=== PATIENT | male | born 1945 | race Caucasian/White ===

== ENCOUNTER → 2016-11-08 | Outpatient (CLI) | payer OTHER, MEDICARE ==
[~2016-11-08] MED LIST: ACET-749 PO; AMLO2.5T PO; AMOX875T PO; CEPH500C PO; FURO40TA3 PO; HYDR-5688 PO; LOSA1TAB38 PO; LTHSR/300 PO; LZL25 PO; NAPR-1168 PO; PEGSOL13; RMR15 PO; SPIR25TA PO; ULT50X PO; VST25HP PO; XRL15 PO; [UNRECOGNIZED DRUG - OTHER] INJ
--- NOTE | 2016-11-08 09:25 | DIAGNOSTIC IMAGING REPORT ---
ABDOMINAL ULTRASOUND COMPLETE HISTORY: Generalized abdominal pain.. COMPARISON: Abdominal ultrasound 01/03/2016. FINDINGS: Pancreas: Obscured by overlying bowel gas. Liver: The liver is echogenic consistent with fatty change. Gallbladder: No gallbladder wall thickening. No gallstones. CBD: 4 mm. Kidneys: No hydronephrosis. A 1.9 cm cyst within the left kidney containing a septation. This remains unchanged. There is no additional subcentimeter cyst within the left kidney. Spleen: Top normal in size measuring 12.9 cm in length. 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 IVC: Patent. IMPRESSION: 1. Hepatic steatosis. 2. There are 2 cysts within the left kidney with the largest measuring 1.9 cm. This is stable in size. 3. 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 4. The pancreas was obscured by overlying bowel gas. 5. Normal gallbladder. 6. The spleen is top normal in size. Electronically signed by: Micheal Villa M.D. 11/08/2016 9:23 AM Dictated Date/Time: 11/08/2016 9:19 AM
[2016-11-08 09:46] LABS: BASO % 0.1 %; BASO ABS # 0.01 K/uL (0-0.2); COMPLETE YES; EOS % 3.4 %; HEMATOCRIT 48.8 % (42-52); IG% 0.3 %; LYMPH % 19.8 %; LYMPH ABS # 1.46 K/uL (1.2-3.4); MEAN CELL VOLUME 84.7 fL (80-100); MEAN CORPUSCULAR HEMOGLOBIN 26.9 pg (25-34); MEAN CORPUSCULAR HGB CONC 31.8 g/dl (32-36); MONO % 11.1 %; NEUT % 65.3 %; PLATELET COUNT 197 K/uL (130-400); RED BLOOD COUNT 5.76 M/uL (4.7-6.1); WHITE BLOOD COUNT 7.38 K/uL (4.8-10.8)
[2016-11-08 10:00] LABS: AST/SGOT 13 U/L (15-37); BLOOD UREA NITROGEN 25 mg/dl (7-18); BUN/CREATININE RATIO 20.5 (10-20); CALCIUM 8.4 mg/dl (8.5-10.1); CARBON DIOXIDE 26 mmol/L (21-32); CHLORIDE 108 mmol/L (98-107); CHOLESTEROL 221 mg/dl (0-200); CHOLESTEROL/HDL RATIO 5.1; GLUCOSE 100 mg/dl (70-99); HDL CHOLESTEROL 43 mg/dl; POTASSIUM 4.1 mmol/L (3.5-5.1); SODIUM 143 mmol/L (136-145)
[2016-11-08 10:12] LABS: ALB/GLOB RATIO 1.1 (0.9-2); ALKALINE PHOSPHATASE 98 U/L (45-117); ALT/SGPT 28 U/L (12-78); LDL CHOLESTEROL CALCULATED 154 mg/dl; PHOSPHORUS 2.8 mg/dl (2.5-4.9); TRIGLYCERIDES 121 mg/dl (0-150); URIC ACID 7.3 mg/dl (2.6-7.2); VERY LOW DENSITY LIPOPROT CALC 24 mg/dl
[2016-11-08 10:25] LABS: ESTIMATED AVERAGE GLUCOSE 126 mg/dl; HA1C FLAG Normal (Normal)
[2016-11-11 12:07] LABS: C-REACTIVE PROT HIGHSEN 3.2 MG/L
--- NOTE | 2016-11-13 07:41 | CODING QUERY MEDICAL NECESSITY ---
SUPPORTING DIAGNOSIS NEEDED A supporting diagnosis is required for the test/procedure performed on this patient in order for us to be reimbursed by the patient's insurance. Please provide a supporting diagnosis for the following test/procedure listed below next to the test name along with your signature. *If there is no additional diagnosis for this patient that would support the following test/procedure please document that below next to the test/procedure. Test(s)/Procedure(s) that require a supporting diagnosis: * VITAMIN D 25-HYDROXY DIAGNOSIS: * VITAMIN B-12 LEVEL DIAGNOSIS: * PSA DIAGNOSIS: * C-REACTIVE PROTEIN DIAGNOSIS: * DOS: 11/08/16 Provider Signature: Date: Thank you Padma [facility] Information Management Once completed, please kindly fax back to [phone] For questions please call [phone]
[2016-11-14 00:57] LABS: 18KDIGG BAND NONREACTIVE (NONREACTIVE); 23KDIGG BAND NONREACTIVE (NONREACTIVE); 23KDIGM BAND NONREACTIVE (NONREACTIVE); 28KDIGG BAND NONREACTIVE (NONREACTIVE); 30KDIGG BAND NONREACTIVE (NONREACTIVE); 39KDIGG BAND NONREACTIVE (NONREACTIVE); 39KDIGM BAND NONREACTIVE (NONREACTIVE); 41KDIGG BAND REACTIVE (NONREACTIVE); 41KDIGM BAND NONREACTIVE (NONREACTIVE); 45KDIGG BAND NONREACTIVE (NONREACTIVE); 58KDIGG BAND NONREACTIVE (NONREACTIVE); 66KDIGG BAND NONREACTIVE (NONREACTIVE); 93KDIGG BAND NONREACTIVE (NONREACTIVE)
== END | disposition home or self-care (01) ==
LOC: C.ULTR 08:11
PROVIDERS: ATTEND Family Medicine
DX: R10.9 Unspecified abdominal pain (principal); R73.09 Other abnormal glucose; C41.9 Malignant neoplasm of bone and articular cartilage, unspecified; R06.00 Dyspnea, unspecified; A69.20 Lyme disease, unspecified; K76.0 Fatty (change of) liver, not elsewhere classified; N28.1 Cyst of kidney, acquired; E55.9 Vitamin D deficiency, unspecified; D51.9 Vitamin B12 deficiency anemia, unspecified; N40.0 Benign prostatic hyperplasia without lower urinary tract symptoms; I42.2 Other hypertrophic cardiomyopathy

== ENCOUNTER → 2016-11-11 | Day surgery (SDC) | payer OTHER, MEDICARE ==
[2016-11-06 07:38] VITALS: BMI 46.0
[~2016-11-11] VITALS: Ht 170.2 cm; Wt 134.1 kg
[~2016-11-11] MED LIST changes: +LIDOCAINE HCL 2% 2 ML VIAL (20MG/ML) ONE; +PROPOFOL IV EMULSION 10 MG/ML 20 ML VIAL IV ONE
[2016-11-11 12:09] VITALS: Ht 170.2 cm; Wt 134.1 kg
[2016-11-11 12:15] VITALS: BMI 46.0
[2016-11-11 12:18] VITALS: TEMP 36.8
--- NOTE | 2016-11-11 13:13 | Endo History and Physical ---
History & Physical Date of Service: Nov 11, 2016. Chief Complaint: Hx polyps Referring Physician: none History of Present Illness For colonoscopy Past Surgical History Hx Cardiac Surgery: No Hx Internal Defibrillator: No Hx Pacemaker: No Hx Abdominal Surgery: No Hx of Implantable Prosthesis: No Hx Post-Op Nausea and Vomiting: No Hx Cancer Surgery: No Hx Thoracic Surgery: No Hx Orthopedic: No Hx Urinary Tract Surgery: No Family History IBD Social History Smoking Status: Former Smoker Hx Substance Use: No Hx Alcohol Use: No Allergies Coded Allergies: No Known Allergies (Verified , 11/11/16) Current Medications Reported Home Medications Medications Dose Route/Sig Max Daily Dose Days Date Category Norvasc (Amlodipine Besylate) 2.5 Mg Tab 2.5 Mg PO QAM 11/06/16 Reported Cozaar (Losartan Potassium) 100 Mg Tab 100 Mg PO QAM 11/06/16 Reported Aldactone (Spironolactone) 25 Mg Tab 25 Mg PO QAM 11/06/16 Reported Naprosyn Ds (Naproxen) 550 Mg Tab 550 Mg PO BID PRN 11/06/16 Reported Indapamide 2.5 Mg Tab 1 Tab PO QAM 11/06/16 Reported Vital Signs Weight (Kilograms): 134.09 Height (Feet): 5 Height (Inches): 7 Date Time Temp Pulse Resp B/P Pulse Ox O2 Delivery O2 Flow Rate FiO2 11/11/16 12:18 36.8 82 20 160/72 95 Room Air Physical Exam General Appearance: + obese Respiratory/Chest: Respiratory effort: no dyspnea Cardiovascular: Heart Auscultation: RRR Abdomen: Inspection & Palpation: soft Assessment and Plan Hx of polyps for colonoscopy
--- NOTE | 2016-11-11 13:19 | Discharge Instructions ---
Endoscopy Patient Instructions Date / Procedure(s) Performed Nov 11, 2016. Colonoscopy Allergy Information Coded Allergies: No Known Allergies (Verified , 11/11/16) Discharge Date / Findings Nov 11, 2016. hemorrhoids Medication Instructions Restart Stopped Medication(s): resume meds Reported Home Medications Medications Dose Route/Sig Max Daily Dose Days Date Category Norvasc (Amlodipine Besylate) 2.5 Mg Tab 2.5 Mg PO QAM 11/06/16 Reported Cozaar (Losartan Potassium) 100 Mg Tab 100 Mg PO QAM 11/06/16 Reported Aldactone (Spironolactone) 25 Mg Tab 25 Mg PO QAM 11/06/16 Reported Naprosyn Ds (Naproxen) 550 Mg Tab 550 Mg PO BID PRN 11/06/16 Reported Indapamide 2.5 Mg Tab 1 Tab PO QAM 11/06/16 Reported Provider Instructions Activity Restrictions - No exercising or heavy lifting for 24 hours. - Do not drink alcohol the day of the procedure. - Do not drive a car or operate machinery until the day after the procedure. - Do not make any important decisions or sign important papers in 24 hours after the procedure. Following Day: - Return to full activity which may include returning to work/school. Diet Start your diet with liquids and light foods (jello, soup, juice, toast). Then eat your usual diet if not nauseated. Treatment For Common After Affects For mild abdominal pain, bloating, or excessive gas: - Rest - Eat lightly - Lie on right side Follow-Up Information Follow-up with none as scheduled Anesthesia Information What You Should Know You have had a procedure that required some medicine to reduce anxiety and discomfort. This treatment is called moderate sedation. After receiving the treatment, you may be sleepy, but you will be able to breathe on your own. The effects of the treatment may last for several hours. Follow these instructions along with Activity/Diet recommendations noted above: * Do NOT do anything where dizziness or clumsiness would be dangerous. * Rest quietly at home today, then you can be up and about tomorrow. * Have a responsible person stay with you the rest of today. * You may have had an I.V. today. If so, you may take the dressing off later today. Recommendations Call your doctor if: * Trouble breathing * Continuous vomiting for more than 24 hours * Temperature above 101 degrees * Severe abdominal pain or bloating * Pain not relieved by pain medicine ordered * There is increased drainage or redness from any incision * A large amount of rectal bleeding greater than 2-3 tablespoons. (If you had a polyp/s removed or have hemorrhoids, a small amount of blood - from the rectum is to be expected.) * You have any unanswered questions or concerns. IN THE EVENT OF A SERIOUS EMERGENCY, GO TO THE NEAREST EMERGENCY ROOM Your discharge instructions were prepared by provider Joaquin Kearns. Patient Instructions Signature Page Cam Singletary Patient (or Guardian) Signature/Date: I have read and understand the instructions given to me by my caregivers. Caregiver/RN/Doctor Signature/Date: The above-named patient and/or guardian has received patient instructions on this date. + Original Patient Signature Page (only) stays with chart. Please make copy for patient.
--- NOTE | 2016-11-11 13:22 | GI REPORT ---
Procedure Date: 11/11/2016 12:56 PM Procedure: Colonoscopy Indications: Personal history of colonic polyps Medicines: Propofol total dose 320 mg IV, Lidocaine 40 mg IV Complications: No immediate complications. Estimated Blood Loss: Estimated blood loss: none. Procedure: Pre-Anesthesia Assessment: - Prior to the procedure, a History and Physical was performed, and patient medications, allergies and sensitivities were reviewed. The patient's tolerance of previous anesthesia was reviewed. - The risks and benefits of the procedure and the sedation options and risks were discussed with the patient. All questions were answered and informed consent was obtained. After I obtained informed consent, the scope was passed under direct vision. Throughout the procedure, the patient's blood pressure, pulse, and oxygen saturations were monitored continuously. The scope was introduced through the anus and advanced to the cecum, identified by appendiceal orifice and ileocecal valve. The colonoscopy was performed without difficulty. The patient tolerated the procedure well. The quality of the bowel preparation was fair. Findings: Non-bleeding internal hemorrhoids were found during endoscopy. The hemorrhoids were mild. Impression: - Non-bleeding internal hemorrhoids. - No specimens collected. Recommendation: - Discharge patient to home (ambulatory). - Continue present medications. - Repeat colonoscopy in 5 years for surveillance. - Return to primary care physician PRN. Joaquin Kearns M.D. Joaquin Kearns MD 11/11/2016 1:23:05 PM This report has been signed electronically. Note Initiated On: 11/11/2016 12:56 PM I attest to the content of the Intraoperative Record and orders documented therein, exceptions below
[2016-11-11 13:45] VITALS: BP 107/65; PULSE 76; O2SAT 97
--- NOTE | 2016-11-11 13:46 | Anesthesiology Progress Note ---
Anesthesia Post Op Note Date & Time Nov 11, 2016 at 13:46 Vital Signs Pain Intensity: 0 Vital Signs Past 12 Hours Date Time Temp Pulse Resp B/P Pulse Ox O2 Delivery O2 Flow Rate FiO2 11/11/16 13:30 81 16 112/56 96 Room Air 11/11/16 13:15 82 16 114/66 98 Mask 10 11/11/16 12:18 36.8 82 20 160/72 95 Room Air Notes Mental Status: alert / awake / arousable, participated in evaluation Pt Amnestic to Procedure: Yes Nausea / Vomiting: adequately controlled Pain: adequately controlled Airway Patency, RR, SpO2: stable & adequate BP & HR: stable & adequate Hydration State: stable & adequate Anesthetic Complications: no major complications apparent
== END | disposition home or self-care (01) ==
LOC: C.GI 11:57
PROVIDERS: ATTEND Internal Medicine Gastroenterology
DX: Z12.11 Encounter for screening for malignant neoplasm of colon (principal); Z86.010 Personal history of colon polyps; K64.8 Other hemorrhoids; Z83.79 Family history of other diseases of the digestive system; Z87.891 Personal history of nicotine dependence

== ENCOUNTER 2016-12-07 13:09 | Emergency (ER) | payer OTHER, MEDICARE ==
[~2016-12-07] VITALS: Ht 170.2 cm; Wt 135.0 kg
[~2016-12-07 13:09] MED LIST changes: -ACET-749 PO; -AMOX875T PO; -CEPH500C PO; -FURO40TA3 PO; -HYDR-5688 PO; -LIDOCAINE HCL 2% 2 ML VIAL (20MG/ML) ONE; -LTHSR/300 PO; -PEGSOL13; -PROPOFOL IV EMULSION 10 MG/ML 20 ML VIAL IV ONE; -RMR15 PO; -ULT50X PO; -VST25HP PO; -XRL15 PO; -[UNRECOGNIZED DRUG - OTHER] INJ
[2016-12-07 13:14] VITALS: TEMP 36.5; Ht 170.2 cm; Wt 135.0 kg
[2016-12-07] MEDS ORDERED: XYLOCAINE 1%/SOD BICARB 20 ML VIAL INFIL ONE (13:30)
[2016-12-07] MEDS ORDERED: AMOX875T PO (13:52)
[2016-12-07] MEDS ORDERED: LTHSR/300 PO (13:52)
[2016-12-07] MEDS ORDERED: RMR15 PO (13:52)
[2016-12-07] MEDS ORDERED: VST25HP PO (13:52)
[2016-12-07] MEDS ORDERED: [UNRECOGNIZED DRUG - OTHER] INJ (13:52)
[2016-12-07] MEDS ORDERED: ACET-749 PO (13:52)
[2016-12-07] MEDS ORDERED: LZL25 PO (13:56)
[2016-12-07] MEDS ORDERED: AMLO2.5T PO (13:56)
[2016-12-07] MEDS ORDERED: NAPR-1168 PO (13:56)
[2016-12-07] MEDS ORDERED: LOSA1TAB38 PO (13:56)
[2016-12-07] MEDS ORDERED: SPIR25TA PO (13:56)
[2016-12-07] MEDS ORDERED: DIPHTHERIA/TETANUS/PERTUSSIS 0.5 ML SYR/VIAL IM. ONE (14:30)
[2016-12-07] MEDS ORDERED: CEPHALEXIN MONOHYDRATE 250 MG CAP PO ONE (14:30)
[2016-12-07] MEDS ORDERED: HYDR-5688 PO (14:53)
[2016-12-07] MEDS ORDERED: CEPH500C PO (14:53)
[2016-12-07] MEDS ORDERED: CEFAZOLIN SOD 1 GM VIAL IM ONE (15:00)
[2016-12-07] MEDS ORDERED: WATER, STERILE FOR INJ 10 ML VIAL ONE (15:02)
[2016-12-07 15:39] VITALS: BP 136/86; PULSE 86; O2SAT 97
--- NOTE | 2016-12-07 17:22 | EMERGENCY ROOM VISIT NOTE ---
ED Visit Note First contact with patient: 13:19 Chief complaint: Right index and long finger lacerations HPI: This 71-year-old white male presents for evaluation of a laceration on the dorsal aspect of his right index and long fingers. The patient was using a table saw to cut a piece of [place] this afternoon. The saw kicked and pulled his hand into the blade. He sustained a near amputation of his index finger and a laceration on the dorsum of the long finger. Bleeding was controlled with pressure. He denies any numbness or tingling. He notes loss of motion in the index finger. [id number]. No other complaints. Tetanus is believed to be out of date. Pain is 6/10. His accompanies him today. Supplemental sheet was not completed. Previous surgeries: Cataract surgery, colonoscopy Medical history: Significant for heart disease, hypertension, and obesity. 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 . No tobacco use. REVIEW OF SYSTEM: HEENT: No dizziness, visual problems, hearing loss, or tinnitus. There is no difficulty swallowing and no oral lesions are present. LYMPH: No adenopathy. PULMONARY: No cough, shortness of breath, sputum production or hemoptysis. CARDIOVASCULAR: No chest pain, palpitations, shortness of breath or peripheral edema. GASTROINTESTINAL: No diarrhea, constipation, nausea, vomiting, or abdominal pain. GENITOURINARY: No dysuria, frequency, urgency or nocturia. NEUROLOGIC: No weakness, muscle tenderness, epilepsy or history of neurological problems. MUSCULOSKELETAL: No history of joint tenderness/swelling. No history of arthritis or arthralgias. SKIN: No rashes or lesions. PSYCHIATRIC: No history of depression or mental illness. ENDOCRINE: No history of diabetes, thyroid disorders, or abnormal hair growth. Physical Exam: Vitals: Afebrile. Reviewed and filed in patient's chart General: Well-developed, well-nourished, elderly white male, in no acute distress. Obvious discomfort. He is sitting on the bed. Alert and oriented. Skin: Warm and dry with good turgor. No rashes. No ecchymosis or erythema. The patient is not diaphoretic. No abrasions. The patient has a 2 cm laceration present over the dorsum of his index finger. It is just distal to the DIP joint. Fingertip is hanging on by a small skin bridge on the flexor surface. There is also 1.5 cm laceration present on the dorsum of the right long finger middle phalanx. It is transverse. Small pieces of wood are visible in the wound. Musculoskeletal: Right index finger has visible bone exposed. There is no ability to extend the distal digit. He has intact flexion and extension at the MCP and PIP joints. He also has intact flexion and extension of the long finger at the MCP, PIP, and DIP joints. Strength is 5/5 for resisted extension. Neurologic: Gross sensation is intact across the hand and digits by soft touch. Impression: Right index and long finger lacerations with tendon involvement. Open Fracture of the distal phalanx index finger Procedure: Informed oral consent was obtained for repair. Right-hand was prepped with Betadine and draped with a sterile towel. Area was anesthetized using 9 mL total 1% plain buffered lidocaine in a digital block for each finger. Finger tourniquets were applied on each digit. Thorough inspection was performed, including use of self-retaining retractors. Patient violated the central portion of the extensor tendon on the long finger. More than 50% is violated. Small pieces of visible debris were removed with forceps. The index finger has an open fracture. Bone is entirely transected. It is just distal to the DIP joint. Joint is exposed but the articular cartilage appears to be intact. Extensor tendon is not visible. Wounds were irrigated copiously using normal sterile saline under jet spray lavage. Wounds were closed using 4- 0 nylon. Good wound edge approximation was achieved. Hemostasis was achieved. Plan: Patient was educated regarding today's findings. Conservative care measures were discussed. Bacitracin dressings were applied today. Patient was placed in an AlumaFoam splints and extension to protect the digits. I did speak with Dr. Coleman from orthopedics. He recommended the patient call the office on Friday for follow-up this week and likely surgical repair. Ice and elevate intermittently as needed for discomfort. Tylenol and ibuprofen every 6 hours as needed for pain. Prescriptions were provided for Keflex 500 mg 4 times a day 5 days as a prophylaxis against infection. First tablet was given in the ED. He was also prescribed Cost 5 mg to be used sparingly for severe pain. Driving precautions were given. He was also given an IM dose of Ancef 1 g in the ED. Wound care handout was provided. Sutures out in 12 days if he does not go to the OR. He may shower but should keep the fingers dry. Avoid soaking or swimming. Return to the ER for any acute changes or signs of infection. Is violated in the extensor tendon is violated and that there is increased risk for infection. Tetanus is updated today using Adacel 0.5 mL IM. Current/Historical Medications Scheduled Amlodipine (Norvasc), 2.5 MG PO QAM Cephalexin Monohydrate (Keflex), 500 MG PO QID Indapamide (Indapamide), 1 TAB PO QAM Losartan Potassium (Cozaar), 100 MG PO QAM Spironolactone (Aldactone), 25 MG PO QAM Scheduled PRN Hydrocodone/Acetaminophen 5MG/325MG (Cost 5MG/325MG), 1-2 TABLET PO Q6H PRN for Pain Naproxen Ds (Naprosyn Ds), 550 MG PO BID PRN for Pain Allergies Coded Allergies: No Known Allergies (Verified , 12/07/16) Vital Signs Date Time Temp Pulse Resp B/P Pulse Ox O2 Delivery O2 Flow Rate FiO2 12/07/16 15:39 86 16 136/86 97 12/07/16 13:14 36.5 85 20 166/84 95 Room Air Medications Administered Medications (Trade) Dose Ordered Sig/Barbara Route Start Time Stop Time Status Last Admin Dose Admin Diphtheria/ Pertussis/Tetanus Vacc (Adacel Inj) 0.5 ml ONCE ONCE IM. 12/07/16 14:30 12/07/16 14:31 DC 12/07/16 15:13 0.5 ML Cephalexin Monohydrate (Keflex Cap) 500 mg NOW ONCE PO 12/07/16 14:30 12/07/16 14:31 DC 12/07/16 15:12 500 MG Cefazolin Sodium (Ancef Inj) 1,000 mg ONE ONCE IM 12/07/16 15:00 12/07/16 15:01 DC 12/07/16 15:00 1,000 MG Departure Information Impression Primary Impression: Laceration of finger of right hand with tendon involvement Additional Impression: Open fracture of finger of right hand Dispostion Home / Self-Care Condition GOOD Prescriptions Cephalexin Monohydrate (Keflex) 500 Mg Cap 500 MG PO QID, #20 CAP Prov: Wesley Rosas,P.A. 12/07/16 Hydrocodone/Acetaminophen 5MG/325MG (Cost 5MG/325MG) Tab 1-2 TABLET PO Q6H Y for Pain, #15 TAB For Initial Treatment Prov: Wesley Rosas,P.A. 12/07/16 Referrals Abrahan Cheney MD Forms HOME CARE DOCUMENTATION FORM, SPECIAL NARCOTICS INSTRUCTIONS, MOTRIN USE, TYLENOL USE, IMPORTANT VISIT INFORMATION Patient Instructions My [facility] Additional Instructions Keep the fingers dry at all times and keep your splints in place Call Dr. Cheney Friday for follow-up this week Keflex one pill 4 times a day 5 days Tylenol and Motrin every 6 hours as needed for mild pain Substitute Cost 5 mg every 6 hours as needed for severe pain-no driving Return to the ED for any other concerns Problem Qualifiers
== END 2016-12-07 15:41 | disposition home or self-care (01) ==
LOC: C.EDB 13:15 → C.EDD 15:41
DX: S62.600B Fracture of unspecified phalanx of right index finger, initial encounter for open fracture (principal); Z79.899 Other long term (current) drug therapy; W31.2XXA Contact with powered woodworking and forming machines, initial encounter

== ENCOUNTER → 2016-12-13 | Outpatient (CLI) | payer OTHER, MEDICARE ==
[~2016-12-13] MED LIST changes: +CEPH500C PO; +FURO40TA3 PO; +HYDR-5688 PO; +PEGSOL13; +ULT50X PO; +XRL15 PO
--- NOTE | 2016-12-13 14:06 | DIAGNOSTIC IMAGING REPORT ---
ULTRASOUND RIGHT LOWER EXTREMITY VENOUS CLINICAL HISTORY: Right leg pain and swelling. COMPARISON STUDY: No priors. TECHNIQUE: Real-time, grayscale, and color Doppler sonography of the deep veins of the right lower extremity was performed from the inguinal crease to the calf. Compression and augmentation were utilized. FINDINGS: There is no sonographic evidence of deep venous thrombosis identified in the right lower extremity. The common femoral, superficial femoral, and popliteal veins are patent and normally compressible. The greater saphenous vein and the profunda femoris vein at the junction with the common femoral vein are clear. The visualized calf veins are patent. IMPRESSION: There is no sonographic evidence of deep venous thrombosis identified in the right lower extremity. Electronically signed by: Samuel Mullins M.D. 12/13/2016 2:04 PM Dictated Date/Time: 12/13/2016 2:04 PM
== END | disposition home or self-care (01) ==
LOC: C.ULTRBC 13:15
PROVIDERS: ATTEND Family Medicine
DX: M79.89 Other specified soft tissue disorders (principal); M79.604 Pain in right leg

== ENCOUNTER 2017-01-07 07:04 | Inpatient (IN) | payer OTHER, MEDICARE ==
[~2017-01-07] VITALS: Ht 172.7 cm; Wt 129.7 kg
[~2017-01-07 07:04] MED LIST changes: -FURO40TA3 PO; -PEGSOL13; -ULT50X PO; -XRL15 PO
[2017-01-07] MEDS ORDERED: NITROGLYCERIN 0.4 MG SL PER TAB CHARGE ONE (07:21)
--- NOTE | 2017-01-07 07:29 | EMERGENCY ROOM VISIT NOTE ---
History Report prepared by Myra: Dari Catalan Under the Supervision of: Dr. Sacha Patton M.D. First contact with patient: 07:08 Chief Complaint: CHEST PAIN Stated Complaint: CHEST PAIN Nursing Triage Summary: pain started after he woke up as normal, was making coffee, felt discomfort, now with sharp pain left side of chest radiating to armpit left. History of Present Illness The patient is a 71 year old male who presents to the Emergency Room with complaints of sharp, waxing and waning left sided chest pain that began about 30 minutes SOLICITOR PATENT. He notes that it is located under his left breast. It radiates through his left axilla. Per patient's , the patient been intermittently short of breath for the past year or so. His shortness of breath has worsened in the past few days. The patient is currently being worked up for heart disease by Dr. Leigh. His testing so far has been nondiagnostic. He had an echo within the past month or two. He has a cardiac catheterization scheduled in a few weeks. He did not take anything today for pain. He has never taken Nitroglycerin. Denies lightheadedness, nausea, leg pain, or other complaints. He does not recall any abnormal straining or exertion recently. Source of History: patient Onset: 30 minutes SOLICITOR PATENT Position: chest (left) Timing: waxes/wanes Associated Symptoms: + SOB, No nausea Review of Systems All systems have been listed, reviewed, and are negative other than those previously mentioned. Please see Additional Medical History Sheet. Past Medical & Surgical Medical Problems: (1) Hypertension Family History Cancer Heart disease Hypertension Lung disease Social History Smoking Status: Former Smoker Smokeless Tobacco Use: No Alcohol Use: none Marital Status: Housing Status: lives with significant other Occupation Status: retired Current/Historical Medications Scheduled Amlodipine (Norvasc), 2.5 MG PO QAM Furosemide (Lasix), 40 MG PO DAILY Indapamide (Indapamide), 1 TAB PO QAM Losartan Potassium (Cozaar), 100 MG PO QAM Spironolactone (Aldactone), 25 MG PO QAM Miscellaneous Medications Peg 3350-Potassium Chloride-So (Gavilyte-N/Flavor Pack) Allergies Coded Allergies: No Known Allergies (Verified , 01/07/17) Physical Exam Vital Signs Date Time Temp Pulse Resp B/P Pulse Ox O2 Delivery O2 Flow Rate FiO2 01/07/17 10:33 82 26 166/89 94 Nasal Cannula 4.0 01/07/17 08:54 76 22 166/81 98 Nasal Cannula 4.0 01/07/17 08:32 79 20 159/79 92 Nasal Cannula 4.0 01/07/17 08:14 79 20 125/54 92 Nasal Cannula 4.0 01/07/17 07:40 Nasal Cannula 4.0 01/07/17 07:38 86 24 103/58 90 Nasal Cannula 3.0 01/07/17 07:34 90 Nasal Cannula 3.0 01/07/17 07:33 92 28 113/78 88 Nasal Cannula 3.0 01/07/17 07:28 94 Nasal Cannula 2.0 01/07/17 07:24 91 24 107/84 94 Nasal Cannula 3.0 01/07/17 07:20 97 26 139/96 98 Room Air 01/07/17 07:10 82 01/07/17 07:09 36.9 84 21 135/82 90 Room Air Physical Exam GENERAL: Patient awake, alert, oriented x 3. Patient follows commands. Patient does not appear toxic. Patient is adequately hydrated and well- nourished. SKIN: No erythema, pallor, cyanosis or rash HEENT: Normal head, pupils equal, reactive to light and accommodation. Mucous membranes appear dry; otherwise, oral cavity and posterior pharynx appear normal. Neck: Without adenopathy, no neck vein distention. LUNGS: Clear to auscultation. No wheezes, no rales, no rhonchi. HEART: Muffled heart tones. ABDOMEN: Obese, soft nontender. No masses, no rebound, no hepatomegaly or splenomegaly. EXTREMITIES: No signs of trauma. No pedal or pretibial edema. Some tenderness to the right thigh and right calf. NEUROLOGIC: Cranial nerves II-XII within normal limits. No gross motor sensory function deficits. Medical Decision & Procedures ER Provider Diagnostic Interpretation: Radiology results as stated below per my review and radiologist interpretation: CHEST ONE VIEW PORTABLE CLINICAL HISTORY: Atypical chest pain COMPARISON STUDY: 12/27/2015 FINDINGS: The heart is the upper limits of normal in size. There is no failure. There are patchy left basal airspace opacities, atelectatic versus inflammatory. No pleural effusions are visualized.[ IMPRESSION: Subtle left basal airspace opacities, atelectatic versus inflammatory. Electronically signed by: Rajeev Costa M.D. 01/07/2017 7:39 AM Dictated Date/Time: 01/07/2017 7:[address] ANGIOGRAM OF THE CHEST CLINICAL HISTORY: Atypical chest pain. ELEVATED D-DIMER COMPARISON STUDY: 02/02/2016 TECHNIQUE: Following the IV administration of 93 mL of Optiray-320, CT angiogram of the thorax was performed from the thoracic inlet to the lung bases utilizing the pulmonary embolus protocol. Images are reviewed in the axial, sagittal, and coronal planes. IV contrast was administered without complication. MIP imaging was performed. CT DOSE: 737.74 mGy.cm FINDINGS: There is a borderline enlarged subcarinal lymph node similar to the preceding study. There was no evidence of thoracic aortic dilatation. There are bilateral pulmonary artery filling defects, indicative acute bilateral pulmonary embolism. There are no findings of significant right ventricular strain. No pleural effusions are visualized. There are bibasal or dependent airspace opacities. There is pulmonary emphysema. There is a groundglass opacity within the lateral aspect of the left upper lobe IMPRESSION: 1. Acute bilateral pulmonary embolism with a moderate thrombus burden. No CT evidence of right ventricular strain 2. Emphysema 3. Bibasal airspace opacities Electronically signed by: Rajeev Costa M.D. 01/07/2017 8:42 AM Dictated Date/Time: 01/07/2017 8:36 AM Laboratory Results 01/07/17 07:50 Red Blood Count 5.20, Mean Corpuscular Volume 83.3, Mean Corpuscular Hemoglobin 27.9, Mean Corpuscular Hemoglobin Concent 33.5, Mean Platelet Volume 11.8, Neutrophils (%) (Auto) 70.0, Lymphocytes (%) (Auto) 13.7, Monocytes (%) (Auto) 10.9, Eosinophils (%) (Auto) 5.0, Basophils (%) (Auto) 0.1, Neutrophils # (Auto ) 6.30, Lymphocytes # (Auto) 1.23, Monocytes # (Auto) 0.98, Eosinophils # (Auto ) 0.45, Basophils # (Auto) 0.01 01/07/17 07:22 Test 01/07/17 07:22 01/07/17 07:28 4/4/17 07:50 Prothrombin Time 10.6 SECONDS (9.0-12.0) Prothromb Time International Ratio 1.0 (0.9-1.1) Activated Partial Thromboplast Time 24.9 SECONDS (21.0-31.0) Partial Thromboplastin Ratio 1.0 Anion Gap 9.0 mmol/L (3-11) Est Creatinine Clear Calc Drug Dose 77.1 ml/min Estimated GFR () 71.1 Estimated GFR (Non- 61.3 BUN/Creatinine Ratio 18.0 (10-20) Calcium Level 8.5 mg/dl (8.5-10.1) Total Bilirubin 0.5 mg/dl (0.2-1) Aspartate Amino Transf (AST/SGOT) 13 U/L (15-37) Alanine Aminotransferase (ALT/SGPT) 25 U/L (12-78) Alkaline Phosphatase 114 U/L (45-117) Total Protein 7.5 gm/dl (6.4-8.2) Albumin 3.6 gm/dl (3.4-5.0) Globulin 3.9 gm/dl (2.5-4.0) Albumin/Globulin Ratio 0.9 (0.9-2) Bedside D-Dimer > 450 ng/mlFEU (0-450) Bedside Troponin I 0.010 ng/ml (0-0.045) White Blood Count 9.00 K/uL (4.8-10.8) Red Blood Count 5.20 M/uL (4.7-6.1) Hemoglobin 14.5 g/dL (14.0-18.0) Hematocrit 43.3 % (42-52) Mean Corpuscular Volume 83.3 fL (80-100) Mean Corpuscular Hemoglobin 27.9 pg (25-34) Mean Corpuscular Hemoglobin Concent 33.5 g/dl (32-36) Platelet Count 161 K/uL (130-400) Mean Platelet Volume 11.8 fL (7.4-10.4) Neutrophils (%) (Auto) 70.0 % Lymphocytes (%) (Auto) 13.7 % Monocytes (%) (Auto) 10.9 % Eosinophils (%) (Auto) 5.0 % Basophils (%) (Auto) 0.1 % Neutrophils # (Auto) 6.30 K/uL (1.4-6.5) Lymphocytes # (Auto) 1.23 K/uL (1.2-3.4) Monocytes # (Auto) 0.98 K/uL (0.11-0.59) Eosinophils # (Auto) 0.45 K/uL (0-0.5) Basophils # (Auto) 0.01 K/uL (0-0.2) RDW Standard Deviation 49.6 fL (36.4-46.3) RDW Coefficient of Variation 16.2 % (11.5-14.5) Immature Granulocyte % (Auto) 0.3 % Immature Granulocyte # (Auto) 0.03 K/uL (0.00-0.02) Laboratory results as stated above per my review. Medications Administered Medications (Trade) Dose Ordered Sig/Barbara Route Start Time Stop Time Status Last Admin Dose Admin Nitroglycerin (Nitrostat Tab) 1.2 mg STK-MED ONCE .ROUTE 01/07/17 07:21 01/07/17 07:22 DC 01/07/17 07:16 1.2 MG Morphine Sulfate (MoRPHine SULFATE INJ) 8 mg Q1H PRN IV 01/07/17 07:30 01/07/17 11:16 DC 01/07/17 10:32 8 MG Heparin Sodium/ Dextrose (Heparin 25,000 Unit/500ml D5W) 25,000 unit STK-MED ONCE .ROUTE 01/07/17 09:06 01/07/17 09:07 DC 01/07/17 09:08 25,000 UNIT Heparin Sodium (Porcine) (Heparin Sq 5000 Unit/0.5ml) 10,000 unit STK-MED ONCE .ROUTE 01/07/17 09:06 01/07/17 09:07 DC 01/07/17 09:07 8,000 UNIT ECG Indication: chest pain Rate (beats per minute): 78 Rhythm: sinus rhythm Findings: no acute ischemic change, other (occasional fusion beats, low voltage criteria) ED Course 0711: Past medical records reviewed. The patient was evaluated in room A11B. A complete history and physical examination was performed. 0730: Ordered Nitroglycerin 0.4 mg SL, Zofran Inj 4 mg IV, Morphine Sulfate 8 mg IV. 0851: Ordered Heparin/Sodium Dextrose 1 ea. 0855: I discussed the case with Dr. Lopez - [facility] Hospitalist. The patient will be evaluated for further management. 0904: Upon reevaluation, the patient is feeling better.I discussed today's findings with the patient. He verbalized agreement of the treatment plan. Medical Decision I considered multiple diagnoses including myocardial infarction, chest wall pain , pericarditis, myocarditis, aortic emergencies, pulmonary embolism, congestive heart failure, GI causes, and other significant cardiopulmonary disorders. Multiple labs, EKG and imaging were obtained. Please see above. CT revealed a PE. Patient also has symptoms to suggest a DVT in his right leg. The patient was started on heparin here in the ED. I reevaluated the patient multiple times. I explained to the patient the need for anticoagulation. I also discussed care with the patient's and with the hospitalist. Consults Time Called: 0850 Consulting Physician: Dr. John CORONADO Hospitalist Returned Call: [phone] I discussed the case with Dr. John CORONADO Hospitalist. The patient will be evaluated for further management. Impression Primary Impression: Pulmonary embolism Critical Care I have personally spent greater than 35 minutes of critical care time in the direct management of this patient. This includes bedside care, interpretation of diagnostic studies, and testing, discussion with consultants, patient, and family members, and other required patient management activities. This 35 minutes is in excess of all separately billable procedures. Scribe Attestation The scribe's documentation has been prepared under my direction and personally reviewed by me in its entirety. I confirm that the note above accurately reflects all work, treatment, procedures, and medical decision making performed by me. Departure Information Dispostion Being Evaluated By Hospitalist Referrals Stevie Higginbotham M.D. (PCP) Patient Instructions My [facility]
[2017-01-07] MEDS ORDERED: ONDANSETRON INJ 2 MG/ML 2 ML VIAL IV PRN ×2 (07:30→10:45)
[2017-01-07] MEDS ORDERED: NITROGLYCERIN 0.4 MG SL PER TAB CHARGE SL PRN (07:30)
[2017-01-07] MEDS ORDERED: MoRPHine SULFATE 10 MG/ML CARP/VIAL IV PRN (07:30)
--- NOTE | 2017-01-07 07:41 | DIAGNOSTIC IMAGING REPORT ---
CHEST ONE VIEW PORTABLE CLINICAL HISTORY: Atypical chest pain COMPARISON STUDY: 12/27/2015 FINDINGS: The heart is the upper limits of normal in size. There is no failure. There are patchy left basal airspace opacities, atelectatic versus inflammatory. No pleural effusions are visualized.[ IMPRESSION: Subtle left basal airspace opacities, atelectatic versus inflammatory. Electronically signed by: Rajeev Costa M.D. 01/07/2017 7:39 AM Dictated Date/Time: 01/07/2017 7:39 AM
[2017-01-07 08:08] LABS: BASO % 0.1 %; BASO ABS # 0.01 K/uL (0-0.2); COMPLETE YES; HEMATOCRIT 43.3 % (42-52); IG% 0.3 %; LYMPH % 13.7 %; LYMPH ABS # 1.23 K/uL (1.2-3.4); MEAN CELL VOLUME 83.3 fL (80-100); MEAN CORPUSCULAR HEMOGLOBIN 27.9 pg (25-34); MEAN CORPUSCULAR HGB CONC 33.5 g/dl (32-36); MEAN PLATELET VOLUME 11.8 fL (7.4-10.4); MONO % 10.9 %; PLATELET COUNT 161 K/uL (130-400)
[2017-01-07 08:09] LABS: CALCIUM 8.5 mg/dl (8.5-10.1); CREATININE 1.2 mg/dl (0.60-1.40); POTASSIUM 4.5 mmol/L (3.5-5.1)
[2017-01-07 08:12] LABS: ALB/GLOB RATIO 0.9 (0.9-2)
[2017-01-07] MEDS ORDERED: OPTIRAY 320 IV PRN (08:15)
--- NOTE | 2017-01-07 08:43 | DIAGNOSTIC IMAGING REPORT ---
CT ANGIOGRAM OF THE CHEST CLINICAL HISTORY: Atypical chest pain. ELEVATED D-DIMER COMPARISON STUDY: 02/02/2016 TECHNIQUE: Following the IV administration of 93 mL of Optiray-320, CT angiogram of the thorax was performed from the thoracic inlet to the lung bases utilizing the pulmonary embolus protocol. Images are reviewed in the axial, sagittal, and coronal planes. IV contrast was administered without complication. MIP imaging was performed. CT DOSE: 737.74 mGy.cm FINDINGS: There is a borderline enlarged subcarinal lymph node similar to the preceding study. There was no evidence of thoracic aortic dilatation. There are bilateral pulmonary artery filling defects, indicative acute bilateral pulmonary embolism. There are no findings of significant right ventricular strain. No pleural effusions are visualized. There are bibasal or dependent airspace opacities. There is pulmonary emphysema. There is a groundglass opacity within the lateral aspect of the left upper lobe IMPRESSION: 1. Acute bilateral pulmonary embolism with a moderate thrombus burden. No CT evidence of right ventricular strain 2. Emphysema 3. Bibasal airspace opacities Electronically signed by: Rajeev Costa M.D. 01/07/2017 8:42 AM Dictated Date/Time: 01/07/2017 8:36 AM
[2017-01-07] MEDS ORDERED: HEPARIN 25000 UNIT/500 ML D5W ONE (09:06)
[2017-01-07] MEDS ORDERED: HEPARIN SOD 5000 UNIT/0.5 ML CARP ONE (09:06)
[2017-01-07] MEDS ORDERED: FURO40TA3 PO (09:06)
[2017-01-07] MEDS ORDERED: PEGSOL13 (09:06)
[2017-01-07 09:11] LABS: PROTHROMBIN TIME (PATIENT) 10.6 SECONDS (9.0-12.0)
[2017-01-07] MEDS ORDERED: INFLUENZA VIRUS QUAD VACCINE 0.5 ML SYR IM. ONE (10:45)
[2017-01-07] MEDS ORDERED: POLYETHYLENE (MIRALAX) 17 GM PACK PO PRN (10:45)
[2017-01-07] MEDS ORDERED: MAGNESIUM HYDROXIDE SUSP 30 ML UDC PO PRN (10:45)
[2017-01-07] MEDS ORDERED: PNEUMOCOCCAL POLYSACCHARIDES 25 MCG/0.5 ML VIAL/SYR IM. ONE (10:45)
[2017-01-07] MEDS ORDERED: ACETAMINOPHEN 325 MG TAB PO PRN (10:45)
[2017-01-07] MEDS ORDERED: MoRPHine SULFATE 4 MG/ML 1 ML CARP\\VIAL IV PRN (11:00)
[2017-01-07 11:01] VITALS: BP 166/89; PULSE 80; TEMP 37; O2SAT 94; Ht 172.7 cm; Wt 129.7 kg
[2017-01-07] MEDS ORDERED: INFLUENZA ADMINISTRATION CHARGE ONE (11:30)
[2017-01-07] MEDS ORDERED: PNEUMOCOCCAL ADMINISTRATION CHARGE ONE (11:30)
[2017-01-07] MEDS ORDERED: HEPARIN 25,000 UNIT/500ML D5W 500 ML IV PRN (11:45)
--- NOTE | 2017-01-07 11:58 | HISTORY & PHYSICAL EXAMINATION ---
DATE OF ADMISSION: 01/07/2017 CHIEF COMPLAINT: Chest pain. ADMITTING DIAGNOSIS: Bilateral pulmonary embolism. HISTORY OF PRESENT ILLNESS: Mr. Singletary is a 71-year-old male who has a fairly significant prehospital history of progressive shortness of breath and weakness. The patient follows with [facility] and has had multiple evaluations regarding this including stress test, echocardiogram, referral to pulmonary function testing. The patient was scheduled for an outpatient cardiac catheterization as his stress test has been negative of late. Approximately 1 month ago. The patient unfortunately had an injury to his right hand requiring surgery. Surrounding that time, the patient had some right leg discomfort. The patient has a previous history of DVT of his left leg which the patient cannot recall whether it was provoked or not, or whether he had serology to look for hypercoagulable state. His family physician is an outside practitioner and I do not have access to any records such as that. The patient had a Doppler of his right leg in 12/13/2016 which was unremarkable for DVT. The patient was in his usual exertional dyspneic state when he presented with significant chest discomfort and worse dyspnea. The patient had a CT angiogram of his chest which showed bilateral pulmonary embolisms with moderate clot burden. He is referred for admission for the same. The patient is feeling somewhat better, did receive morphine for his chest pain and he is on a heparin infusion currently. PAST MEDICAL HISTORY: As mentioned is DVT 2 years ago. He states that he does commute to [place] frequently and this was attributed possibly to his car commuting. He was on Xarelto for a period of time, this was discontinued. He has a history of colonoscopy with polypectomy, but her recent colonoscopy in 2017 was unremarkable. He has a history of hypertension. MEDICATIONS: Lasix 40 a day, indapamide 1 a day, spironolactone 25 a day, Cozaar 100 mg a day and amlodipine 2.5 a day. SOCIAL HISTORY: The patient quit smoking 35 years ago, quit drinking 35 years ago. He did use drugs occasionally which he also quit 35 years ago. He is very concerned about relapsing given the fact that he is taking opiates and wants to be concerned with that. He also notes that he has had opioid-induced constipation in the past surrounding his surgery. FAMILY HISTORY: For bowel cancer in his maternal grandmother, heart disease, hypertension. REVIEW OF SYSTEMS: Ten systems were reviewed and are negative unless listed above. PHYSICAL EXAMINATION: GENERAL: He is pleasant. He is anxious. VITAL SIGNS: Temperature 36.9, heart rate 76, respirations rate 22, BP 166/81. His O2 sat was 88 on room air. It has come up nicely with nasal cannula. HEAD, EYES, EARS, NOSE, AND THROAT: PERRL, EOMI. Oropharynx clear. NECK: Without lymphadenopathy. Trachea is midline. HEART: Regular without murmurs, clicks, rubs or gallops. LUNGS: Decreased breath sounds at the bases, otherwise clear. No wheezes or crackles. No focal air losses. ABDOMEN: Obese, normoactive bowel sounds, soft. EXTREMITIES: Without cyanosis, clubbing or edema. He does have some calf pain without evidence of cords or focal areas. He has got some right inner thigh pain. SKIN EXAMINATION: Without lesions, growths, bruises or bleeding. He does have a dressing on his right hand and a splint keeping his fingers in extension from his table saw injury. LABORATORY DATA: White count of 9, H\T\H 14 and 43, platelets 161. BUN and creatinine 22 and 1.2. D-dimer was greater than 450. He did have the as mentioned CTA. He has an EKG which shows normal sinus rhythm, nearing a first degree AV block and possibly inferior Q-waves, which is similar to an EKG from 1 year ago. 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 ASSESSMENT: A 71-year-old male here with bilateral pulmonary embolism with moderate clot burden. PLAN: The patient will be put on heparin infusion for the initiation of his hospital stay. We did discuss the multiple anticoagulation medications and since he was on Xarelto in the past he is leaning towards being on a NOAC in the future. This discussion will be made once case management reviews the cost of NOACs and his stability is determined after his first day or two. Regarding his hypertension, we will maintain all of his usual home medications. Regarding his right leg pain, dopplers will be undertaken to see if he developed a blood clot between the 10th and now. Regarding his opioid-induced constipation, Senokot will be given along with p.r.n. MiraLax and Milk of Magnesia. DVT prevention is heparin infusion and DNR status was discussed with the patient, he is not settled on it and he will discuss it further with his .
[2017-01-07] MEDS ORDERED: SENNA 8.6 MG TAB PO ONE (12:00)
[2017-01-07 12:24] VITALS: PULSE 72; O2SAT 93
--- NOTE | 2017-01-07 14:00 | DIAGNOSTIC IMAGING REPORT ---
RIGHT LOWER EXTREMITY VENOUS DOPPLER CLINICAL HISTORY: Chest pain. COMPARISON STUDY: Right lower extremity venous Doppler December 13, 2016. TECHNIQUE: Sonography of the deep venous system of the right lower extremity was performed. Compression and augmentation were evaluated. FINDINGS: Note is made of deep venous thrombus within the right posterior tibial, peroneal and anterior tibial veins which is new since exam of December 13, 2016. IMPRESSION: Interval development of deep venous thrombus within the right posterior tibial, peroneal and anterior tibial veins. Electronically signed by: Javed Mata M.D. 01/07/2017 1:59 PM Dictated Date/Time: 01/07/2017 1:57 PM
[2017-01-07] MEDS: MoRPHine SULFATE 2 MG/ML CARP IV PRN ×2 (14:52→22:47)
[2017-01-07 15:45] VITALS: BP 148/82; PULSE 79; TEMP 36.4; O2SAT 91
[2017-01-07 16:12] LABS: PARTIAL THROMBOPLASTIN RATIO 1.9
[2017-01-07 16:51] LABS: URINE APPEARANCE CLEAR (CLEAR); URINE BILIRUBIN NEG (NEG); URINE COLOR YELLOW; URINE NITRITE NEG (NEG); URINE SPECIFIC GRAVITY > 1.045 (1.000-1.030); UROBILINOGEN NEG (NEG); ZZUR CULT IF INDIC CLEAN CATCH NO
[2017-01-07 16:58] LABS: MANUAL MICROSCOPIC REQUIRED? NO; REVIEW REQ? NO
[2017-01-07 19:10] VITALS: BP 126/70; PULSE 73; TEMP 36.7; O2SAT 91
[2017-01-07 20:00] VITALS: O2SAT 91
[2017-01-07] MEDS ORDERED: NURSING VERBAL MED ORDER ONE (22:15)
[2017-01-07] MEDS: PANTOprazole SOD 40 MG TAB PO SCH (22:20)
[2017-01-07 23:11] VITALS: BP 121/87; PULSE 64; TEMP 36.4; O2SAT 94
[2017-01-08] VITALS (8 sets, daily range): BP systolic 116–152; BP diastolic 56–84; PULSE 68–81; TEMP 36.2–37; O2SAT 92–95
[2017-01-08] MEDS: TRAMADOL HCL 50 MG TAB PO PRN ×3 (05:28→17:47)
[2017-01-08 05:30] LABS: HEMATOCRIT 40.8 % (42-52); MEAN CELL VOLUME 83.8 fL (80-100); MEAN CORPUSCULAR HEMOGLOBIN 28.3 pg (25-34); MEAN CORPUSCULAR HGB CONC 33.8 g/dl (32-36); MEAN PLATELET VOLUME 11.5 fL (7.4-10.4); PLATELET COUNT 155 K/uL (130-400); RED BLOOD COUNT 4.87 M/uL (4.7-6.1); WHITE BLOOD COUNT 9.23 K/uL (4.8-10.8)
[2017-01-08 05:47] LABS: PARTIAL THROMBOPLASTIN RATIO 1.7
[2017-01-08 05:57] LABS: BUN/CREATININE RATIO 18.5 (10-20); CALCIUM 8.3 mg/dl (8.5-10.1); POTASSIUM 4.1 mmol/L (3.5-5.1)
[2017-01-08] MEDS ORDERED: HEPARIN IV BOLUS 4,000 UNIT in SYRINGE 0 ML IV STA (06:07)
--- NOTE | 2017-01-08 06:37 | Clinical Documentation Query ---
CLINICAL DOCUMENTATION QUERY 71 year old male who presents to the Emergency Room with complaints of sharp, waxing and waning left sided chest pain. Query #1/2 In your clinical opinion is this patient being managed for: (C ) Acute DVT of right LE precipitating Bilateral PE's. ( ) Other explanation of clinical findings (Please Explain) ( ) Unable to determine (Please Define) ( ) Need to Discuss ( ) Not Agree The medical record reflects the following clinical findings, treatment, and risk factors. Clinical Indicators: +PE, Veinous US shows Interval development of deep venous thrombus within the right posterior tibial, peroneal and anterior tibial veins. Treatment: Heparin gtt Risk Factors: Age, obesity (BMI 43.5), Hx of DVTs, and frequent car trips to [place]. Query #2/2 In your clinical opinion is this patient being managed for: ( X ) Chronic preserved EF heart failure in setting of Hypertensive heart disease treated with home Lasix, spirolactone, Cozaar, and Amlodipine, ( ) Other explanation of clinical findings (Please Explain) ( ) Unable to determine (Please Define) ( ) Need to Discuss ( ) Not Agree The medical record reflects the following clinical findings, treatment, and risk factors. Clinical Indicators: BP 150's/80's, Echo from 01/03/16 showed left ventricle is normal in size.There is mild concentric left ventricular hypertrophy. Left ventricular systolic function is normal. Ejection Fraction = 55-60%. Treatment: Lasix, spirolactone, Cozaar, Amlodipine, Risk Factors: Age, left ventricular hypertrophy, use of antihypertensive and diuretic therapies at home. Please clarify and document your clinical opinion in the progress notes and discharge summary. Terms such as "probable", "suspected", "likely", "questionable", "possible", or "still to be ruled out" are acceptable. IF IN AGREEMENT, YOU MUST DOCUMENT ABOVE DIAGNOSTIC STATEMENT IN DAILY PROGRESS NOTES AND DISCHARGE SUMMARY. This document is not part of the patient's record. Thank You, Bautista Siddiqui RN [phone]
[2017-01-08] MEDS: FUROSEMIDE 40 MG TAB PO SCH (08:28)
[2017-01-08] MEDS: DOXAZosin MESYLATE TAB 4 MG TAB PO SCH (09:28)
[2017-01-08] MEDS: SPIRONOLACTONE 25 MG TAB PO SCH (09:28)
[2017-01-08] MEDS: LOSARTAN POTASSIUM 50 MG TAB PO SCH (09:29)
[2017-01-08] MEDS: INDAPAMIDE 1.25 MG TAB PO SCH (09:29)
[2017-01-08] MEDS: PANTOprazole SOD 40 MG TAB PO SCH (09:30)
[2017-01-08] MEDS: AMLODIPINE BESYLATE 5 MG TAB PO SCH (09:30)
[2017-01-08] MEDS: SENNA 8.6 MG TAB PO SCH (09:31)
--- NOTE | 2017-01-08 10:42 | Progress Note ---
Subjective Date of Service: Jan 08, 2017. Subjective Pt evaluation today including: conversation w/ patient, physical exam, chart review, lab review, review of studies, review of inpatient medication list Pt resting comfortably in chair States mild chest discomfort with deep inspiration No worsening shortness of breath No fevers or chills No other concerns expressed Problem List Medical Problems: (1) Laceration of finger of right hand with tendon involvement Status: Acute (2) Open fracture of finger of right hand Status: Acute (3) Pulmonary embolism Status: Acute Review of Systems Constitutional: No chills, No fever Respiratory: No cough, No dyspnea on exertion, No shortness of breath, No sputum, No wheezing Cardiac: No chest pain, No orthopnea Abdomen: No diarrhea, No nausea, No pain, No vomiting Musculoskeletal: No joint pain, No muscle pain Male : No dysuria, No urinary frequency Psychiatric: No anxiety, No depression symptoms Objective Vital Signs Date Time Temp Pulse Resp B/P Pulse Ox O2 Delivery O2 Flow Rate FiO2 01/08/17 08:00 Nasal Cannula 2.0 01/08/17 07:21 36.7 73 16 132/82 93 Nasal Cannula 2.0 01/08/17 04:00 Nasal Cannula 2.0 01/08/17 03:41 37.0 75 20 152/84 95 Nasal Cannula 2.0 01/08/17 00:01 94 Nasal Cannula 2.0 01/07/17 23:11 36.4 64 16 121/87 94 Nasal Cannula 2.0 01/07/17 20:00 91 Nasal Cannula 2.0 01/07/17 19:10 36.7 73 18 126/70 91 Nasal Cannula 2.0 01/07/17 16:00 Nasal Cannula 2.0 01/07/17 15:45 36.4 79 20 148/82 91 Nasal Cannula 2.0 01/07/17 12:24 72 19 93 Nasal Cannula 01/07/17 12:23 74 01/07/17 11:01 37.0 80 20 166/89 94 Room Air 01/07/17 10:51 79 Physical Exam General Appearance: WD/WN, no apparent distress Neck: supple, no adenopathy Respiratory/Chest: lungs clear, + decreased breath sounds Cardiovascular: no edema, no JVD Abdomen: non tender, soft Neurologic/Psychiatric: alert, normal mood/affect Laboratory Results Last 24 Hours Test 01/07/17 15:42 01/07/17 16:30 01/08/17 05:11 Activated Partial Thromboplast Time 49.2 SECONDS 44.1 SECONDS Partial Thromboplastin Ratio 1.9 1.7 Urine Color YELLOW Urine Appearance CLEAR Urine pH 6.0 Urine Specific Avis > 1.045 Urine Protein NEG Urine Glucose (UA) NEG Urine Ketones NEG Urine Occult Blood NEG Urine Nitrite NEG Urine Bilirubin NEG Urine Urobilinogen NEG Urine Leukocyte Esterase NEG White Blood Count 9.23 K/uL Red Blood Count 4.87 M/uL Hemoglobin 13.8 g/dL Hematocrit 40.8 % Mean Corpuscular Volume 83.8 fL Mean Corpuscular Hemoglobin 28.3 pg Mean Corpuscular Hemoglobin Concent 33.8 g/dl RDW Standard Deviation 50.2 fL RDW Coefficient of Variation 16.4 % Platelet Count 155 K/uL Mean Platelet Volume 11.5 fL Sodium Level 141 mmol/L Potassium Level 4.1 mmol/L Chloride Level 105 mmol/L Carbon Dioxide Level 30 mmol/L Anion Gap 6.0 mmol/L Blood Urea Nitrogen 19 mg/dl Creatinine 1.00 mg/dl Est Creatinine Clear Calc Drug Dose 91.6 ml/min Estimated GFR () 88.6 Estimated GFR (Non- 76.5 BUN/Creatinine Ratio 18.5 Random Glucose 106 mg/dl Calcium Level 8.3 mg/dl Assessment and Plan A 71-year-old male here with bilateral pulmonary embolism with moderate clot burden likely resultant from right lower extremity DVT The patient was placed on heparin infusion for the initiation of his hospital stay. We did discuss the multiple anticoagulation medications and since he was on Xarelto in the past he is leaning towards being on a NOAC in the future. This discussion will be made once case management reviews the cost of NOACs and his stability is determined after his first day or two. Will likely need senior living due to hx of DVT in the past. Chronic preserved EF heart failure in setting of Hypertensive heart disease treated with home lasix, spirolactone, cozaar, and amlodipine, Regarding his right leg pain, US LE determined interval development of deep venous thrombus within the right posterior tibial, peroneal and anterior tibial veins.. Regarding his opioid-induced constipation, Senokot will be given along with p.r.n. MiraLax and Milk of Magnesia. DVT prevention is heparin infusion and DNR status was discussed with the patient, he is not settled on it and he will discuss it further with his .
[2017-01-08 12:25] LABS: PARTIAL THROMBOPLASTIN RATIO 2.4
[2017-01-08] MEDS: RIVAROXABAN TAB 15 MG TAB PO SCH (14:49)
[2017-01-09] MEDS: TRAMADOL HCL 50 MG TAB PO PRN ×2 (05:26→11:43)
[2017-01-09 06:52] LABS: PARTIAL THROMBOPLASTIN RATIO 1.1
[2017-01-09 07:20] VITALS: BP 106/67; PULSE 69; TEMP 36.6; O2SAT 91
[2017-01-09 07:25] VITALS: BP 143/74; PULSE 69; TEMP 36.3; O2SAT 91
[2017-01-09 07:30] VITALS: O2SAT 91
[2017-01-09 07:43] VITALS: O2SAT 84
[2017-01-09] MEDS: RIVAROXABAN TAB 15 MG TAB PO SCH ×2 (07:45→15:56)
[2017-01-09] MEDS: FUROSEMIDE 40 MG TAB PO SCH ×2 (07:45→07:52)
[2017-01-09] MEDS: PANTOprazole SOD 40 MG TAB PO SCH (07:45)
[2017-01-09] MEDS: INDAPAMIDE 1.25 MG TAB PO SCH (07:46)
[2017-01-09] MEDS: DOXAZosin MESYLATE TAB 4 MG TAB PO SCH (07:46)
[2017-01-09] MEDS: SPIRONOLACTONE 25 MG TAB PO SCH (07:46)
[2017-01-09] MEDS: AMLODIPINE BESYLATE 5 MG TAB PO SCH (07:47)
[2017-01-09] MEDS: SENNA 8.6 MG TAB PO SCH (07:47)
[2017-01-09] MEDS: LOSARTAN POTASSIUM 50 MG TAB PO SCH (07:52)
[2017-01-09] MEDS ORDERED: XRL15 PO (12:06)
[2017-01-09] MEDS ORDERED: ULT50X PO (12:06)
--- NOTE | 2017-01-09 12:16 | Discharge Instructions ---
Discharge Instructions Date of Service Jan 09, 2017. Admission Reason for Admission: Pulmonary Embolism Discharge Discharge Diagnosis / Problem: bilateral pulmonary emboli, DVT Discharge Goals Goal(s): Improve function, Diagnostic testing, Therapeutic intervention Activity Recommendations Activity Limitations: as noted below Activity as tolerated . Instructions / Follow-Up Instructions / Follow-Up You had been treated in the hospital for a DVT (blood clot in your right leg) and PE (blood clot in your lungs) The following changes/additions have been made to your medication list: -Xarelto 15 mg to be taken twice daily with food for 21 days. The dose will likely change after 21 days. Your primary care provider can provide further information on this. -Ultram 100 mg every 4 hours as needed for chest pain. Please do not drink alcohol or drive with taking this medication. Please follow up with Dr. Higginbotham as scheuduled. Please do not drive until your oxygen level is rechecked It was found that you do require oxygen 2 L at rest and 4 L while walking around Please take Senokot and docusate twice daily for constipation If constipation is severe, please take MiraLAX every 12 hours as needed Call your doctor or return to the emergency department if you have any of the following symptoms: -Fever of 101F or greater -Persistent vomiting - Persistent diarrhea -Lethargy -Worsening Chest pain or Shortness of breath -severe dizziness -weakness on one side of your body Current Hospital Diet Patient's current hospital diet: Regular Diet Discharge Diet Recommended Diet: AHA Diet (Heart Healthy) Procedures Procedures Performed: CT chest IMPRESSION: 1. Acute bilateral pulmonary embolism with a moderate thrombus burden. No CT evidence of right ventricular strain 2. Emphysema 3. Bibasal airspace opacities ultrasound RLE IMPRESSION: Interval development of deep venous thrombus within the right posterior tibial, peroneal and anterior tibial veins. Pending Studies Studies pending at discharge: no Laboratory Results Test 01/09/17 06:10 Activated Partial Thromboplast Time 27.8 SECONDS (21.0-31.0) Partial Thromboplastin Ratio 1.1 Hemoglobin A1c Test 11/08/16 08:20 Range/Units Estimated Average Glucose 126 mg/dl Hemoglobin A1c 6.0 H 4.5-5.6 % Lipid Panel Test 11/08/16 08:20 Range/Units Triglycerides Level 121 0-150 mg/dl Cholesterol Level 221 H 0-200 mg/dl HDL Cholesterol 43 mg/dl Cholesterol/HDL Ratio 5.1 LDL Cholesterol, Calculated 154 mg/dl Medical Emergencies . Who to Call and When: Medical Emergencies: If at any time you feel your situation is an emergency, please call 911 immediately. . Non-Emergent Contact Non-Emergency issues call your: Primary Care Provider . . "Provider Documentation" section prepared by Christiana Jurado. VTE Core Measure Inpt VTE Proph given/why not?: Other Anticoagulation [place] Drug Monitoring Program Search Results: no issues identified
--- NOTE | 2017-01-09 12:26 | Discharge Summary ---
Discharge Summary Date of Service Jan 09, 2017. (Christiana Jurado PA-C) Discharge Summary Admission Date: Jan 07, 2017 at 10:34 Discharge Date: Jan 09, 2017 Discharge Disposition: Home Principal Diagnosis: DVT, PE Problems/Secondary Diagnoses: History of heart failure Hypertension Surgery to the right hand History of DVT Procedures: CT chest IMPRESSION: 1. Acute bilateral pulmonary embolism with a moderate thrombus burden. No CT evidence of right ventricular strain 2. Emphysema 3. Bibasal airspace opacities ultrasound RLE IMPRESSION: Interval development of deep venous thrombus within the right posterior tibial, peroneal and anterior tibial veins. (Christiana Jurado PA-C) Medication Reconciliation New Medications: Rivaroxaban (Xarelto) 15 Mg Tab 15 MG PO BIDM for 21 Days, #42 TAB Tramadol HCl (Tramadol HCl) 50 Mg Tab 100 MG PO Q4H PRN for Pain for 10 Days, #80 TAB Continued Medications: Amlodipine (Norvasc) 2.5 Mg Tab 2.5 MG PO QAM, TAB Furosemide (Lasix) 40 Mg Tab 40 MG PO DAILY, TAB Indapamide (Indapamide) 2.5 Mg Tab 1 TAB PO QAM Losartan Potassium (Cozaar) 100 Mg Tab 100 MG PO QAM, TAB Peg 3350-Potassium Chloride-So (Gavilyte-N/Flavor Pack) 1 Cheri Cheri Spironolactone (Aldactone) 25 Mg Tab 25 MG PO QAM, TAB Referrals At Discharge Follow up Referrals: Physician Referral - Within 1 Week with Stevie Higginbotham M.D. Discharge Exam Patient feeling well today. Still having twinging chest pain intermittently. He does still feel slightly winded while up moving around. No cough. No fever or chills. Review of Systems: Constitutional: No fever Respiratory: + dyspnea on exertion Cardiovascular: + chest pain Abdomen: No nausea Physical Exam: General Appearance: no apparent distress Eyes: EOMI Neck: no JVD Respiratory/Chest: lungs clear Cardiovascular: regular rate, rhythm Abdomen / GI: normal bowel sounds, non tender, soft Extremities: + pertinent finding (+1 pitting edema with erythema noted to the right lower extremity. Trace pitting edema in the left lower extremity.) Neurologic/Psychiatric: no motor/sensory deficits, oriented x 3 Skin: warm/dry (Christiana Jurado PA-C) Hospital Course A 71-year-old male presented with worsening dyspnea on exertion. Found to have bilateral pulmonary embolism with moderate clot burden likely resultant from right lower extremity DVT The patient was placed on heparin infusion for the initiation of his hospital stay. We did discuss the multiple anticoagulation medications and since he was on Xarelto in the past he is leaning towards being on a NOAC in the future. He will be discharged on Xarelto 15 mg PO BID Will likely need custodial due to hx of DVT in the past. Hypoxia/acute Restoril failure secondary to above Two-step was performed. Patient will require oxygen 2 L continuous at rest and 4 L with ambulation at home Rx for O2 provided Regarding his right leg pain, US LE determined interval development of deep venous thrombus within the right posterior tibial, peroneal and anterior tibial veins.. Chest pain secondary to above -given RX for ultram 100 mg po q 4 h prn Chronic preserved EF heart failure in setting of Hypertensive heart disease treated with home lasix, spirolactone, cozaar, and amlodipine, Regarding his opioid-induced constipation, Senokot will be given along with p.r.n. MiraLax and Milk of Magnesia. DVT prevention is heparin infusion/Xarelto Total Time Spent: Greater than 30 minutes This includes examination of the patient, discharge planning, medication reconciliation, and communication with other providers. (Christiana Jurado PA-C) I agree with PA assessment and plan and have seen and examined pt myself Resting comfortably in bed No SOB noted Tolerating xarelto for DVT/PE Can DC home Will require O2 and home health (Ashish Mejia D.O.) Discharge Instructions Please refer to the electronic Patient Visit Report (Discharge Instructions) for additional information. (Christiana Jurado PA-C) Follow-Up PCP within 1 week (Christiana Jurado PA-C) Additional Copies To Sven Leigh DO; Abrahan Cheney MD; Stevie Higginbotham M.D.
[2017-01-13 11:27] LABS: LUPUS ANTICOAGULANT** TC36573X Negative (Negative); PROTEIN C ACTIVITY** TC 1777X 101 % (70-180); PROTEIN S ACT(FUNCT)**1779X 113 % (70-150)
[2017-08-16] MEDS ORDERED: BRL90 PO (14:46)
[2017-08-16] MEDS ORDERED: CRD4 PO (14:46)
[2017-08-16] MEDS ORDERED: LPT40 PO (14:46)
[2017-08-16] MEDS ORDERED: TPRSR25 PO (14:46)
[2017-08-16] MEDS ORDERED: ASPEC81 PO (14:46)
[2017-08-16] MEDS ORDERED: MRLP17X PO (15:12)
[2017-08-16] MEDS ORDERED: NITR0.4S UT (15:22)
== END 2017-01-09 16:05 | disposition home or self-care (01) | DRG 175 ==
LOC: ENRESERVTM → ENRESERVDT → C.EDB 07:05 → C.EDINP 10:34 → C.2E 15:19 → C.MED 01-08 15:22
PROVIDERS: ADMIT Internal Medicine; ATTEND Hospitalist
DX: I26.99 Other pulmonary embolism without acute cor pulmonale (principal); J96.01 Acute respiratory failure with hypoxia; I82.441 Acute embolism and thrombosis of right tibial vein; I82.4Z1 Acute embolism and thrombosis of unspecified deep veins of right distal lower extremity; S62.609D Fracture of unspecified phalanx of unspecified finger, subsequent encounter for fracture with routine healing; W29.8XXD Contact with other powered hand tools and household machinery, subsequent encounter; R07.9 Chest pain, unspecified; I11.0 Hypertensive heart disease with heart failure; I50.9 Heart failure, unspecified; K59.03 Drug induced constipation; T40.2X5A Adverse effect of other opioids, initial encounter; Z87.891 Personal history of nicotine dependence; Z79.899 Other long term (current) drug therapy

== ENCOUNTER → 2017-06-05 | Outpatient (CLI) | payer OTHER, MEDICARE ==
[~2017-06-05] MED LIST changes: -CEPH500C PO; +FURO40TA3 PO; -HYDR-5688 PO; -NAPR-1168 PO; +PEGSOL13; +ULT50X PO; +XRL15 PO
--- NOTE | 2017-06-05 17:56 | DIAGNOSTIC IMAGING REPORT ---
KNEES, AP STANDING HISTORY: 72 years-old Male BILATERAL KNEE PAIN no reported trauma. Symptoms are acute in nature. COMPARISON: None available TECHNIQUE: Single AP view of the bilateral knees FINDINGS: No acute fracture or dislocation identified. 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 There is a 7 mm peripherally sclerotic lucency involving the left medial femoral condyle, suspicious for osteochondral defect. No intra-articular loose body identified. Soft tissues are unremarkable. IMPRESSION: 1. No acute fracture or dislocation. 2. 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 3. 7 mm circumscribed lucency of the left medial femoral condyle is suspicious for an osteochondral defect. No intra-articular loose body identified. The above report was generated using voice recognition software. It may contain grammatical, syntax or spelling errors. Electronically signed by: Alvarado Mg M.D. 06/05/2017 5:55 PM Dictated Date/Time: 06/05/2017 5:50 PM
--- NOTE | 2017-06-05 18:31 | DIAGNOSTIC IMAGING REPORT ---
VENOUS DOPPLER LWR EXT BILA CLINICAL HISTORY: 72 years-old Male presenting with BILATERAL LE PAIN/SWELLING R/O DVT, KNEE PAIN. TECHNIQUE: Real-time grayscale and color and spectral Doppler ultrasound imaging of the veins of the bilateral lower extremities was performed. Compression and augmentation were also utilized. COMPARISON: 01/07/2017 FINDINGS: Right: Common femoral vein: Patent. Femoral vein: Patent. Greater saphenous vein: Patent. Popliteal vein: Patent. Calf veins: Patent. Previously noted thrombus in the posterior tibial, peroneal, and anterior tibial veins is not apparent. Left: Common femoral vein: Patent. Femoral vein: Patent. Greater saphenous vein: Patent. Popliteal vein: Patent. Calf veins: Patent. Other: None. IMPRESSION: No evidence of deep venous thrombosis. Previously noted thrombus in the right posterior tibial, peroneal, and anterior tibial veins has resolved. Electronically signed by: Elijah Cruz M.D. 06/05/2017 6:30 PM Dictated Date/Time: 06/05/2017 6:28 PM
== END | disposition home or self-care (01) ==
LOC: C.ULTR 17:20
PROVIDERS: ATTEND Family Medicine
DX: M25.561 Pain in right knee (principal); M25.562 Pain in left knee; R60.0 Localized edema; M17.11 Unilateral primary osteoarthritis, right knee; R93.7 Abnormal findings on diagnostic imaging of other parts of musculoskeletal system

== ENCOUNTER 2017-08-13 14:40 | Inpatient (IN) | payer OTHER, MEDICARE ==
[~2017-08-13] VITALS: Ht 170.2 cm; Wt 123.0 kg
[2017-08-13] MEDS ORDERED: NITROGLYCERIN OINT 2% 1GM PACKET ONE (15:10)
[2017-08-13] MEDS ORDERED: NITROGLYCERIN OINT 2% 1GM PACKET EXT ONE (15:15)
--- NOTE | 2017-08-13 15:23 | EMERGENCY ROOM VISIT NOTE ---
History Report prepared by Myra: Jt Jurado Under the Supervision of: Dr. Alpa Mathias D.O. First contact with patient: 15:01 Chief Complaint: CHEST PAIN Stated Complaint: CHEST PAIN Nursing Triage Summary: Patient arrived via ALS from home. Patient took dog for a walk through [employer] [facility] [employer], walked approximately 1 mile, and then brushed dog when home. Patient c/o 7/10 chest pressure that radiated to patients back. Patient states he felt hot and sweaty and SOB. Denies N/V/D. Patient received 324mg aspirin and 2 nitro en route. Patient states pain currently 4/10. Hx of HTN and PE. 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 He rates his pain a 7/ 10 in severity. Earlier today, the patient walked his dog 1 mile through [place]. Afterward, he brushed his dog and made some coffee. Suddenly while he was sitting, he began to feel mildly weak and lightheaded. His chest pain then began. He feels short of breath secondary to his chest pain. He is also having pain down his left arm with his chest pain radiating into his lower neck and into his back. The last time the patient felt like this was earlier this year when he had a PE. He is not on his blood thinner anymore. He had surgery 2 weeks prior to his PE, which is most likely why he had one. After his pain began , he did not take any medication except his blood pressure medication. En route per EMS, the patient was given nitroglycerin which helped his symptoms. He denies any family history or personal history of cardiac disease, NH, of CHF. He denies any nausea, vomiting, diarrhea, melena, hematochezia, leg swelling, or abnormal urinary symptoms. He notes that he feels diaphoretic and is having abdominal discomfort. He denies any changes to his medications. 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 A total of 10 systems reviewed and were otherwise negative. Past Medical & Surgical Medical Problems: (1) Chest pain (2) Hypertension Family History Cancer Heart disease Hypertension Lung disease Social History Smoking Status: Former Smoker Alcohol Use: none Marital Status: Housing Status: lives with significant other Occupation Status: retired Current/Historical Medications Scheduled Indapamide (Indapamide), 1 TAB PO QAM Losartan Potassium (Cozaar), 100 MG PO QAM Spironolactone (Aldactone), 25 MG PO QAM Scheduled PRN Tramadol HCl (Tramadol HCl), 100 MG PO Q4H PRN for Pain Allergies Coded Allergies: No Known Allergies (Verified , 08/13/17) Physical Exam Vital Signs Date Time Temp Pulse Resp B/P (MAP) Pulse Ox O2 Delivery O2 Flow Rate FiO2 08/13/17 17:23 71 20 152/86 95 Nasal Cannula 2.0 08/13/17 15:37 71 22 152/99 97 Nasal Cannula 4.0 08/13/17 14:50 57 08/13/17 14:45 36.4 56 18 121/72 92 Room Air 08/13/17 14:45 92 Room Air 08/13/17 14:45 92 Room Air Physical Exam GENERAL: alert, uncomfortable appearing, well nourished, no distress, non-toxic EYE EXAM: normal conjunctiva OROPHARYNX: no exudate, no erythema, lips, buccal mucosa, and tongue normal and mucous membranes are moist NECK: supple, no nuchal rigidity, no adenopathy, non-tender LUNGS: Clear to auscultation. Normal chest wall mechanics HEART: no murmurs, S1 normal and S2 normal CHEST: Mild discomfort with palpation to the chest wall. ABDOMEN: abdomen soft and obese, non-tender, normo-active bowel sounds, no masses, no rebound or guarding. BACK: Back is symmetrical on inspection and there is no deformity, no midline tenderness, no CVA tenderness. SKIN: no rashes and no bruising UPPER EXTREMITIES: upper extremities are grossly normal. LOWER EXTREMITIES: No pitting edema. NEURO EXAM: Normal sensorium, cranial nerves II-XII grossly intact, normal speech, no gross weakness of arms, no gross weakness of legs. Medical Decision & Procedures ER Provider Diagnostic Interpretation: Radiology results have been interpreted by the radiologist and reviewed by me. CT ANGIOGRAM OF THE CHEST COMBO CLINICAL HISTORY: Atypical chest pain radiating into the back. COMPARISON STUDY: Chest CT scan dated 01/07/2017 and 02/02/2016. TECHNIQUE: Before and following the IV administration of 119 cc of Optiray 320, CT angiogram of the chest was performed from the thoracic inlet to the upper abdomen utilizing the dissection protocol. Images are reviewed in the axial, sagittal, and coronal planes. 3-D MIPS images are created and assessed. IV contrast was administered without complication. A dose lowering technique was utilized adhering to the principles of ALARA. CT DOSE: 3460.43 mGy.cm FINDINGS: Thyroid: Imaged portions of the thyroid gland are normal in size and attenuation. Thoracic aorta: No intramural hematoma is seen on the unenhanced series. There is atherosclerotic calcification of the thoracic aorta, which is normal in caliber and demonstrates standard 3-vessel arch anatomy. No dissection is seen. There is approximately 50% stenosis of the origin of the right subclavian artery as seen on axial image #65. The arch vessels are otherwise widely patent. Pulmonary vasculature: The pulmonary trunk is normal in caliber. There are no central filling defects identified in the pulmonary vessels to suggest acute pulmonary embolus. There is trace and chronic appearing thrombus identified within segmental branches of the right lower lobe seen on image #184. Although this examination was not specifically protocoled to assess for pulmonary emboli the pulmonary arteries are well opacified. Heart: The heart is mildly enlarged and without pericardial effusion. There are coronary artery calcifications. Lungs and pleural spaces: Emphysema is similar to previous. Patchy airspace consolidation is seen at both lung bases. The trachea and central airways are clear. 3 mm pleural-based nodule is seen in the right middle lobe on image #199. A 4 mm pleural-based nodule is seen in the right lower lobe on image #165. Mediastinum: There are mildly enlarged mediastinal lymph nodes. Right paratracheal nodes measure up to 11 mm in short axis as seen on image #67. [place]: Clear. Axillae: There is no axillary lymphadenopathy. Upper abdomen: A tiny hiatal hernia is identified. Partially visualized upper abdominal viscera is within normal limits. Skeletal structures: The skeletal structures are osteopenic. Degenerative change is noted in the shoulders and thoracic spine. No lytic or blastic bony lesions are seen. IMPRESSION: 1. There is no aneurysm or dissection seen involving the thoracic aorta. 2. Patchy airspace consolidation is seen at both lung bases. Correlate clinically for evidence of pneumonia/aspiration pneumonitis. Radiographic follow-up to resolution is recommended. 3. Cardiomegaly and emphysema. 4. Trace and chronic appearing pulmonary embolus is identified within segmental branches of the right lower lobe. No findings are concerning for acute pulmonary emboli. 5. Mildly enlarged mediastinal lymph nodes are nonspecific and may be on a reactive basis. 6. There are 2 pulmonary nodules at the right lung base measuring up to 8 mm. These have been present dating back to 02/02/2016. Follow-up as per the Fleischner criteria is recommended. 7. Additional findings as above. Please refer to below summary of Fleischner criteria recommendations for follow-up of incidental CT nodules (Davin Reyes, Guidelines for management of small pulmonary nodules detected on CT scans: A statement from the Fleischner Society, Radiology 237: [phone].) SOLID NODULES Solitary nodule size: <6 mm * low risk patients: no follow-up needed * high risk patients: optional CT at 12 months Solitary nodule size: 6-8 mm * low risk patients: follow-up at 6-12 months, then consider further follow-up at 18-24 months * high risk patients: initial follow-up CT at 6-12 months and then at 18-24 months if no change Solitary nodule size: >8 mm * either low or high risk patients - consider follow-up CT at 3 months, and/or CT-PET, and/or biopsy Multiple nodules size: <6 mm * low risk patients: no routine follow-up * high risk patients: optional CT at 12 months Multiple nodules size: 6-8 mm * low risk patients: follow-up at 3-6 months, then consider further follow-up at 18-24 months * high risk patients: follow-up at 3-6 months, then at 18-24 months if no change Multiple nodules size: >8 mm * low risk patients: follow-up at 3-6 months, then consider further follow-up at 18-24 months * high risk patients: follow-up at 3-6 months, then at 18-24 months if no change Note: newly detected indeterminate nodule in persons 35 years of age or older. * low risk patients: minimal or absent history of smoking and/or other known risk factors * high risk patients: history of smoking or of other known risk factors (e.g. first degree relative with lung cancer, or exposure to asbestos, radon, uranium) * if a nodule up to 8 mm is partly solid or is ground glass further follow-up is required after 24 months to exclude possible slow growing adenocarcinoma (NICK) SUBSOLID NODULES Solitary pure ground-glass nodule * nodule size <6 mm - no CT follow-up required * nodule size >=6 mm - follow-up CT at 6-12 months, then every 2 years until 5 years Solitary part-solid nodule * nodule size <6 mm - no CT follow-up required * nodule size >=6 mm - follow-up CT at 3-6 months. If unchanged, and solid component remains <6 mm, then annual follow-up for 5 years Multiple subsolid nodules * nodule size <6 mm - follow-up CT at 3-6 months, consider further follow-up at 2 and 4 years if stable * nodule size >=6 mm - follow-up CT at 3-6 months, subsequent management based on the most suspicious nodule(s) Electronically signed by: Samuel Mullins M.D. 08/13/2017 4:41 PM Dictated Date/Time: 08/13/2017 4:28 PM ANGIO ABD/PELVIS COMBO CLINICAL HISTORY: 72 years-old Male presents with acute atypical chest pain with radiation into the back. COMPARISON STUDY: CTA of the chest 01/07/2017 TECHNIQUE: Following the IV administration of 119 cc of Optiray 320, CT angiogram of the abdomen and pelvis was performed from the lung bases the proximal femora. Images are reviewed in the axial, sagittal, and coronal planes. 3-D MIPS images are created and assessed. IV contrast was administered without complication. A dose lowering technique was utilized adhering to the principles of ALARA. FINDINGS: CTA: Mild cardiomegaly. Moderate mixed plaquing of the abdominal aorta with mild fusiform aneurysmal dilation of the infrarenal abdominal aorta measuring 3.0 x 2.9 cm in AP and transverse dimension for a length of 2.6 cm just proximal to the iliac bifurcation. Moderate to extensive mixed plaquing of the iliac and femoral arteries. No dissection or aneurysm rupture. The celiac trunk, superior and inferior mesenteric arteries and bilateral renal arteries are patent. There is high-grade narrowing involving the proximal left internal iliac artery, image 476 series 7 secondary to mixed atheromatous and atherosclerotic plaquing. CT ABDOMEN/PELVIS: Dependent bibasilar consolidative opacities are noted with areas of bronchial wall thickening and groundglass density. There is no pneumoperitoneum. The liver, spleen and right adrenal gland are unremarkable. Punctate calcification associated with the lateral limb left adrenal gland suggests prior hemorrhage. Moderate diffuse pancreatic atrophy. Gallbladder is unremarkable. No renal calculi or hydronephrosis. All attenuating exophytic lesion of the inferior pole left kidney suggests cyst without significant enhancement. Prostamegaly. Urinary bladder is unremarkable. No bulky adenopathy. Small sliding-type hiatal hernia. No bowel obstruction or focal bowel wall thickening. Appendix is unremarkable. Patient obesity is noted with diastases recti. Bones appear mildly demineralized. No compression deformity. There are degenerative changes of the thoracic or lumbar spine. IMPRESSION: 1. High-grade narrowing involves the proximal left internal iliac artery secondary to mixed atheromatous and atherosclerotic plaquing. 2. 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 No dissection identified. 3. Patchy bibasilar consolidative and groundglass opacities with bronchial wall thickening suggests pneumonitis with bronchitis. 4. Prostamegaly. 5. Additional findings as above. The above report was generated using voice recognition software. It may contain grammatical, syntax or spelling errors. Electronically signed by: Alvarado Mg M.D. 08/13/2017 4:32 PM Dictated Date/Time: 08/13/2017 4:21 PM Laboratory Results 08/13/17 15:23 Red Blood Count 5.16, Mean Corpuscular Volume 84.9, Mean Corpuscular Hemoglobin 28.3, Mean Corpuscular Hemoglobin Concent 33.3, Mean Platelet Volume 12.5, Neutrophils (%) (Auto) 73.0, Lymphocytes (%) (Auto) 16.2, Monocytes (%) (Auto) 7.4, Eosinophils (%) (Auto) 2.9, Basophils (%) (Auto) 0.1, Neutrophils # (Auto) 5.97, Lymphocytes # (Auto) 1.33, Monocytes # (Auto) 0.61, Eosinophils # (Auto) 0.24, Basophils # (Auto) 0.01 Test 08/13/17 15:23 08/13/17 15:30 08/13/17 15:34 08/13/17 16:30 White Blood Count 8.19 K/uL (4.8-10.8) Red Blood Count 5.16 M/uL (4.7-6.1) Hemoglobin 14.6 g/dL (14.0-18.0) Hematocrit 43.8 % (42-52) Mean Corpuscular Volume 84.9 fL (80-100) Mean Corpuscular Hemoglobin 28.3 pg (25-34) Mean Corpuscular Hemoglobin Concent 33.3 g/dl (32-36) Platelet Count 184 K/uL (130-400) Mean Platelet Volume 12.5 fL (7.4-10.4) Neutrophils (%) (Auto) 73.0 % Lymphocytes (%) (Auto) 16.2 % Monocytes (%) (Auto) 7.4 % Eosinophils (%) (Auto) 2.9 % Basophils (%) (Auto) 0.1 % Neutrophils # (Auto) 5.97 K/uL (1.4-6.5) Lymphocytes # (Auto) 1.33 K/uL (1.2-3.4) Monocytes # (Auto) 0.61 K/uL (0.11-0.59) Eosinophils # (Auto) 0.24 K/uL (0-0.5) Basophils # (Auto) 0.01 K/uL (0-0.2) RDW Standard Deviation 50.8 fL (36.4-46.3) RDW Coefficient of Variation 16.4 % (11.5-14.5) Immature Granulocyte % (Auto) 0.4 % Immature Granulocyte # (Auto) 0.03 K/uL (0.00-0.02) Prothrombin Time 10.8 SECONDS (9.0-12.0) Prothromb Time International Ratio 1.0 (0.9-1.1) Magnesium Level 2.2 mg/dl (1.8-2.4) Total Bilirubin 0.5 mg/dl (0.2-1) Direct Bilirubin < 0.1 mg/dl (0-0.2) Aspartate Amino Transf (AST/SGOT) 17 U/L (15-37) Alanine Aminotransferase (ALT/SGPT) 23 U/L (12-78) Alkaline Phosphatase 100 U/L (45-117) Pro-B-Type Natriuretic Peptide 51 pg/ml (0-900) Total Protein 7.1 gm/dl (6.4-8.2) Albumin 3.7 gm/dl (3.4-5.0) Bedside D-Dimer > 450 ng/mlFEU (0-450) Bedside Troponin I < 0.030 ng/ml (0-0.045) Bedside Hemoglobin 14.6 g/dl (14.0-18.0) Bedside Hematocrit 43 % (42-52) Bedside Sodium 138 mEq/L (135-144) Bedside Potassium 3.7 mEq/L (3.3-5.0) Bedside Chloride 100 mEq/L (101-112) Bedside Total CO2 24 mEq/l (24-31) Anion Gap 19.0 mmol/L (16-25) Bedside Blood Urea Nitrogen 25 mg/dl (7-18) Bedside Creatinine 1.2 mg/dl (0.6-1.3) Bedside Glucose (other) 124 mg/dl (70-99) Bedside Ionized Calcium (Jose F) 1.10 mmol/l (1.12-1.32) Urine Color YELLOW Urine Appearance CLEAR (CLEAR) Urine pH 7.5 (4.5-7.5) Urine Specific [place] 1.037 (1.000-1.030) Urine Protein NEG (NEG) Urine Glucose (UA) NEG (NEG) Urine Ketones 2+ (NEG) Urine Occult Blood NEG (NEG) Urine Nitrite NEG (NEG) Urine Bilirubin NEG (NEG) Urine Urobilinogen NEG (NEG) Urine Leukocyte Esterase TRACE (NEG) Urine WBC (Auto) 1-5 /hpf (0-5) Urine RBC (Auto) 0-4 /hpf (0-4) Urine Hyaline Casts (Auto) 1-5 /lpf (0-5) Urine Epithelial Cells (Auto) 0-5 /lpf (0-5) Urine Bacteria (Auto) NEG (NEG) Laboratory results per my review. Medications Administered Medications (Trade) Dose Ordered Sig/Barbara Route Start Time Stop Time Status Last Admin Dose Admin Nitroglycerin (Nitroglycerin 2% Oint) 1 inch NOW ONCE EXT 08/13/17 15:15 08/13/17 15:16 DC 08/13/17 15:15 1 INCH Fentanyl Citrate (Fentanyl Inj) 100 mcg NOW STAT IV 08/13/17 15:37 08/13/17 15:38 DC 08/13/17 15:42 100 MCG Morphine Sulfate (MoRPHine SULFATE INJ) 4 mg NOW STAT IV 08/13/17 16:23 08/13/17 16:24 DC 08/13/17 16:31 4 MG Ketorolac Tromethamine (Toradol Inj) 30 mg NOW STAT IV 08/13/17 16:43 08/13/17 16:44 DC 08/13/17 17:22 30 MG Al Hydroxide/Mg Hydroxide (Maalox Susp) 30 ml NOW STAT PO 08/13/17 17:45 08/13/17 17:46 DC 08/13/17 18:08 30 ML Dexamethasone Sodium Phosphate (Decadron Inj) 10 mg NOW STAT IV 08/13/17 17:45 08/13/17 17:46 DC 08/13/17 18:08 10 MG ECG Indication: chest pain Rate (beats per minute): 57 Rhythm: sinus bradycardia Findings: no acute ischemic change, left axis deviation, other (Normal intervals) Comparison ECG Date: 07 January 2017 Change: no significant change ED Course 1501: The patient was evaluated in room B2. A complete history and physical exam was performed. 1515: Ordered Nitroglycerin 1 inch EXT 1537: Ordered Fentanyl Inj 100 mcg IV 1623: Ordered Morphine Sulfate 4 mg IV 1643: Ordered Toradol Inj 30 mg IV 1705: The patient is still having pain. I updated him on his results. He was given ice chips. 1725: The patient's records were obtained from [facility] including his recent Echocardiogram of November this year. It showed LVEF of 55% with no significant valvular disease. 1742: The patient note his pain is mildly better, but still present. He still looks uncomfortable. 1745: Ordered Decadron Inj 10 mg IV, Maalox Susp 30 ml PO 1756: Upon reevaluation, the patient is resting. I discussed the findings and the treatment plan with the patient. He expresses agreement and understanding. I spoke with Dr. Murcia of the [facility]. He will be evaluated for further management. Medical Decision Differential diagnoses includes but is not limited to acute coronary syndrome, myocardial infarction, pericarditis, pulmonary embolus, aortic dissection, pneumonia, pneumothorax, musculoskeletal, shingles, esophageal. Patient with risk factors for ACS, no evidence of PE or dissection on imaging. Labs otherwise reassuring. No leukocytosis or fever to suggest occult infectious etiology. CAT scan also mentions possibility of pneumonitis, although this seems and atypical presentation given the severity of his pain. Patient's pain eventually improved following administration of Toradol and Maalox. Possibility of occult infectious etiology is considered including pericarditis. Patient's vital signs stable. Admitted to medicine for additional monitoring and serial cardiac enzymes. Medication Reconcilliation Current Medication List: was personally reviewed by me Blood Pressure Screening Patient's blood pressure: Normal blood pressure Blood pressure disposition: Did not require urgent referral Consults Time Called: 1753 Consulting Physician: Dr. Twin CORONADO Returned Call: [phone] I reviewed the patient's case with him. He will evaluate the patient for further management. Impression Primary Impression: Atypical chest pain Additional Impression: Dyspnea Scribe Attestation The scribe's documentation has been prepared under my direction and personally reviewed by me in its entirety. I confirm that the note above accurately reflects all work, treatment, procedures, and medical decision making performed by me. Departure Information Dispostion Being Evaluated By Hospitalist Referrals Stevie Higginbotham M.D. (PCP) Patient Instructions My [facility] Problem Qualifiers Additional Impression: Dyspnea Dyspnea type: unspecified Qualified Codes: R06.00 - Dyspnea, unspecified
[2017-08-13] MEDS ORDERED: FENTANYL CITRATE INJ 50 MCG/1 ML 2 ML VIAL IV STA (15:37)
[2017-08-13 15:44] LABS: PROTHROMBIN TIME (PATIENT) 10.8 SECONDS (9.0-12.0)
[2017-08-13 15:46] LABS: ISTAT CREATININE 1.2 mg/dl (0.6-1.3); ISTAT HEMOGLOBIN 14.6 g/dl (14.0-18.0); ISTAT IONIZED CALCIUM 1.1 mmol/l (1.12-1.32)
[2017-08-13 15:50] LABS: POINT OF CARE TROPONIN I < 0.030 ng/ml (0-0.045)
[2017-08-13 15:58] LABS: MAGNESIUM 2.2 mg/dl (1.8-2.4)
[2017-08-13 16:10] LABS: BASO % 0.1 %; BASO ABS # 0.01 K/uL (0-0.2); COMPLETE YES; EOS % 2.9 %; HEMATOCRIT 43.8 % (42-52); IG% 0.4 %; LYMPH % 16.2 %; LYMPH ABS # 1.33 K/uL (1.2-3.4); MEAN CELL VOLUME 84.9 fL (80-100); MEAN CORPUSCULAR HEMOGLOBIN 28.3 pg (25-34); MEAN CORPUSCULAR HGB CONC 33.3 g/dl (32-36); MEAN PLATELET VOLUME 12.5 fL (7.4-10.4); MONO % 7.4 %; PLATELET COUNT 184 K/uL (130-400); RED BLOOD COUNT 5.16 M/uL (4.7-6.1); WHITE BLOOD COUNT 8.19 K/uL (4.8-10.8)
[2017-08-13] MEDS ORDERED: OPTIRAY 320 IV PRN (16:15)
[2017-08-13 16:21] LABS: ALKALINE PHOSPHATASE 100 U/L (45-117); ALT/SGPT 23 U/L (12-78); AST/SGOT 17 U/L (15-37)
[2017-08-13] MEDS ORDERED: MoRPHine SULFATE 4 MG/ML 1 ML CARP\\VIAL IV STA (16:23)
--- NOTE | 2017-08-13 16:33 | DIAGNOSTIC IMAGING REPORT ---
ANGIO ABD/PELVIS COMBO CLINICAL HISTORY: 72 years-old Male presents with acute atypical chest pain with radiation into the back. COMPARISON STUDY: CTA of the chest 01/07/2017 TECHNIQUE: Following the IV administration of 119 cc of Optiray 320, CT angiogram of the abdomen and pelvis was performed from the lung bases the proximal femora. Images are reviewed in the axial, sagittal, and coronal planes. 3-D MIPS images are created and assessed. IV contrast was administered without complication. A dose lowering technique was utilized adhering to the principles of ALARA. FINDINGS: CTA: Mild cardiomegaly. Moderate mixed plaquing of the abdominal aorta with mild fusiform aneurysmal dilation of the infrarenal abdominal aorta measuring 3.0 x 2.9 cm in AP and transverse dimension for a length of 2.6 cm just proximal to the iliac bifurcation. Moderate to extensive mixed plaquing of the iliac and femoral arteries. No dissection or aneurysm rupture. The celiac trunk, superior and inferior mesenteric arteries and bilateral renal arteries are patent. There is high-grade narrowing involving the proximal left internal iliac artery, image 476 series 7 secondary to mixed atheromatous and atherosclerotic plaquing. CT ABDOMEN/PELVIS: Dependent bibasilar consolidative opacities are noted with areas of bronchial wall thickening and groundglass density. There is no pneumoperitoneum. The liver, spleen and right adrenal gland are unremarkable. Punctate calcification associated with the lateral limb left adrenal gland suggests prior hemorrhage. Moderate diffuse pancreatic atrophy. Gallbladder is unremarkable. No renal calculi or hydronephrosis. All attenuating exophytic lesion of the inferior pole left kidney suggests cyst without significant enhancement. Prostamegaly. Urinary bladder is unremarkable. No bulky adenopathy. Small sliding-type hiatal hernia. No bowel obstruction or focal bowel wall thickening. Appendix is unremarkable. Patient obesity is noted with diastases recti. Bones appear mildly demineralized. No compression deformity. There are degenerative changes of the thoracic or lumbar spine. IMPRESSION: 1. High-grade narrowing involves the proximal left internal iliac artery secondary to mixed atheromatous and atherosclerotic plaquing. 2. 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 No dissection identified. 3. Patchy bibasilar consolidative and groundglass opacities with bronchial wall thickening suggests pneumonitis with bronchitis. 4. Prostamegaly. 5. Additional findings as above. The above report was generated using voice recognition software. It may contain grammatical, syntax or spelling errors. Electronically signed by: Alvarado Mg M.D. 08/13/2017 4:32 PM Dictated Date/Time: 08/13/2017 4:21 PM
--- NOTE | 2017-08-13 16:42 | DIAGNOSTIC IMAGING REPORT ---
CT ANGIOGRAM OF THE CHEST COMBO CLINICAL HISTORY: Atypical chest pain radiating into the back. COMPARISON STUDY: Chest CT scan dated 01/07/2017 and 02/02/2016. TECHNIQUE: Before and following the IV administration of 119 cc of Optiray 320, CT angiogram of the chest was performed from the thoracic inlet to the upper abdomen utilizing the dissection protocol. Images are reviewed in the axial, sagittal, and coronal planes. 3-D MIPS images are created and assessed. IV contrast was administered without complication. A dose lowering technique was utilized adhering to the principles of ALARA. CT DOSE: 3460.43 mGy.cm FINDINGS: Thyroid: Imaged portions of the thyroid gland are normal in size and attenuation. Thoracic aorta: No intramural hematoma is seen on the unenhanced series. There is atherosclerotic calcification of the thoracic aorta, which is normal in caliber and demonstrates standard 3-vessel arch anatomy. No dissection is seen. There is approximately 50% stenosis of the origin of the right subclavian artery as seen on axial image #65. The arch vessels are otherwise widely patent. Pulmonary vasculature: The pulmonary trunk is normal in caliber. There are no central filling defects identified in the pulmonary vessels to suggest acute pulmonary embolus. There is trace and chronic appearing thrombus identified within segmental branches of the right lower lobe seen on image #184. Although this examination was not specifically protocoled to assess for pulmonary emboli the pulmonary arteries are well opacified. Heart: The heart is mildly enlarged and without pericardial effusion. There are coronary artery calcifications. Lungs and pleural spaces: Emphysema is similar to previous. Patchy airspace consolidation is seen at both lung bases. The trachea and central airways are clear. 3 mm pleural-based nodule is seen in the right middle lobe on image #199. A 4 mm pleural-based nodule is seen in the right lower lobe on image #165. Mediastinum: There are mildly enlarged mediastinal lymph nodes. Right paratracheal nodes measure up to 11 mm in short axis as seen on image #67. Ari[place]na: Clear. Axillae: There is no axillary lymphadenopathy. Upper abdomen: A tiny hiatal hernia is identified. Partially visualized upper abdominal viscera is within normal limits. Skeletal structures: The skeletal structures are osteopenic. Degenerative change is noted in the shoulders and thoracic spine. No lytic or blastic bony lesions are seen. IMPRESSION: 1. There is no aneurysm or dissection seen involving the thoracic aorta. 2. Patchy airspace consolidation is seen at both lung bases. Correlate clinically for evidence of pneumonia/aspiration pneumonitis. Radiographic follow-up to resolution is recommended. 3. Cardiomegaly and emphysema. 4. Trace and chronic appearing pulmonary embolus is identified within segmental branches of the right lower lobe. No findings are concerning for acute pulmonary emboli. 5. Mildly enlarged mediastinal lymph nodes are nonspecific and may be on a reactive basis. 6. There are 2 pulmonary nodules at the right lung base measuring up to 8 mm. These have been present dating back to 02/02/2016. Follow-up as per the Fleischner criteria is recommended. 7. Additional findings as above. Please refer to below summary of Fleischner criteria recommendations for follow-up of incidental CT nodules (Davin Reyes, Guidelines for management of small pulmonary nodules detected on CT scans: A statement from the Fleischner Society, Radiology 237: [phone].) SOLID NODULES Solitary nodule size: <6 mm * low risk patients: no follow-up needed * high risk patients: optional CT at 12 months Solitary nodule size: 6-8 mm * low risk patients: follow-up at 6-12 months, then consider further follow-up at 18-24 months * high risk patients: initial follow-up CT at 6-12 months and then at 18-24 months if no change Solitary nodule size: >8 mm * either low or high risk patients - consider follow-up CT at 3 months, and/or CT-PET, and/or biopsy Multiple nodules size: <6 mm * low risk patients: no routine follow-up * high risk patients: optional CT at 12 months Multiple nodules size: 6-8 mm * low risk patients: follow-up at 3-6 months, then consider further follow-up at 18-24 months * high risk patients: follow-up at 3-6 months, then at 18-24 months if no change Multiple nodules size: >8 mm * low risk patients: follow-up at 3-6 months, then consider further follow-up at 18-24 months * high risk patients: follow-up at 3-6 months, then at 18-24 months if no change Note: newly detected indeterminate nodule in persons 35 years of age or older. * low risk patients: minimal or absent history of smoking and/or other known risk factors * high risk patients: history of smoking or of other known risk factors (e.g. first degree relative with lung cancer, or exposure to asbestos, radon, uranium) * if a nodule up to 8 mm is partly solid or is ground glass further follow-up is required after 24 months to exclude possible slow growing adenocarcinoma (NICK) SUBSOLID NODULES Solitary pure ground-glass nodule * nodule size <6 mm - no CT follow-up required * nodule size >=6 mm - follow-up CT at 6-12 months, then every 2 years until 5 years Solitary part-solid nodule * nodule size <6 mm - no CT follow-up required * nodule size >=6 mm - follow-up CT at 3-6 months. If unchanged, and solid component remains <6 mm, then annual follow-up for 5 years Multiple subsolid nodules * nodule size <6 mm - follow-up CT at 3-6 months, consider further follow-up at 2 and 4 years if stable * nodule size >=6 mm - follow-up CT at 3-6 months, subsequent management based on the most suspicious nodule(s) Electronically signed by: Samuel Mullins M.D. 08/13/2017 4:41 PM Dictated Date/Time: 08/13/2017 4:28 PM
[2017-08-13] MEDS ORDERED: KETOROLAC TROMETHAMINE 30 MG/ML VIAL IV STA (16:43)
[2017-08-13 16:45] LABS: URINE APPEARANCE CLEAR (CLEAR); URINE BILIRUBIN NEG (NEG); URINE COLOR YELLOW; URINE EPITHELIAL CELL AUTO 0-5 /lpf (0-5); URINE NITRITE NEG (NEG); URINE PH 7.5 (4.5-7.5); URINE SPECIFIC GRAVITY 1.037 (1.000-1.030); UROBILINOGEN NEG (NEG); ZZUR CULT IF INDIC CLEAN CATCH NO
[2017-08-13 16:47] LABS: MANUAL MICROSCOPIC REQUIRED? NO; REVIEW REQ? NO
[2017-08-13] MEDS ORDERED: ALUMINUM/MAGNESIUM SUSP 30 ML UDC PO STA (17:45)
[2017-08-13] MEDS ORDERED: DEXAMETHASONE SOD INJ 4 MG/ML VIAL IV STA (17:45)
[2017-08-13] MEDS ORDERED: PNEUMOCOCCAL POLYSACCHARIDES 25 MCG/0.5 ML VIAL/SYR IM. ONE (18:30)
[2017-08-13] MEDS ORDERED: FENTANYL 25 MCG/HR TDSY TD SCH (18:30)
[2017-08-13] MEDS ORDERED: INFLUENZA VIRUS QUAD VACCINE 0.5 ML SYR IM. ONE (18:30)
[2017-08-13] MEDS ORDERED: NITROGLYCERIN OINT 2% 1GM PACKET EXT PRN (18:30)
--- NOTE | 2017-08-13 18:51 | History and Physical ---
History & Physical Date & Time of Service: Aug 13, 2017 at 18:41 Chief Complaint: Chest Pain Primary Care Physician: Stevie Higginbotham M.D. History of Present Illness Source: patient Patient with history of pulmonary embolism comes into hospital with left sided sharp chest pain that radiates straight to the back. This was accompanied by SOB. Patient came in to the ER and had CTA done to rule out dissection and pulmonary embolism. CTA was negative. Admission was called for chest pain rule out. Patient was found on his right side in a position. He states that he is in severe pain. He states that when he takes deep breaths his pain worsens. His also states some improvement with sitting up and leaning forward but this is short lived. Patient also reports having pain on deep inspiration. Patient reports nitro did not help. Lying on his back is also worse. Past Medical/Surgical History Medical Problems: (1) Hypertension Status: Chronic Family History Cancer Heart disease Hypertension Lung disease Social History Smoking Status: Former Smoker Marital Status: Occupational Status: retired Immunizations History of Influenza Vaccine: Unknown History of Tetanus Vaccine?: Unknown History of Pneumococcal: Unknown History of Hepatitis B Vaccine: Unknown Multi-Drug Resistant Organisms History of MDRO: No Allergies Coded Allergies: No Known Allergies (Verified , 08/13/17) Home Medications Scheduled Indapamide (Indapamide), 1 TAB PO QAM Losartan Potassium (Cozaar), 100 MG PO QAM Spironolactone (Aldactone), 25 MG PO QAM Scheduled PRN Tramadol HCl (Tramadol HCl), 100 MG PO Q4H PRN for Pain Review of Systems Constitutional: No fever, No chills Respiratory: No cough, No sputum, No wheezing Cardiovascular: + chest pain Abdomen: No pain, No nausea Musculoskeletal: No joint pain, No muscle pain Neurologic: No memory loss, No paralysis Endocrine: No fatigue, No excessive thirst Physical Exam Vital Signs Date Time Temp Pulse Resp B/P (MAP) Pulse Ox O2 Delivery O2 Flow Rate FiO2 08/13/17 17:23 71 20 152/86 95 Nasal Cannula 2.0 08/13/17 15:37 71 22 152/99 97 Nasal Cannula 4.0 08/13/17 14:50 57 08/13/17 14:45 36.4 56 18 121/72 92 Room Air 08/13/17 14:45 92 Room Air 08/13/17 14:45 92 Room Air General Appearance: WD/WN, no apparent distress Neck: supple, no adenopathy Respiratory/Chest: chest non-tender, lungs clear, normal breath sounds Cardiovascular: no murmur, + pertinent finding (Tenderness to palaption over his left scapula.) Abdomen/GI: normal bowel sounds, non tender, soft Extremities/Musculoskelatal: normal inspection Skin: normal color, no rash Lymphatic: no adenopathy Diagnostics Laboratory Results Results Past 24 Hours Test 08/13/17 15:23 08/13/17 15:30 08/13/17 15:34 08/13/17 16:30 Range/Units White Blood Count 8.19 4.8-10.8 K/uL Red Blood Count 5.16 4.7-6.1 M/uL Hemoglobin 14.6 14.0-18.0 g/dL Hematocrit 43.8 42-52 % Mean Corpuscular Volume 84.9 80-100 fL Mean Corpuscular Hemoglobin 28.3 25-34 pg Mean Corpuscular Hemoglobin Concent 33.3 32-36 g/dl Platelet Count 184 130-400 K/uL Mean Platelet Volume 12.5 7.4-10.4 fL Neutrophils (%) (Auto) 73.0 % Lymphocytes (%) (Auto) 16.2 % Monocytes (%) (Auto) 7.4 % Eosinophils (%) (Auto) 2.9 % Basophils (%) (Auto) 0.1 % Neutrophils # (Auto) 5.97 1.4-6.5 K/uL Lymphocytes # (Auto) 1.33 1.2-3.4 K/uL Monocytes # (Auto) 0.61 0.11-0.59 K/uL Eosinophils # (Auto) 0.24 0-0.5 K/uL Basophils # (Auto) 0.01 0-0.2 K/uL RDW Standard Deviation 50.8 36.4-46.3 fL RDW Coefficient of Variation 16.4 11.5-14.5 % Immature Granulocyte % (Auto) 0.4 % Immature Granulocyte # (Auto) 0.03 0.00-0.02 K/uL Prothrombin Time 10.8 9.0-12.0 SECONDS Prothromb Time International Ratio 1.0 0.9-1.1 Magnesium Level 2.2 1.8-2.4 mg/dl Total Bilirubin 0.5 0.2-1 mg/dl Direct Bilirubin < 0.1 0-0.2 mg/dl Aspartate Amino Transf (AST/SGOT) 17 15-37 U/L Alanine Aminotransferase (ALT/SGPT) 23 12-78 U/L Alkaline Phosphatase 100 45-117 U/L Pro-B-Type Natriuretic Peptide 51 0-900 pg/ml Total Protein 7.1 6.4-8.2 gm/dl Albumin 3.7 3.4-5.0 gm/dl Bedside D-Dimer > 450 0-450 ng/mlFEU Bedside Troponin I < 0.030 0-0.045 ng/ml Bedside Hemoglobin 14.6 14.0-18.0 g/dl Bedside Hematocrit 43 42-52 % Bedside Sodium 138 135-144 mEq/L Bedside Potassium 3.7 3.3-5.0 mEq/L Bedside Chloride 100 101-112 mEq/L Bedside Total CO2 24 24-31 mEq/l Anion Gap 19.0 16-25 mmol/L Bedside Blood Urea Nitrogen 25 7-18 mg/dl Bedside Creatinine 1.2 0.6-1.3 mg/dl Bedside Glucose (other) 124 70-99 mg/dl Bedside Ionized Calcium (Jose F) 1.10 1.12-1.32 mmol/l Urine Color YELLOW Urine Appearance CLEAR CLEAR Urine pH 7.5 4.5-7.5 Urine Specific Spencer 1.037 1.000-1.030 Urine Protein NEG NEG Urine Glucose (UA) NEG NEG Urine Ketones 2+ NEG Urine Occult Blood NEG NEG Urine Nitrite NEG NEG Urine Bilirubin NEG NEG Urine Urobilinogen NEG NEG Urine Leukocyte Esterase TRACE NEG Urine WBC (Auto) 1-5 0-5 /hpf Urine RBC (Auto) 0-4 0-4 /hpf Urine Hyaline Casts (Auto) 1-5 0-5 /lpf Urine Epithelial Cells (Auto) 0-5 0-5 /lpf Urine Bacteria (Auto) NEG NEG Diagnostic Radiology ANGIO ABD/PELVIS COMBO CLINICAL HISTORY: 72 years-old Male presents with acute atypical chest pain with radiation into the back. COMPARISON STUDY: CTA of the chest 01/07/2017 TECHNIQUE: Following the IV administration of 119 cc of Optiray 320, CT angiogram of the abdomen and pelvis was performed from the lung bases the proximal femora. Images are reviewed in the axial, sagittal, and coronal planes. 3-D MIPS images are created and assessed. IV contrast was administered without complication. A dose lowering technique was utilized adhering to the principles of ALARA. FINDINGS: CTA: Mild cardiomegaly. Moderate mixed plaquing of the abdominal aorta with mild fusiform aneurysmal dilation of the infrarenal abdominal aorta measuring 3.0 x 2.9 cm in AP and transverse dimension for a length of 2.6 cm just proximal to the iliac bifurcation. Moderate to extensive mixed plaquing of the iliac and femoral arteries. No dissection or aneurysm rupture. The celiac trunk, superior and inferior mesenteric arteries and bilateral renal arteries are patent. There is high-grade narrowing involving the proximal left internal iliac artery, image 476 series 7 secondary to mixed atheromatous and atherosclerotic plaquing. CT ABDOMEN/PELVIS: Dependent bibasilar consolidative opacities are noted with areas of bronchial wall thickening and groundglass density. There is no pneumoperitoneum. The liver, spleen and right adrenal gland are unremarkable. Punctate calcification associated with the lateral limb left adrenal gland suggests prior hemorrhage. Moderate diffuse pancreatic atrophy. Gallbladder is unremarkable. No renal calculi or hydronephrosis. All attenuating exophytic lesion of the inferior pole left kidney suggests cyst without significant enhancement. Prostamegaly. Urinary bladder is unremarkable. No bulky adenopathy. Small sliding-type hiatal hernia. No bowel obstruction or focal bowel wall thickening. Appendix is unremarkable. Patient obesity is noted with diastases recti. Bones appear mildly demineralized. No compression deformity. There are degenerative changes of the thoracic or lumbar spine. IMPRESSION: 1. High-grade narrowing involves the proximal left internal iliac artery secondary to mixed atheromatous and atherosclerotic plaquing. 2. 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 No dissection identified. 3. Patchy bibasilar consolidative and groundglass opacities with bronchial wall thickening suggests pneumonitis with bronchitis. 4. Prostamegaly. 5. Additional findings as above. The above report was generated using voice recognition software. It may contain grammatical, syntax or spelling errors. Electronically signed by: Alvarado Mg M.D. 08/13/2017 4:[address] ANGIOGRAM OF THE CHEST COMBO CLINICAL HISTORY: Atypical chest pain radiating into the back. COMPARISON STUDY: Chest CT scan dated 01/07/2017 and 02/02/2016. TECHNIQUE: Before and following the IV administration of 119 cc of Optiray 320, CT angiogram of the chest was performed from the thoracic inlet to the upper abdomen utilizing the dissection protocol. Images are reviewed in the axial, sagittal, and coronal planes. 3-D MIPS images are created and assessed. IV contrast was administered without complication. A dose lowering technique was utilized adhering to the principles of ALARA. CT DOSE: 3460.43 mGy.cm FINDINGS: Thyroid: Imaged portions of the thyroid gland are normal in size and attenuation. Thoracic aorta: No intramural hematoma is seen on the unenhanced series. There is atherosclerotic calcification of the thoracic aorta, which is normal in caliber and demonstrates standard 3-vessel arch anatomy. No dissection is seen. There is approximately 50% stenosis of the origin of the right subclavian artery as seen on axial image #65. The arch vessels are otherwise widely patent. Pulmonary vasculature: The pulmonary trunk is normal in caliber. There are no central filling defects identified in the pulmonary vessels to suggest acute pulmonary embolus. There is trace and chronic appearing thrombus identified within segmental branches of the right lower lobe seen on image #184. Although this examination was not specifically protocoled to assess for pulmonary emboli the pulmonary arteries are well opacified. Heart: The heart is mildly enlarged and without pericardial effusion. There are coronary artery calcifications. Lungs and pleural spaces: Emphysema is similar to previous. Patchy airspace consolidation is seen at both lung bases. The trachea and central airways are clear. 3 mm pleural-based nodule is seen in the right middle lobe on image #199. A 4 mm pleural-based nodule is seen in the right lower lobe on image #165. Mediastinum: There are mildly enlarged mediastinal lymph nodes. Right paratracheal nodes measure up to 11 mm in short axis as seen on image #67. [place]: Clear. Axillae: There is no axillary lymphadenopathy. Upper abdomen: A tiny hiatal hernia is identified. Partially visualized upper abdominal viscera is within normal limits. Skeletal structures: The skeletal structures are osteopenic. Degenerative change is noted in the shoulders and thoracic spine. No lytic or blastic bony lesions are seen. IMPRESSION: 1. There is no aneurysm or dissection seen involving the thoracic aorta. 2. Patchy airspace consolidation is seen at both lung bases. Correlate clinically for evidence of pneumonia/aspiration pneumonitis. Radiographic follow-up to resolution is recommended. 3. Cardiomegaly and emphysema. 4. Trace and chronic appearing pulmonary embolus is identified within segmental branches of the right lower lobe. No findings are concerning for acute pulmonary emboli. 5. Mildly enlarged mediastinal lymph nodes are nonspecific and may be on a reactive basis. 6. There are 2 pulmonary nodules at the right lung base measuring up to 8 mm. These have been present dating back to 02/02/2016. Follow-up as per the Fleischner criteria is recommended. 7. Additional findings as above. Please refer to below summary of Fleischner criteria recommendations for follow-up of incidental CT nodules (Davin Reyes, Guidelines for management of small pulmonary nodules detected on CT scans: A statement from the Fleischner Society, Radiology 237: [phone].) SOLID NODULES Solitary nodule size: <6 mm * low risk patients: no follow-up needed * high risk patients: optional CT at 12 months Solitary nodule size: 6-8 mm * low risk patients: follow-up at 6-12 months, then consider further follow-up at 18-24 months * high risk patients: initial follow-up CT at 6-12 months and then at 18-24 months if no change Solitary nodule size: >8 mm * either low or high risk patients - consider follow-up CT at 3 months, and/or CT-PET, and/or biopsy Multiple nodules size: <6 mm * low risk patients: no routine follow-up * high risk patients: optional CT at 12 months Multiple nodules size: 6-8 mm * low risk patients: follow-up at 3-6 months, then consider further follow-up at 18-24 months * high risk patients: follow-up at 3-6 months, then at 18-24 months if no change Multiple nodules size: >8 mm * low risk patients: follow-up at 3-6 months, then consider further follow-up at 18-24 months * high risk patients: follow-up at 3-6 months, then at 18-24 months if no change Note: newly detected indeterminate nodule in persons 35 years of age or older. * low risk patients: minimal or absent history of smoking and/or other known risk factors * high risk patients: history of smoking or of other known risk factors (e.g. first degree relative with lung cancer, or exposure to asbestos, radon, uranium) * if a nodule up to 8 mm is partly solid or is ground glass further follow-up is required after 24 months to exclude possible slow growing adenocarcinoma (NICK) SUBSOLID NODULES Solitary pure ground-glass nodule * nodule size <6 mm - no CT follow-up required * nodule size >=6 mm - follow-up CT at 6-12 months, then every 2 years until 5 years Solitary part-solid nodule * nodule size <6 mm - no CT follow-up required * nodule size >=6 mm - follow-up CT at 3-6 months. If unchanged, and solid component remains <6 mm, then annual follow-up for 5 years Multiple subsolid nodules * nodule size <6 mm - follow-up CT at 3-6 months, consider further follow-up at 2 and 4 years if stable * nodule size >=6 mm - follow-up CT at 3-6 months, subsequent management based on the most suspicious nodule(s) Electronically signed by: Samuel Mullins M.D. 08/13/2017 4:41 PM Dictated Date/Time: 08/13/2017 4:28 PM Impression Assessment and Plan Pleuritic chest pain in a 72 year old male known to [facility] cardiology with h/ o P/E Admit to tele will order troponin x 3 to rule out ACS. History not typical for ACS. will continue with Toradol as this will likely help with his pleuritic chest pain especially if it is pericarditis. EKG however, did not show changes which would suggest this. consulted cardiology will also place lidocaine patch for musculoskeletal pain that originating in his left scap. Patient received nitro by ER. Patient states that nitro did not help Musculoskeletal pain in left scap likely secondary to left trapezius strain will place lidocaine patch as stated above HTN Will continue home meds and will monitor. Level of Care Telemetry Advanced Directives Existing Advance Directive: No Existing Living Will: No Existing Power of Driller'S Assistant: No Resuscitation Status FULL RESUSCITATION VTE Prophylaxis VTE Risk Assessment Done? Y/N: Yes Risk Level: Low Given or contraindicated: Treatment not indicated (suspect short stay if troponin is negative)
[2017-08-13] MEDS ORDERED: INFLUENZA VACCINE HIGH DOSE 65+ 0.5 ML SYR IM. ONE (20:15)
[2017-08-13] MEDS ORDERED: PNEUMOCOCCAL ADMINISTRATION CHARGE ONE (20:15)
[2017-08-13] MEDS ORDERED: INFLUENZA ADMINISTRATION CHARGE ONE (20:15)
[2017-08-13 20:45] VITALS: BP 146/82
[2017-08-13] MEDS ORDERED: IV FLUIDS COMPLETED PRN (21:00)
[2017-08-13 21:16] VITALS: PULSE 73; TEMP 36.5; O2SAT 92
[2017-08-13 21:32] VITALS: BP 148/95; PULSE 73; TEMP 36.5; O2SAT 92; Ht 170.2 cm; Wt 123.0 kg
[2017-08-13] MEDS ORDERED: KETOROLAC TROMETHAMINE 15 MG/ML VIAL IV. PRN (23:00)
[2017-08-13] MEDS: TRAMADOL HCL 50 MG TAB PO PRN (23:06)
[2017-08-13 23:49] VITALS: BP 144/87; PULSE 82; TEMP 36.7; O2SAT 92
[2017-08-14] VITALS (23 sets, daily range): BP systolic 129–167; BP diastolic 55–106; PULSE 53–75; TEMP 36.5–36.9; O2SAT 92–98
[2017-08-14] MEDS: ALUM HYDROX/MAG TRISILICATE CHEW PO PRN ×2 (00:25→13:57)
[2017-08-14] MEDS ORDERED: HEPARIN IV LOW DOSE NO BOLUS SCH (02:38)
[2017-08-14 03:08] LABS: BASO % 0.1 %; BASO ABS # 0.01 K/uL (0-0.2); COMPLETE YES; EOS % 0.1 %; HEMATOCRIT 44.8 % (42-52); IG% 0.1 %; LYMPH % 5.7 %; LYMPH ABS # 0.54 K/uL (1.2-3.4); MEAN CELL VOLUME 84.1 fL (80-100); MEAN CORPUSCULAR HGB CONC 33.3 g/dl (32-36); MEAN PLATELET VOLUME 11.6 fL (7.4-10.4); MONO % 2.4 %; NEUT % 91.6 %; PLATELET COUNT 210 K/uL (130-400); RED BLOOD COUNT 5.33 M/uL (4.7-6.1); WHITE BLOOD COUNT 9.54 K/uL (4.8-10.8)
[2017-08-14 03:13] LABS: PARTIAL THROMBOPLASTIN RATIO 0.9; PROTHROMBIN TIME (PATIENT) 11.2 SECONDS (9.0-12.0)
[2017-08-14] MEDS: HEPARIN 25000 UNIT/ D5W 500 ML (PHARMACY PREPARED) IV PRN ×4 (03:24→06:56)
[2017-08-14] MEDS ORDERED: ATORVASTATIN 40 MG TAB PO ONE (04:00)
[2017-08-14] MEDS ORDERED: CARVEDILOL 3.125 MG TAB PO ONE (04:00)
--- NOTE | 2017-08-14 04:07 | Progress Note ---
Progress Note Date of Service Aug 14, 2017. Progress Note Positive troponin overnight. Patient no longer having chest pain. EKG repeated and shows no changes from earlier. Aspirin given by EMS. Nitro paste 1 inch on. Lab result and plan discussed with patient - start heparin IV drip, carvedilol 3.125mg, atorvastatin 80mg. Echo in morning. Echocardiogram ordered for morning. 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
[2017-08-14] MEDS: TRAMADOL HCL 50 MG TAB PO PRN ×2 (06:29→16:01)
[2017-08-14 08:01] LABS: ESTIMATED AVERAGE GLUCOSE 123 mg/dl; HA1C FLAG Normal (Normal)
[2017-08-14 08:06] LABS: BUN/CREATININE RATIO 20.9 (10-20); CALCIUM 8.9 mg/dl (8.5-10.1); CREATININE 1.04 mg/dl (0.60-1.40); POTASSIUM 4.1 mmol/L (3.5-5.1)
[2017-08-14 08:18] LABS: CHOLESTEROL/HDL RATIO 4.4
[2017-08-14] MEDS: INDAPAMIDE 1.25 MG TAB PO SCH (08:59)
[2017-08-14] MEDS ORDERED: HEPARIN IV BOLUS 4,500 UNIT in SYRINGE 0 ML IV SCH (09:00)
[2017-08-14] MEDS: LIDODERM (LIDOCAINE) PATCH 5% TD SCH (09:00)
[2017-08-14] MEDS ORDERED: SPIRONOLACTONE 25 MG TAB PO SCH (09:00)
[2017-08-14] MEDS: LOSARTAN POTASSIUM 50 MG TAB PO SCH (09:04)
[2017-08-14] MEDS: ASPIRIN 81 MG ECTAB PO SCH (09:05)
--- NOTE | 2017-08-14 09:18 | Cardiology Consultation ---
Cardiology Consultation Date of Consultation: Aug 14, 2017 Requesting Physician: Dr. Gould Attending Metal Mixer: Dr. Rios (Liza Rivero PA-C) History of Present Illness Patient is a 72 year old male who has followed with Dr. Leigh as an outpatient for ongoing exertional dyspnea. Prior evaluation included nuclear stress testing in 2016 without inducible ischemia and echo with preserved LV function. Due to cardiac risk factors and ongoing symptoms, cardiac catheterization was recommended and arranged. However the patient injured his hand and procedure was cancelled. He then subsequently developed pulmonary emboli in January 2017, presumed secondary to inactivity after injury. He was treated with 3 months of Xarelto. At cardio f/u after anticoagulation therapy was stopped, repeat cath was discussed, but patient was hesitant to proceed. Other history includes obesity, hypertension, prior alcohol and drug use (in remission). He reports recently starting an exercise program to aid with weight loss. he has been going to the gym and using stationary bike for 3 weeks. he reports dyspnea but no chest pain. yesterday he took his dog for a walk at [facility], walking about 1 mile. he felt well during the walk. Upon returning home he felt "strange". He sat down and drank a cup of coffee and developed chest heaviness wiht radiation to his back, symptoms quickly progressed and he summoned EMS. En route to ER he was treated with SL nitro which he reports aided his symptoms but chest pressure quickly returned. He reports having chest pressure till approx 9 PM last evening in ER. CT of the chest was negative for acute dissection. EKG was unchanged. Initial troponin negative. At 1:00 AM, cardiac enzymes elevated. He was started on IV heparin and carvedilol. He had nitro ointment on, but this was discontinued due to headaches. At time of consult, patient feeling ok. No significant chest pain this morning. Noted mild "twinge" earlier but now resolved. No SOB. No dizziness, palpitations or tachypalpitations. No orthopnea, PND, or edema. He reports chronic cough, unchanged. (Liza Rivero PA-C) Past Medical/Surgical History Problem List: Medical Problems: 1. Chest pain 2. Hypertension 3. Prior PE 4. Obesity 5. dyslipidemia (Liza Rivero PA-C) Family History Cancer Heart disease Hypertension Lung disease Father had history of RI/CAD. Mother had history of CHF (Liza Rivero PA-C) Cancer Heart disease Hypertension Lung disease (Stephen Rios M.D.) Social History Smoking Status: Former Smoker Marital Status: Occupation: retired (Liza Rivero PA-C) Review Of Systems General: The patient denies weight change, night sweats, fever, chills. Head: The patient denies headache and prior head trauma. Cardiovascular: The patient denies chest pain or chest discomfort, dyspnea on exertion, palpitations, PND, orthopnea, edema, spontaneous shortness of breath, syncope and near syncope. Pulmonary: The patient denies cough, wheeze, pleurisy, hemoptysis, sputum, and excessive snoring. Gastrointestinal: The patient denies nausea, vomiting, diarrhea, constipation, bloating, hematemesis, hematochezia, and abdominal pain. Skin: The patient denies diaphoresis and rash. Musculoskeletal: The patient denies joint pain, joint swelling, myalgia, back pain, neck pain and prior injuries. Neurological: The patient denies prior stroke and seizures (Liza Rivero PA-C) Allergies Coded Allergies: No Known Allergies (Verified , 08/13/17) Medications Reported Home Medications Medications Dose Route/Sig Max Daily Dose Days Date Category Tramadol HCl 50 Mg Tab 100 Mg PO Q4H PRN 10 01/09/17 Rx Indapamide 2.5 Mg Tab 1 Tab PO QAM 12/07/16 Reported Aldactone (Spironolactone) 25 Mg Tab 25 Mg PO QAM 12/07/16 Reported Cozaar (Losartan Potassium) 100 Mg Tab 100 Mg PO QAM 12/07/16 Reported (Liza Rivero PA-C) Physical Exam Vital Signs (Last 8hrs): Last 8 Hrs Date Time Temp Pulse Resp B/P (MAP) Pulse Ox O2 Delivery O2 Flow Rate FiO2 08/14/17 07:30 36.5 58 20 140/88 (105) 93 Room Air 08/14/17 04:30 36.8 53 18 150/55 (86) 92 Room Air 08/14/17 04:00 Room Air General Appearance: Alert and Oriented x3. NAD. Head: Normocephalic Atraumatic. Eyes: PERRLA, EOMI, conjunctiva and sclera clear Neck: Supple. No carotid bruits noted. No JVD. No HJD. Respiratory: Breath sounds clear to auscultation bilaterally. No w/r/r. Cardiovascular: Reg rate and rhythm. S1 and S2 noted. No murmurs, rubs, gallops. PMI non displace. Abdomen: Normal bowel sounds, soft nontender. no abdominal bruits. Extremities: No edema, no clubbing or cyanosis. distal pulses 2/4 bilaterally. Neuro: No focal deficits. Psychiatric: Normal affect. (Liza Rivero, KENYA) Data Last 24 Hours Test 08/13/17 15:23 08/13/17 15:30 08/13/17 15:34 08/13/17 16:30 White Blood Count 8.19 K/uL Red Blood Count 5.16 M/uL Hemoglobin 14.6 g/dL Hematocrit 43.8 % Mean Corpuscular Volume 84.9 fL Mean Corpuscular Hemoglobin 28.3 pg Mean Corpuscular Hemoglobin Concent 33.3 g/dl Platelet Count 184 K/uL Mean Platelet Volume 12.5 fL Neutrophils (%) (Auto) 73.0 % Lymphocytes (%) (Auto) 16.2 % Monocytes (%) (Auto) 7.4 % Eosinophils (%) (Auto) 2.9 % Basophils (%) (Auto) 0.1 % Neutrophils # (Auto) 5.97 K/uL Lymphocytes # (Auto) 1.33 K/uL Monocytes # (Auto) 0.61 K/uL Eosinophils # (Auto) 0.24 K/uL Basophils # (Auto) 0.01 K/uL RDW Standard Deviation 50.8 fL RDW Coefficient of Variation 16.4 % Immature Granulocyte % (Auto) 0.4 % Immature Granulocyte # (Auto) 0.03 K/uL Prothrombin Time 10.8 SECONDS Prothromb Time International Ratio 1.0 Magnesium Level 2.2 mg/dl Total Bilirubin 0.5 mg/dl Direct Bilirubin < 0.1 mg/dl Aspartate Amino Transf (AST/SGOT) 17 U/L Alanine Aminotransferase (ALT/SGPT) 23 U/L Alkaline Phosphatase 100 U/L Pro-B-Type Natriuretic Peptide 51 pg/ml Total Protein 7.1 gm/dl Albumin 3.7 gm/dl Bedside D-Dimer > 450 ng/mlFEU Bedside Troponin I < 0.030 ng/ml Bedside Hemoglobin 14.6 g/dl Bedside Hematocrit 43 % Bedside Sodium 138 mEq/L Bedside Potassium 3.7 mEq/L Bedside Chloride 100 mEq/L Bedside Total CO2 24 mEq/l Anion Gap 19.0 mmol/L Bedside Blood Urea Nitrogen 25 mg/dl Bedside Creatinine 1.2 mg/dl Bedside Glucose (other) 124 mg/dl Bedside Ionized Calcium (Jose F) 1.10 mmol/l Urine Color YELLOW Urine Appearance CLEAR Urine pH 7.5 Urine Specific [place] 1.037 Urine Protein NEG Urine Glucose (UA) NEG Urine Ketones 2+ Urine Occult Blood NEG Urine Nitrite NEG Urine Bilirubin NEG Urine Urobilinogen NEG Urine Leukocyte Esterase TRACE Urine WBC (Auto) 1-5 /hpf Urine RBC (Auto) 0-4 /hpf Urine Hyaline Casts (Auto) 1-5 /lpf Urine Epithelial Cells (Auto) 0-5 /lpf Urine Bacteria (Auto) NEG Test 08/14/17 01:07 08/14/17 02:52 08/14/17 07:12 Troponin I 5.090 ng/ml 12.600 ng/ml White Blood Count 9.54 K/uL Red Blood Count 5.33 M/uL Hemoglobin 14.9 g/dL Hematocrit 44.8 % Mean Corpuscular Volume 84.1 fL Mean Corpuscular Hemoglobin 28.0 pg Mean Corpuscular Hemoglobin Concent 33.3 g/dl Platelet Count 210 K/uL Mean Platelet Volume 11.6 fL Neutrophils (%) (Auto) 91.6 % Lymphocytes (%) (Auto) 5.7 % Monocytes (%) (Auto) 2.4 % Eosinophils (%) (Auto) 0.1 % Basophils (%) (Auto) 0.1 % Neutrophils # (Auto) 8.74 K/uL Lymphocytes # (Auto) 0.54 K/uL Monocytes # (Auto) 0.23 K/uL Eosinophils # (Auto) 0.01 K/uL Basophils # (Auto) 0.01 K/uL RDW Standard Deviation 49.6 fL RDW Coefficient of Variation 16.2 % Immature Granulocyte % (Auto) 0.1 % Immature Granulocyte # (Auto) 0.01 K/uL Prothrombin Time 11.2 SECONDS Prothromb Time International Ratio 1.0 Activated Partial Thromboplast Time 24.4 SECONDS 27.2 SECONDS Partial Thromboplastin Ratio 0.9 1.0 Sodium Level 137 mmol/L Potassium Level 4.1 mmol/L Chloride Level 103 mmol/L Carbon Dioxide Level 25 mmol/L Anion Gap 9.0 mmol/L Blood Urea Nitrogen 22 mg/dl Creatinine 1.04 mg/dl Est Creatinine Clear Calc Drug Dose 83.0 ml/min Estimated GFR () 83.9 Estimated GFR (Non- 72.4 BUN/Creatinine Ratio 20.9 Random Glucose 121 mg/dl Estimated Average Glucose 123 mg/dl Hemoglobin A1c 5.9 % Calcium Level 8.9 mg/dl Triglycerides Level 60 mg/dl Cholesterol Level 218 mg/dl HDL Cholesterol 49 mg/dl LDL Cholesterol, Calculated 157 mg/dl VLDL Cholesterol, Calculated 12 mg/dl Cholesterol/HDL Ratio 4.4 Imaging: CT Angiography: IMPRESSION: 1. High-grade narrowing involves the proximal left internal iliac artery secondary to mixed atheromatous and atherosclerotic plaquing. 2. 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 No dissection identified. 3. Patchy bibasilar consolidative and groundglass opacities with bronchial wall thickening suggests pneumonitis with bronchitis. 4. Prostamegaly. 5. Additional findings as above. CHEST CT: IMPRESSION: 1. There is no aneurysm or dissection seen involving the thoracic aorta. 2. Patchy airspace consolidation is seen at both lung bases. Correlate clinically for evidence of pneumonia/aspiration pneumonitis. Radiographic follow-up to resolution is recommended. . Cardiomegaly and emphysema. 4. Trace and chronic appearing pulmonary embolus is identified within segmental branches of the right lower lobe. No findings are concerning for acute pulmonary emboli. 5. Mildly enlarged mediastinal lymph nodes are nonspecific and may be on a reactive basis. 6. There are 2 pulmonary nodules at the right lung base measuring up to 8 mm. These have been present dating back to 02/02/2016. Follow-up as per the Fleischner criteria is recommended. EKG: NSR with old anterior and inferior infarct, not overtly changed from prior EKG' s. Telemetry reviewed: NSR with occ PVC. Prior Data: Echocardiogram reviewed dated 11/15/16 Interpretation Summary The examination is adequate to evaluate the referral indication. The left ventricular cavity size is normal. The LV wall thickness is moderately increased (concentric). The left ventricular wall motion is normal. Calculated LV ejection Fraction = 55% (biplane method of discs). The left ventricular diastolic function is mildly abnormal (grade I). No significant valvular disease is present. Nuclear Stress test in 02/2016: IMPRESSION: 1. No scintigraphic evidence for a myocardial infarction or myocardial ischemia. 2. No Lexiscan-induced chest pain or EKG changes. 3. Low normal left ventricular ejection fraction without wall motion abnormality and an ejection fraction of 50%. (Liza Rivero PA-C) Assessment & Plan 1. NSTEMI -plan for diagnostic cardiac catheterization this AM -Remain NPO except meds -continue IV heparin -echo pending -ASA, beta etelvina (received one dose carvedilol early AM), losartan, atorvastatin -nitrates discontinued due to headache 2. Hypertension -continue losartan -On indapamide and spironolactone at home 3. Dyslipidemia -start atorvastatin Further recommendations pending review of echo and diagnostic cardiac catheterization. All risks and benefits discussed Patient agreeable to proceeding. Case discussed with Dr. Rios (Liza Rivero, MARY-C) Patient was seen and examined, assessment and plan as above. Echo this am reveals apical hypokinesis ? multivessel distribution. Cardiac cath discussed fully risks and benefits. Cath later this am Stephen Rios MD (Stephen Rios M.D.)
--- NOTE | 2017-08-14 09:26 | ECHOCARDIOGRAM REPORT ---
*NOTICE TO RECEIVING LIBERTARIAN AGENCY This information is strictly Confidential and protected under [place] law. [place] law prohibits you from making any further disclosure of this information unless further disclosure is expressly permitted by the written consent of the person to whom it pertains or is authorized by law. A general authorization for the release of medical or other information is not sufficient for this purpose. Hospital accepts no responsibility if the information is made available to any other person, INCLUDING THE PATIENT. Interpretation Summary * Name: MORGAN REYES JR Study Date: 08/14/2017 07:23 AM BP: 140/88 mmHg * Patient Location: [facility]\S\N281\S\2 HR: 58 * : 1945 (M/d/yyyy) Gender: Male Height: 67 in * Age: 72 yrs Ethnicity: CA Weight: 273 lb * Ordering Physician: Efrain Cortes * Referring Physician: Self, Referred * Performed By: Shayla Barth RDCS * * Reason For Study: AMI * BSA: 2.3 m2 * -- Conclusions -- * The left ventricle is normal in size. * There is mild concentric left ventricular hypertrophy. * There is moderate apical wall hypokinesis. * There is a moderate sized apical and posterior wall motion abnormality with hypokinesis of the segments. * There is a small sized anterior wall motion abnormality with hypokinesis of the segments. * There is a small sized septal wall motion abnormality with hypokinesis of the segments. * Ejection Fraction = 45-50%. * There is a moderate sized apical and posterior wall motion abnormality with hypokinesis of the segments. * There is a small sized anterior wall motion abnormality with hypokinesis of the segments. * There is a small sized septal wall motion abnormality with hypokinesis of the segments. * There is trace mitral regurgitation. * There is trace tricuspid regurgitation. * Doppler findings do not suggest pulmonary hypertension. Procedure Details * A complete two-dimensional transthoracic echocardiogram was performed (2D, M-mode, Doppler and color flow Doppler). * A contrast injection of Definity was performed to improve assessment of LV function. * Contrast was injected into an intravenous site in the left arm. * One vial of Definity ultrasound contrast was diluted in normal saline to a total volume of 10 ml. A total of '3' ml of solution was administered during imaging. * Lot # [id number] of Definity utilized for procedure. * Expiration date Sep 22. * The attending nurse who injected the contrast agent was Marlen Saucedo RN. Left Ventricle * The left ventricle is normal in size. * There is mild concentric left ventricular hypertrophy. * Ejection Fraction = 45-50%. * There is moderate apical wall hypokinesis. Right Ventricle * The right ventricle is normal in size and function. Atria * The left atrial size is normal. * Right atrial size is normal. * No ASD detected; PFO is not assessed. Mitral Valve * The mitral valve anatomy is normal. * There is no mitral valve stenosis. * There is trace mitral regurgitation. Tricuspid Valve * The tricuspid valve anatomy is normal. * There is no tricuspid stenosis. * There is trace tricuspid regurgitation. * Doppler findings do not suggest pulmonary hypertension. Aortic Valve * The aortic valve is trileaflet. * No hemodynamically significant valvular aortic stenosis. * No aortic regurgitation is present. Pulmonic Valve * The pulmonic valve is not well visualized. Great Vessels * The aortic root is normal size. Pericardium/Pleural * There is no pericardial effusion. Great Vessels * Normal inferior vena cava diameter and respiratory variation suggests normal central venous pressure. Left Ventricular Diastolic Function * Grade I diastolic dysfunction, (abnormal relaxation pattern). MMode 2D Measurements and Calculations IVSd 1.3 cm LVIDd 4.9 cm LVIDs 3.5 cm LVPWd 1.6 cm IVS/LVPW 0.79 FS 27.3 % EDV(Teich) 111.8 ml ESV(Teich) 52.5 ml EF(Teich) 53.0 % EDV(cubed) 116.3 ml ESV(cubed) 44.6 ml EF(cubed) 61.6 % LV mass(C)d 296.8 grams LV mass(C)dI 128.6 grams/m\S\2 SV(Teich) 59.3 ml SI(Teich) 25.7 ml/m\S\2 SV(cubed) 71.7 ml SI(cubed) 31.1 ml/m\S\2 Ao root diam 3.5 cm Ao root area 9.7 cm\S\2 ACS 2.2 cm asc Aorta Diam 3.7 cm LVOT diam 2.0 cm LVOT area 3.1 cm\S\2 LVAd ap4 37.0 cm\S\2 LVLd ap4 8.3 cm EDV(MOD-sp4) 129.3 ml EDV(sp4-el) 139.8 ml LVAs ap4 24.0 cm\S\2 LVLs ap4 6.8 cm ESV(MOD-sp4) 68.6 ml ESV(sp4-el) 72.2 ml EF(MOD-sp4) 47.0 % EF(sp4-el) 48.4 % LVAd ap2 34.3 cm\S\2 LVLd ap2 8.5 cm EDV(MOD-sp2) 112.7 ml EDV(sp2-el) 117.6 ml LVAs ap2 23.7 cm\S\2 LVLs ap2 7.4 cm ESV(MOD-sp2) 61.8 ml ESV(sp2-el) 64.5 ml EF(MOD-sp2) 45.1 % EF(sp2-el) 45.2 % LVLd %diff 1.8 % EDV(MOD-bp) 121.1 ml LVLs %diff 8.4 % ESV(MOD-bp) 67.5 ml EF(MOD-bp) 44.2 % SV(MOD-sp4) 60.7 ml SI(MOD-sp4) 26.3 ml/m\S\2 SV(MOD-sp2) 50.9 ml SI(MOD-sp2) 22.0 ml/m\S\2 SV(MOD-bp) 53.5 ml SI(MOD-bp) 23.2 ml/m\S\2 SV(sp4-el) 67.6 ml SI(sp4-el) 29.3 ml/m\S\2 SV(sp2-el) 53.1 ml SI(sp2-el) 23.0 ml/m\S\2 Doppler Measurements and Calculations MV E max miranda 73.7 cm/sec MV A max miranda 104.3 cm/sec MV E/A 0.71 MV dec time 0.25 sec Ao V2 max 124.1 cm/sec Ao max PG 6.2 mmHg Ao max PG (full) 3.8 mmHg JEVON(V,A) 1.9 cm\S\2 JEVON(V,D) 1.9 cm\S\2 LV V1 max PG 2.4 mmHg LV V1 max 77.6 cm/sec PA V2 max 87.3 cm/sec PA max PG 3.0 mmHg PA acc slope 545.9 cm/sec\S\2 PA acc time 0.10 sec TR max miranda 103.7 cm/sec PA pr(Accel) 36.2 mmHg
[2017-08-14] MEDS ORDERED: SODIUM CHLORIDE 0.9% 1000ML 1,000 ML IV SCH (09:29)
--- NOTE | 2017-08-14 10:03 | Progress Note ---
Subjective Date of Service: Aug 14, 2017. Subjective Pt evaluation today including: conversation w/ patient, conversation w/ family , physical exam, chart review, lab review, review of studies, review of inpatient medication list Sitting up in chair, no chest pain, no other complaints Problem List Medical Problems: (1) Atypical chest pain Status: Acute (2) Dyspnea Status: Acute (3) Laceration of finger of right hand with tendon involvement Status: Acute (4) Open fracture of finger of right hand Status: Acute (5) Pulmonary embolism Status: Acute Review of Systems Constitutional: No fever, No chills, No sweats, No weight loss, No weakness, No fatigue, No problem reported Eyes: No worsening of vision, No eye pain, No redness, No discharge, No diplopia ENT: No hearing loss, No unusual epistaxis, No nasal symptoms, No sore throat, No tinnitus, No dental problems, No trouble swallowing Respiratory: No cough, No sputum, No wheezing, No shortness of breath, No dyspnea on exertion, No dyspnea at rest, No hemoptysis Cardiac: No chest pain, No orthopnea, No PND, No edema, No claudication, No palpitations Abdomen: No pain, No nausea, No vomiting, No diarrhea, No constipation Musculoskeletal: No joint pain, No muscle pain, No swelling, No calf pain Male : No dysuria, No urinary frequency, No incontinence, No nocturia more than once/night, No slowing stream, No hematuria Neurologic: No memory loss, No paralysis, No weakness, No numbness/tingling, No vertigo, No balance problems Psychiatric: No depression symptoms, No anhedonism, No anxiety, No insomnia, No substance abuse Heme: No abnormal bleeding/bruising, No clotting problems, No swollen lymph nodes, No night sweats Endo: No fatigue, No excessive thirst, No excessive urination Skin: No rash, No itch, No new/changing skin lesions, No color change, No bleeding Objective Vital Signs Date Time Temp Pulse Resp B/P (MAP) Pulse Ox O2 Delivery O2 Flow Rate FiO2 08/14/17 09:26 36.9 71 16 94 08/14/17 09:24 36.9 71 16 145/92 (109) 94 Room Air 08/14/17 08:00 93 Room Air 08/14/17 07:30 36.5 58 20 140/88 (105) 93 Room Air 08/14/17 04:30 36.8 53 18 150/55 (86) 92 Room Air 08/14/17 04:00 Room Air 08/14/17 00:00 Room Air 08/13/17 23:49 36.7 82 18 144/87 (106) 92 Room Air 08/13/17 21:32 36.5 73 18 148/95 92 Room Air 08/13/17 21:16 36.5 73 18 92 Room Air 08/13/17 20:45 146/82 (103) 08/13/17 19:17 75 20 148/95 95 Nasal Cannula 2.0 08/13/17 18:26 69 08/13/17 17:23 71 20 152/86 95 Nasal Cannula 2.0 08/13/17 15:37 71 22 152/99 97 Nasal Cannula 4.0 08/13/17 14:50 57 08/13/17 14:45 36.4 56 18 121/72 92 Room Air 08/13/17 14:45 92 Room Air 08/13/17 14:45 92 Room Air Physical Exam General Appearance: WD/WN, no apparent distress, + obese Eyes: normal inspection, PERRL, EOMI, sclerae normal ENT: normal ENT inspection, hearing grossly normal, pharynx normal Neck: supple, no adenopathy, thyroid normal, no JVD, no carotid bruits, trachea midline Respiratory/Chest: chest non-tender, lungs clear, normal breath sounds, no respiratory distress, no accessory muscle use Cardiovascular: regular rate, rhythm, no edema, no gallop, no JVD, no murmur Abdomen: normal bowel sounds, non tender, soft, no organomegaly, no pulsatile mass Extremities: normal range of motion, non-tender, normal inspection, no pedal edema, no calf tenderness, normal capillary refill, pelvis stable Neurologic/Psychiatric: edge sawyer II-XII nml as tested, no motor/sensory deficits, alert, normal mood/affect, oriented x 3 Skin: normal color, warm/dry, no rash Lymphatic: no adenopathy Laboratory Results Last 24 Hours Test 08/13/17 15:23 08/13/17 15:30 08/13/17 15:34 08/13/17 16:30 White Blood Count 8.19 K/uL Red Blood Count 5.16 M/uL Hemoglobin 14.6 g/dL Hematocrit 43.8 % Mean Corpuscular Volume 84.9 fL Mean Corpuscular Hemoglobin 28.3 pg Mean Corpuscular Hemoglobin Concent 33.3 g/dl Platelet Count 184 K/uL Mean Platelet Volume 12.5 fL Neutrophils (%) (Auto) 73.0 % Lymphocytes (%) (Auto) 16.2 % Monocytes (%) (Auto) 7.4 % Eosinophils (%) (Auto) 2.9 % Basophils (%) (Auto) 0.1 % Neutrophils # (Auto) 5.97 K/uL Lymphocytes # (Auto) 1.33 K/uL Monocytes # (Auto) 0.61 K/uL Eosinophils # (Auto) 0.24 K/uL Basophils # (Auto) 0.01 K/uL RDW Standard Deviation 50.8 fL RDW Coefficient of Variation 16.4 % Immature Granulocyte % (Auto) 0.4 % Immature Granulocyte # (Auto) 0.03 K/uL Prothrombin Time 10.8 SECONDS Prothromb Time International Ratio 1.0 Magnesium Level 2.2 mg/dl Total Bilirubin 0.5 mg/dl Direct Bilirubin < 0.1 mg/dl Aspartate Amino Transf (AST/SGOT) 17 U/L Alanine Aminotransferase (ALT/SGPT) 23 U/L Alkaline Phosphatase 100 U/L Pro-B-Type Natriuretic Peptide 51 pg/ml Total Protein 7.1 gm/dl Albumin 3.7 gm/dl Bedside D-Dimer > 450 ng/mlFEU Bedside Troponin I < 0.030 ng/ml Bedside Hemoglobin 14.6 g/dl Bedside Hematocrit 43 % Bedside Sodium 138 mEq/L Bedside Potassium 3.7 mEq/L Bedside Chloride 100 mEq/L Bedside Total CO2 24 mEq/l Anion Gap 19.0 mmol/L Bedside Blood Urea Nitrogen 25 mg/dl Bedside Creatinine 1.2 mg/dl Bedside Glucose (other) 124 mg/dl Bedside Ionized Calcium (Jose F) 1.10 mmol/l Urine Color YELLOW Urine Appearance CLEAR Urine pH 7.5 Urine Specific [place] 1.037 Urine Protein NEG Urine Glucose (UA) NEG Urine Ketones 2+ Urine Occult Blood NEG Urine Nitrite NEG Urine Bilirubin NEG Urine Urobilinogen NEG Urine Leukocyte Esterase TRACE Urine WBC (Auto) 1-5 /hpf Urine RBC (Auto) 0-4 /hpf Urine Hyaline Casts (Auto) 1-5 /lpf Urine Epithelial Cells (Auto) 0-5 /lpf Urine Bacteria (Auto) NEG Test 08/14/17 01:07 08/14/17 02:52 08/14/17 07:12 08/14/17 09:15 Troponin I 5.090 ng/ml 12.600 ng/ml White Blood Count 9.54 K/uL Red Blood Count 5.33 M/uL Hemoglobin 14.9 g/dL Hematocrit 44.8 % Mean Corpuscular Volume 84.1 fL Mean Corpuscular Hemoglobin 28.0 pg Mean Corpuscular Hemoglobin Concent 33.3 g/dl Platelet Count 210 K/uL Mean Platelet Volume 11.6 fL Neutrophils (%) (Auto) 91.6 % Lymphocytes (%) (Auto) 5.7 % Monocytes (%) (Auto) 2.4 % Eosinophils (%) (Auto) 0.1 % Basophils (%) (Auto) 0.1 % Neutrophils # (Auto) 8.74 K/uL Lymphocytes # (Auto) 0.54 K/uL Monocytes # (Auto) 0.23 K/uL Eosinophils # (Auto) 0.01 K/uL Basophils # (Auto) 0.01 K/uL RDW Standard Deviation 49.6 fL RDW Coefficient of Variation 16.2 % Immature Granulocyte % (Auto) 0.1 % Immature Granulocyte # (Auto) 0.01 K/uL Prothrombin Time 11.2 SECONDS Prothromb Time International Ratio 1.0 Activated Partial Thromboplast Time 24.4 SECONDS 27.2 SECONDS Partial Thromboplastin Ratio 0.9 1.0 Sodium Level 137 mmol/L Potassium Level 4.1 mmol/L Chloride Level 103 mmol/L Carbon Dioxide Level 25 mmol/L Anion Gap 9.0 mmol/L Blood Urea Nitrogen 22 mg/dl Creatinine 1.04 mg/dl Est Creatinine Clear Calc Drug Dose 83.0 ml/min Estimated GFR () 83.9 Estimated GFR (Non- 72.4 BUN/Creatinine Ratio 20.9 Random Glucose 121 mg/dl Estimated Average Glucose 123 mg/dl Hemoglobin A1c 5.9 % Calcium Level 8.9 mg/dl Triglycerides Level 60 mg/dl Cholesterol Level 218 mg/dl HDL Cholesterol 49 mg/dl LDL Cholesterol, Calculated 157 mg/dl VLDL Cholesterol, Calculated 12 mg/dl Cholesterol/HDL Ratio 4.4 Assessment and Plan 72-year-old with history of hypertension , morbid obesity , admitted because of chest pain was found has non-STEMI after further evaluation Non-STEMI with latest troponin level 12.6, Continue oxygen Continue beta etelvina and statin Continue heparin drip [facility] cardiology follow-up, transferred to PCU and planning to have left heart cath, Dyslipidemia, is on stenting Hypertension, continue current medication of beta etelvina Morbid obesity, I advise patient to follow-up with PCP Decreased left ventricle ejection fraction, with history of hypertension, possible's chronic heart failure? Check a BNP and continue follow-up echo per report: The left ventricle is normal in size. * There is mild concentric left ventricular hypertrophy. * There is moderate apical wall hypokinesis. * There is a moderate sized apical and posterior wall motion abnormality with hypokinesis of the segments. * There is a small sized anterior wall motion abnormality with hypokinesis of the segments. * There is a small sized septal wall motion abnormality with hypokinesis of the segments. * Ejection Fraction = 45-50%. * There is a moderate sized apical and posterior wall motion abnormality with hypokinesis of the segments. * There is a small sized anterior wall motion abnormality with hypokinesis of the segments. * There is a small sized septal wall motion abnormality with hypokinesis of the segments. * There is trace mitral regurgitation. * There is trace tricuspid regurgitation. * Doppler findings do not suggest pulmonary hypertension. DVT prophylaxis is covered Answered all questions Continued [facility] stay due to: multiple IV medications needed Discharge planning: uncertain
[2017-08-14] MEDS ORDERED: FENTANYL CITRATE INJ 50 MCG/1 ML 2 ML VIAL ONE ×2 (10:43→12:38)
[2017-08-14] MEDS ORDERED: NiCARDipine HCL INJ 2.5 MG/ML 10 ML AMP ONE (10:43)
[2017-08-14] MEDS ORDERED: MIDAZOLAM HCL 1 MG/ML 2ML VIAL ONE (10:43)
[2017-08-14] MEDS ORDERED: HEPARIN SOD (PORCINE) 1000 UNIT/ML 10 ML VIAL ONE (10:43)
[2017-08-14] MEDS ORDERED: NITROGLYCERIN/D5W 100MCG/ML 20ML SYR ONE (10:43)
[2017-08-14] MEDS ORDERED: EPTIFIBATIDE 0.75 MG/ML 75MG VIAL IV ONE (11:59)
[2017-08-14] MEDS ORDERED: EPTIFIBATIDE 2 MG/ML 10 ML VIAL IV ONE (11:59)
--- NOTE | 2017-08-14 12:10 | Procedure Note ---
Pre-Mod Sedation Assessment General Date of Moderate Sedation: Aug 14, 2017. Vital Signs: Vital Signs Past 12 Hours Date Time Temp Pulse Resp B/P (MAP) Pulse Ox O2 Delivery O2 Flow Rate FiO2 08/14/17 09:58 36.6 65 18 135/88 (104) 93 Room Air 08/14/17 09:26 36.9 71 16 94 08/14/17 09:24 36.9 71 16 145/92 (109) 94 Room Air 08/14/17 08:00 93 Room Air 08/14/17 07:30 36.5 58 20 140/88 (105) 93 Room Air 08/14/17 04:30 36.8 53 18 150/55 (86) 92 Room Air 08/14/17 04:00 Room Air Review Cardiovascular: regular rate, rhythm, no edema, no gallop Abdomen: normal bowel sounds Lungs: lungs clear Pre-Sedation Airway Assessment Oral Cavity: WNL Smoking Status: Former Smoker Mallampati Classification: Class II ASA Classification: Class III Procedure Planning Contraindications-for Mod Sed: None Yes Notes The planned sedation has been discussed with the patient and consent obtained. I have identified the patient, determined the appropriateness of sedation and have assessed the patient immediately prior to the procedure. All medicine(s) and interventions are by my order.
--- NOTE | 2017-08-14 12:31 | [facility] Post Operative Brief Note ---
Preliminary Procedure Note Procedure Date Aug 14, 2017. Pre-Procedure Diagnosis Non STEMI AUC Score 8 Post-Procedure Diagnosis Severe CAD (single vessel ) Procedure(s) Performed Coronary Angiography, Left Heart Cath Bsa Officer Dr. Stephen Rios Dentist(s) Arley Alexander Estimated Blood Loss <15cc Medication(s) Fentanyl (12.5 mcg IV), Heparin (2500u IV), Nicardipine (300mcg intraarterial after sheath insertion), Versed (1mg IV), Lidocaine 1% (local infiltration) Preliminary Findings Right dominant coronary anatomy Single vessel branch vessel occlusive disease with 99% CX OM with FRANCISCO 1 faint flow LAD Large Type 3 with large diagonal 1 , moderate luminal irregularities RCA large with 40% mid and distal LVEDP 18 Recommendations PCI without planned CABG Specimens None Disposition PCU
[2017-08-14] MEDS ORDERED: TICAGRELOR 90 MG TAB PO ONE (12:49)
[2017-08-14] MEDS ORDERED: ACETAMINOPHEN 325 MG TAB PO PRN (13:00)
[2017-08-14] MEDS ORDERED: EPTIFIBATIDE BOLUS / DRIP IV ONE (13:00)
[2017-08-14] MEDS ORDERED: ATROPINE SULFATE 0.1 MG/ML 5ML SYR IV PRN (13:00)
[2017-08-14] MEDS ORDERED: ONDANSETRON INJ 2 MG/ML 2 ML VIAL IV PRN (13:00)
--- NOTE | 2017-08-14 13:12 | Cardiac Catheterization ---
Procedure Note Procedure Date Aug 14, 2017. Pre-Procedure Diagnosis Non STEMI AUC Score 9 for revascularization Post-Procedure Diagnosis Severe CAD, Successful PCI Procedure(s) Performed Coronary Angiography, PTCA, Drug Eluting Stent Metal Finish Inspector Dr. Colby Camera Tuning Engineer(s) Josue Alexander,SQUAD SERGEANT;JAMIR Hunter Estimated Blood Loss 25 Medication(s) Fentanyl, Heparin, Integrilin, Nicardipine (Intra-arterial and intracoronary), Versed, Lidocaine 1% Ticagrelor 180 mg PO post PCI Summary of Findings Clinical indications: Non ST elevation myocardial infarction, severe proximal left circumflex marginal stenosis on diagnostic angiography performed by Dr. Stephen Rios. Catheterization site: 6 Azerbaijani glide sheath right radial artery. This had been inserted during the diagnostic procedure. Equipment: 6 [place] EBU 3.75 guide catheter, [place] guidewire, [employer] Sprinter 2.5 x 15 millimeter balloon dilatation catheter, Medtronic Resolute Integrity 2.75 x 18 millimeter drug-eluting stent. Protocol: Following administration of intravenous heparin a therapeutic activated clotting time was documented. Intravenous Integrilin was administered prior to passage of a guidewire into the left circumflex marginal. Two balloon inflations were performed with the sprinter balloon to the subtotal proximal left circumflex marginal stenosis. Both performed to pressure of 14 atmospheres. Maximum duration 26 seconds. The stent was deployed at a pressure of 15 atmospheres for duration of 45 seconds. Follow-up angiography was then performed from orthogonal projections with the guidewire in place and then guidewire withdrawn. Findings: Guiding angiography revealed a 99 percent subtotal proximal left circumflex first marginal stenosis. FRANCISCO 1 flow. Following balloon angioplasty FRANCISCO 3 flow was present in the left circumflex marginal. Following stent deployment the residual stenosis in the proximal left circumflex marginal was 0 percent. FRANCISCO 3 flow was present throughout the marginal. The marginal was a long medium caliber vessel which bifurcated in its mid segment. The inferior branch extended to the apex of the left ventricle. There is no significant disease in the mid or distal segments of the marginal. No evidence of dissection, thrombus, perforation, or distal embolic event following stent deployment. The patient was hemodynamically and electrically stable following reperfusion. At the completion of procedure he had no cardiac or vascular complaints. During the procedure he had no complaints of chest pain. Plan: The patient will remain on aspirin, losartan, atorvastatin, and carvedilol. He was given a loading dose of ticagrelor post PCI. He will then remain on ticagrelor 90 milligrams b.i.d. and aspirin 81 milligrams daily. He should remain on dual antiplatelet therapy for 1 year. He will remain on intravenous Integrilin for a approximately 18 hours post PCI. Post Integrilin CBC ordered. Post PCI ECG ordered. The patient will have continued cardiology follow-up with the [facility] cardiology service. Hemodynamics Rest Ao: 131/73/98 millimeters Hg Final Ao: 123/61/87 millimeters Hg. LV: Not applicable Recommendations PCI without planned CABG Specimens None Radiation Exposure (mGy) Total 4969 for both diagnostic and interventional procedure Contrast (mls) Total 205 Visipaque for both procedures Fluids (cc crystalloids) Total 100 for both procedures Drains None Anesthesia IV Versed,fentanyl.Start 11:22 (beginning diagnostic procedure.) End 12:50. Procedural Complication(s) None Disposition PCU ACC Data Cardiac Status Clinical evaluation leading to the procedure CAD Presntation: Non STEMI Anginal Classification: CCS IV Heart Failure: No Cardiogenic Shock w/in 24Hrs: No Cardiac Arrest w/in 24Hrs: No Imaging studies past 6 months: Yes (Echocardiogram August 14, 2017 with LV ejection fraction 45 percent, apical lateral and posterior hypokinesis. Apical septal hypokinesis.) Stress studies past 6 months: No Cardiac CTA: No Coronary Anatomy Dominant: Right (For complete details of diagnostic angiography please see cardiac catheterization report performed by Dr. Mitchell and Gabriel.) OM1 (% Stenosis): Proximal (99) Diagnostic Physician's Name: Stephen Rios M.D. Status: Elective Closure Device Percutaneous Entry Location: Radial Closure Device: Radial Band Recommendations: PCI without planned CABG PCI Indication: PCI for high risk Non-STEMI Lesion Segment Name: Proximal left circumflex OM 1 Culprit Artery: Yes Stenosis Prior to Rx (%): 99 Chronic Total Occlusion: No IVUS: No FFR: No Ratio: less than or equal to 0.75% Pre-Procedure FRANCISCO Flow: 1 Lesion Complexity: Non-High/Non-C Lesion Length (mm): 14 Thrombus Present: Yes Bifurcation Lesion: No Guidewire Across Lesion: Yes Guidewire: Stenosis Post-Procedure (%): 0 Post-Procedure FRANCISCO Flow: 3 Device(s) Deployed: Yes Type of Device(s): Medtronic Resolute 2.75 X 18 mm Resolute Integrity FERDINAND Intraprocedure Events Significant Dissection: No Perforation: No
[2017-08-14 13:48] LABS: BASO % 0.1 %; BASO ABS # 0.01 K/uL (0-0.2); EOS % 0.1 %; HEMATOCRIT 46.4 % (42-52); IG% 0.4 %; LYMPH % 6.1 %; LYMPH ABS # 1.04 K/uL (1.2-3.4); MEAN CORPUSCULAR HEMOGLOBIN 28.2 pg (25-34); MEAN PLATELET VOLUME 11.8 fL (7.4-10.4); MONO % 8.5 %; NEUT % 84.8 %; PLATELET COUNT 200 K/uL (130-400); RED BLOOD COUNT 5.46 M/uL (4.7-6.1); WHITE BLOOD COUNT 16.96 K/uL (4.8-10.8)
--- NOTE | 2017-08-14 13:54 | CARDIAC CATH REPORT ---
PROCEDURE: Left heart catheterization, coronary angiography. INDICATIONS: Non-ST segment elevation myocardial infarction, acute. BRIEF CARDIAC HISTORY: The patient is a 72-year-old male with history of past class 2 angina pectoris with acute onset severe exertionally induced chest pain on 08/13/2017 with subsequent substantial rise in troponin, manifested no signs or symptoms of congestive heart failure and has presumed underlying coronary artery disease and documented vascular disease. ACCESS: Right radial artery. CATHETERS: A 6-[place] long glide sheath. Of note, sheath was only able to be inserted approximately 2/3 of its length until meeting resistance, at which length, it was left. Catheter then was inserted with a 5-[place] brachial 3.5 followed by a 5-[place] straight pigtail catheter. After coronary artery disease was discerned, a long glide sheath was exchanged over for a 6-[place] slender. CONTRAST: 74 mL nonionic. IV FLUIDS: 87 mL normal saline. SEDATION: Start time 11:21 and end time 11:55. MEDICATIONS: Versed 1 mg IV, fentanyl 12.5 mcg IV. MEDICATIONS: Local anesthesia was provided at insertion site with 1% lidocaine after arterial sheath was inserted. The patient received an intra-arterial injection of 300 mcg of nicardipine. After central access gained, 2500 units of IV heparin was administered. COMPLICATIONS: None. RADIATION EXPOSURE: 4.7 minutes of fluoroscopy with 2026 milligrays, DAP score 40429. RESULTS: CORONARY ANGIOGRAPHY: Coronary anatomy is right dominant. LEFT MAIN: The left main is of normal length and large caliber and bifurcates to give rise to left anterior descending and left circumflex coronaries. There is no disease in the left main. LEFT ANTERIOR DESCENDING: The left anterior descending is large in caliber, type 3 in distribution. It gives rise to a large diagonal branch at the end of its proximal third, 2 small septal branches shortly after the diagonal branch and then courses to terminate well beyond the apex. Within the left anterior descending, there are diffuse luminal irregularities, most significant lesion of 30% in its mid vessel. LEFT CIRCUMFLEX: The left circumflex is large, but nondominant and gives rise to obtuse marginal shortly after its origin and 2 posterolateral branches. The obtuse marginal was seen filling faintly through a 99% occlusion with FRANCISCO 1 faint flow demonstrating this to be a long vessel reaching to the apex. Within the left circumflex, there is a 40%-50% narrowing just proximal to the obtuse marginal and as noted above, the obtuse marginal has a 99% occlusion with faint FRANCISCO 1 flow. RIGHT CORONARY ARTERY: The right coronary is dominant in distribution. It has an anterior and downward takeoff. It is large caliber throughout its coursing, gives rise to a long PDA at its origin, a small posterior ventricular branch and a long terminal posterior ventricular branch. Within the right coronary artery, there are moderate luminal irregularities with a focal 40% narrowing in its mid and distal vessel. No carotid high-grade obstruction. HEMODYNAMICS: Initial aortic root pressure was 131/73 with a mean of 98. LV pressure was 132/13 with an LVEDP of 18. On pullback to the aortic root, there was no transaortic valve gradient. Final pressure was 133/69 with a mean of 99. FINAL IMPRESSIONS: 1. Single-vessel occlusive disease with 99% branch vessel narrowing of the circumflex obtuse marginal with faint FRANCISCO 1 flow. 2. Right dominant coronary anatomy. 3. Moderate luminal irregularities in all vasculature. 4. Mildly elevated left end diastolic pressure. RECOMMENDATIONS: The patient will be referred for coronary intervention in the same setting, circumflex obtuse marginal.
[2017-08-14] MEDS: SODIUM CHLORIDE 0.9% 1000ML 1,000 ML IV SCH ×2 (13:58→22:05)
[2017-08-14 14:25] LABS: COMPLETE YES; MEAN CORPUSCULAR HGB CONC 33.2 g/dl (32-36)
[2017-08-14] MEDS ORDERED: NURSING VERBAL MED ORDER ONE ×2 (15:00→15:30)
[2017-08-14] MEDS ORDERED: RANITIDINE IV 50 MG in DEXTROSE 5% 100ML 100 ML IV ONE (15:45)
[2017-08-14] MEDS: PANTOprazole SOD 40 MG TAB PO SCH (15:54)
[2017-08-14] MEDS: EPTIFIBATIDE INJ 75 MG PREMIXED IV SCH ×2 (16:27→22:03)
[2017-08-14] MEDS: TICAGRELOR 90 MG TAB PO SCH (20:56)
[2017-08-15] VITALS (10 sets, daily range): BP systolic 130–150; BP diastolic 73–91; PULSE 63–74; TEMP 36.7–37; O2SAT 93–96
[2017-08-15] MEDS: EPTIFIBATIDE INJ 75 MG PREMIXED IV SCH (02:48)
[2017-08-15] MEDS ORDERED: Integrelin infusion --> STOP ORDER ONE (06:00)
[2017-08-15 06:26] LABS: PARTIAL THROMBOPLASTIN RATIO 0.9
[2017-08-15 06:48] LABS: BUN/CREATININE RATIO 16.6 (10-20); CALCIUM 8.3 mg/dl (8.5-10.1); CREATININE 1.27 mg/dl (0.60-1.40); MAGNESIUM 2.3 mg/dl (1.8-2.4)
[2017-08-15] MEDS: SODIUM CHLORIDE 0.9% 1000ML 1,000 ML IV SCH (08:13)
[2017-08-15] MEDS: TICAGRELOR 90 MG TAB PO SCH ×2 (08:14→21:12)
[2017-08-15] MEDS: PANTOprazole SOD 40 MG TAB PO SCH (08:15)
[2017-08-15] MEDS: INDAPAMIDE 1.25 MG TAB PO SCH (08:15)
[2017-08-15] MEDS: ASPIRIN 81 MG ECTAB PO SCH (08:15)
[2017-08-15] MEDS: LOSARTAN POTASSIUM 50 MG TAB PO SCH (08:16)
[2017-08-15] MEDS: ATORVASTATIN 40 MG TAB PO SCH (08:16)
[2017-08-15] MEDS: LIDODERM (LIDOCAINE) PATCH 5% TD SCH (08:17)
[2017-08-15] MEDS ORDERED: METOPROLOL SUCC 25MG EXT REL TAB PO SCH (09:00)
[2017-08-15] MEDS ORDERED: ASPIRIN 81 MG ECTAB PO SCH (09:00)
--- NOTE | 2017-08-15 09:28 | Clinical Documentation Query ---
CLINICAL DOCUMENTATION QUERY Dr. GILLIAM, In your clinical opinion is this patient being managed for: ( x) possible Chronic kidney disease, stage 2 ( ) Not Agree ( ) Other explanation of clinical findings (Please Explain) ( ) Unable to determine (Please Define) ( ) Need to Discuss The medical record reflects the following clinical findings, treatment, and risk factors. Clinical Indicators: 72 yo male presenting with NSTEMI. Review of historical GFR results show range of 56.9-76.5 over the past 2 years. Treatment: monitor PRP's, treat HTN Risk Factors: age, HTN, obesity Please clarify and document your clinical opinion in the progress notes and discharge summary. Terms such as "probable", "suspected", "likely", "questionable", "possible", or "still to be ruled out" are acceptable. IF IN AGREEMENT, YOU MUST DOCUMENT ABOVE DIAGNOSTIC STATEMENT IN DAILY PROGRESS NOTES AND DISCHARGE SUMMARY. This document is not part of the patient's record. Thank You, Justyna Guillen, RN [phone]
[2017-08-15] MEDS ORDERED: POLYETHYLENE (MIRALAX) 17 GM PACK PO ONE (09:30)
[2017-08-15] MEDS ORDERED: DOCUSATE SODIUM 100 MG CAP PO ONE (09:30)
[2017-08-15] MEDS ORDERED: POLYETHYLENE (MIRALAX) 17 GM PACK PO PRN (09:30)
--- NOTE | 2017-08-15 13:49 | PROGRESS NOTE ---
DATE: 08/15/2017 The patient was seen and examined. Chart, medications and telemetry were reviewed. SUBJECTIVE: The patient feels flushed and warm today. He is aware of palpitations when moving with symptoms of sensed ventricular ectopy. White cell count was elevated this morning, but no overt fever. He notes no distinct chest pain. The indigestion from day prior has improved. He notes no bleeding difficulties. He is now beginning to take oral fluids. OBJECTIVE: VITAL SIGNS: Heart rate is 63 and blood pressure is 147/91. NECK: Thick. There is no distinct jugular venous distention. LUNGS: Notable for mildly diminished breath sounds at the bases, but are clear. CARDIOVASCULAR: Regular. There is no audible murmur or rub. PMI is nondisplaced. ABDOMEN: Soft and nontender. EXTREMITIES: Without cyanosis or clubbing. Right wrist puncture site is without tenderness or ecchymosis of significance. LABORATORY DATA: White cell count 16.9, hemoglobin is 15.4. Sodium is 140, potassium is 4.0, chloride is 106, bicarbonate is 27, BUN is 21 and creatinine is 1.2. BNP is 1728. Peak troponin is 44.7. Cholesterol is 218 with an LDL of 157 and HDL of 49. IMPRESSION: A 72-year-old male, who presented with acute circumflex, obtuse marginal associated occlusion and myocardial infarction status post successful revascularization for single vessel coronary disease. The patient still notes nausea and mild flushing with elevated white cell count today. Findings are suggestive of completed infarct, though will need to be followed closely. We would keep him in hospital at least another night with plans of echocardiogram and to reassess left ventricular function given area of distribution high lateral wall. Continue medications as begun with metoprolol XL 12.5 mg to be increased to twice per day. Continue afterload reduction with losartan as previously present prior to admission. Lipid reduction as ordered, atorvastatin 80 mg per day and dual antiplatelet therapy with ticagrelor and aspirin. We will need to follow ticagrelor as a possible source of patient's nausea. Gradually increase activities in the hospital prior to discharge. Cardiac rehabilitation consultation will be placed. IV fluids are discontinued at this point in time.
[2017-08-15] MEDS ORDERED: NURSING VERBAL MED ORDER ONE (16:00)
--- NOTE | 2017-08-15 16:19 | Progress Note ---
Subjective Date of Service: Aug 15, 2017. Subjective Pt evaluation today including: conversation w/ patient, conversation w/ family , physical exam, chart review, lab review, review of studies, conversation w/ oracle ebs consultant, review of inpatient medication list nausea asso with urinary retention, and urinary incontinence Sometimes sweating Problem List Medical Problems: (1) Atypical chest pain Status: Acute (2) Dyspnea Status: Acute (3) Laceration of finger of right hand with tendon involvement Status: Acute (4) Open fracture of finger of right hand Status: Acute (5) Pulmonary embolism Status: Acute Review of Systems Constitutional: + weakness, + fatigue, No fever, No chills, No sweats, No weight loss, No problem reported Eyes: No worsening of vision, No eye pain, No redness, No discharge, No diplopia ENT: No hearing loss, No unusual epistaxis, No nasal symptoms, No sore throat, No tinnitus, No dental problems, No trouble swallowing Respiratory: No cough, No sputum, No wheezing, No shortness of breath, No dyspnea on exertion, No dyspnea at rest, No hemoptysis Cardiac: No chest pain, No orthopnea, No PND, No edema, No claudication, No palpitations Abdomen: No pain, No nausea, No vomiting, No diarrhea, No constipation Musculoskeletal: No joint pain, No muscle pain, No swelling, No calf pain Male : + incontinence, + slowing stream, No dysuria, No urinary frequency, No nocturia more than once/night, No hematuria Neurologic: No memory loss, No paralysis, No weakness, No numbness/tingling, No vertigo, No balance problems Psychiatric: No depression symptoms, No anhedonism, No anxiety, No insomnia, No substance abuse Heme: No abnormal bleeding/bruising, No clotting problems, No swollen lymph nodes, No night sweats Endo: No fatigue, No excessive thirst, No excessive urination Skin: No rash, No itch, No new/changing skin lesions, No color change, No bleeding Objective Vital Signs Date Time Temp Pulse Resp B/P (MAP) Pulse Ox O2 Delivery O2 Flow Rate FiO2 08/15/17 12:07 36.8 63 18 147/91 (109) 96 08/15/17 12:00 95 Room Air 08/15/17 08:00 96 Room Air 08/15/17 07:55 37.0 73 20 135/88 (104) 96 08/15/17 04:00 96 Room Air 08/15/17 04:00 37.0 71 16 138/76 (96) 96 Room Air 08/15/17 00:01 93 Room Air 08/14/17 23:35 36.6 55 18 129/68 (88) 93 Room Air 08/14/17 20:00 Room Air 08/14/17 19:38 36.6 65 24 136/60 (85) 96 Room Air 08/14/17 18:15 57 20 141/86 (104) 96 Room Air 08/14/17 17:15 70 18 133/85 (101) 96 Room Air 08/14/17 16:15 58 20 140/81 (100) 97 Room Air Physical Exam General Appearance: WD/WN, no apparent distress, + obese Eyes: normal inspection, PERRL, EOMI, sclerae normal ENT: normal ENT inspection, hearing grossly normal, pharynx normal Neck: supple, no adenopathy, thyroid normal, no JVD, no carotid bruits, trachea midline Respiratory/Chest: chest non-tender, normal breath sounds, no respiratory distress, no accessory muscle use, + decreased breath sounds Cardiovascular: regular rate, rhythm, no edema, no gallop, no JVD, no murmur Abdomen: normal bowel sounds, non tender, soft, no organomegaly, no pulsatile mass Extremities: normal range of motion, non-tender, normal inspection, no pedal edema, no calf tenderness, normal capillary refill, pelvis stable Neurologic/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: 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 as tested, no motor/sensory deficits, alert, normal mood/affect, oriented x 3 Skin: normal color, warm/dry, no rash Lymphatic: no adenopathy Laboratory Results Last 24 Hours Test 08/15/17 05:44 Activated Partial Thromboplast Time 22.9 SECONDS Partial Thromboplastin Ratio 0.9 Sodium Level 140 mmol/L Potassium Level 4.0 mmol/L Chloride Level 106 mmol/L Carbon Dioxide Level 27 mmol/L Anion Gap 7.0 mmol/L Blood Urea Nitrogen 21 mg/dl Creatinine 1.27 mg/dl Est Creatinine Clear Calc Drug Dose 68.0 ml/min Estimated GFR () 65.9 Estimated GFR (Non- 56.9 BUN/Creatinine Ratio 16.6 Random Glucose 95 mg/dl Calcium Level 8.3 mg/dl Magnesium Level 2.3 mg/dl Troponin I 44.700 ng/ml Pro-B-Type Natriuretic Peptide 1728 pg/ml Assessment and Plan 72-year-old with history of hypertension , morbid obesity , admitted because of chest pain was found has non-STEMI after further evaluation Non-STEMI with acute GA with circumflex marginal occlusion status post successful revascularization for single vessel coronary disease and [place] on 2016 tn up to 47, wbc up to 16K, talked to publications inspector f/u closely echocardiogram and to reassess left ventricular function , heparin drip discontinue Continue beta etelvina and statin Dyslipidemia, is on statin Hypertension, continue current medication of beta etelvina Morbid obesity, I advise patient to follow-up with PCP Decreased left ventricle ejection fraction, with history of hypertension, possible's heart failure? Check a BNP 1700 For patient has chronic systolic heart failure, possible currently compensated echo per report: The left ventricle is normal in size. * There is mild concentric left ventricular hypertrophy. * There is moderate apical wall hypokinesis. * There is a moderate sized apical and posterior wall motion abnormality with hypokinesis of the segments. * There is a small sized anterior wall motion abnormality with hypokinesis of the segments. * There is a small sized septal wall motion abnormality with hypokinesis of the segments. * Ejection Fraction = 45-50%. * There is a moderate sized apical and posterior wall motion abnormality with hypokinesis of the segments. * There is a small sized anterior wall motion abnormality with hypokinesis of the segments. * There is a small sized septal wall motion abnormality with hypokinesis of the segments. * There is trace mitral regurgitation. * There is trace tricuspid regurgitation. * Doppler findings do not suggest pulmonary hypertension. Urinary retention, bladder scanning now, restart Cardura, patient refused Nath catheter or straight cath for now, he able to continue small amount avoiding DVT prophylaxis is covered by heparin Answered all questions Continued [facility] stay due to: home environment unsafe for pt Discharge planning: home with home health
[2017-08-15] MEDS ORDERED: DOXAZosin MESYLATE TAB 4 MG TAB PO SCH (17:00)
[2017-08-15 17:40] LABS: BLOOD UREA NITROGEN 20 mg/dl (7-18); BUN/CREATININE RATIO 16.5 (10-20); CALCIUM 8.6 mg/dl (8.5-10.1); CARBON DIOXIDE 25 mmol/L (21-32); CHLORIDE 107 mmol/L (98-107); CREATININE 1.24 mg/dl (0.60-1.40); GLUCOSE 106 mg/dl (70-99); SODIUM 139 mmol/L (136-145)
[2017-08-15 18:04] LABS: URINE APPEARANCE CLEAR (CLEAR); URINE BILIRUBIN NEG (NEG); URINE COLOR YELLOW; URINE EPITHELIAL CELL AUTO 0-5 /lpf (0-5); URINE NITRITE NEG (NEG); URINE PH 7.5 (4.5-7.5); URINE SPECIFIC GRAVITY 1.009 (1.000-1.030); UROBILINOGEN NEG (NEG)
[2017-08-15 18:06] LABS: MANUAL MICROSCOPIC REQUIRED? NO; REVIEW REQ? NO
[2017-08-15] MEDS: TRAMADOL HCL 50 MG TAB PO PRN (21:11)
[2017-08-15] MEDS: DOCUSATE SODIUM 100 MG CAP PO SCH (21:14)
[2017-08-15] MEDS: HEPARIN SOD 5000 UNIT/0.5 ML CARP SQ SCH (21:14)
[2017-08-15] MEDS: METOPROLOL SUCC 25MG EXT REL TAB PO SCH (21:18)
[2017-08-16] VITALS (7 sets, daily range): BP systolic 108–143; BP diastolic 54–90; PULSE 63–73; TEMP 36.5–36.9; O2SAT 94–97
[2017-08-16] MEDS ORDERED: PERFLUTREN LIPID MICROSPHERE (DEFINITY) IV ONE (06:39)
[2017-08-16 07:58] LABS: HEMATOCRIT 41.2 % (42-52); MEAN CELL VOLUME 83.7 fL (80-100); MEAN CORPUSCULAR HEMOGLOBIN 27.8 pg (25-34); MEAN CORPUSCULAR HGB CONC 33.3 g/dl (32-36); MEAN PLATELET VOLUME 11.4 fL (7.4-10.4); PLATELET COUNT 162 K/uL (130-400); RED BLOOD COUNT 4.92 M/uL (4.7-6.1); WHITE BLOOD COUNT 9.69 K/uL (4.8-10.8)
[2017-08-16] MEDS: LIDODERM (LIDOCAINE) PATCH 5% TD SCH (09:00)
[2017-08-16] MEDS: DOCUSATE SODIUM 100 MG CAP PO SCH (09:16)
[2017-08-16] MEDS: TICAGRELOR 90 MG TAB PO SCH (09:16)
[2017-08-16] MEDS: LOSARTAN POTASSIUM 50 MG TAB PO SCH (09:18)
[2017-08-16] MEDS: ASPIRIN 81 MG ECTAB PO SCH (09:18)
[2017-08-16] MEDS: ATORVASTATIN 40 MG TAB PO SCH (09:18)
[2017-08-16] MEDS: INDAPAMIDE 1.25 MG TAB PO SCH (09:19)
[2017-08-16] MEDS: PANTOprazole SOD 40 MG TAB PO SCH (09:19)
[2017-08-16] MEDS: METOPROLOL SUCC 25MG EXT REL TAB PO SCH (09:19)
[2017-08-16] MEDS: HEPARIN SOD 5000 UNIT/0.5 ML CARP SQ SCH (09:20)
--- NOTE | 2017-08-16 09:55 | Cardiology Follow-Up ---
Subjective Subjective Date of Service: Aug 16, 2017. Pt evaluation today including: conversation w/ patient, physical exam, chart review, lab review, review of studies, review of inpatient medication list Additional Details: Pt seen and examined, states that he's feeling much better today. Good night sleep last night. Denies cp, sob, palpitations, lightheadedness or dizziness. Tele reviewed: sinus rhythm without arrhythmia or significant ectopy. Problem List Medical Problems: (1) Atypical chest pain Status: Acute (2) Dyspnea Status: Acute (3) Laceration of finger of right hand with tendon involvement Status: Acute (4) Open fracture of finger of right hand Status: Acute (5) Pulmonary embolism Status: Acute Review of Systems Constitutional: + weakness, + fatigue, No fever, No chills, No sweats, No weight loss, No problem reported Eyes: No worsening of vision, No eye pain, No redness, No discharge, No diplopia ENT: No hearing loss, No unusual epistaxis, No nasal symptoms, No sore throat, No tinnitus, No dental problems, No trouble swallowing Respiratory: No cough, No sputum, No wheezing, No shortness of breath, No dyspnea on exertion, No dyspnea at rest, No hemoptysis Cardiac: No chest pain, No orthopnea, No PND, No edema, No claudication, No palpitations Abdomen: No pain, No nausea, No vomiting, No diarrhea, No constipation Musculoskeletal: No joint pain, No muscle pain, No swelling, No calf pain Male : + incontinence, + slowing stream, No dysuria, No urinary frequency, No nocturia more than once/night, No hematuria Neurologic: No memory loss, No paralysis, No weakness, No numbness/tingling, No vertigo, No balance problems Psychiatric: No depression symptoms, No anhedonism, No anxiety, No insomnia, No substance abuse Heme: No abnormal bleeding/bruising, No clotting problems, No swollen lymph nodes, No night sweats Endo: No fatigue, No excessive thirst, No excessive urination Skin: No rash, No itch, No new/changing skin lesions, No color change, No bleeding Objective Vital Signs Last Vital Signs Documentation Date Time Temp Pulse Resp B/P (MAP) Pulse Ox O2 Delivery O2 Flow Rate FiO2 08/16/17 07:42 36.6 63 20 143/90 (107) 97 Room Air 08/13/17 19:17 2.0 Physical Exam: General Appearance: WD/WN, no apparent distress, + obese Eyes: bilateral eyes normal inspection, bilateral eyes PERRL, bilateral eyes EOMI ENT: normal ENT inspection, hearing grossly normal, pharynx normal Neck: supple, no adenopathy, thyroid normal, no JVD, no carotid bruits, trachea midline Respiratory/Chest: chest non-tender, lungs clear, normal breath sounds, no respiratory distress, no accessory muscle use Cardiovascular: regular rate, rhythm, no edema, no JVD, no murmur, + gallop/S4 Abdomen: normal bowel sounds, non tender, soft, no organomegaly, no pulsatile mass Extremities: normal range of motion, non-tender, normal inspection, no pedal edema, no calf tenderness, normal capillary refill, pelvis stable Neurologic/Psychiatric: 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 NSTEMI s/p pci with rosemarie to OM1 tolerated well on Brilinta as a PGY12, cont 90mg bid cont asa 81mg cont toprol 12.5mg bid cont atorvastatin 80mg daily cont losartan 100mg daily will need cardiology f/u with Dr. Leigh in 2-4 weeks, cardiac rehab can be arranged at that time restrictions reviewed 2. obesity desire for weight loss encouraged to cont weight watchers program refrain from significant exercise until seen by Dr. Leigh ok to d/c to home Continued [facility] stay due to: home environment unsafe for pt Discharge planning: home with home health
--- NOTE | 2017-08-16 12:30 | ECHOCARDIOGRAM REPORT ---
*NOTICE TO RECEIVING [employer] This information is strictly Confidential and protected under [place] law. [place] law prohibits you from making any further disclosure of this information unless further disclosure is expressly permitted by the written consent of the person to whom it pertains or is authorized by law. A general authorization for the release of medical or other information is not sufficient for this purpose. Hospital accepts no responsibility if the information is made available to any other person, INCLUDING THE PATIENT. Interpretation Summary * Name: MORGAN REYES JR Study Date: 08/16/2017 06:15 AM BP: 143/90 mmHg * Patient Location: C.2E\S\E207\S\1 HR: 68 * : 1945 (M/d/yyyy) Gender: Male Height: 67 in * Age: 72 yrs Ethnicity: CA Weight: 271 lb * Ordering Physician: Stephen Rios * Referring Physician: Self, Referred * Performed By: Ana Paula Welch RCS * * Reason For Study: REASSESS LV FUNCTION * BSA: 2.3 m2 * -- Conclusions -- * Compared to previous study of 08/14/17: regional wall motion abnormalities have improved. * Normal LV chamber size with mild concentric LVH. * Mild hypokinesis of the apical and posterior stoll with otherwise, normal wall motion, EF 55-60%. Procedure Details * Limited views were obtained. * A contrast injection of Definity was performed to improve assessment of LV function. * Contrast was injected into an intravenous site in the left arm. * One vial of Definity ultrasound contrast was diluted in normal saline to a total volume of 10 ml. A total of '2' ml of solution was administered during imaging. * Lot # [id number] of Definity utilized for procedure. * Expiration date SEP 22. * The attending nurse who injected the contrast agent was FRANSISCO BOWDEN, RN. MMode 2D Measurements and Calculations IVSd 1.2 cm IVSs 1.8 cm LVIDd 4.7 cm LVIDs 3.4 cm LVPWd 1.1 cm LVPWs 1.8 cm IVS/LVPW 1.1 FS 27.6 % EDV(Teich) 100.3 ml ESV(Teich) 46.6 ml EF(Teich) 53.5 % EDV(cubed) 101.1 ml ESV(cubed) 38.4 ml EF(cubed) 62.0 % % IVS thick 47.6 % % LVPW thick 56.1 % LV mass(C)d 207.9 grams LV mass(C)dI 90.4 grams/m\S\2 LV mass(C)s 253.9 grams LV mass(C)sI 110.3 grams/m\S\2 SV(Teich) 53.7 ml SI(Teich) 23.3 ml/m\S\2 SV(cubed) 62.7 ml SI(cubed) 27.2 ml/m\S\2 Ao root diam 3.5 cm Ao root area 9.6 cm\S\2 LA dimension 4.7 cm LA/Ao 1.4 LVOT diam 2.0 cm LVOT area 3.2 cm\S\2 LVAd ap4 37.5 cm\S\2 LVLd ap4 9.1 cm EDV(MOD-sp4) 125.5 ml EDV(sp4-el) 131.4 ml LVAs ap4 22.7 cm\S\2 LVLs ap4 7.7 cm ESV(MOD-sp4) 57.0 ml ESV(sp4-el) 57.0 ml EF(MOD-sp4) 54.6 % EF(sp4-el) 56.6 % LVAd ap2 37.9 cm\S\2 LVLd ap2 8.7 cm EDV(MOD-sp2) 134.7 ml EDV(sp2-el) 140.8 ml LVAs ap2 23.4 cm\S\2 LVLs ap2 7.5 cm ESV(MOD-sp2) 61.2 ml ESV(sp2-el) 61.7 ml EF(MOD-sp2) 54.6 % EF(sp2-el) 56.2 % LVLd %diff -4.93 % EDV(MOD-bp) 132.9 ml LVLs %diff -2.03 % ESV(MOD-bp) 59.6 ml EF(MOD-bp) 55.2 % SV(MOD-sp4) 68.5 ml SI(MOD-sp4) 29.8 ml/m\S\2 SV(MOD-sp2) 73.5 ml SI(MOD-sp2) 31.9 ml/m\S\2 SV(MOD-bp) 73.3 ml SI(MOD-bp) 31.9 ml/m\S\2 SV(sp4-el) 74.4 ml SI(sp4-el) 32.3 ml/m\S\2 SV(sp2-el) 79.1 ml SI(sp2-el) 34.4 ml/m\S\2
[2017-08-16] MEDS ORDERED: LPT40 PO (14:46)
[2017-08-16] MEDS ORDERED: BRL90 PO (14:46)
[2017-08-16] MEDS ORDERED: ASPEC81 PO (14:46)
[2017-08-16] MEDS ORDERED: TPRSR25 PO (14:46)
[2017-08-16] MEDS ORDERED: CRD4 PO (14:46)
--- NOTE | 2017-08-16 14:49 | Discharge Instructions ---
Discharge Instructions Date of Service Aug 16, 2017. Admission Reason for Admission: Chest Pain Discharge Discharge Diagnosis / Problem: NSTEMI Discharge Goals Goal(s): Decrease discomfort, Improve function, Increase independence, Improve disease control, Improve nutritional status, Learn about illness, Diagnostic testing, Therapeutic intervention, Prevent Disease Progression, Specific goals Activity Recommendations Activity Limitations: as noted below Lifting Limitations: no more than 5 pounds Exercise/Sports Limitations: none, gradually increase as tolerated May Resume Sexual Activity: when tolerated . Instructions / Follow-Up Instructions / Follow-Up you have acute myocardial infarction with NSTEMI, s/p pci with rosemarie to OM1 You need to continue on Brilinta, asa 81mg, l 12.5mg bid, atorvastatin 80mg daily, losartan 100mg daily You will need cardiology f/u with Dr. Leigh in 2-4 weeks, cardiac rehab can be arranged at that time You need to follow up her introductions from cardiology of the post cardiac cath restrictions - you need to follow up with your primary care physician in 1 week, - take medication as instructed, never overdose or any misuse, or take with alcohol, because misuse of medicine may cause organ damage or , call your primary care physician if have questions of medicaitons. - call your primary care physician OR go to local emergency room if has any fever/chill, chest pain, shortness of breathing, nausea/vomiting/abdominal pain , facial droop/slurry speech/local weakness, or if has any questions. - fall precaution - diet as instructed - you need to follow up with your subspecialist - you should understand that it is important to follow up the above instruction , and "not following the above instruction" may cause delayed or missed care of your medical conditions which may cause permanent organ damage and even . Current Hospital Diet Patient's current hospital diet: AHA Diet (Heart Healthy) Discharge Diet Recommended Diet: AHA Diet (Heart Healthy), Low Sodium Diet (2gm Na) Pending Studies Studies pending at discharge: no Laboratory Results Hemoglobin A1c Test 08/14/17 07:12 Range/Units Estimated Average Glucose 123 mg/dl Hemoglobin A1c 5.9 H 4.5-5.6 % Lipid Panel Test 08/14/17 07:12 Range/Units Triglycerides Level 60 0-150 mg/dl Cholesterol Level 218 H 0-200 mg/dl HDL Cholesterol 49 mg/dl Cholesterol/HDL Ratio 4.4 LDL Cholesterol, Calculated 157 mg/dl Medical Emergencies . Who to Call and When: Medical Emergencies: If at any time you feel your situation is an emergency, please call 911 immediately. . Non-Emergent Contact Non-Emergency issues call your: Primary Care Provider . . "Provider Documentation" section prepared by Janak Gould. . VTE Core Measure Inpt VTE Proph given/why not?: Unfractionated heparin SQ, Treatment not indicated (suspect short stay if troponin is negative)
[2017-08-16] MEDS ORDERED: MRLP17X PO (15:12)
[2017-08-16] MEDS ORDERED: NITR0.4S UT (15:22)
--- NOTE | 2017-08-16 16:18 | Discharge Summary ---
Discharge Summary Date of Service Aug 16, 2017. 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 Medication Reconciliation New Medications: Nitroglycerin (Nitrostat) 0.4 Mg Sub 0.4 MG UT PRN for chest pain for 30 Days, #50 BTL 1 tab sl as needed for chest pain q 5 min, can be up to 3 dose Aspirin (Aspirin EC Low Dose) 81 Mg Ectab 81 MG PO QAM for 30 Days Atorvastatin (Atorvastatin Calcium) 40 Mg Tab 80 MG PO QAM for 30 Days, #60 TAB Doxazosin Mesylate (Doxazosin Mesylate) 4 Mg Tab 8 MG PO HS for 30 Days, TAB Metoprolol Succinate (Metoprolol Succinate ER) 25 Mg Tabcr 12.5 MG PO BID for 30 Days Polyethylene (Miralax) 17 Gm Pow 17 GM PO DAILY PRN for Constipation for 7 Days Ticagrelor (Brilinta) 90 Mg Tab 90 MG PO BID for 30 Days, #60 TAB Continued Medications: Indapamide (Indapamide) 2.5 Mg Tab 1 TAB PO QAM Losartan Potassium (Cozaar) 100 Mg Tab 100 MG PO QAM, TAB Spironolactone (Aldactone) 25 Mg Tab 25 MG PO QAM, TAB Tramadol HCl (Tramadol HCl) 50 Mg Tab 100 MG PO Q4H PRN for Pain for 10 Days, #80 TAB Discharge Exam Although bed to chair no chest pain, Review of Systems: Constitutional: No fever, No chills, No sweats, No weight loss, No weakness , No fatigue, No problem reported Eyes: No worsening of vision, No eye pain, No redness, No discharge, No diplopia, No problem reported ENT: No hearing loss, No unusual epistaxis, No nasal symptoms, No sore throat, No tinnitus, No dental problems, No trouble swallowing, No problem reported Respiratory: No cough, No sputum, No wheezing, No shortness of breath, No dyspnea on exertion, No dyspnea at rest, No hemoptysis, No problem reported Cardiovascular: No chest pain, No orthopnea, No PND, No edema, No claudication, No palpitations, No problem reported Abdomen: + constipation, No pain, No nausea, No vomiting, No diarrhea, No GI bleeding, No problem reported Musculoskeletal: No joint pain, No muscle pain, No swelling, No calf pain, No problem reported Genitourinary - Male: No hematuria, No dysuria, No urinary frequency, No urinary urgency, No urinary hesitancy, No urinary retention, No urinary incontinence, No penile discharge, No lesions, No impotence, No problem reported Neurologic: No memory loss, No paralysis, No weakness, No numbness/tingling , No vertigo, No balance problems, No problem reported Psychiatric: No depression symptoms, No anhedonism, No anxiety, No insomnia , No substance abuse, No problem reported Endocrine: No fatigue, No excessive thirst, No excessive urination, No problem reported Hematologic / Lymphatic: No abnormal bleeding/bruising, No clotting problems , No swollen lymph nodes, No night sweats, No problem reported Integumentary: No rash, No itch, No new/changing skin lesions, No color change, No bleeding, No problem reported Physical Exam: General Appearance: WD/WN, no apparent distress Eyes: normal inspection, PERRL ENT: normal ENT inspection, hearing grossly normal, TMs normal Neck: supple, no adenopathy Respiratory/Chest: chest non-tender, no respiratory distress, no accessory muscle use, + decreased breath sounds Cardiovascular: regular rate, rhythm, no edema, no gallop Abdomen / GI: normal bowel sounds, non tender, soft, no organomegaly, no pulsatile mass Extremities: normal inspection, no calf tenderness, normal capillary refill , no pedal edema, normal range of motion 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, no motor/sensory deficits , alert, normal mood/affect Skin: normal color, warm/dry Hospital Course 72-year-old with history of hypertension , morbid obesity , admitted because of chest pain was found has non-STEMI after further evaluation Non-STEMI with acute VA with circumflex marginal occlusion status post successful revascularization for single vessel coronary disease and [place]AR[place] on 2016 tn up to 43, wbc up to 16K, Was on heparin drip Continue Brilinta, aspirin Continue beta etelvina and statin Dyslipidemia, is on statin Hypertension, continue current medication of beta etelvina Morbid obesity, I advise patient to follow-up with PCP Advise about the weight lifting in the left arm and exercise afternoon cardiac cath Decreased left ventricle ejection fraction, with history of hypertension, possible's heart failure, Check a BNP 1700 For patient has chronic systolic heart failure, possible currently compensated echo per report: The left ventricle is normal in size. * There is mild concentric left ventricular hypertrophy. * There is moderate apical wall hypokinesis. * There is a moderate sized apical and posterior wall motion abnormality with hypokinesis of the segments. * There is a small sized anterior wall motion abnormality with hypokinesis of the segments. * There is a small sized septal wall motion abnormality with hypokinesis of the segments. * Ejection Fraction = 45-50%. * There is a moderate sized apical and posterior wall motion abnormality with hypokinesis of the segments. * There is a small sized anterior wall motion abnormality with hypokinesis of the segments. * There is a small sized septal wall motion abnormality with hypokinesis of the segments. * There is trace mitral regurgitation. * There is trace tricuspid regurgitation. * Doppler findings do not suggest pulmonary hypertension. Yesterday had urinary retention, restarted Cardura, able to urination now We'll discharge home with nitroglycerin tablets sublingually the as needed for chest pain DVT prophylaxis is covered by heparin Answered all questions Instructions / Follow-Up you have acute myocardial infarction with NSTEMI, s/p pci with rosemarie to OM1 You need to continue on Brilinta, asa 81mg, l 12.5mg bid, atorvastatin 80mg daily, losartan 100mg daily You will need cardiology f/u with Dr. Leigh in 2-4 weeks, cardiac rehab can be arranged at that time You need to follow up her introductions from cardiology of the post cardiac cath restrictions - you need to follow up with your primary care physician in 1 week, - take medication as instructed, never overdose or any misuse, or take with alcohol, because misuse of medicine may cause organ damage or , call your primary care physician if have questions of medicaitons. - call your primary care physician OR go to local emergency room if has any fever/chill, chest pain, shortness of breathing, nausea/vomiting/abdominal pain , facial droop/slurry speech/local weakness, or if has any questions. - fall precaution - diet as instructed - you need to follow up with your subspecialist - you should understand that it is important to follow up the above instruction , and "not following the above instruction" may cause delayed or missed care of your medical conditions which may cause permanent organ damage and even . Total Time Spent: Greater than 30 minutes This includes examination of the patient, discharge planning, medication reconciliation, and communication with other providers. Discharge Instructions Please refer to the electronic Patient Visit Report (Discharge Instructions) for additional information. Additional Copies To Sven Leigh, DO; Stevie Higginbotham M.D.
== END 2017-08-16 15:48 | disposition home or self-care (01) | DRG 247 ==
LOC: EDBD 14:40 → C.EDB 14:42 → C.MED 18:24 → CANRESERV 18:50 → ENRESERV 18:50 → C.2E 08-14 09:46 → OBSVTOIN 08-14 16:42
PROVIDERS: ADMIT Internal Medicine Sports Medicine; ATTEND Hospitalist
PROC: B211YZZ Fluoroscopy of Multiple Coronary Arteries using Other Contrast (ICD-10-PCS; 2017-08-14)
PROC: 4A023N7 Measurement of Cardiac Sampling and Pressure, Left Heart, Percutaneous Approach (ICD-10-PCS; 2017-08-14)
PROC: 0270346 Dilation of Coronary Artery, One Artery, Bifurcation, with Drug-eluting Intraluminal Device, Percutaneous Approach (ICD-10-PCS; principal; 2017-08-14 09:41)
DX: I21.4 Non-ST elevation (NSTEMI) myocardial infarction (principal); Z68.41 Body mass index [BMI] 40.0-44.9, adult; I25.10 Atherosclerotic heart disease of native coronary artery without angina pectoris; I12.9 Hypertensive chronic kidney disease with stage 1 through stage 4 chronic kidney disease, or unspecified chronic kidney disease; N18.2 Chronic kidney disease, stage 2 (mild); E78.5 Hyperlipidemia, unspecified; S46.912A Strain of unspecified muscle, fascia and tendon at shoulder and upper arm level, left arm, initial encounter; E66.01 Morbid (severe) obesity due to excess calories; Z79.899 Other long term (current) drug therapy; Z86.711 Personal history of pulmonary embolism; Z87.891 Personal history of nicotine dependence; Z82.49 Family history of ischemic heart disease and other diseases of the circulatory system; X58.XXXA Exposure to other specified factors, initial encounter

== ENCOUNTER → 2017-11-10 | Outpatient (CLI) | payer OTHER, MEDICARE ==
[~2017-11-10] MED LIST changes: -AMLO2.5T PO; +ASPEC81 PO; +BRL90 PO; +CRD4 PO; -FURO40TA3 PO; +LPT40 PO; +MRLP17X PO; -PEGSOL13; +TPRSR25 PO; -ULT50X PO; -XRL15 PO
--- NOTE | 2017-11-10 11:20 | DIAGNOSTIC IMAGING REPORT ---
(CHEST) THORAX WITHOUT CT DOSE: 1041.81 mGy.cm CLINICAL HISTORY: 72 years-old Male with PULM NODULE. Follow-up study in a patient with pulmonary nodules. TECHNIQUE: Multiaxial CT images of the chest were performed without contrast. A dose lowering technique was utilized adhering to the principles of ALARA. COMPARISON: CTA of the chest 08/13/2017, 02/02/2016. FINDINGS: No dominant thyroid nodule. No pathologically enlarged lymph nodes by CT size criteria. Nonspecific mildly prominent right peritracheal lymph node measures up to 9 mm in short axis, decreased in size from comparison. Heart is normal in size without pericardial effusion. Coronary arterial disease. No thoracic aortic aneurysm. Moderate atherosclerosis of the aorta. No pleural effusion or pneumothorax. Mild to moderate upper lobe predominant centrilobular emphysema. Groundglass and linear consolidative subsegmental bibasilar opacities suggest areas of atelectasis/scarring. Linear calcified granuloma of the inferior segment lingula extends to the pleural surface. 8 mm pleural-based solid noncalcified nodule of the right middle lobe seen on image 206 series 4 which is unchanged dating back to 02/02/2016. 5 mm solid nodule of the right lower lobe on image 158 series 4 is also unchanged. Additional scattered solid pulmonary nodules and perifissural lymph nodes are again seen which are stable. No new or enlarging nodules identified. The central airways are patent. No acute abnormality of the imaged upper abdomen. Soft tissues are unremarkable. Bones appear intact. Multilevel degenerative changes of the spine. IMPRESSION: 1. No acute intrathoracic abnormality identified. 2. Unchanged scattered solid noncalcified pulmonary nodules are again seen as above, largest of which measures up to 8 mm within the lateral segment right middle lobe. These are unchanged dating back to comparison study dated 02/02/2016. 3. Decreased size of mediastinal lymph nodes, likely on a reactive basis. 4. Mild to moderate emphysema. Please refer to below summary of Fleischner criteria recommendations for follow-up of incidental CT nodules (Davin Reyes, Guidelines for management of small pulmonary nodules detected on CT scans: A statement from the Fleischner Society, Radiology 237: [phone].) SOLID NODULES Multiple nodules size: 6-8 mm * Low risk patients: follow-up at 3-6 months, then consider further follow-up at 18-24 months * high risk patients: follow-up at 3-6 months, then at 18-24 months if no change Note: newly detected indeterminate nodule in persons 35 years of age or older. * Low risk patients: minimal or absent history of smoking and/or other known risk factors * high risk patients: history of smoking or of other known risk factors (e.g. first degree relative with lung cancer, or exposure to asbestos, radon, uranium) * if a nodule up to 8 mm is partly solid or is ground glass further follow-up is required after 24 months to exclude possible slow growing adenocarcinoma (NICK) The above report was generated using voice recognition software. It may contain grammatical, syntax or spelling errors. Electronically signed by: Alvarado Mg M.D. 11/10/2017 11:19 AM Dictated Date/Time: 11/10/2017 11:09 AM
== END | disposition home or self-care (01) ==
LOC: C.CTS 10:49
PROVIDERS: ATTEND Family Medicine
DX: R91.8 Other nonspecific abnormal finding of lung field (principal); J43.9 Emphysema, unspecified

== ENCOUNTER → 2017-12-24 | Outpatient (CLI) | payer OTHER, MEDICARE ==
[~2017-12-24] MED LIST changes: +CLOP1TAB5 PO; +LOSA50TA6 PO; +MELO-83; +METO50TA8 PO; +PRED10TA
[2017-12-24 13:07] LABS: HEMATOCRIT 42.7 % (42-52); MEAN CELL VOLUME 83.2 fL (80-100); MEAN CORPUSCULAR HEMOGLOBIN 27.3 pg (25-34); MEAN CORPUSCULAR HGB CONC 32.8 g/dl (32-36); MEAN PLATELET VOLUME 12.4 fL (7.4-10.4); PLATELET COUNT 199 K/uL (130-400); RED CELL DISTRIBUTION WIDTH CV 16.5 % (11.5-14.5); RED CELL DISTRIBUTION WIDTH SD 50.4 fL (36.4-46.3); WHITE BLOOD COUNT 12.19 K/uL (4.8-10.8)
[2017-12-24 13:14] LABS: INR 1.1 (0.9-1.1); PTT PATIENT 23.4 SECONDS (21.0-31.0)
[2017-12-24 13:30] LABS: BLOOD UREA NITROGEN 23 mg/dl (7-18); CALCIUM 8.7 mg/dl (8.5-10.1); CARBON DIOXIDE 25 mmol/L (21-32); CREATININE 1.11 mg/dl (0.60-1.40); GLUCOSE 117 mg/dl (70-99); SODIUM 141 mmol/L (136-145)
== END | disposition home or self-care (01) ==
LOC: C.LAB 12:05
PROVIDERS: ATTEND Internal Medicine Interventional Cardiology
DX: Z01.810 Encounter for preprocedural cardiovascular examination (principal); Z95.5 Presence of coronary angioplasty implant and graft; I21.4 Non-ST elevation (NSTEMI) myocardial infarction; Z86.711 Personal history of pulmonary embolism

== ENCOUNTER → 2017-12-26 | Day surgery (SDC) | payer OTHER, MEDICARE ==
[~2017-12-26] VITALS: Ht 170.2 cm; Wt 115.0 kg
[~2017-12-26] MED LIST changes: +ADENOSINE IV SOLN 3 MG/ML 20 ML VIAL ONE; -BRL90 PO; +FENTANYL CITRATE INJ 50 MCG/1 ML 2 ML VIAL ONE; +HEPARIN SOD (PORCINE) 1000 UNIT/ML 10 ML VIAL ONE; +LIDOCAINE HCL 1% 20 ML VIAL ONE; -LOSA1TAB38 PO; -LZL25 PO; +MIDAZOLAM HCL 1 MG/ML 2ML VIAL ONE; -MRLP17X PO; +MoRPHine SULFATE 2 MG/ML CARP ONE; +NITROGLYCERIN/D5W 100MCG/ML 20ML SYR ONE; +NiCARDipine HCL INJ 2.5 MG/ML 10 ML AMP ONE; -SPIR25TA PO; -TPRSR25 PO
[2017-12-26 07:25] VITALS: BP 139/74; PULSE 78; TEMP 36.6; O2SAT 94; Ht 170.2 cm; Wt 115.0 kg
--- NOTE | 2017-12-26 09:32 | History & Physical Bridge Note ---
H&P Re-Evaluation Bridge Note: I have examined the patient, reviewed the History & Physical and in the interval since the performance of the History & Physical I have noted the following changes of clinical significance: No changes noted
--- NOTE | 2017-12-26 09:33 | Pre Sedation Assessment ---
Pre Sedation Assessment General Date of Sedation: Dec 26, 2017. Vital Signs Past 12 Hours Date Time Temp Pulse Resp B/P (MAP) Pulse Ox O2 Delivery O2 Flow Rate FiO2 12/26/17 07:25 36.6 78 16 139/74 (95) 94 Room Air Review Cardiovascular: regular rate, rhythm, no edema, no gallop, no JVD, no murmur Lungs: lungs clear, normal breath sounds Pre-Sedation Airway Assessment Smoking Status: Former Smoker Hx of Sleep Apnea: No Short Thick Neck: No Thyro-mental Distance: > 3 Finger Breadths Oral Cavity: WNL Mallampati Classification: Class II ASA Classification: Class III NPO Status Date of Last Intake of Fluids: Dec 25, 2017 Time of Last Intake of Fluids: 2099 Date of Last Intake of Solids: Dec 25, 2017 Time of Last Intake of Solids: 2099 Procedure Planning Contraindications for Sedation: None Current Medications Reviewed: Yes Notes The planned sedation has been discussed with the patient. Informed Consent was obtained. I have identified the patient, determined the appropriateness of sedation and have assessed the patient immediately prior to the procedure. All medicine(s) and interventions are by my order.
--- NOTE | 2017-12-26 09:51 | Cardiac Catheterization ---
Procedure Note Procedure Date Dec 26, 2017. Pre-Procedure Diagnosis Positive Stress Test, CAD, Cardiothoracic Symptom AUC Score 8 Post-Procedure Diagnosis Severe CAD Procedure(s) Performed Coronary Angiography, Left Heart Cath Gas Turbine Mechanic Dr. Cruz Real Estate Inspector(s) Jacinta WESTIS Estimated Blood Loss 5cc Medication(s) Fentanyl, Heparin, Versed, Lidocaine 1% Summary of Findings Moderate diffuse mid to distal RCA with severity up to 60%. Patent OM stent Hemodynamics Rest Ao: 135/74/100 Final Ao: 132/68/96 LV: 132/6/7 Recommendations management recommendations (FFR ) Specimens None Radiation Exposure (mGy) 1615 Contrast (mls) 95 Anesthesia Moderate sedation. Start 0830. End 0904. Sedation monitor Yaima SOTO Procedural Complication(s) None Disposition Patient remained in labor specialist for FFR of RCA ACC Data Cardiac Status Clinical evaluation leading to the procedure CAD Presntation: Unstable angina, Positive Stress Test Anginal Classification: CCS III Heart Failure: No Cardiogenic Shock w/in 24Hrs: No Cardiac Arrest w/in 24Hrs: No Imaging studies past 6 months: Yes Stress studies past 6 months: Yes Stress Testing w/SPECT MPI: Yes - Positive, Risk/Extent of Ischemia (High) Coronary Anatomy Dominant: Right Left Main (% Stenosis): Normal LAD (% Stenosis): Normal D1 (% Stenosis): Normal Circumflex (% Stenosis): Proximal (30%) OM3 (% Stenosis): Proximal (Patent stent) RCA (% Stenosis): Proximal (20%), Mid (40-50% diffuse), Distal (short 60% stenosis followed by 50% stenosis adjacent to ostium of PDA) R PDA (% Stenosis): Ostial (40%) R PL1 (% Stenosis): Ostial (20%) R PL2 (% Stenosis): Normal Diagnostic Status: Elective Closure Device Percutaneous Entry Location: Femoral Closure Device: Mynx Intraprocedure Events Significant Dissection: No Perforation: No
--- NOTE | 2017-12-26 09:54 | Discharge Instructions ---
Discharge Instructions Procedure Procedure Date: Dec 26, 2017. Reason for Visit: Abnormal Nm Stess Test *Dr Cruz Doing*. Discharge Discharge Date: Dec 26, 2017. Discharge Diagnosis: Moderate CAD. Patent cardiac stent in obtuse marginal vessel Last Recorded Wt (Kilograms): 115 Anesthesia Post Anesthesia Instructions: If you have had General Anesthesia or IV Sedation: * Do not drive today. * Resume driving when surgeon permits. * Do not make important decisions or sign legal documents today. * Call surgeon for: 1. Temperature elevations greater than 101 degrees F. 2. Uncontrollable pain. 3. Excessive bleeding. 4. Persistent nausea and vomiting. 5. Medication intolerance (nausea, vomiting or rash). * For nausea and vomiting use only clear liquids such as: tea, soda, bouillon until nausea subsides, then gradually increase diet as tolerated. * If you have any concerns or questions, call your surgeon's office. If physician is unavailable and it is an emergency, call 911 or go to the nearest emergency room. Instructions Activity Recommendations: limitations as noted below Return to School/Work: with the following limitations Recommended Home Diet: low sodium, low cholesterol Allergies: Coded Allergies: No Known Allergies (Verified , 08/13/17) Provider Instructions ACTIVITY RECOMMENDATIONS: It is common to feel weak and fatigue for a few days. * Do not drive or operate any motorized equipment for the next three days. * Limit stair usage (2 or 3 trips a day only) for the next three days. * Do not lift anything heavier than 10 pounds for the next three days. * Do not engage in vigorous exercise or any sports for the next five days. * You may shower the day after your procedure, but do not immerse the area for three days. Cleanse the site gently with soap and water. SPECIAL CARE INSTRUCTIONS: * You may replace the pressure dressing or band-aid the morning after the procedure. * After your procedure, it is normal to have a small bruise or small lump at the site. Examine your site daily for any change in the bruise or lump, redness, swelling, drainage or numbness. Notify your doctor if any change. BLEEDING: * If there is a small amount of bleeding at the site, lie down and apply firm pressure with a clean cloth for ten minutes. When the bleeding stops, lie quietly keeping the procedure limb straight for six hours. Notify your doctor as soon as possible. * If the bleeding does not stop after ten minutes or if there is a large amount of bleeding or spurting, call 911 immediately. Continue to lie down and hold firm pressure until help arrives. SKIN IRRITATION: * You may experience some redness and/or swelling in the area where radiation was administered. If any skin irritation occurs, please contact your family physician. FOLLOW UP VISIT: Keep any scheduled doctor appointments. Follow Up Follow-up with: Dr. Leigh as scheduled. Elizabeth Vincent Recommendations: Call your doctor if: * Temperature above 101 degrees * Pain not relieved by pain medicine ordered * There is increased drainage or redness from any incision * You have any unanswered questions or concerns. Your Doctors Instructions noted above were prepared by provider John Cruz. Patient Signature Section: Patient Instructions Signature Page Cam Hustle Patient (or Guardian) Signature/Date: I have read and understand the instructions given to me by my caregivers. Caregiver/RN/Doctor Signature/Date: The above-named patient and/or guardian has received patient instructions on this date. + Original Patient Signature Page (only) stays with chart. Please make copy for patient.
--- NOTE | 2017-12-26 10:10 | Post Sedation Assessment ---
Post Sedation Assessment General Date of Sedation Dec 26, 2017. Vital Signs: Vital Signs Past 12 Hours Date Time Temp Pulse Resp B/P (MAP) Pulse Ox O2 Delivery O2 Flow Rate FiO2 12/26/17 09:55 59 16 149/88 (108) 98 Room Air 12/26/17 07:25 36.6 78 16 139/74 (95) 94 Room Air Post Procedure Recovery Score Activity: (2) Moves 4 extremities * Respiration: (2) Deep breath/cough Circulation: (2) +/-20% PreAnes Value Consciousness: (2) Fully Awake Oxygen Saturation: (2) > 92% On Room Air Post Anesthesia Score: 10 Discharge Sedation Level of Care: Fast Track Phase II Post Sedation Plan On clinical assessment, the patient appears to have tolerated the sedation without complications. Patient is recovering as anticipated. Patient will continue to be monitored by nursing and may be discharged when sedation discharge criteria are met per below protocol. Upon Completions of procedure and additional 15 minutes continue every 5 minute vital signs and the P.A.R. score; then discharge to a Phase I or Fast Track to Phase II per the following guidelines: * Discharge Patient to appropriate Phase II area if PAR is 8 or greater or return to pre- procedure baseline. The post - procedure orders will be as directed. * If PAR score is less than 8 or not return to pre-procedure baseline then patient will follow Phase I monitoring till PAR is reached for Phase II. The Phase I may be done in procedure room or may call to secure a Phase I area. * If naloxone or flumazenil are used for reversal, hold in Phase I for an additional 60 -120 minutes before discharge to Phase II. Please call the Sedation Physician to re-evaluate and complete post-note for discharge to Phase II area. Do NOT discharge from procedure sedation or Phase 1 until post- sedation evaluation note is complete by procedure /sedation MD Sedation Discharge Instructions to be given to the patient at discharge to home.
--- NOTE | 2017-12-26 10:10 | Cardiac Catheterization ---
Procedure Note Procedure Date Dec 26, 2017. Pre-Procedure Diagnosis Positive Stress Test AUC Score 7 Post-Procedure Diagnosis Moderate CAD Procedure(s) Performed Fractional Flow Truman Manager Wound Wilmer Glassworker(s) Jacinta Estimated Blood Loss 5 Medication(s) Fentanyl, Heparin, Versed, Adenosine Summary of Findings FFR of mid to distal RCA For full details of patients coronary angiography please see cath report dictated by Dr. Cruz. Patient with multiple intermediated mid to distal RCA lesions and decision to proceed with FFR. AR1 guide Straight FFR wire placed into distal PLB. iFR 0.98 FFR 0.90 Post procedure angiography revealed no coronary complications. Right FOURDRINIER MACHINE OPERATOR closed with AngioSeal device. Summary: 1. Non-obstructive moderate mid to distal RCA disease (FFR 0.90) Hemodynamics Rest Ao: 133/97 Final Ao: 128/58/87 LV: 125/9 Recommendations Medical therapy and/or Counseling Specimens None Radiation Exposure (mGy) 2480 Contrast (mls) 135 Fluids (cc crystalloids) 185 Drains None Anesthesia Moderate Procedural Complication(s) None Disposition Pulp Bleacher Holding/Recovery ACC Data Cardiac Status Clinical evaluation leading to the procedure CAD Presntation: Positive Stress Test Anginal Classification: CCS III Heart Failure: No, NYHA Class: CCS I Cardiogenic Shock w/in 24Hrs: No Cardiac Arrest w/in 24Hrs: No Imaging studies past 6 months: Yes Stress studies past 6 months: Yes Stress Echocardiogram: Yes - Positive, Risk/Extent of Ischemia (High) Diagnostic Physician's Name: John Cruz DO Closure Device Percutaneous Entry Location: Femoral Closure Device: Angio-Seal Intraprocedure Events Significant Dissection: No Perforation: No
[2017-12-26 13:00] VITALS: BP 144/90; PULSE 61; O2SAT 98
== END | disposition home or self-care (01) ==
LOC: C.CATH 07:08
PROVIDERS: ATTEND Internal Medicine Interventional Cardiology
DX: I25.10 Atherosclerotic heart disease of native coronary artery without angina pectoris (principal); E66.9 Obesity, unspecified; I10 Essential (primary) hypertension; I25.2 Old myocardial infarction; Z79.899 Other long term (current) drug therapy; Z79.82 Long term (current) use of aspirin; Z86.711 Personal history of pulmonary embolism

== ENCOUNTER 2018-04-06 12:19 | Emergency (ER) | payer OTHER, MEDICARE ==
[~2018-04-06] VITALS: Ht 170.2 cm; Wt 115.0 kg
[~2018-04-06 12:19] MED LIST changes: -ADENOSINE IV SOLN 3 MG/ML 20 ML VIAL ONE; -ASPEC81 PO; +ASPI-320 PO; -FENTANYL CITRATE INJ 50 MCG/1 ML 2 ML VIAL ONE; +FURO20TA PO; -HEPARIN SOD (PORCINE) 1000 UNIT/ML 10 ML VIAL ONE; -LIDOCAINE HCL 1% 20 ML VIAL ONE; -MELO-83; +MELO-83 PO; -MIDAZOLAM HCL 1 MG/ML 2ML VIAL ONE; -MoRPHine SULFATE 2 MG/ML CARP ONE; -NITROGLYCERIN/D5W 100MCG/ML 20ML SYR ONE; -NiCARDipine HCL INJ 2.5 MG/ML 10 ML AMP ONE; -PRED10TA; +TRAM-10 PO
[2018-04-06 12:22] VITALS: TEMP 36.8; Ht 170.2 cm; Wt 115.0 kg
[2018-04-06] MEDS ORDERED: DOCU-94 PO (13:14)
[2018-04-06] MEDS ORDERED: SIME1CHW17 PO (13:14)
[2018-04-06] MEDS ORDERED: APIX1TAB3 PO (13:14)
[2018-04-06] MEDS ORDERED: TPRSR50 PO (13:14)
[2018-04-06] MEDS ORDERED: CLOP1TAB15 PO (13:14)
[2018-04-06] MEDS ORDERED: TAMS0.4C38 PO (13:14)
[2018-04-06] MEDS ORDERED: CZR50 (13:14)
[2018-04-06] MEDS ORDERED: DOXA-10 PO (13:14)
[2018-04-06] MEDS ORDERED: ACET-1256 PO (13:14)
[2018-04-06] MEDS ORDERED: SENN-65 PO (13:14)
[2018-04-06] MEDS ORDERED: ATOR-26 PO (13:14)
[2018-04-06] MEDS ORDERED: FURO-85 PO (13:14)
[2018-04-06] MEDS ORDERED: CEFAZOLIN SOD 1000MG/7.5 ML IV PUSH IV STA (13:28)
[2018-04-06] MEDS ORDERED: CEFAZOLIN IV 3,000 MG in SYRINGE 0 ML IV SCH (13:28)
[2018-04-06 13:55] LABS: BASO % 0.2 %; BASO ABS # 0.02 K/uL (0-0.2); EOS % 3.5 %; EOS ABS # 0.32 K/uL (0-0.5); HEMATOCRIT 34.9 % (42-52); HEMOGLOBIN 11.1 g/dL (14.0-18.0); IG# 0.03 K/uL (0.00-0.02); LYMPH % 10.7 %; LYMPH ABS # 0.97 K/uL (1.2-3.4); MEAN CELL VOLUME 84.9 fL (80-100); MEAN CORPUSCULAR HGB CONC 31.8 g/dl (32-36); MEAN PLATELET VOLUME 11.6 fL (7.4-10.4); MONO ABS # 1.09 K/uL (0.11-0.59); NEUT % 73.3 %; NEUT ABS # 6.62 K/uL (1.4-6.5); PLATELET COUNT 304 K/uL (130-400); RED CELL DISTRIBUTION WIDTH CV 16.8 % (11.5-14.5); WHITE BLOOD COUNT 9.05 K/uL (4.8-10.8)
[2018-04-06 14:22] LABS: CALCIUM 8.4 mg/dl (8.5-10.1); CREATININE 1.04 mg/dl (0.60-1.40); POTASSIUM 4.4 mmol/L (3.5-5.1)
[2018-04-06 14:31] VITALS: BP 123/67; PULSE 61; O2SAT 98
[2018-04-06] MEDS ORDERED: CEPH500C PO (14:42)
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
--- NOTE | 2018-04-08 11:43 | EDITING REQUIRED CODING QUERY ---
CODING QUERY To promote full compliance with coding requirements relating to patient care, provider participation is requested in all cases of construction equipment mechanic helper uncertainty. Please assist us with the question(s) below: Coding Question(s): Please clarify laterality of lower leg wound. Right and Left are both mentioned throughout the ER report. Is the wound on the Left or Right? Physician's Response(s): Thank you Danalilia Youchey Principal Diagnosis: "_that condition established after study, to be chiefly responsible for occasioning the admission of the patient to the hospital for care." Co-Existing Principal Diagnosis: "_when two or more diagnoses equally meet the criteria for principal diagnosis as determined by the circumstances of admission, diagnostic work up, and/or therapy provided, and the Alphabetic Index, Tabular List, or another coding guideline does not provide sequencing direction, any one of the diagnoses may be sequenced first." "When the physician has documented what appears to be a current diagnosis in the body of the record, but has not included the diagnosis in the final diagnostic statement, the physician should be asked whether the diagnosis should be added." (Source Coding Clinic 2 QTR90. p3-4)
[2018-04-15] MEDS ORDERED: CPR500 PO (08:53)
== END 2018-04-06 14:55 | disposition home or self-care (01) ==
LOC: C.EDB 12:20
DX: S81.801A Unspecified open wound, right lower leg, initial encounter (principal); V49.9XXA Car occupant (driver) (passenger) injured in unspecified traffic accident, initial encounter; I10 Essential (primary) hypertension; Z79.01 Long term (current) use of anticoagulants; Z79.899 Other long term (current) drug therapy

== ENCOUNTER 2020-03-23 10:17 | Inpatient (IN) ==
[2020-03-23] MEDS ORDERED: SODIUM CHLORIDE 0.9% 1000ML 1,000 ML IV ONE ×3 (10:42→11:24)
[2020-03-23 11:10] LABS: iSTAT Creatinine 2.7 mg/dl (0.6-1.3); iSTAT Hemoglobin 14.3 g/dl (14.0-18.0); iSTAT Potassium 2.8 mmol/L (3.3-5.0)
[2020-03-23 11:11] LABS: INR 1.1 (0.9-1.1); Partial Thromboplastin Ratio 1.1; Partial Thromboplastin Time 31.3 Seconds (21.0-31.0); Prothrombin Time 11.6 Seconds (9.0-12.0)
[2020-03-23] MEDS: POTASSIUM CHLORIDE / WTR 10 MEQ/100 ML PLCT IV SCH ×6 (11:11→23:33)
[2020-03-23 11:18] LABS: Alanine Aminotransferase 212 U/L (12-78); Albumin Level 2.6 gm/dl (3.4-5.0); Aspartate Aminotransferase 274 U/L (15-37); BUN Creatinine Ratio 31.3 (10-20); Blood Urea Nitrogen 80 mg/dl (7-18); Calcium 8.2 mg/dl (8.5-10.1); Carbon Dioxide 24 mmol/L (21-32); Chloride 92 mmol/L (98-107); Est GFR (African American) 27.7; Est GFR (Non-African American) 23.9; Glucose 126 mg/dl (70-99); Magnesium 2.9 mg/dl (1.8-2.4); Potassium 2.8 mmol/L (3.5-5.1); Sodium 128 mmol/L (136-145)
[2020-03-23 11:21] LABS: Basophils % (auto) 1.5 %; Echinocytes 1+; Eosinophils # (auto) 0.01 K/uL (0-0.5); Eosinophils % (auto) 0.1 %; Hematocrit (blood only) 41.3 % (42-52); Hemoglobin 13.9 g/dL (14.0-18.0); Immature Granulocytes # (auto) 0.02 K/uL (0.00-0.02); Immature Granulocytes % (auto) 0.3 %; Lymphocytes # (auto) 2.05 K/uL (1.2-3.4); Mean Corpuscular Hemoglobin 27.4 pg (25-34); Mean Corpuscular Hgb Conc 33.7 g/dL (32-36); Mean Corpuscular Volume 81.3 fL (80-100); Monocytes # (auto) 0.47 K/uL (0.11-0.59); Monocytes % (auto) 6.9 %; Neutrophils # (auto) 4.19 K/uL (1.4-6.5); Neutrophils % (auto) 61.2 %; Platelet Count 69 K/uL (130-400); Platelet Estimate Decreased (Normal); RDW Coefficient of Variation 15.5 % (11.5-14.5); RDW Standard Deviation 46.3 fL (36.4-46.3); Red Blood Count 5.08 M/uL (4.7-6.1); Toxic Vacuolation 1+; White Blood Count 6.84 K/uL (4.8-10.8)
[2020-03-23] MEDS ORDERED: HYDROCORTISONE SOD SUCCINATE 100 MG/2 ML VIAL IV STA (11:29)
[2020-03-23 11:48] LABS: Albumin Globulin Ratio 0.6 (0.9-2); Alkaline Phosphatase 107 U/L (45-117); Bilirubin,Total 0.8 mg/dl (0.2-1); Creatine Kinase 122 U/L (39-308); Creatine Kinase MB < 1.0 ng/ml (0.5-3.6); Globulin 4.1 gm/dl (2.5-4.0); Total Protein 6.7 gm/dl (6.4-8.2)
--- NOTE | 2020-03-23 11:56 | XRay Report ---
SINGLE VIEW CHEST CLINICAL HISTORY: Sepsis. FINDINGS: An AP, portable, upright chest radiograph is compared to study dated 01/07/2017 and correlate d with chest CT dated 10/29/2019. The examination is degraded by portable technique and apical lordoti c positioning. The heart is enlarged noting atherosclerotic calcification of the thoracic aorta. The pulmonary vasculature is noncongested. Emphysematous change and chronic interstitial thickening is si milar to previous. There is bibasilar scarring/atelectasis. No airspace consolidation is seen typical for pneumonia and there is no large pleural effusion. No pneumothorax is seen. The skeletal structur es are osteopenic. The bony thorax is grossly intact. IMPRESSION: Cardiomegaly and emphysema with no acute cardiopulmonary abnormality identified. ACT 112: Negative or not required by law. Electronically signed by: Samuel Mullins M.D. 03/23/2020 11:55 AM
[2020-03-23 11:57] LABS: Appearance Urine Cloudy (Clear); Bacteria Urine Automated Negative (Negative); Bilirubin Urine Negative (Negative); Blood Urine Negative (Negative); Color Urine Yellow; Epithelial Cell Urine Auto 20-30 /lpf (0-5); Glucose Urine UA Negative (Negative); Ketones Urine Negative (Negative); Leukocyte Esterase Urine Trace (Negative); Nitrite Urine Negative (Negative); Protein Urine Trace (Negative); Urobilinogen Urine Negative (Negative)
[2020-03-23 11:59] LABS: Reticulocyte % 0.6 % (0.5-2.0); Reticulocytes # 0.03 10^6/uL (0.02-0.10)
[2020-03-23 12:13] LABS: Fibrinogen 697 mg/dl (184-400)
--- NOTE | 2020-03-23 12:17 | CT Scan Report ---
CT head/brain wo con CLINICAL HISTORY: 75 years-old Male with Pt AMS. Acutely altered mental status TECHNIQUE: Multiple axial CT images of the head were obtained without contrast. A dose lowering tech nique was utilized adhering to the principles of ALARA. CT DOSE: 823.94 mGycm COMPARISON: Head CT 03/20/2018. FINDINGS: No acute intracranial hemorrhage, midline shift, intra-axial mass, hydrocephalus, territorial ischemi a or abnormal extra-axial collection. 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 7 mm calcified focus is noted involving the inner table of the skull adjacent to left fron karan lobe on image 21 series 2. Cerebral vascular calcifications. The calvarium is intact. Large subcutaneous lipoma of the left suboccipital distribution redemonstrat ed measuring over 6 cm. Partially imaged mucosal thickening of the left maxillary sinus. Mastoid air cells are clear. Prior bilateral lens replacement. IMPRESSION: No acute intracranial abnormality. ACT 112: Negative or not required by law. The above report was generated using voice recognition software. It may contain grammatical, syntax o r spelling errors. Electronically signed by: Alvarado Mg M.D. 03/23/2020 12:16 PM
[2020-03-23 12:23] LABS: D Dimer 1830 ug/L FEU (0-500)
--- NOTE | 2020-03-23 12:26 | CT Scan Report ---
CT OF THE ABDOMEN AND PELVIS WITHOUT CONTRAST CLINICAL HISTORY: Sepsis. Acute renal failure. COMPARISON STUDY: CT of the abdomen and pelvis March 20, 2018. TECHNIQUE: Axial images of the abdomen and pelvis were obtained without IV contrast. Images were revi ewed in the axial, sagittal, and coronal planes. Automated exposure control was utilized for the ed dy. A dose lowering technique was utilized adhering to the principles of ALARA. FINDINGS: Imaged portions of the lower chest demonstrate moderate cardiomegaly. There are mild airspa ce opacities within the lower lungs. A small hiatal hernia is present. This exam is mildly compromise d by streak artifact. Mild splenomegaly is noted. Unenhanced images of the liver, adrenal glands and pancreas are unremarkable as is the right kidney. A 1.8 cm lesion arising from the lower pole of the left kidney measures above water attenuation but was shown to represent a cyst on prior ultrasound. T here is no hydronephrosis. No renal, ureteral or bladder calculi are present. Prostate is moderately enlarged. 3.1 cm infrarenal abdominal aortic aneurysm is noted. There is no evidence for a bowel obst ruction. No pneumatosis, free air or portal venous gas is present. There is no lymphadenopathy. There are no suspicious osseous lesions. No biliary or pancreatic ductal dilatation is present. IMPRESSION: 1. No urinary calculi or hydronephrosis. 2. Exam mildly compromised by streak artifact. No acute findings within the abdomen or pelvis on unen hanced exam. 3. 3.1 cm infrarenal abdominal aortic aneurysm. 4. Mild airspace opacities within the lower lungs which favor atelectasis although an infectious proc ess could appear similar. ACT 112: Negative or not required by law. Electronically signed by: Javed Mata M.D. 03/23/2020 12:25 PM
[2020-03-23] MEDS ORDERED: VANCOMYCIN CONSULT ACTIVE PRN (13:14)
[2020-03-23] MEDS ORDERED: CEFEPIME 2,000 MG/20 ML VIAL IV STA (13:14)
[2020-03-23] MEDS ORDERED: LEVOFLOXACIN/D5W 750 MG/150 ML BAG IV STA (13:14)
[2020-03-23] MEDS ORDERED: VANCOMYCIN HCL 1,000 MG/270 ML BAG IV STA (13:14)
[2020-03-23] MEDS ORDERED: VANCOMYCIN HCL 2,500 MG in SODIUM CHLORIDE 0.9% 500 ML IV STA (13:30)
[2020-03-23] MEDS ORDERED: ONDANSETRON INJ 2 MG/ML 2 ML VIAL IV PRN (13:34)
[2020-03-23] MEDS ORDERED: ACETAMINOPHEN 325 MG TAB PO PRN (13:34)
[2020-03-23] MEDS ORDERED: ALBUTEROL HFA 8 GM INHALER INH PRN (13:36)
--- NOTE | 2020-03-23 13:36 | History & Physical Report ---
Date of Service March 23, 2020 Assessment & Plan (1) Severe sepsis: Significant hypotension at time of presentation requiring fluid resuscitation along with acute kidney injury, met. encephalopathy, etc. Source uncertain - thus far u/a not suggestive of UTI. CXR with ? pneumonia but chest CT w/o definitive pneumonia. [employer] respiratory panel negative. COVID-19 PCR negative (also had another COVID-19 test on Friday of this week which was also negative). CT abd/pelvis without source of infection. C diff negative. Lyme was negative. Blood cultures sent/pending. Other possibilities include non-Lyme tick-borne infection (anaplasmosis DNA sent). Other viral processes possible (EBV, CMV, etc). While awaiting blood cultures continue on zosyn, vanco, and doxycycline (latter to cover anaplasmosis and other tick-borne illness). Also send stool culture. (2) TED (acute kidney injury): casts seen on u/a c/w sepsis-associated ATN. continue IVF with serial BMPs. no evidence of obstruction on CT today. (3) Metabolic encephalopathy: (4) Sepsis associated hypotension: Improved s/p fluid resuscitation. See "severe sepsis" above. (5) Hyponatremia: hypovolemic hyponatremia from Poor PO intake, diarrhea, etc. NS hydration; serial BMPs. (6) Hypokalemia: 2nd to diarrhea, poor oral intake. replete, repeat levels tonight/tomorrow. mag noted to be normal. (7) Thrombocytopenia: etiology uncertain. no evidence of DIC. no evidence of TTP/HUS. could be due to viral process or tick-borne process (anaplasmosis, EBV, CMV, etc). severe bacterial sepsis can cause such as well. anaplasmosis DNA sent. blood cx's pending. if platelets continue to worsen consider EBV, CMV, etc. COVID-19 testing negative. serial CBCs. (8) Afib: History of such. In a. fib at time of presentation today. Replete low K. Fluid resuscitation. Unfortunately will need to hold metoprolol due to hypotension. Cont eliquis cautiously in light of low platelets. (9) Coronary artery disease: with h/o NSTEMI and stent. Cont asa cautiously. would hold lipitor given the elevated ast / alt. troponin elevation likely myocardial demand ischemia in setting of sepsis. (10) Bloody stools: blood per rectum could be from enteric pathogen (e.coli, shigella, salmonella, etc). could be hemorrhoidal in setting of eliquis use and moderate thrombocytopenia. other etiologies possible. sent stool culture. c. diff negative. norovirus also sent. (11) Transaminitis: etiology? infectious? (anaplasmosis, viral, etc) due to severe sepsis / hypotension / "shock liver"? other? serial Ast/Alt. hold statin. 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 cont eliquis cautiously in light of low platelets. (17) Morbid obesity with BMI of 40.0-44.9, adult: BMI 43.5 (18) DVT prophylaxis: eliquis, renally dosed updated by phone 03/23 total critical care time about 80 minutes including speaking with pattern repair person, oncology, and family; complex multi-system organ failure management; etc. History of Present Illness Chief Complaint: concern for dehydration; fever; anorexia; diarrhea Primary Care Provider: Stevie Higginbotham MD 75yo male with history of a.fib, CAD, DVT - presents with 7-10 days of illness. His initial symptom was anorexia early on in the illness followed by fevers of 99-99.5. Has had chills and fatigue. No headache or myalgias. He then developed diarrhea about twice daily. Stools have been watery and bloody. Minimal abdominal pain. Has baseline shortness of breath - his dyspnea has not been worse than such. Some mild, dry cough. Has had no loss of taste or smell. No recent travel. Once a week he typically goes to the grocery store. No sick contacts. Lives with and son - neither have fever, diarrhea or infectious symptoms. Son was living in [facility] up until December 2019 but has not been back to [place] since then. Has been checked for COVID-19 -- had testing Friday of this week; found out today he was negative. Allergies Allergy/AdvReac Type Severity Reaction Status Date / Time No Known Allergies Allergy Verified 03/23/20 12:21 Home Medications Home Medications Medication Instructions Recorded Confirmed Type apixaban 5 mg tablet 5 mg PO BID 06/04/18 03/23/20 History atorvastatin 80 mg tablet 80 mg PO HS tab 06/04/18 03/23/20 History docusate sodium 100 mg capsule 100 mg PO QAM PRN cap 06/04/18 03/23/20 History doxazosin 8 mg tablet 8 mg PO PM 06/04/18 03/23/20 History losartan 50 mg tablet 50 mg PO QAM tab 06/04/18 03/23/20 History tramadol 50 mg tablet 50 mg PO Q4H PRN tab 06/04/18 03/23/20 History albuterol sulfate 90 mcg/actuation 2 puff INH Q6H PRN #18 gm 11/15/19 03/23/20 Rx aerosol inhaler aspirin 81 mg tablet,delayed 81 mg PO PM 11/15/19 03/23/20 History release finasteride 5 mg tablet 5 mg PO PM 11/15/19 03/23/20 History indapamide 2.5 mg tablet 2.5 mg PO QAM 11/15/19 03/23/20 History metoprolol succinate 50 mg 25 mg PO PM tab 11/15/19 03/23/20 History tablet,extended release 24 hr umeclidinium [Incruse Ellipta] 1 inh INH QAM 03/23/20 03/23/20 History Past Med/Surg History Medical History (Updated 03/23/20 @ 21:16 by Efrain Rudd) Afib CAD (coronary artery disease) (Chronic) Cellulitis of lower leg (Chronic) Chest pain (Chronic) COPD with emphysema Coronary artery disease (Chronic) History of pulmonary embolus (PE) Hypertension (Chronic) Multiple pulmonary nodules NSTEMI (non-ST elevated myocardial infarction) 2016 NSTEMI (non-ST elevated myocardial infarction) (Chronic) Obesity (Chronic) AMPARO (obstructive sleep apnea) Right leg DVT (Chronic) Traumatic hematoma of lower leg (Chronic) Surgical History (Updated 03/23/20 @ 13:29 by Efrain Rudd) H/O exploratory laparotomy due to [facility] - [facility] (had gastric injury - he doesn't remember details) History of coronary artery stent placement Family History (Updated 03/23/20 @ 13:30 by Efrain Rudd) Father Heart disease Mother Lung disease Heart disease Other COPD (chronic obstructive pulmonary disease) Social History (Updated 03/23/20 @ 13:31 by Efrain Rudd) Preferred Language: Occitan Communication Ability: Effective 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 Beliefs That Will Affect Care: None marital status: Current Living Situation: Spouse Current Living Situation Comment: lives with /son in [place] current occupational status: retired Other Information That Helps Us Care for You: No 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: 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 [place] Feels Safe at Home: Yes Safety Concerns: Feels Safe At This Time Smoking Status: Former smoker Tobacco Type: cigarettes ; Age Started Using Tobacco: 20 ; Age Quit Using Tobacco: 36 ; packs per day: 1.5 ; Number of Years Since Quit: 38 ; Hx Alcohol Use: Yes (Quit 38 years ago) Alcohol type: beer Hx Substance Use: Yes substance use type: former substance user Review of Systems Constitutional: + fever, + chills, + fatigue, + weakness and + anorexia; no body aches Eyes: no worsening vision Ear, Nose, Mouth, Throat: no nasal discharge and no sore throat Respiratory: + cough; no dyspnea on exertion Cardiovascular: + edema (chronic); no chest pain Gastrointestinal: + abdominal pain, + diarrhea/loose stools and + blood in stools; no nausea and no vomiting Genitourinary: no dysuria Musculoskeletal: no back pain and no neck pain Integumentary: no rash Neurologic: no loss of sensation Psychiatric: no depression Endocrine: no diabetes Hematologic / Lymphatic: no easy bruising Physical Exam Constitutional: + ill appearing, + morbidly obese, + altered mental status (minimally confused ) and + frail appearing; no acute distress dehydrated Eyes: + conjunctival abnormality (injected b/l; no discharge) and PERRL ENMT: Mouth: + dry oral mucous membranes; no oropharynx abnormality Neck: trachea midline, no thyromegaly Respiratory: no respiratory distress Auscultation: + rales (mild, soft crackles bases ); no wheezes Cardiovascular: Rate/Rhythm: + tachycardic and + irregularly irregular Heart Sounds: normal S1 and normal S2; no murmur Vessels: posterior tibial pulses present and dorsalis pedis pulses present; no JVD Extremities: no edema Gastrointestinal (Abdomen): Inspection/Auscultation: normal bowel sounds; abdomen not distended Percussion/Palpation: + abdomen tender (epigastric/umbilical region ) and abdomen soft; no guarding, abdomen not rigid and no hepatosplenomegaly Musculoskeletal: no cyanosis or clubbing, extremities motor strength 5/5 Skin: no rashes, warm and dry Neurologic: moves all extremities Psychiatric: Orientation: alert, oriented to person and oriented to place; + not oriented to time Lymphatic: no cervical lymphadenopathy Results & Data Results & Data ([facility]) Vital Signs (Past 12 Hours) Vital Signs Temp Pulse Resp BP Pulse Ox 03/23/20 12:45 106 H 24 108/89 03/23/20 12:30 111 H 23 104/78 95 03/23/20 12:17 113 H 24 95 03/23/20 12:15 103 H 22 108/65 94 03/23/20 12:14 104 H 21 109/71 94 03/23/20 12:13 106 H 03/23/20 11:48 109 H 24 94 03/23/20 11:47 117 H 29 H 94/64 L 94 03/23/20 11:45 103 H 23 78/61 L 94 03/23/20 11:30 102 H 18 110/68 95 03/23/20 11:15 86 32 H 101/74 98 03/23/20 11:01 102 H 24 113/86 96 03/23/20 10:53 102 H 20 95 03/23/20 10:45 115 H 21 87/57 L 96 03/23/20 10:44 111 H 22 93 03/23/20 10:41 111 H 28 H 67/49 L 92 03/23/20 10:26 36.7 C 86 22 55/37 L 93 Laboratory Results Laboratory Results - last 24 hr 03/23/20 03/23/20 03/23/20 10:50 10:50 10:50 WBC 6.84 RBC 5.08 Hgb 13.9 L POC Hgb Hct 41.3 L POC Hct MCV 81.3 MCH 27.4 MCHC 33.7 RDW Std Deviation 46.3 RDW Coeff of Abigail 15.5 H Plt Count 69 L MPV Not Reportable Immature Gran % (Auto) 0.3 Neut % (Auto) 61.2 Lymph % (Auto) 30.0 Ray % (Auto) 6.9 Eos % (Auto) 0.1 Baso % (Auto) 1.5 Reticulocyte % (Auto) 0.6 Immature Gran # (Auto) 0.02 Neut # (Auto) 4.19 Lymph # (Auto) 2.05 Ray # (Auto) 0.47 Eos # (Auto) 0.01 Baso # (Auto) 0.10 Reticulocyte # 0.03 Toxic Vacuolation 1+ Platelet Estimate Decreased L Echinocytes 1+ Peripher Smr Path Cons ESR Haptoglobin PT 11.6 INR 1.1 APTT 31.3 H PTT Ratio 1.1 Fibrinogen D-Dimer POC Sodium Sodium 128 L POC Potassium Potassium 2.8 L POC Chloride Chloride 92 L Carbon Dioxide 24 POC Total CO2 Anion Gap 11.0 POC Anion Gap POC BUN BUN 80 H Creatinine 2.56 H POC Creatinine Est Cr Clr Drug Dosing 33.0 Est GFR ( Amer) 27.7 Est GFR (Non-Af Amer) 23.9 BUN/Creatinine Ratio 31.3 H Glucose 126 H POC Glucose (other) Lactate Calcium 8.2 L POC Ioniz Calcium Jose F Magnesium 2.9 H Ferritin 5549.0 H Total Bilirubin 0.8 AST 274 H ALT 212 H Alkaline Phosphatase 107 Lactate Dehydrogenase Total Creatine Kinase 122 CK-MB (CK-2) < 1.0 CK/CKMB % Calc TNP Troponin I 0.110 H* C-Reactive Protein 12.70 H Total Protein 6.7 Albumin 2.6 L Globulin 4.1 H Albumin/Globulin Ratio 0.6 L Procalcitonin Random Cortisol Urine Color Urine Appearance Urine pH Ur Specific [place] Urine Protein Urine Glucose (UA) Urine Ketones Urine Blood Urine Nitrite Urine Bilirubin Urine Urobilinogen Ur Leukocyte Esterase Urine WBC (Auto) Urine RBC (Auto) U Hyaline Cast (Auto) U Epithel Cells (Auto) Urine Bacteria (Auto) Anaplasma Smear See Comment A. phagocytophilum DNA Lyme Disease IgG Ab Lyme Disease IgM Ab 03/23/20 03/23/20 03/23/20 10:50 10:50 10:50 WBC RBC Hgb POC Hgb Hct POC Hct MCV MCH MCHC RDW Std Deviation RDW Coeff of Abigail Plt Count MPV Immature Gran % (Auto) Neut % (Auto) Lymph % (Auto) Ray % (Auto) Eos % (Auto) Baso % (Auto) Reticulocyte % (Auto) Immature Gran # (Auto) Neut # (Auto) Lymph # (Auto) Ray # (Auto) Eos # (Auto) Baso # (Auto) Reticulocyte # Toxic Vacuolation Platelet Estimate Echinocytes Peripher Smr Path Cons ESR 42 H Haptoglobin PT INR APTT PTT Ratio Fibrinogen D-Dimer POC Sodium Sodium POC Potassium Potassium POC Chloride Chloride Carbon Dioxide POC Total CO2 Anion Gap POC Anion Gap POC BUN BUN Creatinine POC Creatinine Est Cr Clr Drug Dosing Est GFR ( Amer) Est GFR (Non-Af Amer) BUN/Creatinine Ratio Glucose POC Glucose (other) Lactate 1.5 Calcium POC Ioniz Calcium Jose F Magnesium Ferritin Total Bilirubin AST ALT Alkaline Phosphatase Lactate Dehydrogenase Total Creatine Kinase CK-MB (CK-2) CK/CKMB % Calc Troponin I C-Reactive Protein Total Protein Albumin Globulin Albumin/Globulin Ratio Procalcitonin 6.16 H Random Cortisol Urine Color Urine Appearance Urine pH Ur Specific [place] Urine Protein Urine Glucose (UA) Urine Ketones Urine Blood Urine Nitrite Urine Bilirubin Urine Urobilinogen Ur Leukocyte Esterase Urine WBC (Auto) Urine RBC (Auto) U Hyaline Cast (Auto) U Epithel Cells (Auto) Urine Bacteria (Auto) Anaplasma Smear A. phagocytophilum DNA Lyme Disease IgG Ab Lyme Disease IgM Ab 03/23/20 03/23/20 03/23/20 10:50 10:50 10:50 WBC RBC Hgb POC Hgb Hct POC Hct MCV MCH MCHC RDW Std Deviation RDW Coeff of Abigail Plt Count MPV Immature Gran % (Auto) Neut % (Auto) Lymph % (Auto) Ray % (Auto) Eos % (Auto) Baso % (Auto) Reticulocyte % (Auto) Immature Gran # (Auto) Neut # (Auto) Lymph # (Auto) Ray # (Auto) Eos # (Auto) Baso # (Auto) Reticulocyte # Toxic Vacuolation Platelet Estimate Echinocytes Peripher Smr Path Cons ESR Haptoglobin Pending PT INR APTT PTT Ratio Fibrinogen D-Dimer POC Sodium Sodium POC Potassium Potassium POC Chloride Chloride Carbon Dioxide POC Total CO2 Anion Gap POC Anion Gap POC BUN BUN Creatinine POC Creatinine Est Cr Clr Drug Dosing Est GFR ( Amer) Est GFR (Non-Af Amer) BUN/Creatinine Ratio Glucose POC Glucose (other) Lactate Calcium POC Ioniz Calcium Jose F Magnesium Ferritin Total Bilirubin AST ALT Alkaline Phosphatase Lactate Dehydrogenase 488 H Total Creatine Kinase CK-MB (CK-2) CK/CKMB % Calc Troponin I C-Reactive Protein Total Protein Albumin Globulin Albumin/Globulin Ratio Procalcitonin Random Cortisol 36.36 Urine Color Urine Appearance Urine pH Ur Specific [place] Urine Protein Urine Glucose (UA) Urine Ketones Urine Blood Urine Nitrite Urine Bilirubin Urine Urobilinogen Ur Leukocyte Esterase Urine WBC (Auto) Urine RBC (Auto) U Hyaline Cast (Auto) U Epithel Cells (Auto) Urine Bacteria (Auto) Anaplasma Smear A. phagocytophilum DNA Lyme Disease IgG Ab Lyme Disease IgM Ab 03/23/20 03/23/20 03/23/20 10:50 10:50 10:57 WBC RBC Hgb POC Hgb 14.3 Hct POC Hct 42 MCV MCH MCHC RDW Std Deviation RDW Coeff of Abigail Plt Count MPV Immature Gran % (Auto) Neut % (Auto) Lymph % (Auto) Ray % (Auto) Eos % (Auto) Baso % (Auto) Reticulocyte % (Auto) Immature Gran # (Auto) Neut # (Auto) Lymph # (Auto) Ray # (Auto) Eos # (Auto) Baso # (Auto) Reticulocyte # Toxic Vacuolation Platelet Estimate Echinocytes Peripher Smr Path Cons ESR Haptoglobin PT INR APTT PTT Ratio Fibrinogen 697 H D-Dimer 1830 H* POC Sodium 128 L Sodium POC Potassium 2.8 L Potassium POC Chloride 93 L Chloride Carbon Dioxide POC Total CO2 23 L Anion Gap POC Anion Gap 15.0 L POC BUN 68 H BUN Creatinine POC Creatinine 2.7 H Est Cr Clr Drug Dosing Est GFR ( Amer) Est GFR (Non-Af Amer) BUN/Creatinine Ratio Glucose POC Glucose (other) 135 H Lactate Calcium POC Ioniz Calcium Jose F 1.00 L Magnesium Ferritin Total Bilirubin AST ALT Alkaline Phosphatase Lactate Dehydrogenase Total Creatine Kinase CK-MB (CK-2) CK/CKMB % Calc Troponin I C-Reactive Protein Total Protein Albumin Globulin Albumin/Globulin Ratio Procalcitonin Random Cortisol Urine Color Urine Appearance Urine pH Ur Specific [place] Urine Protein Urine Glucose (UA) Urine Ketones Urine Blood Urine Nitrite Urine Bilirubin Urine Urobilinogen Ur Leukocyte Esterase Urine WBC (Auto) Urine RBC (Auto) U Hyaline Cast (Auto) U Epithel Cells (Auto) Urine Bacteria (Auto) Anaplasma Smear A. phagocytophilum DNA Pending Lyme Disease IgG Ab Lyme Disease IgM Ab 03/23/20 03/23/20 11:29 11:42 WBC RBC Hgb POC Hgb Hct POC Hct MCV MCH MCHC RDW Std Deviation RDW Coeff of Abigail Plt Count MPV Immature Gran % (Auto) Neut % (Auto) Lymph % (Auto) Ray % (Auto) Eos % (Auto) Baso % (Auto) Reticulocyte % (Auto) Immature Gran # (Auto) Neut # (Auto) Lymph # (Auto) Ray # (Auto) Eos # (Auto) Baso # (Auto) Reticulocyte # Toxic Vacuolation Platelet Estimate Echinocytes Peripher Smr Path Cons ESR Haptoglobin PT INR APTT PTT Ratio Fibrinogen D-Dimer POC Sodium Sodium POC Potassium Potassium POC Chloride Chloride Carbon Dioxide POC Total CO2 Anion Gap POC Anion Gap POC BUN BUN Creatinine POC Creatinine Est Cr Clr Drug Dosing Est GFR ( Amer) Est GFR (Non-Af Amer) BUN/Creatinine Ratio Glucose POC Glucose (other) Lactate Calcium POC Ioniz Calcium Jose F Magnesium Ferritin Total Bilirubin AST ALT Alkaline Phosphatase Lactate Dehydrogenase Total Creatine Kinase CK-MB (CK-2) CK/CKMB % Calc Troponin I C-Reactive Protein Total Protein Albumin Globulin Albumin/Globulin Ratio Procalcitonin Random Cortisol Urine Color Yellow Urine Appearance Cloudy A Urine pH 5.0 Ur Specific [place] 1.020 Urine Protein Trace H Urine Glucose (UA) Negative Urine Ketones Negative Urine Blood Negative Urine Nitrite Negative Urine Bilirubin Negative Urine Urobilinogen Negative Ur Leukocyte Esterase Trace H Urine WBC (Auto) 1-5 Urine RBC (Auto) 5-10 H U Hyaline Cast (Auto) 5-10 H U Epithel Cells (Auto) 20-30 H Urine Bacteria (Auto) Negative Anaplasma Smear A. phagocytophilum DNA Lyme Disease IgG Ab Pending Lyme Disease IgM Ab Pending Diagnostic Findings 1. abd/pelvic CT - IMPRESSION: 1. No urinary calculi or hydronephrosis. 2. Exam mildly compromised by streak artifact. No acute findings within the abdomen or pelvis on unenhanced exam. 3. 3.1 cm infrarenal abdominal aortic aneurysm. 4. Mild airspace opacities within the lower lungs which favor atelectasis although an infectious process could appear similar. 2. head CT - no acute process. 3. cxr - no obvious infiltrates. 4. EKG - a.fib with RVR, q waves inferiorly, no ST changes; PVCs. Code Status & VTE Plan Code Status full code VTE Prophylaxis Plan VTE Prophylaxis will be ordered: Yes Critical Care Time Critical Care Time: Yes Total Critical Care Time: 80 PG Care Time/CCT Total # of Minutes Spent Total Time Spent with Patient: Total time spent is greater than 50% in coordination of care (as documented) at patient's floor/unit and/or counseling patient: Critical Care Time: Yes Total Critical Care Time: 80 Coding Level of Care Code None Diagnoses Severe sepsis A41.9; R65.20 TED (acute kidney injury) N17.9 Metabolic encephalopathy G93.41 Sepsis associated hypotension A41.9; I95.9 Hyponatremia E87.1 Hypokalemia E87.6 Thrombocytopenia D69.6 Afib I48.91 Atrial fibrillation type: unspecified Coronary artery disease I25.10 Coronary Disease-Associated Artery/Lesion type: [place] artery [place] vs. transplanted heart: [place] heart Associated angina: without angina Bloody stools K92.1 Transaminitis R74.0 History of coronary artery stent placement Z95.5 Hypertension I10 Hypertension type: essential hypertension COPD with emphysema J43.9 Emphysema type: unspecified AMPARO (obstructive sleep apnea) G47.33 History of pulmonary embolus (PE) Z86.711 Morbid obesity with BMI of 40.0-44.9, adult E66.01; Z68.41 DVT prophylaxis Z29.9 Additional Codes Critical Care Time - Critical Care Time: Yes ([id number]) Time Spent (min) 80 (1) Afib Atrial fibrillation type: unspecified Qualified Code(s): I48.91 - Unspecified atrial fibrillation (2) Coronary artery disease Coronary Disease-Associated Artery/Lesion type: [place] artery [place] vs. transplanted heart: [place] heart Associated angina: without angina Qualified Code(s): I25.10 - Atherosclerotic heart disease of [place] coronary artery without angina pectoris (3) Hypertension Hypertension type: essential hypertension Qualified Code(s): I10 - Essential (primary) hypertension (4) COPD with emphysema Emphysema type: unspecified Qualified Code(s): J43.9 - Emphysema, unspecified
[2020-03-23] MEDS ORDERED: SODIUM CHLORIDE 0.9% 1000ML 1,000 ML IV SCH (13:45)
--- NOTE | 2020-03-23 14:22 | Critical Care Consultation ---
Date of Consultation March 23, 2020 Assessment & Plan (1) Sepsis associated hypotension: --Sepsis with hypotension Patient main complaint was diarrhea which has been going on since last 3 to 4 days. Patient responded to IV fluids Currently maintaining his blood pressure. No clear source of sepsis right now. WBC within normal limit, ESR 42, CRP 12.7, LDH 488, procalcitonin 6.16, random cortisol 36.1, C. difficile negative Follow-up blood culture, stool culture Continue with broad-spectrum antibiotics Patient had outpatient Covid-19 test done on Friday which was negative, patient had Covid-19 PCI done today which is also negative Patient does have elevated inflammatory markers including ferritin, LDH and d- dimer. But given in a patient who is saturating 95% on room air not complaining of any exacerbation of shortness of breath from his baseline with no lymphopenia and to Covid-19 tests negative more than 24 hours apart ports Covid-19 very low in differential. Follow-up respiratory panel bio fire -- TED Urine sodium 19, urine creatinine 157, urine uric acid: 16 FeNa: 0.2%, goes with prerenal picture likely from hypotension Monitor BUN/creatinine Avoid nephrotoxic medications Strict ins and outs -- HAGMA Delta-delta: Greater than 1, next acidosis plus alkalosis Lactate within normal limit, elevated BUN can give gap, Follow up serum osm, urine osm, urine lytes AB.45/31/51/86% on room air. Monitor --Transaminitis AST 274, ALT 212, normal alk phos Bilirubin within normal limit Again likely seems to be from hypotension We will monitor --Thrombocytopenia New in onset Patient fibrinogen is actually elevated This goes against DIC Could be sepsis induced. Would monitor --Elevated troponin Likely demand ischemia EKG 03/23/2020: A. fib with PVCs no significant ST-T wave changes. Left axis deviation. QTc 488 Monitor troponins --Prolonged QTC Avoid QTC prolonging medication Keep potassium greater than 4, magnesium greater than 2, phosphorus greater than 3 --Moderate COPD with emphysema Continue with inhalers --Bilateral lower lobe bronchiectasis This is chronic --Prophylaxis VTE: Apixaban, renally adjusted GI: Pepcid Plan: Patient did get hydrocortisone in the ED because of severe low blood pressure. His random cortisol was 36.1 which is I think good enough to rule out adrenal insufficiency. I would not continue with hydrocortisone. CT chest did not show any signs of pneumonia. Patient has chronic bilateral lower lobe bronchiectasis CT abdomen pelvis does not show any signs of cholecystitis or pancreatitis. Will order lipase. Repeat CBC, BMP, magnesium, [place] first, troponin, EKG. Continue with Zosyn and doxycycline for the time being. Follow-up stool culture. I have personally spent 67 minutes of critical care time in the direct management of this patient. This is a life/limb threatening event. This includes time spent evaluating patient, direct bedside care, chart review, placing orders, interpretation of diagnostic studies, discussion with consultants, patient, and family members, as well as other required patient management activities. This time is exclusive of all separately billable procedures, and teaching time and separate from and in addition to any other critical care service time. Please note the above document was generated using voice recognition software. It may contain grammatical, syntax or spelling errors. (2) History of pulmonary embolus (PE): (3) COPD with emphysema: (4) Obesity (BMI 30-39.9): (5) TED (acute kidney injury): History of Present Illness History of Present Illness 75-year-old male with past medical history of A. fib on apixaban, DVT diagnosed 2017, coronary artery disease status post stents, dyslipidemia comes to the ER with complaints of generalized malaise and diarrhea which is been going on since approximately 7 days. He started to have decreased appetite and having low- grade fever going up to 99.5 which is unusual for him. He had generalized fatigue. Diarrhea was 2 times watery to loose with blood. Patient has history of hemorrhoids and he usually sees blood in the stools when he strains. Patient denies any dysuria. His shortness of breath actually has gotten better compared to before after he was started on an inhaler by me. Still complains of exertional shortness of breath which is also better than before. Patient denies any chest pain. He does complain of some abdominal pain which is mostly epigastric and right upper quadrant. He has had decreased appetite in the last 7 days and he was not eating but he was compliant with his medications. Patient denies any recent travel history. He goes out of the house to grocery shopping once a week and wears mask and follows social distancing. Nobody at home is sick. He does not think this is related to any specific food as everybody in the family eats the same food. Denies any sick contacts. ICU was called from the ER as patient was hypotensive but he responded to fluids. He was also having new onset TED, transaminitis and elevation in his inflammatory markers. At the time of examination in the ICU patient map is in the 80s, respiratory rate in the low 20s is not in any acute distress he says that he is feeling better. No shortness of breath. For the symptoms patient had Covid-19 test as an outpatient on Friday the result was negative. Allergies Allergy/AdvReac Type Severity Reaction Status Date / Time No Known Allergies Allergy Verified 03/23/20 12:21 Home Medications Home Medications Medication Instructions Recorded Confirmed Type apixaban 5 mg tablet 5 mg PO BID 06/04/18 03/23/20 History atorvastatin 80 mg tablet 80 mg PO HS tab 06/04/18 03/23/20 History docusate sodium 100 mg capsule 100 mg PO QAM PRN cap 06/04/18 03/23/20 History doxazosin 8 mg tablet 8 mg PO PM 06/04/18 03/23/20 History losartan 50 mg tablet 50 mg PO QAM tab 06/04/18 03/23/20 History tramadol 50 mg tablet 50 mg PO Q4H PRN tab 06/04/18 03/23/20 History albuterol sulfate 90 mcg/actuation 2 puff INH Q6H PRN #18 gm 11/15/19 03/23/20 Rx aerosol inhaler aspirin 81 mg tablet,delayed 81 mg PO PM 11/15/19 03/23/20 History release finasteride 5 mg tablet 5 mg PO PM 11/15/19 03/23/20 History indapamide 2.5 mg tablet 2.5 mg PO QAM 11/15/19 03/23/20 History metoprolol succinate 50 mg 25 mg PO PM tab 11/15/19 03/23/20 History tablet,extended release 24 hr umeclidinium [Incruse Ellipta] 1 inh INH QAM 03/23/20 03/23/20 History Patient History Medical History (Updated 03/23/20 @ 14:21 by Davide Parr MD) Afib CAD (coronary artery disease) (Chronic) Cellulitis of lower leg (Chronic) Chest pain (Chronic) COPD with emphysema Coronary artery disease (Chronic) History of pulmonary embolus (PE) Hypertension (Chronic) Multiple pulmonary nodules NSTEMI (non-ST elevated myocardial infarction) 2017 NSTEMI (non-ST elevated myocardial infarction) (Chronic) Obesity (Chronic) AMPARO (obstructive sleep apnea) Right leg DVT (Chronic) Traumatic hematoma of lower leg (Chronic) Surgical History (Updated 03/23/20 @ 13:29 by Efrain Rdud) H/O exploratory laparotomy due to [facility] (had gastric injury - he doesn't remember details) History of coronary artery stent placement Family History (Updated 03/23/20 @ 13:30 by Efrain Rudd) Father Heart disease Mother Lung disease Heart disease Other COPD (chronic obstructive pulmonary disease) Social History (Updated 03/23/20 @ 13:31 by Efrain Rudd) Preferred Language: [place] Communication Ability: Effective Rn Float Required: No Beliefs That Will Affect Care: None marital status: Current Living Situation: Spouse Current Living Situation Comment: lives with /son in [employer] current occupational status: retired Other Information That Helps Us Care for You: No other: social services - private practice in [place] Feels Safe at Home: Yes Safety Concerns: Feels Safe At This Time Smoking Status: Former smoker Tobacco Type: cigarettes ; Age Started Using Tobacco: 20 ; Age Quit Using Tobacco: 36 ; packs per day: 1.5 ; Number of Years Since Quit: 38 ; Hx Alcohol Use: Yes (Quit 38 years ago) Alcohol type: beer Hx Substance Use: Yes substance use type: former substance user Review of Systems Review of Systems: All systems reviewed & are unremarkable except as noted in HPI & below Physical Exam Physical Exam: Constitutional: No acute distress HEENT: EOMI, PERRLA, Mallampati 3 Respiratory system: Good air entry bilaterally, no wheeze, no rhonchi, mild crackles bilateral lower lobes CVS: S1-S2 positive, no murmurs or gallops, distant heart sounds Abdomen: Soft, positive epigastric and right upper quadrant tenderness, positive Rios's, obese, hyperactive bowel sounds x4 Extremities: +2 pulses bilaterally radialis/ dorsalis pedis, no cyanosis, +2 pitting edema Neuro: Awake alert oriented x3 Psych: Normal mood and affect Skin: no rashes, warm and dry Lymphatic: no cervical or axillary lymphadenopathy Results & Data Results & Data ([facility]) Vital Signs (Past 12 Hours) Vital Signs Temp Pulse Resp BP Pulse Ox 03/23/20 12:45 106 H 24 108/89 03/23/20 12:30 111 H 23 104/78 95 03/23/20 12:17 113 H 24 95 03/23/20 12:15 103 H 22 108/65 94 03/23/20 12:14 104 H 21 109/71 94 03/23/20 12:13 106 H 03/23/20 11:48 109 H 24 94 03/23/20 11:47 117 H 29 H 94/64 L 94 03/23/20 11:45 103 H 23 78/61 L 94 03/23/20 11:30 102 H 18 110/68 95 03/23/20 11:15 86 32 H 101/74 98 03/23/20 11:01 102 H 24 113/86 96 03/23/20 10:53 102 H 20 95 03/23/20 10:45 115 H 21 87/57 L 96 03/23/20 10:44 111 H 22 93 03/23/20 10:41 111 H 28 H 67/49 L 92 03/23/20 10:26 36.7 C 86 22 55/37 L 93 03/23/20 10:50 03/23/20 10:50 Coding Level of Care Code Critical Care 1st 30-74 mins Diagnoses Sepsis associated hypotension A41.9; I95.9 History of pulmonary embolus (PE) Z86.711 COPD with emphysema J43.9 Obesity (BMI 30-39.9) E66.9 TED (acute kidney injury) N17.9 Time Spent (min) 67
[2020-03-23 14:41] LABS: Lyme Ab IgG w/WB Rflx Negative (Negative); Lyme Ab IgM w/WB Rflx Negative (Negative)
[2020-03-23 15:52] LABS: Potassium Random Urine 29.1 mmol/L
[2020-03-23 16:50] LABS: Adenovirus PCR Not Detected (NotDetected); Bordetella parapertussis PCR Not Detected (NotDetected); Bordetella pertussis PCR Not Detected (NotDetected); Chlamydia pneumoniae PCR Not Detected (NotDetected); Coronavirus 229E PCR Not Detected (NotDetected); Coronavirus HKU1 PCR Not Detected (NotDetected); Coronavirus NL63 PCR Not Detected (NotDetected); Coronavirus OC43PCR Not Detected (NotDetected); Human Metapneumovirus PCR Not Detected (NotDetected); Influenza A PCR Not Detected (NotDetected); Influenza B PCR Not Detected (NotDetected); Mycoplasma pneumoniae PCR Not Detected (NotDetected); Parainfluenza Virus 1 PCR Not Detected (NotDetected); Parainfluenza Virus 2 PCR Not Detected (NotDetected); Parainfluenza Virus 3 PCR Not Detected (NotDetected); Parainfluenza Virus 4 PCR Not Detected (NotDetected); Respiratory Syncytial VirusPCR Not Detected (NotDetected); Rhinovirus/Enterovirus PCR Not Detected (NotDetected)
[2020-03-23] MEDS ORDERED: NSS + 20MEQ KCL 20 MEQ/1,000 ML BAG IV SCH (17:00)
--- NOTE | 2020-03-23 17:11 | Electrocardiogram Report ---
Test Reason : Blood Pressure : / mmHG Vent. Rate : 113 BPM Atrial Rate : 092 BPM P-R Int : 000 ms QRS Dur : 102 ms QT Int : 356 ms P-R-T Axes : 000 -30 071 degrees QTc Int : 488 ms Atrial fibrillation with rapid ventricular response with premature ventricular or aberrantly conducte d complexes Left axis deviation Abnormal ECG When compared with ECG of 10-APR-2018 19:21, Atrial fibrillation has replaced Sinus rhythm Vent. rate has increased BY 51 BPM Confirmed by Abrahan Fried ([id number]) on 03/23/2020 5:10:53 PM Referred By: REFERRED SELF Confirmed By:Tarik Fried
--- NOTE | 2020-03-23 17:16 | CT Scan Report ---
CT chest wo con CT DOSE: 946.96 mGy.cm HISTORY: Chest pain. Dyspnea. r/o PNA TECHNIQUE: Multiaxial CT images of the chest were performed without contrast. A dose lowering techni que was utilized adhering to the principles of ALARA. COMPARISON: 10/29/2019 FINDINGS: Chronic bibasilar atelectatic change superimposed upon chronic basilar bronchiectatic nascimento e. Chronic pleural thickening at the lung bases. Scattered areas of thickening of the major fissures bilaterally. All findings appear stable. There are no new or interval findings. Several small reactive mediastinal nodes are present which are diminished in prominence from the prio r study. IMPRESSION: 1. Chronic change as described. 2. No evidence for an acute or superimposed infiltrative process. ACT 112: Negative or not required by law. The above report was generated using voice recognition software. It may contain grammatical, syntax or spelling errors. Electronically signed by: Morteza Guallpa M.D. 03/23/2020 5:14 PM
[2020-03-23 17:33] LABS: Base Excess ABG -1.9 mEq/L (-9-1.8); HCO3 ABG 21 mmol/L (19-24); PCO2 ABG 31 mmHg (35-46); PO2 ABG 51 mmHg (80-95); pH ABG 7.45 (7.35-7.45)
[2020-03-23 17:34] LABS: Allen Test Pos (Pos)
[2020-03-23] MEDS ORDERED: PIPERACILL/TAZOBAC CONSULT ACTIVE PRN (18:05)
[2020-03-23 18:25] LABS: BUN Creatinine Ratio 32.2 (10-20); Calcium 7.4 mg/dl (8.5-10.1); Creatinine Clr Calc Pharmacy 42.3 ml/min; Est GFR (African American) 37.7; Est GFR (Non-African American) 32.5; Magnesium 2.6 mg/dl (1.8-2.4)
[2020-03-23 18:28] LABS: Hemoglobin 12.6 g/dL (14.0-18.0); Mean Corpuscular Hemoglobin 27.6 pg (25-34); RDW Coefficient of Variation 15.6 % (11.5-14.5); RDW Standard Deviation 46.2 fL (36.4-46.3); Red Blood Count 4.57 M/uL (4.7-6.1); White Blood Count 5.48 K/uL (4.8-10.8)
[2020-03-23 18:37] LABS: Phosphorus 3.6 mg/dl (2.5-4.9); Troponin I 0.094 ng/ml (0-0.045)
[2020-03-23 18:38] LABS: Mean Corpuscular Hgb Conc 34.1 g/dL (32-36); Platelet Count 78 K/uL (130-400)
[2020-03-23 18:39] LABS: Basophils # (auto) 0.09 K/uL (0-0.2); Basophils % (auto) 1.6 %; Echinocytes 1+; Immature Granulocytes # (auto) 0.01 K/uL (0.00-0.02); Immature Granulocytes % (auto) 0.2 %; Lymphocytes # (auto) 1.75 K/uL (1.2-3.4); Lymphocytes % (auto) 31.9 %; Monocytes # (auto) 0.24 K/uL (0.11-0.59); Monocytes % (auto) 4.4 %; Neutrophils # (auto) 3.39 K/uL (1.4-6.5); Neutrophils % (auto) 61.9 %; Platelet Estimate Decreased (Normal)
[2020-03-23] MEDS ORDERED: PIPERACILLIN/TAZOBACTAM 4.5 GM in DEXTROSE 5% 100 ML IV ONE (19:00)
[2020-03-23] MEDS ORDERED: Nursing to Pharmacy Communication SCH (19:00)
[2020-03-23] MEDS: FAMOTIDINE 20 MG in SYRINGE 3 ML IV SCH (19:11)
[2020-03-23] MEDS: DOXYCYCLINE HYCLATE 100 MG CAP PO SCH (19:12)
[2020-03-23] MEDS ORDERED: POTASSIUM CHLORIDE 20 MEQ TABCR PO ONE (19:30)
--- NOTE | 2020-03-23 19:50 | Pharmacy Report ---
Pharmacy Abx Dose Short Note - Date of Service March 23, 2020 - Assessment & Plan Assessment 75 year old M receiving vancomycin/Zosyn/doxycycline for treatment of unknown infection Day # 1 of antimicrobial therapy. Plan Vancomycin * Patient has an TED. Original creatinine was 2.5 but has decreased to 1.98 mg/dL by 1700. * Loading dose of 2500 mg IV (20 mg/kg) was given around 1430. * Patient has changing kidney function ... baseline kidney function indicates a half life of 10.8 hours (CrCl ~75-80 mL/min). Current kidney function indicates half-life of 17.3 hours (CrCl around 42 mL/min). * Will give one time dose at 0400 ... around 14 hours after the first dose (between half-lives but reasonable given body habitus. Typically with BMI between 40-50 aim for 12.5 mg/kg less frequent than half-life. If patient was at baseline would utilize 1750 mg IV q12 hours). Further dosing to be done by daytime pharmacist. * Based upon BMI give lower dose of 12.5 mg/kg. Pharmacy will continue to follow and will adjust dose/frequency as necessary. Thank you.
[2020-03-23] MEDS: FINASTERIDE 5 MG TAB PO SCH (20:27)
[2020-03-23] MEDS: DOXAZosin MESYLATE 4 MG TAB PO SCH (20:27)
[2020-03-23] MEDS: ASPIRIN 81 MG ECTAB PO SCH (20:28)
[2020-03-23] MEDS ORDERED: METOPROLOL SUCC 25MG EXT REL TAB PO SCH (21:00)
[2020-03-23] MEDS ORDERED: ATORVASTATIN 40 MG TAB PO SCH (21:00)
[2020-03-23] MEDS ORDERED: APIXABAN 5 MG TABLET PO SCH (21:00)
[2020-03-23] MEDS: TRAMADOL HCL 50 MG TABLET PO PRN (22:14)
[2020-03-23] MEDS: PIPERACILLIN/TAZOBACTAM 4.5 GM in DEXTROSE 5% 100 ML IV SCH (23:46)
[2020-03-24] MEDS ORDERED: VANCOMYCIN HCL 1,750 MG in SODIUM CHLORIDE 0.9% 500 ML IV ONE (04:00)
[2020-03-24 04:42] LABS: Mean Corpuscular Hgb Conc 34.1 g/dL (32-36)
[2020-03-24 05:02] LABS: Hematocrit (blood only) 36.4 % (42-52); Hemoglobin 12.4 g/dL (14.0-18.0); Mean Corpuscular Hemoglobin 27.7 pg (25-34); Mean Corpuscular Volume 81.4 fL (80-100); RDW Coefficient of Variation 15.8 % (11.5-14.5); RDW Standard Deviation 47.4 fL (36.4-46.3); Red Blood Count 4.47 M/uL (4.7-6.1); White Blood Count 6.83 K/uL (4.8-10.8)
[2020-03-24 05:03] LABS: BUN Creatinine Ratio 35.3 (10-20); Calcium 7.4 mg/dl (8.5-10.1); Creatinine Clr Calc Pharmacy 48.7 ml/min; Est GFR (African American) 44.7; Est GFR (Non-African American) 38.6; Potassium 3.2 mmol/L (3.5-5.1)
[2020-03-24] MEDS ORDERED: POTASSIUM CHLORIDE 20 MEQ TABCR PO STA (05:17)
[2020-03-24 05:29] LABS: Platelet Count 93 K/uL (130-400); Platelet Estimate Decreased (Normal)
[2020-03-24] MEDS: POTASSIUM CHLORIDE / WTR 10 MEQ/100 ML PLCT IV SCH ×3 (05:46→08:15)
[2020-03-24 06:09] LABS: Albumin Globulin Ratio 0.6 (0.9-2); Bilirubin,Total 0.6 mg/dl (0.2-1); Globulin 3.6 gm/dl (2.5-4.0); Phosphorus 2.4 mg/dl (2.5-4.9); Total Protein 5.6 gm/dl (6.4-8.2)
--- NOTE | 2020-03-24 07:45 | Hospitalist Progress Note ---
Date of Service March 24, 2020 Assessment & Plan (1) Severe sepsis: Significant hypotension at time of presentation requiring fluid resuscitation along with acute kidney injury, met. encephalopathy Source uncertain -outpt symptoms started with diarrhea, negative ua negative chest CT w/o definitive pneumonia. negative [facility] respiratory panel negative. negative COVID x2 this week CT abd/pelvis without source of infection. C diff negative. Lyme was negative., peripheral smear negative for anaplasmosis Blood/stool cultures sent/pending. remains on zosyn, vanco, (2) TED (acute kidney injury): casts seen on u/a c/w sepsis-associated ATN. continue IVF with serial BMPs. no evidence of obstruction on CT (3) Metabolic encephalopathy: (4) Thrombocytopenia: etiology uncertain. no evidence of DIC,TTP/HUS. (5) Afib: History of such. In a. fib at time of presentation today. replete electrolytes, hold metoprolol due to hypotension. Cont eliquis cautiously in light of low platelets. (6) Coronary artery disease: with h/o NSTEMI and stent., troponin low and did not rise Cont asa cautiously. hold lipitor given the elevated ast / alt. troponin elevation likely myocardial demand ischemia in setting of sepsis. (7) Bloody stools: blood per rectum could be from enteric pathogen (e.coli, shigella, salmonella, etc). could be hemorrhoidal in setting of eliquis use and moderate thrombocytopenia. other etiologies possible. sent stool culture. c. diff negative. norovirus also sent. (8) Transaminitis: hold statin. 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 cont eliquis cautiously in light of low platelets. (14) Morbid obesity with BMI of 40.0-44.9, adult: BMI 43.5 (15) DVT prophylaxis: eliquis, renally dosed Admission and Anticipated Discharge Date Admission Date: March 23, 2020 Subjective this pt is awake and alert, he is fatigued still with diarrhea and some minor abdominal pain Review of Systems Review of Systems: Mild distress and fatigue no headache, blurry or double vision no speech or swallowing issues no chest pain, pressure or palpitations no shortness of breath, cough or wheezes mild abdominal pain, no nausea or vomiting, continues with diarrhea no dysuria, hematuria or frequency no focal joint pain or swelling no back pain, CVA tenderness or radicular pain no bruising, bleeding or rashes no focal signs of weakness or numbness or altered sensation no complaints or anxiety or depression. Physical Exam Physical Exam: The patient appeared fatigued and normally developed. Vital signs as documented. Head exam is normocephalic atraumatic no scleral icterus Neck is without JVD, thyromegaly, or carotid bruits. Lungs are diminished, no focal loss of breath sounds Cardiac exam, Rhythm is regular.. No murmurs, rubs or gallops. Abdominal exam reveals normal bowel sounds, soft distended and tender Extremities are nonedematous and both pedal pulses are normal. Neurologic exam is alert and oriented, no focal loss of strength or sensation Skin is without bruises or rashes Psychologically is without concerns for anxiety or depression Results & Data Results & Data ([facility]) Vital Signs (Past 12 Hours) Vital Signs Temp Pulse Resp BP Pulse Ox 03/24/20 06:11 94 H 19 111/92 95 03/24/20 05:50 106 H 20 92/73 L 94 03/24/20 05:11 95 H 23 117/70 94 03/24/20 04:11 97.7 F 98 H 24 86/63 L 95 03/24/20 03:12 85 21 111/64 93 03/24/20 02:11 98 H 24 100/64 94 03/24/20 01:11 106 H 20 109/68 94 03/24/20 00:56 122 H 17 98/53 L 95 03/23/20 23:59 115 H 03/23/20 23:54 97.7 F 111 H 32 H 122/57 L 94 03/23/20 23:42 116 H 26 H 85/54 L 93 03/23/20 23:11 109 H 22 118/62 94 03/23/20 22:11 109 H 18 116/98 95 03/23/20 21:11 108 H 20 113/79 96 03/23/20 20:11 101 H 23 118/96 94 03/23/20 20:02 97.5 F L 117 H 18 116/93 95 PG Care Time/CCT Total # of Minutes Spent Total Time Spent with Patient: Total time spent is greater than 50% in coordination of care (as documented) at patient's floor/unit and/or counseling patient: Coding Level of Care Code 47709 Subseq Hosp Care Lvl 3 Diagnoses Severe sepsis A41.9; R65.20 TED (acute kidney injury) N17.9 Metabolic encephalopathy G93.41 Thrombocytopenia D69.6 Afib I48.91 Atrial fibrillation type: unspecified Coronary artery disease I25.10 Associated angina: without angina Coronary Disease-Associated Artery/Lesion type: [place] artery [place] vs. transplanted heart: [place] salmon heart Bloody stools K92.1 Transaminitis R74.0 History of coronary artery stent placement Z95.5 Hypertension I10 Hypertension type: essential hypertension COPD with emphysema J43.9 Emphysema type: unspecified AMPARO (obstructive sleep apnea) G47.33 History of pulmonary embolus (PE) Z86.711 Morbid obesity with BMI of 40.0-44.9, adult E66.01; Z68.41 DVT prophylaxis Z29.9 (1) Coronary artery disease Associated angina: without angina Coronary Disease-Associated Artery/Lesion type: [place] artery [place] vs. transplanted heart: [place] heart Qualified Code(s): I25.10 - Atherosclerotic heart disease of [place] coronary artery without angina pectoris (2) Afib Atrial fibrillation type: unspecified Qualified Code(s): I48.91 - Unspecified atrial fibrillation (3) COPD with emphysema Emphysema type: unspecified Qualified Code(s): J43.9 - Emphysema, unspecified (4) Hypertension Hypertension type: essential hypertension Qualified Code(s): I10 - Essential (primary) hypertension
[2020-03-24] MEDS: PIPERACILLIN/TAZOBACTAM 4.5 GM in DEXTROSE 5% 100 ML IV SCH ×2 (08:56→15:53)
[2020-03-24] MEDS: UMECLIDINIUM BROMIDE 62.5MCG/BLISTER 7 PUFFS/INHALER INH SCH (08:57)
[2020-03-24] MEDS: DOXYCYCLINE HYCLATE 100 MG CAP PO SCH ×2 (08:58→21:01)
[2020-03-24] MEDS ORDERED: INDAPAMIDE 1.25 MG TAB PO SCH (09:00)
[2020-03-24] MEDS ORDERED: ZOLPIDEM TARTRATE 5 MG TAB PO PRN (09:00)
[2020-03-24] MEDS ORDERED: APIXABAN 2.5 MG TAB PO SCH (09:00)
--- NOTE | 2020-03-24 09:05 | Critical Care Progress Note ---
Date of Service March 24, 2020 Assessment & Plan (1) Sepsis associated hypotension: --Sepsis with hypotension Patient's main complaint was diarrhea which has been going on since last 5-7 days. Patient responded to IV fluids Currently maintaining his blood pressure. No clear source of sepsis right now. WBC within normal limit, ESR 42, CRP 12.7, LDH 488, procalcitonin 6.16-->3.25, random cortisol 36.1, C. difficile negative, lipase within normal limit Follow-up blood culture, stool culture Continue with broad-spectrum antibiotics Patient had outpatient Covid-19 test done on Friday which was negative, patient had repeat Covid-19 03/23/2020 which was also negative Patient does have elevated inflammatory markers including ferritin, LDH and d- dimer. But given in a patient who is saturating 95% on room air not complaining of any exacerbation of shortness of breath from his baseline with no lymphopenia and to Covid-19 tests negative more than 24 hours apart ports Covid-19 very low in differential. Respiratory bio fire negative. -- TED Urine sodium 19, urine creatinine 157, urine uric acid: 16 FeNa: 0.2%, goes with prerenal picture likely from hypotension Monitor BUN/creatinine Avoid nephrotoxic medications Strict ins and outs Improving --Transaminitis AST, ALT trending down normal alk phos Bilirubin within normal limit Likely from hypotension We will monitor --Thrombocytopenia New in onset Patient fibrinogen is actually elevated This goes against DIC Could be sepsis induced. Would monitor Improving --Elevated troponin Likely demand ischemia EKG 03/23/2020: A. fib with PVCs no significant ST-T wave changes. Left axis deviation. QTc 488 Monitor troponins --Prolonged QTC Avoid QTC prolonging medication Keep potassium greater than 4, magnesium greater than 2, phosphorus greater than 3 --Moderate COPD with emphysema Continue with inhalers --Bilateral lower lobe bronchiectasis This is chronic --Prophylaxis VTE: Apixaban, renally adjusted GI: Pepcid Diet: Cardiorenal --Hypokalemia, hypophosphatemia Being replaced Plan: In/out: +3 L, urine output 2600 mL Patient clinically doing better since coming to the hospital. Responded well to fluids. Maintaining his blood pressure. Creatinine function is improving gradually. He is making good amount of urine. Platelets are improving gradually. There is still no clear source of infection. I would still continue with antibiotics for at least 48 hours till we have stool culture back. Continue with O2 supplementation to keep O2 saturation between 90-92% BiPAP nightly and PRN shortness of breath Patient has been asking for tramadol which he has been taking 3 times a day for diffuse aches and pains for a very long time. I would renally dose it. We will give him zolpidem for sleep. Resume home diuretic later today or tomorrow. Patient is hemodynamically stable to be sent to a medical floor. I have personally spent 36 minutes of critical care time in the direct management of this patient. This is a life/limb threatening event. This includes time spent evaluating patient, direct bedside care, chart review, placing orders, interpretation of diagnostic studies, discussion with consultants, patient, and family members, as well as other required patient management activities. This time is exclusive of all separately billable procedures, and teaching time and separate from and in addition to any other critical care service time. Please note the above document was generated using voice recognition software. It may contain grammatical, syntax or spelling errors. (2) History of pulmonary embolus (PE): (3) COPD with emphysema: (4) Obesity (BMI 30-39.9): (5) TED (acute kidney injury): Admission and Anticipated Discharge Date Admission Date: March 23, 2020 Subjective Patient seen and examined at bedside. No acute distress, no adverse events overnight. Patient states that he was not able to sleep well overnight. Overall he is feeling well. Abdominal pain is decreased. He had only 2 bowel movements since coming to the hospital and they were formed. Denies any shortness of breath. Does complain of cough. No dizziness, no nausea or vomiting. Tolerating diet well. Review of Systems Review of Systems: All systems reviewed & are unremarkable except as noted in HPI & below Physical Exam Physical Exam: Constitutional: No acute distress HEENT: EOMI, PERRLA, Mallampati 3 Respiratory system: Good air entry bilaterally, no wheeze, no rhonchi, mild crackles bilateral lower lobes CVS: S1-S2 positive, no murmurs or gallops, distant heart sounds Abdomen: Soft, mild epigastric tenderness, no rebound, obese, positive bowel sounds x4 Extremities: +2 pulses bilaterally radialis/ dorsalis pedis, no cyanosis, +2 pitting edema Neuro: Awake alert oriented x3 Psych: Normal mood and affect Skin: no rashes, warm and dry Lymphatic: no cervical or axillary lymphadenopathy Results & Data Results & Data ([facility]) Vital Signs (Past 12 Hours) Vital Signs Temp Pulse Resp BP Pulse Ox 03/24/20 06:11 94 H 19 111/92 95 03/24/20 05:50 106 H 20 92/73 L 94 03/24/20 05:11 95 H 23 117/70 94 03/24/20 04:11 36.5 C 98 H 24 86/63 L 95 03/24/20 03:12 85 21 111/64 93 03/24/20 02:11 98 H 24 100/64 94 03/24/20 01:11 106 H 20 109/68 94 03/24/20 00:56 122 H 17 98/53 L 95 03/23/20 23:59 115 H 03/23/20 23:54 36.5 C 111 H 32 H 122/57 L 94 03/23/20 23:42 116 H 26 H 85/54 L 93 03/23/20 23:11 109 H 22 118/62 94 03/23/20 22:11 109 H 18 116/98 95 03/23/20 21:11 108 H 20 113/79 96 Coding Level of Care Code Critical Care 1st 30-74 mins Diagnoses Sepsis associated hypotension A41.9; I95.9 History of pulmonary embolus (PE) Z86.711 COPD with emphysema J43.9 Emphysema type: unspecified Obesity (BMI 30-39.9) E66.9 TED (acute kidney injury) N17.9 Time Spent (min) 36 (1) COPD with emphysema Emphysema type: unspecified Qualified Code(s): J43.9 - Emphysema, unspecified
--- NOTE | 2020-03-24 10:02 | Consultation Report ---
DATE OF CONSULTATION: 03/24/2020 REASON FOR CONSULTATION: Thrombocytopenia, etiology unclear. HISTORY OF PRESENT ILLNESS: Mr. Singletary is a morbidly obese 75-year-old gentleman who was admitted to [facility] on 03/23/2020 with flu-like illness. Cam just over the past several days has not felt well. His activity level has been significantly diminished. He also reports anorexia, which followed with low-grade fevers in the 99-100 degree range. He reports increased fatigue and chills. He then subsequently developed watery bloody diarrhea. Abdominal pain is reported in the periumbilical region. He denied any Covid contacts and has been tested twice for Covid-19, both were negative. Upon presentation, he had a battery of radiographs and laboratories including CT scan of the chest which was otherwise unremarkable. Blood and urine cultures are currently pending. He was started on broad-spectrum antibiotics. I have been asked to visit with Cam because of his thrombocytopenia, which appears to be trending upward at the present time. Cam is not a patient at [facility] and has no history of thrombocytopenia or hematologic malignancy otherwise. His last known normal platelet count was measured on November 25 of this year, had a 157,000. Upon presentation, platelet count of 69,000, again has been heading upward and today's platelet count is 93,000. PAST MEDICAL HISTORY: Multiple comorbid issues including atrial fibrillation, coronary artery disease, cellulitis of the lower extremity, COPD with emphysema, history of pulmonary embolus, STEMI, obesity, obstructive sleep apnea, right leg DVT and a traumatic hematoma of the lower extremity. MEDICATIONS: Include Incruse Ellipta 1 inhalation p.o. q.a.m., metoprolol 25 mg p.o. daily, indapamide 2.5 mg p.o. daily, finasteride 5 mg p.o. daily, aspirin 81 mg p.o. daily, albuterol sulfate 2 puffs inhaled q. 6 hours, tramadol 50 mg p.o. q. 4 hours p.r.n., losartan 50 mg p.o. daily, doxazosin 8 mg p.o. daily, docusate sodium 100 mg p.o. daily, atorvastatin 80 mg p.o. at bedtime, apixaban 5 mg p.o. b.i.d. ALLERGIES: No known drug allergies. SOCIAL HISTORY: The patient is retired and lives with his and son in [place]. He was a former smoker, 1.5 packs per day and quit 38 years ago, logged approximately 18 years. He no longer consumes alcohol and denies illicit drugs. FAMILY HISTORY: Father from heart disease. Mother from pulmonary and cardiovascular disease. REVIEW OF SYSTEMS: CONSTITUTIONAL: Positive for fevers, chills, fatigue, weakness, anorexia, but reports no chills. HEENT: Negative for headaches, lightheadedness or dizziness. No acute visual or hearing deficits. No sinus symptoms, sore throat or dysphagia. SKIN: No rashes or lesions. No history of dermatoses. He does have history of chronic cellulitis involving his lower extremities; however. LYMPH: No history of lymphoproliferative disease. CARDIAC: Positive history of coronary artery disease. No current angina or palpitations. PULMONARY: Positive history of COPD. He is not presently short of breath or dyspneic on exertion but reports a nonproductive cough. GASTROINTESTINAL: Positive for abdominal pain. Positive for watery and bloody diarrhea. No current nausea or vomiting. GENITOURINARY: No hematuria, dysuria, urinary incontinence. PSYCHIATRIC: Negative for anxiety, depression or psychoses. ENDOCRINE: Negative for diabetes or thyroid disease. NEUROLOGIC: Negative for seizure, stroke, or migraine headache. HEMATOLOGIC: Positive for thrombocytopenia. PHYSICAL EXAMINATION: GENERAL: Morbidly obese 75-year-old gentleman, awake, alert and appropriate, in no acute distress. VITAL SIGNS: Temperature 36.5, pulse 94, respiratory rate 19, blood pressure 111/92. SKIN: Warm, dry, noncyanotic. Turgor is fair. HEENT: Atraumatic, normocephalic. Eyes: PERRLA, EOMI. Nares are patent without rhinorrhea or discharge. Throat clear. Tongue midline. No buccal lesions or ulcerations. NECK: No JVD or thyromegaly. HEART: Regular rate and rhythm. No clicks, rubs, murmurs or gallops. LUNGS: Left posterior basilar crackles heard. No rales or rhonchi, otherwise. GASTROINTESTINAL: Abdomen is obese, soft, nontender, nondistended. No rigidity or guarding. EXTREMITIES: No clubbing, cyanosis or edema. Stasis dermatitis changes noted on bilateral lower extremities. NEUROLOGICALLY: He is awake, alert and oriented x3. Cranial nerves are grossly intact. LABORATORY DATA: WBC count 6830, hemoglobin 12.4, platelet count 93,000 with a normal proportion of neutrophils, lymphocytes. PT is mildly elevated at 31.3 seconds. D-dimer 1830. Fibrinogen 697. Sodium 139, potassium 3.2, carbon dioxide 25, BUN 61, creatinine 1.72. C-reactive protein 1270. Ferritin 5549, AST 214, ALT 187, LDH is 488. IMPRESSION: 1. Septicemia. 2. Acute renal injury. 3. Elevated liver transaminases. 4. Thrombocytopenia. 5. History of atrial fibrillation. 6. Bloody diarrhea. 7. History of pulmonary embolus and deep venous thrombosis. PLAN: I have been asked to see Mr. Singletary on behalf of the hospitalist service. This gentleman was admitted for what appears to be viral syndrome a couple of days ago. He is slowly improving and was happy to see his platelets are recovering. He has several abnormal laboratories including markedly elevated ferritin and liver transaminases, which could point to underlying liver disease. The ferritin is an acute phase reactant, but nonetheless 5500 is quite impressive. Would follow up with a serum iron and TIBC to rule out an iron overloaded state. Agree with a viral cultures moving forward. Continue medical care as prescribed. In regard to Mr. Singletary's platelet count does seem to be improving and therefore no intervention is necessary at this time. Cam is certainly a gentleman I would like to see him back once he recovers and we will make arrangements for him to return within a week or 2 post-discharge. We will continue to follow him periodically. Thank you for allowing me to participate in his care.
[2020-03-24] MEDS: FAMOTIDINE 20 MG in SYRINGE 3 ML IV SCH (10:11)
[2020-03-24] MEDS: PANTOprazole 40 MG TAB PO SCH (11:40)
[2020-03-24 13:04] LABS: BUN Creatinine Ratio 32.4 (10-20); Calcium 7.7 mg/dl (8.5-10.1); Creatinine Clr Calc Pharmacy 48.1 ml/min; Est GFR (African American) 44.1; Est GFR (Non-African American) 38.1; Potassium 3.3 mmol/L (3.5-5.1)
[2020-03-24] MEDS ORDERED: MAGNESIUM SULFATE / D5W 1 GM/100 ML BAG IV ONE (15:00)
--- NOTE | 2020-03-24 17:32 | XCELERA ---
[id number]
[2020-03-24] MEDS ORDERED: POTASSIUM CHLORIDE 20 MEQ TABCR PO ONE (18:45)
--- NOTE | 2020-03-24 19:12 | Electrocardiogram Report ---
Test Reason : Blood Pressure : / mmHG Vent. Rate : 100 BPM Atrial Rate : 100 BPM P-R Int : 128 ms QRS Dur : 090 ms QT Int : 382 ms P-R-T Axes : 096 -32 041 degrees QTc Int : 492 ms Atrial fibrillation with PVC vs aberrant conduction Left axis deviation Low voltage QRS Inferior infarct , age undetermined Poor R wave progression, consider anterior MD vs. lead placement vs. LVH Abnormal ECG Confirmed by Abrahan Fried ([id number]) on 03/24/2020 7:12:34 PM Referred By: REFERRED SELF Confirmed By:Tarik Fried
[2020-03-24] MEDS: MELATONIN 3 MG TAB PO SCH (20:56)
[2020-03-24] MEDS: ASPIRIN 81 MG ECTAB PO SCH (20:56)
[2020-03-24] MEDS: DOXAZosin MESYLATE 4 MG TAB PO SCH (20:56)
[2020-03-24] MEDS: FINASTERIDE 5 MG TAB PO SCH (20:57)
[2020-03-24] MEDS: APIXABAN 5 MG TABLET PO SCH (20:57)
[2020-03-24] MEDS: TRAMADOL HCL 50 MG TABLET PO PRN (20:59)
[2020-03-25] MEDS: PIPERACILLIN/TAZOBACTAM 4.5 GM in DEXTROSE 5% 100 ML IV SCH ×2 (00:27→08:18)
[2020-03-25 05:06] LABS: Hematocrit (blood only) 39.6 % (42-52); Hemoglobin 12.6 g/dL (14.0-18.0); Mean Corpuscular Hemoglobin 26.7 pg (25-34); Mean Corpuscular Hgb Conc 31.8 g/dL (32-36); Mean Corpuscular Volume 83.9 fL (80-100); Platelet Count 140 K/uL (130-400); Platelet Estimate Normal (Normal); RDW Coefficient of Variation 16.2 % (11.5-14.5); RDW Standard Deviation 50.2 fL (36.4-46.3); Red Blood Count 4.72 M/uL (4.7-6.1); White Blood Count 7.19 K/uL (4.8-10.8)
[2020-03-25 05:13] LABS: Albumin Level 2.1 gm/dl (3.4-5.0); BUN Creatinine Ratio 27.8 (10-20); Calcium 7.8 mg/dl (8.5-10.1); Creatinine Clr Calc Pharmacy 53.8 ml/min; Est GFR (African American) 50.3; Est GFR (Non-African American) 43.4; Potassium 3.7 mmol/L (3.5-5.1)
[2020-03-25 05:17] LABS: Albumin Globulin Ratio 0.6 (0.9-2); Bilirubin,Total 0.4 mg/dl (0.2-1); Globulin 3.7 gm/dl (2.5-4.0); Total Protein 5.8 gm/dl (6.4-8.2)
[2020-03-25] MEDS: APIXABAN 5 MG TABLET PO SCH (08:18)
[2020-03-25] MEDS: PANTOprazole 40 MG TAB PO SCH (08:18)
[2020-03-25] MEDS: UMECLIDINIUM BROMIDE 62.5MCG/BLISTER 7 PUFFS/INHALER INH SCH (08:20)
[2020-03-25] MEDS: DOXYCYCLINE HYCLATE 100 MG CAP PO SCH ×2 (09:43→21:43)
[2020-03-25] MEDS: METOPROLOL TARTRATE 25 MG TAB PO SCH ×2 (12:33→21:42)
--- NOTE | 2020-03-25 15:25 | Emergency Department Note ---
History of Present Illness General Chief complaint: Fever Stated complaint: FEVER,SYNCOPE,BLOODY DIARRHEA,-COVID TEST FRIDAY Time Seen by Provider: 03/23/20 10:34 Source: patient, RN notes reviewed and old records reviewed Mode of arrival: ambulatory Limitations: no limitations History of Present Illness Provider complaint: Mental status change Onset (ago): week(s) 1 Location: head Radiation: non-radiation Pain Consistency: + colicky Maximum Pain Intensity: 4 Current Pain Intensity: 4 Quality: + aching Relieved By: + none This is a 75-year-old male who presents emergency department complaining of weakness that is been ongoing for the past week. In addition the patient has had severe diarrhea and is had a rectal bleed. The patient is here because he feels his mental status has significantly decreased. He has been running low- grade fevers. He had a negative COVID test on Friday. He denies any history of cancer does have a history of COPD. Home Medications Home Medications Medication Instructions Recorded Confirmed Type apixaban 5 mg tablet 5 mg PO BID 06/04/18 03/23/20 History atorvastatin 80 mg tablet 80 mg PO HS tab 06/04/18 03/23/20 History docusate sodium 100 mg capsule 100 mg PO QAM PRN cap 06/04/18 03/23/20 History doxazosin 8 mg tablet 8 mg PO PM 06/04/18 03/23/20 History losartan 50 mg tablet 50 mg PO QAM tab 06/04/18 03/23/20 History tramadol 50 mg tablet 50 mg PO Q4H PRN tab 06/04/18 03/23/20 History albuterol sulfate 90 mcg/actuation 2 puff INH Q6H PRN #18 gm 11/15/19 03/23/20 Rx aerosol inhaler aspirin 81 mg tablet,delayed 81 mg PO PM 11/15/19 03/23/20 History release finasteride 5 mg tablet 5 mg PO PM 11/15/19 03/23/20 History indapamide 2.5 mg tablet 2.5 mg PO QAM 11/15/19 03/23/20 History metoprolol succinate 50 mg 25 mg PO PM tab 11/15/19 03/23/20 History tablet,extended release 24 hr umeclidinium [Incruse Ellipta] 1 inh INH QAM 03/23/20 03/23/20 History Allergies Allergy/AdvReac Type Severity Reaction Status Date / Time No Known Allergies Allergy Verified 03/23/20 12:21 Past Med/Surg History Medical History Afib CAD (coronary artery disease) (Chronic) Cellulitis of lower leg (Chronic) Chest pain (Chronic) COPD with emphysema Coronary artery disease (Chronic) History of pulmonary embolus (PE) Hypertension (Chronic) Multiple pulmonary nodules NSTEMI (non-ST elevated myocardial infarction) 2016 NSTEMI (non-ST elevated myocardial infarction) (Chronic) Obesity (Chronic) AMPARO (obstructive sleep apnea) Right leg DVT (Chronic) Traumatic hematoma of lower leg (Chronic) Surgical History H/O exploratory laparotomy due to [facility] [place] (had gastric injury - he doesn't remember details) History of coronary artery stent placement Family History Father Heart disease Mother Lung disease Heart disease Other COPD (chronic obstructive pulmonary disease) Social History Preferred Language: Peruvian Communication Ability: Effective Licensing Director Required: No Beliefs That Will Affect Care: None marital status: Current Living Situation: Spouse Current Living Situation Comment: lives with /son in [place] current occupational status: retired Other Information That Helps Us Care for You: 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 GENERAL - 75-year-old male appearing stated age who is in no acute distress. Communicates well with provider and answers questions appropriately. SKIN - Without rashes. HEAD - NC/AT. EYES - PERRL with EOMI bilaterally. Sclera anicteric. Palpebral conjunctiva pink and moist with no injection noted. EARS - No deformities of external structures noted on gross examination bilaterally. No pain elicited with palpation of the tragus bilaterally. External auditory canals without discharge or otorrhea. Tympanic membranes pearly holland without retraction or bulging. No fluid or purulent material visualized behind the TM. Handle of malleus, umbo, cone of light, pars tensa/flaccid all easily visualized. NOSE - Midline and without cyanosis. No epistaxis or purulent drainage noted. Septum midline without deviation or septal hematoma noted. MOUTH/OROPHARYNX - Without perioral cyanosis. Buccal mucosa pink and moist and without leukoplakia. Tongue midline with equal elevation of palate bilaterally. No tonsillar hypertrophy, erythema, or exudates noted. dentition noted. NECK - Neck with FROM. Supple to palpation. lymphadenopathy noted. No nuchal rigidity. LUNGS - Chest wall symmetric without accessory muscle use, intercostals retractions, or central cyanosis. Normal vesicular breath sounds CTA B/L. No wheezes, rales, or rhonchi appreciated. CARDIAC - RRR with S1/S2. No murmur, rubs, or gallops appreciated. ABDOMEN - Abdominal contour without pulsations or visible masses. BS normoactive all four quadrants. No tenderness, palpable masses, hepatosplenomegaly, or ascites noted. Rectal: BRBPR EXTREMITIES - No clubbing or peripheral cyanosis. No pretibial edema present. +3/5 radial, posterior tibial, and dorsalis pedis pulses palpated throughout. +5/5 strength noted in UE/LE bilaterally. NEUROLOGIC - Cranial nerves II through XII grossly intact. Sensory intact to l ight touch throughout. Patellar reflexes +2/4. PSYCH - A&Ox3 and cooperates fully with examiner. Pt is very pleasant and interacts well with examiner. Course Administered Medications Apixaban (Eliquis) 5 mg PO BID PRETTY Stop: 04/23/20 20:59 Last Admin: 03/25/20 08:18 Dose: 5 mg Documented by: [id number] Admin: 03/24/20 20:57 Dose: 5 mg Documented by: [id number] Aspirin (Ecotrin Ectab) 81 mg PO PM PRETTY Stop: 04/22/20 20:59 Last Admin: 03/25/20 21:42 Dose: 81 mg Documented by: [id number] Admin: 03/24/20 20:56 Dose: 81 mg Documented by: [id number] Admin: 03/23/20 20:28 Dose: 81 mg Documented by: [id number] Atorvastatin Calcium (Lipitor) 80 mg PO HS PRETTY Stop: 04/22/20 20:59 Last Admin: 03/23/20 20:27 Dose: 80 mg Documented by: [id number] Doxazosin Mesylate (Cardura) 8 mg PO PM PRETTY Stop: 04/22/20 20:59 Last Admin: 03/25/20 21:42 Dose: 8 mg Documented by: [id number] Admin: 03/24/20 20:56 Dose: 8 mg Documented by: [id number] Admin: 03/23/20 20:27 Dose: 8 mg Documented by: [id number] Doxycycline Hyclate (Vibramycin) 100 mg PO BID PRETTY Stop: 03/28/20 23:59 Last Admin: 03/26/20 07:49 Dose: 100 mg Documented by: [id number] Admin: 03/25/20 21:43 Dose: 100 mg Documented by: [id number] Admin: 03/25/20 09:43 Dose: 100 mg Documented by: [id number] Admin: 03/24/20 21:01 Dose: 100 mg Documented by: [id number] Admin: 03/24/20 08:58 Dose: 100 mg Documented by: [id number] Admin: 03/23/20 19:12 Dose: 100 mg Documented by: [id number] Finasteride (Proscar) 5 mg PO PM PRETTY Stop: 04/22/20 20:59 Last Admin: 03/25/20 21:43 Dose: 5 mg Documented by: [id number] Admin: 03/24/20 20:57 Dose: 5 mg Documented by: [id number] Admin: 03/23/20 20:27 Dose: 5 mg Documented by: [id number] Indapamide (Lozol) 2.5 mg PO QAM PRETTY Stop: 04/23/20 08:59 Last Admin: 03/24/20 08:57 Dose: 2.5 mg Documented by: [id number] Melatonin (Melatonin) 3 mg PO HS PRETTY Stop: 04/23/20 20:59 Last Admin: 03/25/20 21:43 Dose: 3 mg Documented by: [id number] Admin: 03/24/20 20:56 Dose: 3 mg Documented by: [id number] Metoprolol Tartrate (Lopressor) 12.5 mg PO BID [facility] Stop: 04/24/20 11:29 Last Admin: 03/26/20 08:35 Dose: 12.5 mg Documented by: [id number] Admin: 03/25/20 21:42 Dose: 12.5 mg Documented by: [id number] Admin: 03/25/20 12:33 Dose: 12.5 mg Documented by: [id number] Pantoprazole Sodium (Protonix) 40 mg PO QAM PRETTY Stop: 04/23/20 09:59 Last Admin: 03/26/20 07:49 Dose: 40 mg Documented by: [id number] Admin: 03/25/20 08:18 Dose: 40 mg Documented by: [id number] Admin: 03/24/20 11:40 Dose: 40 mg Documented by: [id number] Polyethylene Glycol (Miralax Powder Packet) 238 gm PO TODAY@1315 [facility] Stop: 03/27/20 16:00 Last Admin: 03/26/20 14:25 Dose: 238 gm Documented by: [id number] Tramadol HCl (Ultram) 50 mg PO Q4H PRN PRN Reason: Pain Stop: 04/22/20 13:35 Last Admin: 03/25/20 21:41 Dose: 50 mg Documented by: [id number] Admin: 03/24/20 20:59 Dose: 50 mg Documented by: [id number] Admin: 03/23/20 22:14 Dose: 50 mg Documented by: [id number] Umeclidinium [place] (Incruse Ellipta) 1 puffs INH DAILY PRETTY Stop: 04/23/20 08:59 Last Admin: 03/26/20 07:49 Dose: 1 puffs Documented by: [id number] Admin: 03/25/20 08:20 Dose: 1 puffs Documented by: [id number] Admin: 03/24/20 08:57 Dose: 1 puffs Documented by: [id number] Discontinued Medications Apixaban (Eliquis) 2.5 mg PO BID PRETTY Stop: 04/23/20 08:59 Last Admin: 03/24/20 08:57 Dose: 2.5 mg Documented by: [id number] Hydrocortisone Sodium Succinate (Solu-Cortef) 100 mg IV NOW STA Stop: 03/23/20 11:30 Last Admin: 03/23/20 11:52 Dose: 100 mg Documented by: [id number] Sodium Chloride (Nss 1000ml) 1,000 mls @ 999 mls/hr IV .Q1H1M ONE Stop: 03/23/20 11:42 Last Infusion: 03/23/20 11:25 Dose: 0 mls/hr Documented by: [id number] Admin: 03/23/20 10:50 Dose: 999 mls/hr Documented by: [id number] Sodium Chloride (Nss 1000ml) 1,000 mls @ 999 mls/hr IV .Q1H1M ONE Stop: 03/23/20 12:02 Last Infusion: 03/23/20 12:23 Dose: 0 mls/hr Documented by: [id number] Admin: 03/23/20 11:11 Dose: 999 mls/hr Documented by: [id number] Potassium Chloride (K Live / Wtr) 10 meq in 100 mls @ 100 mls/hr IV Q1H PRETTY Stop: 03/23/20 13:14 Last Infusion: 03/23/20 14:19 Dose: 0 mls/hr Documented by: [id number] Admin: 03/23/20 12:54 Dose: 75 mls/hr Documented by: [id number] Infusion: 03/23/20 12:38 Dose: 0 mls/hr Documented by: [id number] Infusion: 03/23/20 11:25 Dose: 75 mls/hr Documented by: [id number] Admin: 03/23/20 11:11 Dose: 100 mls/hr Documented by: [id number] Sodium Chloride (Nss 1000ml) 1,000 mls @ 999 mls/hr IV .Q1H1M ONE Stop: 03/23/20 12:24 Last Infusion: 03/23/20 12:56 Dose: 0 mls/hr Documented by: [id number] Admin: 03/23/20 11:48 Dose: 999 mls/hr Documented by: [id number] Cefepime HCl (Maxipime) 2,000 mg in 20 mls @ 5 mls/min IV NOW STA Stop: 03/23/20 13:17 Last Admin: 03/23/20 14:26 Dose: 5 mls/min Documented by: [id number] Levofloxacin/Dextrose (Levaquin/D5w) 750 mg in 150 mls @ 100 mls/hr IV NOW STA Stop: 03/23/20 14:43 Last Infusion: 03/23/20 16:18 Dose: 0 mls/hr Documented by: [id number] Admin: 03/23/20 14:33 Dose: 100 mls/hr Documented by: [id number] Vancomycin HCl 2,500 mg/ (Sodium Chloride) 550 mls @ 200 mls/hr IV NOW STA Stop: 03/23/20 16:14 Last Infusion: 03/23/20 17:35 Dose: 0 mls/hr Documented by: [id number] Admin: 03/23/20 14:30 Dose: 200 mls/hr Documented by: [id number] Sodium Chloride (Nss 1000ml) 1,000 mls @ 125 mls/hr IV .Q8H PRETTY Stop: 04/22/20 13:44 Last Infusion: 03/23/20 14:41 Dose: 0 mls/hr Documented by: [id number] Admin: 03/23/20 14:35 Dose: 125 mls/hr Documented by: [id number] Potassium Chloride/Sodium Chloride (Normal Saline W/20 Meq Kcl) 20 meq in 1,000 mls @ 125 mls/hr IV .Q8H PRETTY Stop: 04/22/20 16:59 Last Admin: 03/23/20 18:54 Dose: Not Given Documented by: [id number] Piperacillin Sod/Tazobactam (Sod 4.5 gm/ Dextrose) 120 mls @ 240 mls/hr IV NOW ONE; Protocol Stop: 03/23/20 19:29 Last Infusion: 03/23/20 19:39 Dose: 0 mls/hr Documented by: [id number] Admin: 03/23/20 19:13 Dose: 240 mls/hr Documented by: [id number] Famotidine 20 mg/ Syringe 5 mls @ 2.5 mls/min IV DAILY PRETTY Stop: 04/22/20 18:59 Last Admin: 03/24/20 10:11 Dose: Not Given Documented by: [id number] Admin: 03/23/20 19:11 Dose: 2.5 mls/min Documented by: [id number] Potassium Chloride (K Live / Wtr) 10 meq in 100 mls @ 100 mls/hr IV Q1H PRETTY Stop: 03/23/20 23:29 Last Infusion: 03/24/20 00:58 Dose: 0 mls/hr Documented by: [id number] Admin: 03/23/20 23:33 Dose: 85 mls/hr Documented by: [id number] Infusion: 03/23/20 23:33 Dose: 70 mls/hr Documented by: [id number] Admin: 03/23/20 22:13 Dose: 70 mls/hr Documented by: [id number] Infusion: 03/23/20 21:51 Dose: 70 mls/hr Documented by: [id number] Admin: 03/23/20 20:25 Dose: 70 mls/hr Documented by: [id number] Infusion: 03/23/20 20:25 Dose: 70 mls/hr Documented by: [id number] Infusion: 03/23/20 20:03 Dose: 70 mls/hr Documented by: [id number] Admin: 03/23/20 19:20 Dose: 100 mls/hr Documented by: [id number] Piperacillin Sod/Tazobactam (Sod 4.5 gm/ Dextrose) 120 mls @ 30 mls/hr IV Q8H [facility]; Protocol Stop: 03/28/20 23:59 Last Infusion: 03/25/20 12:25 Dose: 0 mls/hr Documented by: [id number] Admin: 03/25/20 08:18 Dose: 30 mls/hr Documented by: [id number] Infusion: 03/25/20 04:29 Dose: 0 mls/hr Documented by: [id number] Admin: 03/25/20 00:27 Dose: 30 mls/hr Documented by: [id number] Infusion: 03/24/20 20:33 Dose: 0 mls/hr Documented by: [id number] Admin: 03/24/20 15:53 Dose: 30 mls/hr Documented by: [id number] Infusion: 03/24/20 12:57 Dose: 0 mls/hr Documented by: [id number] Admin: 03/24/20 08:56 Dose: 30 mls/hr Documented by: [id number] Infusion: 03/24/20 04:04 Dose: 0 mls/hr Documented by: [id number] Admin: 03/23/20 23:46 Dose: 30 mls/hr Documented by: [id number] Vancomycin HCl 1,750 mg/ (Sodium Chloride) 535 mls @ 200 mls/hr IV NOW ONE Stop: 03/24/20 06:40 Last Infusion: 03/24/20 07:45 Dose: 0 mls/hr Documented by: [id number] Admin: 03/24/20 04:00 Dose: 200 mls/hr Documented by: [id number] Potassium Chloride (K Live / Wtr) 10 meq in 100 mls @ 100 mls/hr IV Q1H PRETTY Stop: 03/24/20 08:16 Last Infusion: 03/24/20 09:34 Dose: 0 mls/hr Documented by: [id number] Admin: 03/24/20 08:15 Dose: 80 mls/hr Documented by: [id number] Infusion: 03/24/20 08:02 Dose: 80 mls/hr Documented by: [id number] Admin: 03/24/20 06:47 Dose: 80 mls/hr Documented by: [id number] Infusion: 03/24/20 06:47 Dose: 80 mls/hr Documented by: [id number] Admin: 03/24/20 05:46 Dose: 80 mls/hr Documented by: [id number] Magnesium Sulfate/Dextrose (Magnesium Sulfate / D5w) 1 gm in 100 mls @ 50 mls/hr IV ONE ONE Stop: 03/24/20 16:59 Last Infusion: 03/24/20 17:56 Dose: 0 mls/hr Documented by: [id number] Admin: 03/24/20 15:53 Dose: 50 mls/hr Documented by: [id number] Digoxin 250 mcg/ Syringe 10 mls @ 2 mls/min IV 1400 ONE Stop: 03/26/20 14:04 Last Admin: 03/26/20 14:25 Dose: 2 mls/min Documented by: [id number] Potassium Chloride (Klor-Con M20) 40 meq PO ONE ONE Stop: 03/23/20 19:31 Last Admin: 03/23/20 19:21 Dose: 40 meq Documented by: [id number] Potassium Chloride (Klor-Con M20) 40 meq PO NOW STA Stop: 03/24/20 05:18 Last Admin: 03/24/20 05:46 Dose: 40 meq Documented by: [id number] Potassium Chloride (Klor-Con M20) 40 meq PO 1845 ONE Stop: 03/24/20 18:46 Last Admin: 03/24/20 19:42 Dose: 40 meq Documented by: [id number] Critical Care Time I have personally spent greater than 30 minutes of critical care time in the d irect management of this patient. This includes bedside care, interpretation of diagnostic studies, and testing, discussion with consultants, patient, and family members, and other required patient management activities. This 30 minutes is in excess of all separately billable procedures. Medical Decision Making Differential Diagnosis Infection, dehydration, metabolic abnormality, hypo/hyperglycemia, electrolyte disturbance, anemia, hypoxia, cardiac sources, intracerebral event, toxicologic, neurologic, as well as other pathologies. Medical Records Attestation: I reviewed the patient's medical records. Home Medications Current Medication List: was personally reviewed by me Laboratory Data Attestation: I reviewed the patient's lab results. Result diagrams: 03/26/20 06:23 03/26/20 06:23 Lab Results 03/23/20 03/23/20 03/23/20 Range/Units 10:50 10:50 10:50 WBC 6.84 (4.8-10.8) K/uL RBC 5.08 (4.7-6.1) M/uL Hgb 13.9 L (14.0-18.0) g/dL POC Hgb (14.0-18.0) g/dl Hct 41.3 L (42-52) % POC Hct (42-52) % MCV 81.3 (80-100) fL MCH 27.4 (25-34) pg MCHC 33.7 (32-36) g/dL RDW Std Deviation 46.3 (36.4-46.3) fL RDW Coeff of Abigail 15.5 H (11.5-14.5) % Plt Count 69 L (130-400) K/uL MPV Not Reportable Immature Gran % (Auto) 0.3 % Neut % (Auto) 61.2 % Lymph % (Auto) 30.0 % [place] % (Auto) 6.9 % Eos % (Auto) 0.1 % Baso % (Auto) 1.5 % Reticulocyte % (Auto) 0.6 (0.5-2.0) % Immature Gran # (Auto) 0.02 (0.00-0.02) K/uL Neut # (Auto) 4.19 (1.4-6.5) K/uL Lymph # (Auto) 2.05 (1.2-3.4) K/uL [place] # (Auto) 0.47 (0.11-0.59) K/uL Eos # (Auto) 0.01 (0-0.5) K/uL Baso # (Auto) 0.10 (0-0.2) K/uL Reticulocyte # 0.03 (0.02-0.10) 10^6/uL Toxic Vacuolation 1+ Platelet Estimate Decreased L (Normal) Echinocytes 1+ Peripher Smr Path Cons ESR (0-14) mm/hr PT 11.6 (9.0-12.0) Seconds INR 1.1 (0.9-1.1) APTT 31.3 H (21.0-31.0) Seconds PTT Ratio 1.1 Fibrinogen (184-400) mg/dl D-Dimer (0-500) ug/L FEU POC Sodium (135-144) mmol/L Sodium 128 L (136-145) mmol/L POC Potassium (3.3-5.0) mmol/L Potassium 2.8 L (3.5-5.1) mmol/L POC Chloride (101-112) mmol/L Chloride 92 L (98-107) mmol/L Carbon Dioxide 24 (21-32) mmol/L POC Total CO2 (24-31) mmol/L Anion Gap 11.0 (3-11) POC Anion Gap (16-25) mmol/L POC BUN (7-18) mg/dl BUN 80 H (7-18) mg/dl Creatinine 2.56 H (0.6-1.4) mg/dl POC Creatinine (0.6-1.3) mg/dl Est Cr Clr Drug Dosing 33.0 ml/min Est GFR ( Amer) 27.7 Est GFR (Non-Af Amer) 23.9 BUN/Creatinine Ratio 31.3 H (10-20) Glucose 126 H (70-99) mg/dl POC Glucose (other) (70-99) mg/dl Lactate (0.4-2.0) mmol/L Calcium 8.2 L (8.5-10.1) mg/dl POC Ioniz Calcium Jose F (1.12-1.32) mmol/l Magnesium 2.9 H (1.8-2.4) mg/dl Ferritin 5549.0 H (8-388) ng/ml Total Bilirubin 0.8 (0.2-1) mg/dl AST 274 H (15-37) U/L ALT 212 H (12-78) U/L Alkaline Phosphatase 107 (45-117) U/L Lactate Dehydrogenase (87-241) U/L Total Creatine Kinase 122 (39-308) U/L CK-MB (CK-2) < 1.0 (0.5-3.6) ng/ml CK/CKMB % Calc TNP Troponin I 0.110 H* (0-0.045) ng/ml C-Reactive Protein 12.70 H (0-0.29) mg/dl Total Protein 6.7 (6.4-8.2) gm/dl Albumin 2.6 L (3.4-5.0) gm/dl Globulin 4.1 H (2.5-4.0) gm/dl Albumin/Globulin Ratio 0.6 L (0.9-2) Procalcitonin (0-0.5) ng/ml Random Cortisol mcg/dl Urine Color Urine Appearance (Clear) Urine pH (4.5-7.5) Ur Specific [place] (1.000-1.030) Urine Protein (Negative) Urine Glucose (UA) (Negative) Urine Ketones (Negative) Urine Blood (Negative) Urine Nitrite (Negative) Urine Bilirubin (Negative) Urine Urobilinogen (Negative) Ur Leukocyte Esterase (Negative) Urine WBC (Auto) (0-5) /hpf Urine RBC (Auto) (0-4) /hpf U Hyaline Cast (Auto) (0-5) /lpf U Epithel Cells (Auto) (0-5) /lpf Urine Bacteria (Auto) (Negative) Anaplasma Smear See Comment Lyme Disease IgG Ab (Negative) Lyme Disease IgM Ab (Negative) 03/23/20 03/23/20 03/23/20 Range/Units 10:50 10:50 10:50 WBC (4.8-10.8) K/uL RBC (4.7-6.1) M/uL Hgb (14.0-18.0) g/dL POC Hgb (14.0-18.0) g/dl Hct (42-52) % POC Hct (42-52) % MCV (80-100) fL MCH (25-34) pg MCHC (32-36) g/dL RDW Std Deviation (36.4-46.3) fL RDW Coeff of Abigail (11.5-14.5) % Plt Count (130-400) K/uL MPV Immature Gran % (Auto) % Neut % (Auto) % Lymph % (Auto) % [place] % (Auto) % Eos % (Auto) % Baso % (Auto) % Reticulocyte % (Auto) (0.5-2.0) % Immature Gran # (Auto) (0.00-0.02) K/uL Neut # (Auto) (1.4-6.5) K/uL Lymph # (Auto) (1.2-3.4) K/uL [place] # (Auto) (0.11-0.59) K/uL Eos # (Auto) (0-0.5) K/uL Baso # (Auto) (0-0.2) K/uL Reticulocyte # (0.02-0.10) 10^6/uL Toxic Vacuolation Platelet Estimate (Normal) Echinocytes Peripher Smr Path Cons ESR 42 H (0-14) mm/hr PT (9.0-12.0) Seconds INR (0.9-1.1) APTT (21.0-31.0) Seconds PTT Ratio Fibrinogen (184-400) mg/dl D-Dimer (0-500) ug/L FEU POC Sodium (135-144) mmol/L Sodium (136-145) mmol/L POC Potassium (3.3-5.0) mmol/L Potassium (3.5-5.1) mmol/L POC Chloride (101-112) mmol/L Chloride (98-107) mmol/L Carbon Dioxide (21-32) mmol/L POC Total CO2 (24-31) mmol/L Anion Gap (3-11) POC Anion Gap (16-25) mmol/L POC BUN (7-18) mg/dl BUN (7-18) mg/dl Creatinine (0.6-1.4) mg/dl POC Creatinine (0.6-1.3) mg/dl Est Cr Clr Drug Dosing ml/min Est GFR ( Amer) Est GFR (Non-Af Amer) BUN/Creatinine Ratio (10-20) Glucose (70-99) mg/dl POC Glucose (other) (70-99) mg/dl Lactate 1.5 (0.4-2.0) mmol/L Calcium (8.5-10.1) mg/dl POC Ioniz Calcium Jose F (1.12-1.32) mmol/l Magnesium (1.8-2.4) mg/dl Ferritin (8-388) ng/ml Total Bilirubin (0.2-1) mg/dl AST (15-37) U/L ALT (12-78) U/L Alkaline Phosphatase (45-117) U/L Lactate Dehydrogenase (87-241) U/L Total Creatine Kinase (39-308) U/L CK-MB (CK-2) (0.5-3.6) ng/ml CK/CKMB % Calc Troponin I (0-0.045) ng/ml C-Reactive Protein (0-0.29) mg/dl Total Protein (6.4-8.2) gm/dl Albumin (3.4-5.0) gm/dl Globulin (2.5-4.0) gm/dl Albumin/Globulin Ratio (0.9-2) Procalcitonin 6.16 H (0-0.5) ng/ml Random Cortisol mcg/dl Urine Color Urine Appearance (Clear) Urine pH (4.5-7.5) Ur Specific [place] (1.000-1.030) Urine Protein (Negative) Urine Glucose (UA) (Negative) Urine Ketones (Negative) Urine Blood (Negative) Urine Nitrite (Negative) Urine Bilirubin (Negative) Urine Urobilinogen (Negative) Ur Leukocyte Esterase (Negative) Urine WBC (Auto) (0-5) /hpf Urine RBC (Auto) (0-4) /hpf U Hyaline Cast (Auto) (0-5) /lpf U Epithel Cells (Auto) (0-5) /lpf Urine Bacteria (Auto) (Negative) Anaplasma Smear Lyme Disease IgG Ab (Negative) Lyme Disease IgM Ab (Negative) 03/23/20 03/23/20 03/23/20 Range/Units 10:50 10:50 10:50 WBC (4.8-10.8) K/uL RBC (4.7-6.1) M/uL Hgb (14.0-18.0) g/dL POC Hgb (14.0-18.0) g/dl Hct (42-52) % POC Hct (42-52) % MCV (80-100) fL MCH (25-34) pg MCHC (32-36) g/dL RDW Std Deviation (36.4-46.3) fL RDW Coeff of Abigail (11.5-14.5) % Plt Count (130-400) K/uL MPV Immature Gran % (Auto) % Neut % (Auto) % Lymph % (Auto) % [place] % (Auto) % Eos % (Auto) % Baso % (Auto) % Reticulocyte % (Auto) (0.5-2.0) % Immature Gran # (Auto) (0.00-0.02) K/uL Neut # (Auto) (1.4-6.5) K/uL Lymph # (Auto) (1.2-3.4) K/uL [place] # (Auto) (0.11-0.59) K/uL Eos # (Auto) (0-0.5) K/uL Baso # (Auto) (0-0.2) K/uL Reticulocyte # (0.02-0.10) 10^6/uL Toxic Vacuolation Platelet Estimate (Normal) Echinocytes Peripher Smr Path Cons ESR (0-14) mm/hr PT (9.0-12.0) Seconds INR (0.9-1.1) APTT (21.0-31.0) Seconds PTT Ratio Fibrinogen 697 H (184-400) mg/dl D-Dimer 1830 H* (0-500) ug/L FEU POC Sodium (135-144) mmol/L Sodium (136-145) mmol/L POC Potassium (3.3-5.0) mmol/L Potassium (3.5-5.1) mmol/L POC Chloride (101-112) mmol/L Chloride (98-107) mmol/L Carbon Dioxide (21-32) mmol/L POC Total CO2 (24-31) mmol/L Anion Gap (3-11) POC Anion Gap (16-25) mmol/L POC BUN (7-18) mg/dl BUN (7-18) mg/dl Creatinine (0.6-1.4) mg/dl POC Creatinine (0.6-1.3) mg/dl Est Cr Clr Drug Dosing ml/min Est GFR ( Amer) Est GFR (Non-Af Amer) BUN/Creatinine Ratio (10-20) Glucose (70-99) mg/dl POC Glucose (other) (70-99) mg/dl Lactate (0.4-2.0) mmol/L Calcium (8.5-10.1) mg/dl POC Ioniz Calcium Jose F (1.12-1.32) mmol/l Magnesium (1.8-2.4) mg/dl Ferritin (8-388) ng/ml Total Bilirubin (0.2-1) mg/dl AST (15-37) U/L ALT (12-78) U/L Alkaline Phosphatase (45-117) U/L Lactate Dehydrogenase 488 H (87-241) U/L Total Creatine Kinase (39-308) U/L CK-MB (CK-2) (0.5-3.6) ng/ml CK/CKMB % Calc Troponin I (0-0.045) ng/ml C-Reactive Protein (0-0.29) mg/dl Total Protein (6.4-8.2) gm/dl Albumin (3.4-5.0) gm/dl Globulin (2.5-4.0) gm/dl Albumin/Globulin Ratio (0.9-2) Procalcitonin (0-0.5) ng/ml Random Cortisol 36.36 mcg/dl Urine Color Urine Appearance (Clear) Urine pH (4.5-7.5) Ur Specific [place] (1.000-1.030) Urine Protein (Negative) Urine Glucose (UA) (Negative) Urine Ketones (Negative) Urine Blood (Negative) Urine Nitrite (Negative) Urine Bilirubin (Negative) Urine Urobilinogen (Negative) Ur Leukocyte Esterase (Negative) Urine WBC (Auto) (0-5) /hpf Urine RBC (Auto) (0-4) /hpf U Hyaline Cast (Auto) (0-5) /lpf U Epithel Cells (Auto) (0-5) /lpf Urine Bacteria (Auto) (Negative) Anaplasma Smear Lyme Disease IgG Ab (Negative) Lyme Disease IgM Ab (Negative) 03/23/20 03/23/20 03/23/20 Range/Units 10:57 11:29 11:42 WBC (4.8-10.8) K/uL RBC (4.7-6.1) M/uL Hgb (14.0-18.0) g/dL POC Hgb 14.3 (14.0-18.0) g/dl Hct (42-52) % POC Hct 42 (42-52) % MCV (80-100) fL MCH (25-34) pg MCHC (32-36) g/dL RDW Std Deviation (36.4-46.3) fL RDW Coeff of Abigail (11.5-14.5) % Plt Count (130-400) K/uL MPV Immature Gran % (Auto) % Neut % (Auto) % Lymph % (Auto) % [place] % (Auto) % Eos % (Auto) % Baso % (Auto) % Reticulocyte % (Auto) (0.5-2.0) % Immature Gran # (Auto) (0.00-0.02) K/uL Neut # (Auto) (1.4-6.5) K/uL Lymph # (Auto) (1.2-3.4) K/uL [place] # (Auto) (0.11-0.59) K/uL Eos # (Auto) (0-0.5) K/uL Baso # (Auto) (0-0.2) K/uL Reticulocyte # (0.02-0.10) 10^6/uL Toxic Vacuolation Platelet Estimate (Normal) Echinocytes Peripher Smr Path Cons ESR (0-14) mm/hr PT (9.0-12.0) Seconds INR (0.9-1.1) APTT (21.0-31.0) Seconds PTT Ratio Fibrinogen (184-400) mg/dl D-Dimer (0-500) ug/L FEU POC Sodium 128 L (135-144) mmol/L Sodium (136-145) mmol/L POC Potassium 2.8 L (3.3-5.0) mmol/L Potassium (3.5-5.1) mmol/L POC Chloride 93 L (101-112) mmol/L Chloride (98-107) mmol/L Carbon Dioxide (21-32) mmol/L POC Total CO2 23 L (24-31) mmol/L Anion Gap (3-11) POC Anion Gap 15.0 L (16-25) mmol/L POC BUN 68 H (7-18) mg/dl BUN (7-18) mg/dl Creatinine (0.6-1.4) mg/dl POC Creatinine 2.7 H (0.6-1.3) mg/dl Est Cr Clr Drug Dosing ml/min Est GFR ( Amer) Est GFR (Non-Af Amer) BUN/Creatinine Ratio (10-20) Glucose (70-99) mg/dl POC Glucose (other) 135 H (70-99) mg/dl Lactate (0.4-2.0) mmol/L Calcium (8.5-10.1) mg/dl POC Ioniz Calcium Jose F 1.00 L (1.12-1.32) mmol/l Magnesium (1.8-2.4) mg/dl Ferritin (8-388) ng/ml Total Bilirubin (0.2-1) mg/dl AST (15-37) U/L ALT (12-78) U/L Alkaline Phosphatase (45-117) U/L Lactate Dehydrogenase (87-241) U/L Total Creatine Kinase (39-308) U/L CK-MB (CK-2) (0.5-3.6) ng/ml CK/CKMB % Calc Troponin I (0-0.045) ng/ml C-Reactive Protein (0-0.29) mg/dl Total Protein (6.4-8.2) gm/dl Albumin (3.4-5.0) gm/dl Globulin (2.5-4.0) gm/dl Albumin/Globulin Ratio (0.9-2) Procalcitonin (0-0.5) ng/ml Random Cortisol mcg/dl Urine Color Yellow Urine Appearance Cloudy A (Clear) Urine pH 5.0 (4.5-7.5) Ur Specific [place] 1.020 (1.000-1.030) Urine Protein Trace H (Negative) Urine Glucose (UA) Negative (Negative) Urine Ketones Negative (Negative) Urine Blood Negative (Negative) Urine Nitrite Negative (Negative) Urine Bilirubin Negative (Negative) Urine Urobilinogen Negative (Negative) Ur Leukocyte Esterase Trace H (Negative) Urine WBC (Auto) 1-5 (0-5) /hpf Urine RBC (Auto) 5-10 H (0-4) /hpf U Hyaline Cast (Auto) 5-10 H (0-5) /lpf U Epithel Cells (Auto) 20-30 H (0-5) /lpf Urine Bacteria (Auto) Negative (Negative) Anaplasma Smear Lyme Disease IgG Ab Negative (Negative) Lyme Disease IgM Ab Negative (Negative) Imaging Data Radiologist's Impression: [facility] [place], [place] [phone] XRay Report Patient: MORGAN REYES JRAdmit Date: 03/23/20 MR#: [id number]: [address] Acct ID:[id number]: Date: 1945 Zip: [place] [address] Age: 75Location: ED Sex: M Room/Bed: Att Phy:Diagnosis: FEVER,SYNCOPE,BLOODY DIARRHEA,-COVID TEST FRIDAY Ruma Phy: Stevie Higginbotham, MDService Date: 03/23/20 Fam Phy:Interpreting Phy: Samuel Mullins MD Admit Phy: Ordering Phy: Enoch Schmid MD cc: ~ SINGLE VIEW CHEST CLINICAL HISTORY: Sepsis. FINDINGS: An AP, portable, upright chest radiograph is compared to study dated 01/07/2017 and correlated with chest CT dated 10/29/2019. The examination is degraded by portable technique and apical lordotic positioning. The heart is enlarged noting atherosclerotic calcification of the thoracic aorta. The pulmonary vasculature is noncongested. Emphysematous change and chronic interstitial thickening is similar to previous. There is bibasilar sca rring/atelectasis. No airspace consolidation is seen typical for pneumonia and there is no large pleural effusion. No pneumothorax is seen. The skeletal structures are osteopenic. The bony thorax is grossly intact. IMPRESSION: Cardiomegaly and emphysema with no acute cardiopulmonary abnormality identified. ACT 112: Negative or not required by law. Electronically signed by: Samuel Mullins M.D. 03/23/2020 11:55 AM Dictated: 03/23/20 1154 Transcribed: 03/23/20 1154 [facility], [place] [phone] CT Scan Report Patient: MORGAN REYES JRAdmit Date: 03/23/20 MR#: [id number]: [address] Acct ID:[id number]: Date: 1945[facility] Zip: [place] [address] Age: 75Location: ED Sex: M Room/Bed: Att Phy:Diagnosis: FEVER,SYNCOPE,BLOODY DIARRHEA,-COVID TEST FRIDAY Ruma Phy: Stevie Higginbotham, MDService Date: 03/23/20 Fam Phy:Interpreting Phy: Willie Mg Admit Phy: Ordering Phy: Enoch Schmid MD cc: ~ CT head/brain wo con CLINICAL HISTORY: 75 years-old Male with Pt AMS. Acutely altered mental status TECHNIQUE: Multiple axial CT images of the head were obtained without contrast. A dose lowering technique was utilized adhering to the principles of ALARA. CT DOSE: 823.94 mGycm COMPARISON: Head CT 03/20/2018. FINDINGS: No acute intracranial hemorrhage, midline shift, intra-axial mass, hydrocephalus, territorial ischemia or abnormal extra-axial collection. 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 7 mm calcified focus is noted involving the inner table of the skull adjacent to left frontal lobe on image 21 series 2. Cerebral vascular calcifications. The calvarium is intact. Large subcutaneous lipoma of the left suboccipital distribution redemonstrated measuring over 6 cm. Partially imaged mucosal thickening of the left maxillary sinus. Mastoid air cells are clear. Prior bilateral lens replacement. IMPRESSION: No acute intracranial abnormality. ACT 112: Negative or not required by law. The above report was generated using voice recognition software. It may contain grammatical, syntax or spelling errors. Electronically signed by: Alvarado Mg M.D. 03/23/2020 12:16 PM Dictated: 03/23/20 1211 Transcribed: 03/23/20 1211 [place], [place] [phone] CT Scan Report Patient: MORGAN REYES JRAdmit Date: 03/23/20 MR#: [id number]: [address] Acct ID:[id number]: Date: 1945City Zip: [place] [address] Age: 75Location: 1E Sex: M Room/Bed: E109-1 Att Phy: Efrain Rudd, MDDiagnosis: FEVER Ruma Phy: Stevie Higginbotham, MDService Date: 03/23/20 Fam Phy:Interpreting Phy: Morteza Guallpa MD Admit Phy: Efrain Rudd MD Ordering Phy: Davide Parr MD cc: ~ CT chest wo con CT DOSE: 946.96 mGy.cm HISTORY: Chest pain. Dyspnea. r/o PNA TECHNIQUE: Multiaxial CT images of the chest were performed without contrast. A dose lowering technique was utilized adhering to the principles of ALARA. COMPARISON: 10/29/2019 FINDINGS: Chronic bibasilar atelectatic change superimposed upon chronic basilar bronchiectatic change. Chronic pleural thickening at the lung bases. Scattered areas of thickening of the major fissures bilaterally. All findings appear stable. There are no new or interval findings. Several small reactive mediastinal nodes are present which are diminished in prominence from the prior study. IMPRESSION: 1. Chronic change as described. 2. No evidence for an acute or superimposed infiltrative process. ACT 112: Negative or not required by law. The above report was generated using voice recognition software. It may contain grammatical, syntax or spelling errors. Electronically signed by: Morteza Guallpa M.D. 03/23/2020 5:14 PM Dictated: 03/23/201711 Transcribed: 03/23/201711 ECG Data Attestation: I personally reviewed and interpreted this ECG as follows: Indication: + weakness Rate (beats per minute): 113 Rhythm: + atrial fibrillation (with RVR) ECG Intervals/blocks: + Normal QT-c (488) ECG Warren: + Left axis deviation ECG ST segments: no ST depression and no ST elevation Comparison ECG Date: from (04/10/2018) Change: the following changes noted (afib has replaced NSR) Blood Pressure Blood Pressure Findings: Low blood pressure MDM Narrative Patient was seen and evaluated as above in room B6. Review was performed of nursing notes and vital signs. I did review pertinent previous visits and marcello ent history. After obtaining a thorough history and physical examination the above work up was performed. This is a 75-year-old male who presents to the emergency department hypotensive. Due to the patient's status he was given 3 L of fluid here in the emergency department. In addition to this he was found to be thrombocytopenic along with acute renal failure. With his change in mental status to certainly relate raises the specter of TTP. Blood smear was sent however no schistocytes were seen. The patient was then discussed with critical care as well as oncology who felt that the patient could be admitted. I then discussed the case with the hospitalist service who did agree to admit the patient. Patient is in agreement with the treatment plan. An order was placed for continuous cardiac monitoring. The monitor shows a rate of 100 with Atrial Fib rhythm. The patient was evaluated during the global COVID-19 pandemic, and that diagnosis was suspected/considered upon their initial presentation. Their evaluation, treatment and testing was consistent with current guidelines for patients who present with complaints or symptoms that may be related to COVID- 19. Impression & Plan TED (acute kidney injury), Bloody stools, Thrombocytopenia, Diarrhea, Afib Discharge Plan Visit Data *Final* Discharge Date/Time: 03/23/20 16:35 Chief Complaint: Fever Stated Complaint: FEVER,SYNCOPE,BLOODY DIARRHEA,-COVID TEST FRIDAY ED Provider: Enoch Schmid Discharge Problem: TED (acute kidney injury), Bloody stools, Thrombocytopenia, Diarrhea, Afib Patient Disposition: Admitted As Inpatient Discharge Instructions Interventions: ED Discharge Assessment Last Done: 03/23/20 16:35 Discharge Problem: Diarrhea Qualifiers: Diarrhea type: unspecified type Qualified Code(s): R19.7 - Diarrhea, unspecified Afib Qualifiers: Atrial fibrillation type: unspecified Qualified Code(s): I48.91 - Unspecified atrial fibrillation
--- NOTE | 2020-03-25 15:58 | Hospitalist Progress Note ---
Date of Service March 25, 2020 Assessment & Plan (1) Severe sepsis: Significant hypotension at time of presentation requiring fluid resuscitation along with acute kidney injury, met. encephalopathy Source uncertain -outpt symptoms started with diarrhea, negative ua negative chest CT w/o definitive pneumonia. negative [employer] respiratory panel negative. negative COVID x2 this week CT abd/pelvis without source of infection. C diff negative. Lyme was negative., peripheral smear negative for anaplasmosis Blood/stool cultures sent negative to date will ask GI to weigh in may consider mono and CMV initially treated with zosyn but CT abd pelvis does not suggest colitis, will stop (2) TED (acute kidney injury): casts seen on u/a c/w sepsis-associated ATN. continue IVF with serial BMPs. no evidence of obstruction on CT improving with ivf (3) Metabolic encephalopathy: (4) Thrombocytopenia: etiology uncertain. no evidence of DIC,TTP/HUS. (5) Afib: History of such. In a. fib at time of presentation today. replete electrolytes, restart metoprolol Cont eliquis cautiously in light of low platelets. (6) Coronary artery disease: with h/o NSTEMI and stent., troponin low and did not rise Cont asa cautiously. hold lipitor given the elevated ast / alt. troponin elevation likely myocardial demand ischemia in setting of sepsis. (7) Bloody stools: blood per rectum could be from enteric pathogen (e.coli, shigella, salmonella, etc). could be hemorrhoidal in setting of eliquis use and moderate thrombocytopenia. other etiologies possible. sent stool culture. c. diff negative. norovirus also sent. (8) Transaminitis: improving hold statin. 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 cont eliquis cautiously in light of low platelets. (14) Morbid obesity with BMI of 40.0-44.9, adult: BMI 43.5 (15) DVT prophylaxis: eliquis, renally dosed Admission and Anticipated Discharge Date Admission Date: March 23, 2020 Subjective this pt is awake and alert, he is fatigued still with diarrhea and some minor abdominal pain, found to have intermittent afib on the monitor, will restart metoprolol Review of Systems Review of Systems: Mild distress and fatigue no headache, blurry or double vision no speech or swallowing issues no chest pain, pressure or sensation of palpitations no shortness of breath, cough or wheezes mild abdominal pain, no nausea or vomiting, continues with diarrhea 03/25 no dysuria, hematuria or frequency no focal joint pain or swelling no back pain, CVA tenderness or radicular pain no bruising, bleeding or rashes no focal signs of weakness or numbness or altered sensation no complaints or anxiety or depression. Physical Exam 2 Physical Exam: The patient appeared fatigued and normally developed. Vital signs as documented. Head exam is normocephalic atraumatic no scleral icterus Neck is without JVD, thyromegaly, or carotid bruits. Lungs are diminished, no focal loss of breath sounds Cardiac exam, irregularly irregyular, rate in the 90-100 range.. No murmurs, rubs or gallops. Abdominal exam reveals normal bowel sounds, soft distended and tender Extremities are nonedematous and both pedal pulses are normal. Neurologic exam is alert and oriented, no focal loss of strength or sensation Skin is without bruises or rashes Psychologically is without concerns for anxiety or depression Results & Data Results & Data ([facility]) Vital Signs (Past 12 Hours) Vital Signs Temp Pulse Resp BP Pulse Ox 03/25/20 12:12 97.7 F 98 H 20 142/90 H 94 03/25/20 07:25 97.3 F L 99 H 18 131/80 95 03/25/20 04:00 97.9 F 89 26 H 135/95 96 PG Care Time/CCT Total # of Minutes Spent Total Time Spent with Patient: Total time spent is greater than 50% in coordination of care (as documented) at patient's floor/unit and/or counseling patient: Coding Level of Care Code 44083 Subseq Hosp Care Lvl 3 Diagnoses Severe sepsis A41.9; R65.20 TED (acute kidney injury) N17.9 Metabolic encephalopathy G93.41 Thrombocytopenia D69.6 Afib I48.91 Atrial fibrillation type: unspecified Coronary artery disease I25.10 Coronary Disease-Associated Artery/Lesion type: [place] artery [place] vs. transplanted heart: [place] heart Associated angina: without angina Bloody stools K92.1 Transaminitis R74.0 History of coronary artery stent placement Z95.5 Hypertension I10 Hypertension type: essential hypertension COPD with emphysema J43.9 Emphysema type: unspecified AMPARO (obstructive sleep apnea) G47.33 History of pulmonary embolus (PE) Z86.711 Morbid obesity with BMI of 40.0-44.9, adult E66.01; Z68.41 DVT prophylaxis Z29.9 (1) Afib Atrial fibrillation type: unspecified Qualified Code(s): I48.91 - Unspecified atrial fibrillation (2) Coronary artery disease Coronary Disease-Associated Artery/Lesion type: [place] artery [place] vs. transplanted heart: [place] heart Associated angina: without angina Qualified Code(s): I25.10 - Atherosclerotic heart disease of [place] coronary artery without angina pectoris (3) Hypertension Hypertension type: essential hypertension Qualified Code(s): I10 - Essential (primary) hypertension (4) COPD with emphysema Emphysema type: unspecified Qualified Code(s): J43.9 - Emphysema, unspecified
--- NOTE | 2020-03-25 16:38 | Gastrointestinal Consultation ---
Date of Consultation March 25, 2020 Assessment & Plan (1) Diarrhea: No obvious etiology and with bleeding as well recommend prep tomorrow for colonoscopy on friday. Proc and risks explained which include but not limited to med reaction, bleeding perforation, aspiration and missed lesions. Spoke with DR Branham regarding holding Eliquis in anticipation of that. Will order clears starting in am. Tomorrow will order prep. rectal bleeding--colonoscpy as above elev LFTS --trending down, ? shock liver versus unkwown infectious process--follow for now elevated ferritin--Fe sat only 34% so ferritin more likely acute phase reactant but would repeat as outpt once acute process resolved. History of Present Illness Reason for Consultation: diarrhea Requesting Physician: DR Branham Attending Physician: John Branham MD History of Present Illness CC Diarrhea HPI History from chart, patient, and DR Branham. Tried to log into [facility] EMR but site not letting me access at present. Pt with 1 week of diarrhea few times daily and also bright red blood per rectum. He was having low grade temps, no significant abd pain. He was thought to be septic but COVID, multiple other viruses (norovirus pending) neg. Cdiff is neg and stool cx no growth so far. CT chest no acute process. CT a/p AAA but otherwise non revealing. LFTs elevated but improving. Plts low improving. Ferrritn markedly elevated. He continues to have loose stools and has blood noted in them. He is on Eliquis for afib. Pt states DR Kearns has done colonoscopies on him in the past and found polyps with last one couple years ago. Allergies Allergy/AdvReac Type Severity Reaction Status Date / Time No Known Allergies Allergy Verified 03/23/20 12:21 Home Medications Home Medications Medication Instructions Recorded Confirmed Type apixaban 5 mg tablet 5 mg PO BID 06/04/18 03/23/20 History atorvastatin 80 mg tablet 80 mg PO HS tab 06/04/18 03/23/20 History docusate sodium 100 mg capsule 100 mg PO QAM PRN cap 06/04/18 03/23/20 History doxazosin 8 mg tablet 8 mg PO PM 06/04/18 03/23/20 History losartan 50 mg tablet 50 mg PO QAM tab 06/04/18 03/23/20 History tramadol 50 mg tablet 50 mg PO Q4H PRN tab 06/04/18 03/23/20 History albuterol sulfate 90 mcg/actuation 2 puff INH Q6H PRN #18 gm 11/15/19 03/23/20 Rx aerosol inhaler aspirin 81 mg tablet,delayed 81 mg PO PM 11/15/19 03/23/20 History release finasteride 5 mg tablet 5 mg PO PM 11/15/19 03/23/20 History indapamide 2.5 mg tablet 2.5 mg PO QAM 11/15/19 03/23/20 History metoprolol succinate 50 mg 25 mg PO PM tab 11/15/19 03/23/20 History tablet,extended release 24 hr umeclidinium [Incruse Ellipta] 1 inh INH QAM 03/23/20 03/23/20 History Patient History Medical History Afib CAD (coronary artery disease) (Chronic) Cellulitis of lower leg (Chronic) Chest pain (Chronic) COPD with emphysema Coronary artery disease (Chronic) History of pulmonary embolus (PE) Hypertension (Chronic) Multiple pulmonary nodules NSTEMI (non-ST elevated myocardial infarction) 2016 NSTEMI (non-ST elevated myocardial infarction) (Chronic) Obesity (Chronic) AMPARO (obstructive sleep apnea) Right leg DVT (Chronic) Traumatic hematoma of lower leg (Chronic) Surgical History H/O exploratory laparotomy due to [facility] [place] (had gastric injury - he doesn't remember details) History of coronary artery stent placement Family History Father Heart disease Mother Lung disease Heart disease Other COPD (chronic obstructive pulmonary disease) Social History Preferred Language: Croatian Communication Ability: Effective Spring Clipper Required: No Beliefs That Will Affect Care: None marital status: Current Living Situation: Spouse Current Living Situation Comment: lives with /son in [place] current occupational status: retired Other Information That Helps Us Care for You: No 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 [place] Feels Safe at Home: Yes Safety Concerns: Feels Safe At This Time Smoking Status: Former smoker Tobacco Type: cigarettes ; Age Started Using Tobacco: 20 ; Age Quit Using Tobacco: 36 ; packs per day: 1.5 ; Number of Years Since Quit: 38 ; Hx Alcohol Use: Yes (Quit 38 years ago) Alcohol type: beer Hx Substance Use: Yes substance use type: former substance user Review of Systems Review of Systems: All systems reviewed & are unremarkable except as noted in HPI & below Physical Exam Constitutional: WD/WN, vitals as above Eyes: PERRL, conjunctivae normal, anicteric sclerae ENMT: external ear and nose normal, oropharynx normal Neck: normal visual inspection and trachea midline Respiratory: normal respiratory effort, lungs clear to auscultation Cardiovascular: irregular heart rate, no obvious murmur Gastrointestinal (Abdomen): normal bowel sounds, soft, nontender, no hepatosplenomegaly Neurologic: patellar DTR's 2+ bilat, sensation intact Psychiatric: A+Ox3, euthymic affect Results & Data ([facility]) Vital Signs (Past 12 Hours) Vital Signs Temp Pulse Resp BP Pulse Ox 03/25/20 15:35 36.4 C L 92 H 22 138/76 98 03/25/20 12:12 36.5 C 98 H 20 142/90 H 94 03/25/20 07:25 36.3 C L 99 H 18 131/80 95
[2020-03-25] MEDS: TRAMADOL HCL 50 MG TABLET PO PRN (21:41)
[2020-03-25] MEDS: ASPIRIN 81 MG ECTAB PO SCH (21:42)
[2020-03-25] MEDS: DOXAZosin MESYLATE 4 MG TAB PO SCH (21:42)
[2020-03-25] MEDS: MELATONIN 3 MG TAB PO SCH (21:43)
[2020-03-25] MEDS: FINASTERIDE 5 MG TAB PO SCH (21:43)
[2020-03-26 07:25] LABS: Hematocrit (blood only) 38.2 % (42-52); Hemoglobin 12.7 g/dL (14.0-18.0); Mean Corpuscular Hemoglobin 27.8 pg (25-34); Mean Corpuscular Hgb Conc 33.2 g/dL (32-36); Mean Corpuscular Volume 83.6 fL (80-100); Mean Platelet Volume 12.2 fL (7.4-10.4); Platelet Count 211 K/uL (130-400); RDW Coefficient of Variation 16.3 % (11.5-14.5); RDW Standard Deviation 49.6 fL (36.4-46.3); Red Blood Count 4.57 M/uL (4.7-6.1)
[2020-03-26 07:38] LABS: Albumin Level 2.3 gm/dl (3.4-5.0); BUN Creatinine Ratio 23.4 (10-20); Calcium 8.2 mg/dl (8.5-10.1); Creatinine Clr Calc Pharmacy 65.1 ml/min; Est GFR (African American) 63.3; Est GFR (Non-African American) 54.6; Potassium 3.5 mmol/L (3.5-5.1)
[2020-03-26 07:41] LABS: Albumin Globulin Ratio 0.6 (0.9-2); Bilirubin,Total 0.5 mg/dl (0.2-1); Globulin 3.9 gm/dl (2.5-4.0); Total Protein 6.2 gm/dl (6.4-8.2)
[2020-03-26] MEDS: PANTOprazole 40 MG TAB PO SCH (07:49)
[2020-03-26] MEDS: UMECLIDINIUM BROMIDE 62.5MCG/BLISTER 7 PUFFS/INHALER INH SCH (07:49)
[2020-03-26] MEDS: DOXYCYCLINE HYCLATE 100 MG CAP PO SCH ×2 (07:49→21:27)
--- NOTE | 2020-03-26 07:49 | Hospitalist Progress Note ---
Date of Service March 26, 2020 Assessment & Plan (1) Severe sepsis: Significant hypotension at time of presentation requiring fluid resuscitation along with acute kidney injury, met. encephalopathy Source uncertain -outpt symptoms started with diarrhea, negative ua negative chest CT w/o definitive pneumonia. negative [employer] respiratory panel negative. negative COVID x2 this week CT abd/pelvis without source of infection. C diff negative. Lyme was negative., peripheral smear negative for anaplasmosis, ehrlichiosis Blood/stool cultures sent negative to date GI planning on colonoscopy 03/27 initially treated with zosyn but CT abd pelvis does not suggest colitis, will stop (2) TED (acute kidney injury): resolved casts seen on u/a c/w sepsis-associated ATN. no evidence of obstruction on CT (3) Metabolic encephalopathy: resolved, suspected secondary to viral enteritis (4) Thrombocytopenia: resolved ( no anaplasmosis seen on peripheral smear) no evidence of DIC,TTP/HUS. (5) Afib: History of such. In a. fib at time of presentation. replete electrolytes, restart metoprolol rate control is variable, one dose of digoxin given 03/27, if not controlled consider cardiology eval eliquis held 6/20 pm for colonoscopy 03/27 (6) Coronary artery disease: with h/o NSTEMI and stent., troponin low and did not rise Cont asa cautiously. hold lipitor given the elevated ast / alt. troponin elevation likely myocardial demand ischemia in setting of sepsis. (7) Bloody stools: blood per rectum could be from enteric pathogen (e.coli, shigella, salmonella, etc). could be hemorrhoidal in setting of eliquis use and moderate thrombocytopenia. other etiologies possible. sent stool culture. c. diff negative. norovirus pendingt. (8) Transaminitis: improving hold statin. 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 eliquis on hold for procedure (14) Morbid obesity with BMI of 40.0-44.9, adult: BMI 43.5 (15) DVT prophylaxis: scd now that eliquis is on hold Admission and Anticipated Discharge Date Admission Date: March 23, 2020 Subjective this pt is awake and alert, he is less fatigued still with diarrhea but less often has lower blood pressures and still variable rate control with his afib. remains intermittent afib on the monitor,did restart metoprolol but blood pressure limits return to typical med dosing, one dose of digoxin given Review of Systems Review of Systems: Mild distress and fatigue no headache, blurry or double vision no speech or swallowing issues no chest pain, pressure or sensation of palpitations no shortness of breath, cough or wheezes continues with mild abdominal pain, no nausea or vomiting, continues with diarrhea 03/26 no dysuria, hematuria or frequency no focal joint pain or swelling no back pain, CVA tenderness or radicular pain no bruising, bleeding or rashes no focal signs of weakness or numbness or altered sensation no complaints or anxiety or depression. Endocrine: no diabetes Physical Exam Physical Exam: The patient appeared fatigued and normally developed. Vital signs as documented. Head exam is normocephalic atraumatic no scleral icterus Neck is without JVD, thyromegaly, or carotid bruits. Lungs are diminished, no focal loss of breath sounds Cardiac exam, irregularly irregular, rate in the 90-100 range.. No murmurs, rubs or gallops. Abdominal exam reveals normal bowel sounds, soft distended and tender Extremities are nonedematous and both pedal pulses are normal. Neurologic exam is alert and oriented, no focal loss of strength or sensation Skin is without bruises or rashes Psychologically is without concerns for anxiety or depression Results & Data Results & Data ([facility]) Vital Signs (Past 12 Hours) Vital Signs Temp Pulse Resp BP Pulse Ox 03/26/20 03:00 97.5 F L 92 H 16 115/71 95 03/25/20 23:16 97.9 F 73 16 97/58 L 95 PG Care Time/CCT Total # of Minutes Spent Total Time Spent with Patient: Total time spent is greater than 50% in coordination of care (as documented) at patient's floor/unit and/or counseling patient: Coding Level of Care Code 58348 Subseq Hosp Care Lvl 3 Diagnoses Severe sepsis A41.9; R65.20 TED (acute kidney injury) N17.9 Metabolic encephalopathy G93.41 Thrombocytopenia D69.6 Afib I48.91 Atrial fibrillation type: unspecified Coronary artery disease I25.10 Associated angina: without angina Coronary Disease-Associated Artery/Lesion type: [place] artery [place] vs. transplanted heart: [place] heart Bloody stools K92.1 Transaminitis R74.0 History of coronary artery stent placement Z95.5 Hypertension I10 Hypertension type: essential hypertension COPD with emphysema J43.9 Emphysema type: unspecified AMPARO (obstructive sleep apnea) G47.33 History of pulmonary embolus (PE) Z86.711 Morbid obesity with BMI of 40.0-44.9, adult E66.01; Z68.41 DVT prophylaxis Z29.9 (1) Coronary artery disease Associated angina: without angina Coronary Disease-Associated Artery/Lesion type: [place] artery [place] vs. transplanted heart: [place] heart Qualified Code(s): I25.10 - Atherosclerotic heart disease of [place] coronary artery without angina pectoris (2) Afib Atrial fibrillation type: unspecified Qualified Code(s): I48.91 - Unspecified atrial fibrillation (3) COPD with emphysema Emphysema type: unspecified Qualified Code(s): J43.9 - Emphysema, unspecified (4) Hypertension Hypertension type: essential hypertension Qualified Code(s): I10 - Essential (primary) hypertension
[2020-03-26] MEDS: METOPROLOL TARTRATE 25 MG TAB PO SCH ×2 (08:35→21:27)
[2020-03-26] MEDS ORDERED: DIGOXIN 250 MCG in SYRINGE 9 ML IV ONE (14:00)
[2020-03-26] MEDS: POLYETHYLENE (MIRALAX) 17 GM PACK PO SCH (14:25)
--- NOTE | 2020-03-26 15:23 | Gastroenterology Progress Note ---
Date of Service March 26, 2020 Assessment & Plan (1) Diarrhea: Prep in progress for colonoscopy tomorrow afternoon. rectal bleeding--colonoscpy as above elev LFTS --continues to trend down , ? shock liver versus unkwown infectious process--follow for now elevated ferritin--Fe sat only 34% so ferritin more likely acute phase reactant but would repeat as outpt once acute process resolved. Admission and Anticipated Discharge Date Admission Date: March 23, 2020 Subjective CC f/u diarrhea HPI Pt states he had a stools today prior to starting prep not as loose and no blood in it. He denies abd pain. Review of Systems Respiratory: no dyspnea Cardiovascular: no chest pain Physical Exam Constitutional: WD/WN, vitals as above Respiratory: normal respiratory effort, lungs clear to auscultation Gastrointestinal (Abdomen): normal bowel sounds, soft, nontender, no hepatosplenomegaly Neurologic: patellar DTR's 2+ bilat, sensation intact Psychiatric: A+Ox3, euthymic affect Results & Data ([facility]) Vital Signs (Past 12 Hours) Vital Signs Temp Pulse Pulse Resp BP Pulse Ox 03/26/20 14:25 113 H 03/26/20 11:53 36.3 C L 91 H 18 98/49 L 95 03/26/20 07:52 36.4 C L 85 19 123/74 93
[2020-03-26] MEDS: FINASTERIDE 5 MG TAB PO SCH (21:26)
[2020-03-26] MEDS: DOXAZosin MESYLATE 4 MG TAB PO SCH (21:27)
[2020-03-26] MEDS: MELATONIN 3 MG TAB PO SCH (21:27)
[2020-03-26] MEDS: ASPIRIN 81 MG ECTAB PO SCH (21:27)
[2020-03-26] MEDS: TRAMADOL HCL 50 MG TABLET PO PRN (21:30)
[2020-03-27 07:48] LABS: Basophils # (auto) 0.02 K/uL (0-0.2); Basophils % (auto) 0.3 %; Eosinophils # (auto) 0.26 K/uL (0-0.5); Eosinophils % (auto) 3.4 %; Hematocrit (blood only) 38.1 % (42-52); Hemoglobin 12.5 g/dL (14.0-18.0); Immature Granulocytes # (auto) 0.12 K/uL (0.00-0.02); Immature Granulocytes % (auto) 1.6 %; Lymphocytes # (auto) 1.83 K/uL (1.2-3.4); Mean Corpuscular Hemoglobin 27.8 pg (25-34); Mean Corpuscular Hgb Conc 32.8 g/dL (32-36); Mean Corpuscular Volume 84.7 fL (80-100); Mean Platelet Volume 11.2 fL (7.4-10.4); Monocytes # (auto) 1.13 K/uL (0.11-0.59); Monocytes % (auto) 14.8 %; Neutrophils # (auto) 4.28 K/uL (1.4-6.5); Neutrophils % (auto) 55.9 %; Platelet Count 251 K/uL (130-400); RDW Coefficient of Variation 16.4 % (11.5-14.5); RDW Standard Deviation 50.7 fL (36.4-46.3); White Blood Count 7.64 K/uL (4.8-10.8)
[2020-03-27] MEDS: UMECLIDINIUM BROMIDE 62.5MCG/BLISTER 7 PUFFS/INHALER INH SCH (07:57)
[2020-03-27 07:58] LABS: INR 1.1 (0.9-1.1); Partial Thromboplastin Ratio 0.9; Partial Thromboplastin Time 25.6 Seconds (21.0-31.0); Prothrombin Time 11.7 Seconds (9.0-12.0)
[2020-03-27] MEDS: METOPROLOL TARTRATE 25 MG TAB PO SCH ×2 (08:00→20:41)
[2020-03-27] MEDS: DOXYCYCLINE HYCLATE 100 MG CAP PO SCH ×2 (08:00→20:40)
[2020-03-27] MEDS: PANTOprazole 40 MG TAB PO SCH (08:00)
[2020-03-27 08:34] LABS: Albumin Globulin Ratio 0.7 (0.9-2); Albumin Level 2.6 gm/dl (3.4-5.0); Bilirubin,Total 0.6 mg/dl (0.2-1); Calcium 8.4 mg/dl (8.5-10.1); Creatinine Clr Calc Pharmacy 64.7 ml/min; Est GFR (African American) 62.7; Est GFR (Non-African American) 54.1; Globulin 3.9 gm/dl (2.5-4.0); Potassium 3.8 mmol/L (3.5-5.1); Total Protein 6.5 gm/dl (6.4-8.2)
[2020-03-27] MEDS: SACCHAROMYCES BOULARDII 250 MG CAP PO SCH (09:49)
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
[2020-03-27] MEDS: POLYETHYLENE (MIRALAX) 17 GM PACK PO SCH (13:00)
[2020-03-27] MEDS ORDERED: ATROPINE SULFATE 0.1 MG/ML 10ML SYR IV PRN (13:26)
[2020-03-27] MEDS ORDERED: ePHEDrine sulfate 50 MG/ML AMP IV PRN (13:26)
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
[2020-03-27] MEDS ORDERED: PROPOFOL IV EMULSION 10 MG/ML 20 ML VIAL IV ONE ×2 (13:33→13:56)
[2020-03-27] MEDS ORDERED: LIDOCAINE HCL 2% 2 ML VIAL/AMP(20MG/ML) INFIL ONE (13:33)
--- NOTE | 2020-03-27 14:08 | Post Operative Brief Note ---
Immediate Post Op Note v1 Date of Surgery March 27, 2020 Pre & Post Diagnosis Operation Date: 03/27/20 14:05 Pre-Op Diagnosis: FEVER I identified the patient and participated in the time-out.: Yes Procedure Operation Date: 03/27/20 14:05 <No data on this case meets the specified criteria colonoscopy to TI Fair prep to poor prep Right colon. TI grossly normal. Random bx of AC and sigmoid taken to r/o microscopic colitis Hep flexure polyp 5 mm cold snared sigmoid polyp 5 mm cold snared Restart diet. Will need repeat outpt colo with better prep for polyps. > Surgeon Slava Darden Claim Examiner see formal report Estimated Blood Loss 5 Findings Consistent with Post-Op Diagnosis
--- NOTE | 2020-03-27 14:13 | Anesthesiology Progress Note ---
Date of Service March 27, 2020 Anesthesia Post Procedure Vital Signs Vital Signs: Temp Pulse Pulse Resp BP BP Pulse Ox 03/27/20 13:06 36.5 C 67 20 186/82 H 94 03/27/20 11:54 36.8 C 79 20 142/68 H 97 03/27/20 08:03 36.8 C 58 L 16 144/68 H 98 03/27/20 08:00 36.6 C 90 12 118/76 95 03/27/20 07:30 72 03/27/20 04:00 36.4 C L 76 18 136/82 96 03/26/20 23:42 36.5 C 94 H 17 119/77 94 03/26/20 22:20 36.6 C 88 20 117/73 96 03/26/20 15:23 36.5 C 79 21 132/78 96 03/26/20 14:25 113 H Transfer of Care Handoff Completed per policy Notes Mental Status: alert / awake / arousable Patient Amnestic to Procedure: Yes Nausea / Vomiting: adequately controlled Pain: adequately controlled Airway Patency, RR, SpO2: stable & adequate BP & HR: stable & adequate Hydration State: stable & adequate Anesthetic Complications: no major complications apparent
--- NOTE | 2020-03-27 14:16 | GI REPORT ---
Patient Name: Cam Singletary Procedure Date: 03/27/2020 1:36 PM Date of : 1945 Admit Type: Inpatient Age: 75 Gender: Male Attending MD: Slava Darden MD Procedure: Colonoscopy Providers: Slava Darden MD Referring MD: Efrain Rudd Indications: Clinically significant diarrhea of unexplained origin, Rectal bleeding Medicines: Monitored Anesthesia Care Complications: No immediate complications. Estimated blood loss: Minimal. Estimated Blood Loss: Estimated blood loss was minimal. Procedure: Pre-Anesthesia Assessment: - The risks and benefits of the procedure and the sedation options and risks were discussed with the patient. All questions were answered and informed consent was obtained. - Patient identification and proposed procedure were verified prior to the procedure by the physician, the nurse and the tax form preparer. The procedure was verified in the procedure room. After I obtained informed consent, the scope was passed under direct vision. Throughout the procedure, the patient's blood pressure, pulse, and oxygen saturations were monitored continuously. The Scope was introduced through the anus and advanced to the terminal ileum, with identification of the appendiceal orifice and IC valve. The colonoscopy was performed without difficulty. The patient tolerated the procedure well. Procedure and risks explained to patient which include but not limited to med reaction, bleeding, perforation, aspiration and missed lesions. Judicious gas insufflation and gas removal done on the way out. The lumen always well visualized when advancing the scope. Washes and suctioning used as needed to improve visuzlization of mucosa. Prep was fair to poor with worst in the right colon. Retroflexion in the rectum to look at the distal rectum and anal canal done. Findings: The limited view of the terminal ileum appeared normal. A 5 mm polyp was found in the hepatic flexure. The polyp was sessile. The polyp was removed with a lift and cut technique using a cold snare. Resection and retrieval were complete. Estimated blood loss was minimal. A 5 mm polyp was found in the sigmoid colon. The polyp was sessile. The polyp was removed with a lift and cut technique using a cold snare. Resection and retrieval were complete. Estimated blood loss was minimal. Internal hemorrhoids were found during retroflexion. The hemorrhoids were large. A large amount of semi-liquid stool was found in the entire colon, interfering with visualization. The right colon was worse. Lavage of the area was performed using copious amounts, resulting in clearance with fair visualization. The ascending colon appeared normal. Biopsies for histology were taken with a cold forceps from the ascending colon and sigmoid colon for evaluation of microscopic colitis. Estimated blood loss was minimal. The exam was otherwise without abnormality on direct and retroflexion views. Impression: - The examined portion of the ileum was normal. - One 5 mm polyp at the hepatic flexure, removed using lift and cut and a cold snare. Resected and retrieved. - One 5 mm polyp in the sigmoid colon, removed using lift and cut and a cold snare. Resected and retrieved. - Internal hemorrhoids. - Stool in the entire examined colon. - The ascending colon is normal. Biopsied. - The examination was otherwise normal on direct and retroflexion views. Recommendation: - Return patient to hospital lan for ongoing care. - Repeat colonoscopy within 3 months because the bowel preparation was suboptimal. Slava Darden M.D. Slava Darden MD 03/27/2020 2:15:51 PM This report has been signed electronically. Note Initiated On: 03/27/2020 1:36 PM Number of Addenda: 0 I attest to the content of the Intraoperative Record and orders documented therein, exceptions below {[id number]}
[2020-03-27] MEDS: ASPIRIN 81 MG ECTAB PO SCH (20:40)
[2020-03-27] MEDS: MELATONIN 3 MG TAB PO SCH (20:41)
[2020-03-27] MEDS: APIXABAN 5 MG TABLET PO SCH (20:41)
[2020-03-27] MEDS: FINASTERIDE 5 MG TAB PO SCH (20:41)
[2020-03-27] MEDS: DOXAZosin MESYLATE 4 MG TAB PO SCH (20:41)
--- NOTE | 2020-03-27 20:55 | Hospitalist Progress Note ---
Date of Service March 27, 2020 Assessment & Plan (1) Severe sepsis: Resolved. Etiology uncertain. [employer] respiratory panel negative. COVID-19 PCR negative x 2 over course of [address] abd/pelvis without source of infection. C diff negative. Lyme was negative. Stool culture negative. Blood cultures negative Other possibilities include non-Lyme tick-borne infection (anaplasmosis DNA sent and still pending - remains on doxy empirically). Other viral processes possible (EBV, CMV, etc) but we did not test for such. Norovirus still pending. Regardless of etiology he is clinically improved. AST/ALT continue to improve. Low platelets resolved. Colonoscopy today without colitis. Will send COVID-19 serological IgG ab test to see if he could have had false negative COVID-19 PCR. (2) TED (acute kidney injury): sepsis-associated ATN - resolved. Peak Cr 2.5. Now 1.3. BMP am for stability. (3) Metabolic encephalopathy: 2nd sepsis - resolved. (4) Sepsis associated hypotension: Resolved. (5) Hyponatremia: hypovolemic hyponatremia from poor oral intake, diarrhea, etc. Lowest Na was 128. Resolved; now 142. (6) Hypokalemia: 2nd to diarrhea - resolved (7) Thrombocytopenia: etiology uncertain but resolved. could have been due to viral process or tick-borne process (anaplasmosis, EBV, CMV, etc). anaplasmosis DNA sent; still pending. remains on empiric doxycycline. (8) Afib: stable remains on beta etelvina stable on eliquis without any further rectal bleeding (9) Coronary artery disease: with h/o NSTEMI and stent. Cont asa. would continue to hold lipitor due to abnormal LFTs. troponin elevation likely myocardial demand ischemia in setting of sepsis (at time of admission). (10) Bloody stools: resolved. this occurred just prior to admission. stool cx neg. c diff neg. norovirus pending. colonoscopy today with 2 polyps but no colitis. repeat colonoscopy as outpatient advised as prep was poor. (11) Transaminitis: etiology? infectious? (anaplasmosis, viral, etc) due to severe sepsis / hypotension / "shock liver"? other? regardless of etiology ast/alt cont to improve. cont to hold lipitor. appreciate GI input. noted that ferritin was high at admission - will need repeat as outpatient. 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 cont eliquis. (17) Morbid obesity with BMI of 40.0-44.9, adult: BMI 43.7 (18) DVT prophylaxis: eliquis repeat PT eval in am if stable and cleared for home can possibly d/c home tomorrow Admission and Anticipated Discharge Date Admission Date: March 23, 2020 Subjective saw the patient pre-colonoscopy. feeling much better in comparison to the day of admission. no fevers. no chills. tolerating diet. diarrhea improved. no abd pain. weakness improved. no dyspnea. mental status normal. Review of Systems Constitutional: no body aches, no fatigue and no anorexia Respiratory: no cough and no dyspnea Cardiovascular: no chest pain Gastrointestinal: no abdominal pain and no blood in stools Physical Exam Constitutional: + morbidly obese; no acute distress and no altered mental status ENMT: external ear and nose normal, oropharynx normal Respiratory: normal respiratory effort, lungs clear to auscultation Cardiovascular: Rate/Rhythm: regular rate and + irregularly irregular Heart Sounds: normal S1 and normal S2; no murmur Vessels: posterior tibial pulses present and dorsalis pedis pulses present; no JVD Extremities: no edema Gastrointestinal (Abdomen): normal bowel sounds, soft, nontender, no hepatosplenomegaly Psychiatric: A+Ox3, euthymic affect Results & Data Results & Data ([facility]) Vital Signs (Past 12 Hours) Vital Signs Temp Pulse Resp BP Pulse Ox 03/27/20 19:41 36.5 C 75 21 157/80 H 97 03/27/20 15:36 36.2 C L 77 16 97/61 L 95 03/27/20 14:38 59 L 18 151/77 H 99 03/27/20 14:23 66 16 123/81 99 03/27/20 14:08 68 16 126/56 L 96 03/27/20 13:06 36.5 C 67 20 186/82 H 94 03/27/20 11:54 36.8 C 79 20 142/68 H 97 Laboratory Results Laboratory Results - last 24 hr 03/23/20 03/27/20 03/27/20 10:50 07:30 07:30 WBC 7.64 RBC 4.50 L Hgb 12.5 L Hct 38.1 L MCV 84.7 MCH 27.8 MCHC 32.8 RDW Std Deviation 50.7 H RDW Coeff of Abigail 16.4 H Plt Count 251 MPV 11.2 H Immature Gran % (Auto) 1.6 Neut % (Auto) 55.9 Lymph % (Auto) 24.0 [place] % (Auto) 14.8 Eos % (Auto) 3.4 Baso % (Auto) 0.3 Immature Gran # (Auto) 0.12 H Neut # (Auto) 4.28 Lymph # (Auto) 1.83 [place] # (Auto) 1.13 H Eos # (Auto) 0.26 Baso # (Auto) 0.02 Haptoglobin 381 H PT 11.7 INR 1.1 APTT 25.6 PTT Ratio 0.9 Sodium Potassium Chloride Carbon Dioxide Anion Gap BUN Creatinine Est Cr Clr Drug Dosing Est GFR ( Amer) Est GFR (Non-Af Amer) BUN/Creatinine Ratio Glucose Calcium Total Bilirubin AST ALT Alkaline Phosphatase Total Protein Albumin Globulin Albumin/Globulin Ratio A. phagocytophilum DNA Cancelled Norovirus RNA (PCR) Cancelled 03/27/20 07:30 WBC RBC Hgb Hct MCV MCH MCHC RDW Std Deviation RDW Coeff of Abigail Plt Count MPV Immature Gran % (Auto) Neut % (Auto) Lymph % (Auto) [place] % (Auto) Eos % (Auto) Baso % (Auto) Immature Gran # (Auto) Neut # (Auto) Lymph # (Auto) [place] # (Auto) Eos # (Auto) Baso # (Auto) Haptoglobin PT INR APTT PTT Ratio Sodium 142 Potassium 3.8 Chloride 110 H Carbon Dioxide 26 Anion Gap 6.0 BUN 23 H Creatinine 1.30 Est Cr Clr Drug Dosing 64.7 Est GFR ( Amer) 62.7 Est GFR (Non-Af Amer) 54.1 BUN/Creatinine Ratio 18.0 Glucose 94 Calcium 8.4 L Total Bilirubin 0.6 AST 65 H ALT 107 H Alkaline Phosphatase 94 Total Protein 6.5 Albumin 2.6 L Globulin 3.9 Albumin/Globulin Ratio 0.7 L A. phagocytophilum DNA Norovirus RNA (PCR) PG Care Time/CCT Total # of Minutes Spent Total Time Spent with Patient: Total time spent is greater than 50% in coordination of care (as documented) at patient's floor/unit and/or counseling patient: Coding Level of Care Code 53346 Subseq Hosp Care Lvl 3 Diagnoses Severe sepsis A41.9; R65.20 TED (acute kidney injury) N17.9 Metabolic encephalopathy G93.41 Sepsis associated hypotension A41.9; I95.9 Hyponatremia E87.1 Hypokalemia E87.6 Thrombocytopenia D69.6 Afib I48.91 Atrial fibrillation type: unspecified Coronary artery disease I25.10 Associated angina: without angina Coronary Disease-Associated Artery/Lesion type: ruby artery [place] vs. transplanted heart: ruby heart Bloody stools K92.1 Transaminitis R74.0 History of coronary artery stent placement Z95.5 Hypertension I10 Hypertension type: essential hypertension COPD with emphysema J43.9 Emphysema type: unspecified AMPARO (obstructive sleep apnea) G47.33 History of pulmonary embolus (PE) Z86.711 Morbid obesity with BMI of 40.0-44.9, adult E66.01; Z68.41 DVT prophylaxis Z29.9 (1) Coronary artery disease Associated angina: without angina Coronary Disease-Associated Artery/Lesion type: ruby artery [place] vs. transplanted heart: ruby heart Qualified Code(s): I25.10 - Atherosclerotic heart disease of ruby coronary artery without angina pectoris (2) Afib Atrial fibrillation type: unspecified Qualified Code(s): I48.91 - Unspecified atrial fibrillation (3) COPD with emphysema Emphysema type: unspecified Qualified Code(s): J43.9 - Emphysema, unspecified (4) Hypertension Hypertension type: essential hypertension Qualified Code(s): I10 - Essential (primary) hypertension
[2020-03-28 07:26] LABS: Basophils # (auto) 0.02 K/uL (0-0.2); Basophils % (auto) 0.2 %; Eosinophils # (auto) 0.31 K/uL (0-0.5); Eosinophils % (auto) 3.4 %; Hematocrit (blood only) 38.7 % (42-52); Hemoglobin 12.2 g/dL (14.0-18.0); Immature Granulocytes # (auto) 0.22 K/uL (0.00-0.02); Immature Granulocytes % (auto) 2.4 %; Lymphocytes # (auto) 2.01 K/uL (1.2-3.4); Lymphocytes % (auto) 22.3 %; Mean Corpuscular Hemoglobin 27.5 pg (25-34); Mean Corpuscular Hgb Conc 31.5 g/dL (32-36); Mean Corpuscular Volume 87.2 fL (80-100); Mean Platelet Volume 11.8 fL (7.4-10.4); Monocytes # (auto) 1.19 K/uL (0.11-0.59); Monocytes % (auto) 13.2 %; Neutrophils # (auto) 5.27 K/uL (1.4-6.5); Neutrophils % (auto) 58.5 %; Platelet Count 287 K/uL (130-400); RDW Coefficient of Variation 16.4 % (11.5-14.5); RDW Standard Deviation 52.5 fL (36.4-46.3); Red Blood Count 4.44 M/uL (4.7-6.1); White Blood Count 9.02 K/uL (4.8-10.8)
[2020-03-28 07:54] LABS: Albumin Level 2.6 gm/dl (3.4-5.0); BUN Creatinine Ratio 15.4 (10-20); Calcium 8.4 mg/dl (8.5-10.1); Creatinine Clr Calc Pharmacy 65.7 ml/min; Est GFR (African American) 64.5; Est GFR (Non-African American) 55.7; Potassium 4.1 mmol/L (3.5-5.1)
[2020-03-28 07:57] LABS: Albumin Globulin Ratio 0.7 (0.9-2); Bilirubin,Total 0.5 mg/dl (0.2-1); Globulin 3.9 gm/dl (2.5-4.0); Total Protein 6.5 gm/dl (6.4-8.2)
--- NOTE | 2020-03-28 09:05 | Progress Notes ---
DATE: 03/28/2020 DIAGNOSES: 1. Fever of unknown origin. 2. Acute renal injury. 3. Elevated liver transaminases. 4. Thrombocytopenia. 5. Atrial fibrillation. 6. Hyperferritinemia. SUBJECTIVE: Mr. Singletary was again seen at bedside this morning. Discussed his case informally with the managing hospitalist and believe he is heading towards discharge as well today. Iron studies were checked earlier during admission, found to be within normal limits. Ferritin has yet to be rechecked and will plan to do so when I see him as outpatient. Fortunately, his viral cultures have remained negative, but we still unfortunately do not have a diagnosis. The patient's platelets have now normalized to 287,000. He reports no problems today. Again, he is ready to return home. OBJECTIVE: GENERAL: A very pleasant, [place]ian 75-year-old gentleman in no acute distress. VITAL SIGNS: Temperature 36.8, pulse 71, respiratory rate 20, blood pressure 108/59. SKIN: Without rash or lesion. HEENT: Oral mucosa without erythema or ulceration. HEART: Regular rate and rhythm. LUNGS: Clear to auscultation. ABDOMEN: Obese, soft, nontender, nondistended. EXTREMITIES: No clubbing, cyanosis or edema. NEUROLOGIC: He is grossly intact. LABORATORY DATA: Albumin 2.6, ALT 89, AST 50. Sodium 142, potassium 4.1, chloride 110, carbon dioxide 28, creatinine 1.27, BUN 20. WBC 9020, hemoglobin 12.2, platelet count 287,000. IMPRESSION: 1. Septicemia. 2. Acute renal injury. 3. Elevated liver transaminases. 4. Thrombocytopenia. 5. Hyperferritinemia. PLAN: Mr. Singletary underwent a colonoscopy yesterday with report pending. The liver transaminases are heading back towards normal. Ferritin has yet to be repeated. Viral cultures to date have been negative. Hospitalist is planning to send antibody studies to make sure he did not have a false negative COVID test. Iron studies were checked earlier in the admission and he does not suffer from overt iron overload and ferritin clearly represented an acute phase reactivity. Nonetheless, Mr. Singletary is somebody I would like to see in the next week or two specifically to follow ferritin levels. His peripheral blood counts have otherwise returned to baseline. Thank you very much for allowing me to participate in his care. If there are any questions or concerns, feel free to contact me. Otherwise, we will sign off officially today. MARTÍNEZ
[2020-03-28] MEDS: METOPROLOL TARTRATE 25 MG TAB PO SCH (09:11)
[2020-03-28] MEDS: DOXYCYCLINE HYCLATE 100 MG CAP PO SCH (09:12)
[2020-03-28] MEDS: APIXABAN 5 MG TABLET PO SCH (09:12)
[2020-03-28] MEDS: PANTOprazole 40 MG TAB PO SCH (09:12)
[2020-03-28] MEDS: SACCHAROMYCES BOULARDII 250 MG CAP PO SCH (09:13)
[2020-03-28] MEDS: UMECLIDINIUM BROMIDE 62.5MCG/BLISTER 7 PUFFS/INHALER INH SCH (09:13)
--- NOTE | 2020-03-28 10:33 | Discharge Summary ---
Date of Service date of admission - March 23, 2020 date of discharge - March 28, 2020 Admission HPI Per Admitting Provider 75yo male with history of a.fib, CAD, DVT -- presents with 7-10 days of illness. His initial symptom was anorexia early on in the illness followed by fevers of 99-99.5. Has had chills and fatigue. No headache or myalgias. He then developed diarrhea about twice daily. Stools have been watery and bloody. Minimal abdominal pain. Has baseline shortness of breath - his dyspnea has not been worse than such. Some mild, dry cough. Has had no loss of taste or smell. No recent travel. Once a week he typically goes to the grocery store. No sick contacts. Lives with and son - neither have fever, diarrhea or infectious symptoms. Son was living in [facility] up until December 2019 but has not been back to [place] since then. Has been checked for COVID-19 -- had testing Friday of this week; found out today he was negative. Principal Diagnosis severe sepsis - etiology uncertain Discharge Exam Constitutional + morbidly obese; no acute distress and no altered mental status ENMT external ear and nose normal, oropharynx normal Neck trachea midline, no thyromegaly Respiratory normal respiratory effort, lungs clear to auscultation no respiratory distress Cardiovascular Rate/Rhythm: regular rate and + irregularly irregular Heart Sounds: normal S1 and normal S2; no murmur Vessels: posterior tibial pulses present and dorsalis pedis pulses present; no JVD Extremities: no edema Gastrointestinal (Abdomen) normal bowel sounds, soft, nontender, no hepatosplenomegaly Skin no rashes, warm and dry Neurologic moves all extremities Psychiatric A+Ox3, euthymic affect Discharge Data Allergies Allergy/AdvReac Type Severity Reaction Status Date / Time No Known Allergies Allergy Verified 03/23/20 12:21 Consultations 1. Hematology - Jeb Lyles DO 2. Video Production Coordinator - Davide Parr MD 3. Gastroenterology - [facility] - Slava Darden MD 4. PT, OT Procedures Performed Operation Date: 03/27/20 Actual Procedures Colonoscopy with Polypectomy - Slava Darden MD Impression: - The examined portion of the ileum was normal. - One 5 mm polyp at the hepatic flexure, removed using lift and cut and a cold snare. Resected and retrieved. - One 5 mm polyp in the sigmoid colon, removed using lift and cut and a cold snare. Resected and retrieved. - Internal hemorrhoids. - Stool in the entire examined colon. - The ascending colon is normal. Biopsied. - The examination was otherwise normal on direct and retroflexion views. Recommendation: - Repeat colonoscopy within 3 months because the bowel preparation was suboptimal. Ordered Studies 03/23/20 11:02 CT abd pelvis wo con Stat IMPRESSION: 1. No urinary calculi or hydronephrosis. 2. Exam mildly compromised by streak artifact. No acute findings within the abdomen or pelvis on unenhanced exam. 3. 3.1 cm infrarenal abdominal aortic aneurysm. 4. Mild airspace opacities within the lower lungs which favor atelectasis although an infectious process could appear similar. 03/23/20 11:24 CT head/brain wo con Stat FINDINGS: No acute intracranial hemorrhage, midline shift, intra-axial mass, hydrocephalus, territorial ischemia or abnormal extra-axial collection. 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 7 mm calcified focus is noted involving the inner table of the skull adjacent to left frontal lobe on image 21 series two. Cerebral vascular calcifications. The calvarium is intact. Large subcutaneous lipoma of the left suboccipital distribution redemonstrated measuring over 6 cm. Partially imaged mucosal thickening of the left maxillary sinus. Mastoid air cells are clear. Prior bilateral lens replacement. IMPRESSION: No acute intracranial abnormality. 03/23/20 14:19 CT chest wo con Routine FINDINGS: Chronic bibasilar atelectatic change superimposed upon chronic basilar bronchiectatic change. Chronic pleural thickening at the lung bases. Scattered areas of thickening of the major fissures bilaterally. All findings appear stable. There are no new or interval findings. Several small reactive mediastinal nodes are present which are diminished in prominence from the prior study. Hospital Course (1) Severe sepsis: Resolved with IV fluids, supportive care, and time. Needed admission to ICU for 24 hours but pressors were never required for BP support. ?tick-borne disease as cause of severe sepsis? Etiology was still uncertain despite extensive work-up as below -- [employer] respiratory panel was negative. COVID-19 PCR negative x 2 over the course of [address] abd/pelvis without source of infection. C diff negative. Lyme was negative. Stool culture negative. Blood cultures negative Other possibilities included non-Lyme tick-borne infection (anaplasmosis DNA sent and still pending at time of discharge- remains on doxycycline empirically). Other viral processes possible as well (EBV, CMV, etc) but we did not test for such. Norovirus stool testing was sent and was still pending at discharge. Other issues including elevated AST/ALT continued to improve and were nearly normal at discharge. Low platelet count resolved. Colonoscopy by [facility] without colitis. COVID-19 serological IgG ab test to see if he could have had false negative COVID-19 PCR was dispatched on day of discharge. Plan: To cover for the possibility of a tick-borne disease (anaplasmosis, etc) he will complete a 14-day course of doxycycline. He received 5 days of such while hospitalized and will finish 9 more days at home. (2) TED (acute kidney injury): sepsis-associated ATN - resolved. Peak Cr 2.5. Discharge Cr 1.2. (3) Metabolic encephalopathy: 2nd sepsis - resolved. mental status returned to baseline. (4) Sepsis associated hypotension: Resolved with IV fluids and supportive care. (5) Hyponatremia: hypovolemic hyponatremia from poor oral intake, diarrhea, etc. Lowest Na was 128. Resolved; 142 at discharge. (6) Hypokalemia: 2nd to diarrhea - resolved (7) Thrombocytopenia: etiology uncertain but resolved. could have been due to viral process or tick-borne process (anaplasmosis, EBV, CMV, etc). anaplasmosis DNA sent; still pending. remains on empiric doxycycline to cover for such. lowest platelet count was 69, improving to >250 at discharge. seen by hematology for this issue - TTP/HUS was NOT suspected at any time. (8) Afib: stable, permanent/chronic. remains on beta etelvina for rate control. stable on eliquis. (9) Coronary artery disease: with h/o NSTEMI and stent. Cont asa. Lipitor was held at admission due to abnormal LFTs but given the nice improvement with the AST/ALT the lipitor was resumed at discharge. troponin elevation likely myocardial demand ischemia in setting of sepsis (at time of admission). (10) Bloody stools: resolved. this occurred just prior to admission. stool cx neg. c diff neg. norovirus pending. colonoscopy with 2 polyps but no colitis. repeat colonoscopy as outpatient advised as prep was poor. Needs to f/u with Dr Darden. bloody stools could have been from diarrhea in the setting of eliquis usage. (11) Transaminitis: etiology? infectious? (anaplasmosis, viral, etc) due to severe sepsis / hypotension / "shock liver"? other? regardless of etiology ast/alt cont to improve. Both nearly normal at discharge. appreciate GI input. noted that ferritin was high at admission ([id number]) - will need repeat as outpatient to ensure this was an acute phase reactant and not due to underlying hemachromatosis. 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 cont eliquis. (17) Morbid obesity with BMI of 40.0-44.9, adult: BMI 43 Total Time Total Time Spent Total Time Spent (In Minutes): 45 Total Time Includes: Examination of the Patient, Discharge Planning, Medication Reconciliation and Communication With Other Providers Discharge Plan Discharge Items Patient Disposition: Home - Self-Care Reason For Visit: FEVER Discharge Diagnosis: 1. febrile illness - resolved. Exact cause uncertain. COVID testing x 2 both negative. Lyme testing negative. Stool culture negative. C diff testing negative. Blood cultures negative. Respiratory panel looking for common viruses & bacteria negative. No evidence of pneumonia or urinary infection. At time of discharge - anaplasmosis (a tick-borne disease) test is pending; COVID-19 blood antibody test is pending. Norovirus stool test pending. 2. low platelets - due to #1 - resolved 3. abnormal liver function tests - MUCH improved - exact cause uncertain but likely due to #1 Activity: As commented below Activity Comment: gradually increase activity over the next 5 days Non-emergency contact: Primary Care Provider, Key Bed Installer and Cooking Show Host Call non-emergency contact if: you have any medication questions, your symptoms worsen and you have a fever Follow-up/Referrals: [facility] [Provider Group] (see [facility] [place] [facility] [place]- chronic systolic congestive heart failure ) Slava Darden [Physician] - (schedule repeat colonoscopy with Dr Darden within 3-4 weeks ) Stevie Higginbotham MD [Primary Care Provider] - 04/03/20 1:30 pm (see Dr Higginbotham within 1 week) Diet: Heart Healthy Fluids: 1800ml (7 cups) Addtl Attending Provider Instructions: You were treated for a febrile illness ("sepsis") with IV fluids, antibiotics, and supportive care. You underwent an extensive work-up while hospitalized looking for the cause of your infection/illness (see "discharge diagnoses" above for more details). With time your symptoms improved, your appetite got better, and your labs began to normalize. We never found the specific cause of your illness. It is believed you had either a viral infection or a tick-borne illness. Viruses don't have anti-dotes and simply improve with time. We have given you doxycycline empirically to cover for the possibility that your illness was due to a tick-borne illness such as anaplasmosis. You underwent colonoscopy because of diarrhea and blood in your stools. This showed 2 polyps but no other cause of your bloody stools/diarrhea. Dr Darden would like for you to have a repeat colonoscopy in a few weeks/months to get a better look at the inside of your colon. Lastly, you underwent an echocardiogram that showed that your heart function ("ejection fraction") was 30-35%. Average is about 60-65%, and down to 50% is considered normal. This reduction in the heart pumping ability is called congestive heart failure. Congestive heart failure can lead to water retention in the lungs, abdomen, and legs. You did not have water retention while here. You will need to see your charge out clerk at [facility] for ongoing monitoring of this condition and for ongoing treatment. Weight yourself every morning on the same scale. If you gain more than 2-3 pounds in 1-2 days please let your family doctor or your charge out clerk know right away as this is a sign of fluid retention. Recommendations - 1. take doxycycline 100mg twice daily for 9 more days; start this TONIGHT; this is to cover for tick-borne disease * doxycycline can cause heartburn * it can also cause a rash if you go out in the sun while taking it; thus, cover up and use sunscreen 2. take probiotics for 10 days to prevent diarrhea from your antibiotics 3. STOP your losartan for now 4. no tylenol until your repeat liver function tests are done as an outpatient 5. no alcohol until your repeat liver function tests are done as an outpatient Follow-up - see separate section Return to [facility] if - * you have recurrent fevers over 100.4 degrees * you have worsening shortness of breath * you have chest pains * you have dizziness or lightheadedness * you have severe diarrhea * any other concerns Pending Studies at Discharge: Yes Studies:: 1. COVID-19 antibody test 2. norovirus test 3. anaplasmosis test Stand-Alone Forms: My [facility], Smoking Cessation Medications and DC Order Prescriptions: New doxycycline hyclate 100 mg Capsule 100 mg PO BID 9 Days Qty: 18 RF: 0 Saccharomyces boulardii [Florastor] 250 mg Capsule 250 mg PO DAILY 10 Days Qty: 10 RF: 0 Continued apixaban [Eliquis] 5 mg tablet 5 mg PO BID RF: 0 atorvastatin [Lipitor] 80 mg tablet 80 mg PO HS RF: 0 docusate sodium [Colace] 100 mg capsule 100 mg PO QAM PRN (Reason: takes with tramadol) RF: 0 doxazosin 8 mg tablet 8 mg PO PM RF: 0 tramadol 50 mg tablet 50 mg PO Q4H PRN (Reason: Pain) RF: 0 metoprolol succinate 50 mg tablet extended release 24 hr 25 mg PO PM RF: 0 finasteride 5 mg tablet 5 mg PO PM RF: 0 indapamide 2.5 mg tablet 2.5 mg PO QAM RF: 0 aspirin [Adult Aspirin Regimen] 81 mg tablet,delayed release (DR/EC) 81 mg PO PM RF: 0 albuterol sulfate 90 mcg/actuation HFA aerosol inhaler 2 puff INH Q6H PRN (Reason: Shortness Of Breath Or Wheezing) Qty: 18 RF: 0 Incruse Ellipta 62.5 mcg/actuation blister with device 1 inh INH QAM RF: 0 Discontinued losartan 50 mg tablet 50 mg PO QAM RF: 0 Discharge Orders: Discharge Order (Routine); Ordered 03/28/20 Ordered By: Efrain Rudd Admission Data Admit Date/Time: 03/23/20 13:33 Attending Provider: Efrain Rudd Admit Provider: Efrain Rudd Primary Care Provider: Stevie Higginbotham Other Providers: Davide Parr ; Joaquín Brannon ; Efrain Rudd ; Slava Darden Other Interventions: Discharge Summary Assessment (RN) Last Done: 03/28/20 11:14 DC Date/Time DO NOT enter until pt leaves facility: 03/28/20 12:34 Coding Level of Care Code D/C Day Management >30 mins Diagnoses Severe sepsis A41.9; R65.20 TED (acute kidney injury) N17.9 Metabolic encephalopathy G93.41 Sepsis associated hypotension A41.9; I95.9 Hyponatremia E87.1 Hypokalemia E87.6 Thrombocytopenia D69.6 Afib I48.91 Atrial fibrillation type: unspecified Coronary artery disease I25.10 Associated angina: without angina Coronary Disease-Associated Artery/Lesion type: [place] artery [place] vs. transplanted heart: [place] heart Bloody stools K92.1 Transaminitis R74.0 History of coronary artery stent placement Z95.5 Hypertension I10 Hypertension type: essential hypertension COPD with emphysema J43.9 Emphysema type: unspecified AMPARO (obstructive sleep apnea) G47.33 History of pulmonary embolus (PE) Z86.711 Morbid obesity with BMI of 40.0-44.9, adult E66.01; Z68.41
--- NOTE | 2020-03-29 09:47 | Communication Note ---
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 Of note - patient had received 5 days of doxycycline while hospitalized and improved with such. 9 additional days of doxycycline was sent home with patient at discharge. Called and spoke with his this am. 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 Recommended he complete the 9 additional days of doxy. Discussed tick bite prevention, etc. Referred her to [facility] or [facility] websites for more infor on anaplasmosis. She voiced understanding of the above. Anaplasmosis explains entire clinical presentation of recent hospital stay (abnormal LFTs, low platelets, fevers, diarrhea, anorexia, weakness, etc). Efrain Rudd MD
== END 2020-03-28 12:34 | disposition home or self-care (01) | DRG 871 ==
LOC: ED 10:17 → SUATTDRO 13:33 → 1E 13:33 → 2S 03-25 21:06

== ENCOUNTER 2024-04-24 09:34 | Inpatient (IN) ==
--- NOTE | 2024-04-24 09:44 | Emergency Department Note ---
Impression & Plan ST elevation PR (STEMI) ED Provider Note Provider: Sven Deluca MD DATE OF SERVICE: 04/24/2024 CHIEF COMPLAINT: Chest pain and pressure HISTORY OF PRESENT ILLNESS: Patient is a 79-year-old gentleman history of A-fib on Eliquis, obesity, hypertension and CAD with stents presenting here today with onset of pain approximate hour ago after going up a short incline to a yard sale. Has not had any chest pain in the recent outpatient setting but has been breaking out mowing the yard and the smaller segments. Significant pain and pressure in his chest states feels similar to prior heart attacks. Stents some years ago. States compliance with home medication. For EMS patient given 324 mg of aspirin as well a total of 100 mcg of fentanyl for some pain control due to discomfort. Blood pressures were borderline in the 90s systolic for EMS and did not receive nitroglycerin. Pain upon arrival has improved according to him but some tightness in the chest and throat does persist. PAST MEDICAL HISTORY: As noted above MEDICATIONS: Reviewed home medications SOCIAL HISTORY: , distant former smoker PHYSICAL EXAM: GENERAL: alert and oriented resting with eyes closed appears fatigued and pale Head: normocephalic and atraumatic EYES: No injection, discharge or icterus. NECK: Trachea midline. Supple. ENT: Mucous membranes pink and moist. LUNGS: Airway patent. No retractions. Breath sounds clear HEART: Regular rate and rhythm. No chest wall tenderness ABDOMEN: Soft and non-tender, without guarding or rebound. SKIN: Acyanotic but a little bit diaphoretic and pale. EXTREMITIES: Without swelling, tenderness or deformity NEUROLOGICAL: No focal deficits following commands. No aphasia. No facial droop or slurred speech. EK bpm sinus rhythm without PVC. Inferior ST segment elevation with a QTc of 454. CONTINUOUS CARDIAC MONITORING: was ordered and showed a heart rate of 60s-70s bpm in sinus rhythm Patient's laboratory studies and imaging reviewed. Differential includes Cardiac ischemia, aortic dissection, pulmonary embolism, pneumothorax, pneumonia, pericarditis, myocarditis, esophageal rupture, GERD, cholecystitis, pancreatitis, musculoskeletal, as well as other pathologies. IMPRESSION/MEDICAL DECISION MAKING: From prehospital EKG heart alert was called. Upon arrival patient has inferior ST segment elevation with depression in aVL concerning for STEMI. Received aspirin prior to arrival. Is on Eliquis normally. Pain is improving upon arrival. Tenuous blood pressure prior to arrival will hold off on nitroglycerin although blood pressure does improve some here. Pain symptoms have decreased. Basic blood work obtained. Chest x-ray obtained as well without evidence of significant pneumothorax or widened mediastinum obvious. Basic blood work sent. Interventional cardiology evaluated the patient in the ER and proceeded to take the patient to the cardiac catheterization lab for further care. Hospitalist was made aware of the patient. Blood work here without initial significant abnormality. DIAGNOSIS: STEMI DISPOSITION: Taken to the cardiac catheterization lab for further evaluation and care Critical Care I have personally spent 31 minutes of critical care time in the direct management of this patient. This includes bedside care, interpretation of diagnostic studies, and testing, discussion with consultants, patient, and family members, and other required patient management activities. These 31 minutes is in excess of all separately billable procedures. Past Med/Surg History Problem List (Updated 04/24/24 @ 11:01 by Sven Deluca M.D.) ST elevation PR (STEMI) (Acute) Obesity Facet arthritis of lumbar region Disc degeneration, lumbar L4-5 Protrusion of thoracic intervertebral disc Low back pain Lung nodule Cauda equina syndrome with neurogenic bladder Esophageal dysphagia Encounter for pre-operative examination Acute deep vein thrombosis (DVT) of right peroneal vein (Acute) "Diagnosed April 08, 2018" Traumatic hematoma of lower leg with infection Chest pain Cellulitis, leg (Acute) Coronary artery disease (Chronic) Obesity (BMI 30-39.9) (Chronic) Right leg DVT (Chronic) Afib (Acute) AMPARO (obstructive sleep apnea) History of pulmonary embolus (PE) Exertional shortness of breath Morbid obesity with BMI of 40.0-44.9, adult Pulmonary hypertension Hypersomnia Allergic rhinitis with postnasal drip Bronchitis Benign prostatic hyperplasia Lumbar disc disease Dysuria Abscess Infected cyst of skin Lipoma of scalp Prostatitis Dermatitis Hematuria, microscopic Nocturia Erectile dysfunction GERD (gastroesophageal reflux disease) Abdominal pain Abnormal finding on GI tract imaging Dyslipidemia History of removal of cyst (01/07/23) FINAL DIAGNOSIS: In office procedure 01/07/2023 Dr. Lyn Skin, upper mid back, excision: - Ruptured epidermoid cyst History of coronary artery stent placement NSTEMI (non-ST elevated myocardial infarction) 2017 Hypertension (Chronic) COPD with emphysema Multiple pulmonary nodules Medical History (Updated 04/24/24 @ 11:01 by Sven Deluca M.D.) Lumbar disc disease Osteoarthritis Chronic back pain Dysphagia GERD (gastroesophageal reflux disease) AAA (abdominal aortic aneurysm) CT at [place] 04/2023 History of pulmonary embolism 2017 post op Atrial fibrillation on Eliquis CAD (coronary artery disease) Follows with Dr. Leigh History of anesthesia reaction elevated BP and HR following colonoscopy at [place] approx 5-6 years ago. refused hospital admission. History of alcoholism quit 40 years ago SOB (shortness of breath) on exertion Hypertension Acute DVT of right tibial vein "Diagnosed April 08, 2018" Surgical History History of cardiac catheterization 2017 - PR - 1 stent History of hand surgery Rt History of wisdom tooth extraction H/O detached retina repair Rt History of cataract surgery History of colonoscopy H/O exploratory laparotomy due to [facility] [place] (had gastric injury - he doesn't remember details) Family History Father Heart disease Myocardial infarction Stroke Mother Lung disease Heart disease Myocardial infarction Stroke Family/Other Hypertension Son Myocardial infarction Other COPD (chronic obstructive pulmonary disease) Denies family history of Ovarian cancer Prostate cancer Breast cancer Lung cancer Colorectal cancer Social History Smoking Status: Former smoker Tobacco Type: Cigarettes Age Started Using Tobacco: 20; Age Quit Using Tobacco: 36; packs per day: 1.5; Second Hand Exposure: No; Do You Dip or Chew Tobacco: No; Hx Alcohol Use: No (Quit 40 years ago -- hx alcoholism) Hx Substance Use: Yes (H/O marijuana use) Non-Prescribed Medications: Amphetamines, Hallucinogens and Marijuana Substance Use Type Other:: quit 40 years ago Preferred Language: Wolof Communication Ability: Effective Visual Impairment: Limited Hearing Ability: Hard of Hearing Fabric Worker Required: No Beliefs That Will Affect Care: None marital status: Current Living Situation: Spouse Current Living Situation Comment: lives with in [place] current occupational status: retired How many Children do You have: 1 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 [place] Feels Safe at Home: Yes Childhood Exposure to Second-Hand Smoke: Yes Diet: regular caffeine: Yes during the past year weight has: decreased > 10 lbs Dental Care, Regularly: No Physical Activity Frequency: 1-2 Times per Week Physical Activity Frequency Comment: walks 4-5 miles per week Seatbelt Use: always Sunscreen Use: No Assistive Devices: Cane and Glasses Allergies Allergies Allergy/AdvReac Type Severity Reaction Status Date / Time No Known Drug Allergies Allergy Verified 01/13/24 11:08 Home Meds Home Medications Medication Instructions Recorded Confirmed docusate sodium 100 mg capsule 100 mg PO QPM PRN Constipation 06/04/18 04/24/24 (Colace) acetaminophen 325 mg capsule 325 mg PO QID PRN Pain 01/07/23 04/24/24 (Tylenol) famotidine 20 mg tablet (Pepcid) 20 mg PO UD PRN gerd 01/07/23 04/24/24 simethicone 125 mg capsule (Gas-X 125 mg PO DAILY PRN Gi Upset 01/07/23 04/24/24 Extra Strength) atorvastatin 40 mg tablet 40 mg PO QAM 07/02/23 04/24/24 mometasone 0.1 % topical cream 1 applic topical DAILY PRN ud 07/02/23 04/24/24 triamcinolone acetonide 0.1 % 1 applic topical DAILY 08/06/23 04/24/24 topical ointment umeclidinium 62.5 mcg/actuation 1 inh inhalation QAM 04/24/24 04/24/24 blister powder for inhalation (Incruse Ellipta) Previous Rx's Medication Instructions Recorded Flutter Valve #1 ea 12/20/22 ergocalciferol (vitamin D2) 1,250 1,250 mcg PO .Twice Weekly #30 caps 03/18/23 mcg (50,000 unit) capsule (Vitamin D2) apixaban 5 mg tablet (Eliquis) 5 mg PO BID #180 tabs 05/07/23 metoprolol succinate 25 mg 25 mg PO QPM #90 tabs 08/05/23 tablet,extended release 24 hr doxazosin 8 mg tablet 8 mg PO PM #90 tabs 08/06/23 pantoprazole 40 mg tablet,delayed 40 mg PO QAM #90 tabs 09/04/23 release albuterol sulfate 90 mcg/actuation 2 puff inhalation Q6H PRN 10/23/23 aerosol inhaler Shortness Of Breath Or Wheezing #18 grams ipratropium 0.5 mg-albuterol 3 mg 3 ml inhalation Q8H PRN shortness 10/23/23 (2.5 mg base)/3 mL nebulization of breath or wheezing #180 mL soln nebulizers (Aeroneb Go Nebulizer) #1 ea 10/23/23 vibegron 75 mg tablet (Gemtesa) 75 mg PO DAILY #90 tabs 01/13/24 indapamide 2.5 mg tablet 2.5 mg PO QAM #90 tabs 02/18/24 tramadol 50 mg tablet 50 mg PO TID PRN pain #90 tabs 03/16/24 Results & Data (ED) Vital Signs Vital Signs - 24 hr 04/24/24 09:37 04/24/24 09:37 04/24/24 09:37 Temperature 36.5 C Temperature Source Oral Pulse Rate 70 Pulse Rate from SpO2 Sensor Respiratory Rate 18 Respiratory Effort / Characteristics Spontaneous Respiratory Depth Normal Blood Pressure 126/86 Blood Pressure Mean 99 Pulse Oximetry 87 L Oxygen Delivery Method Room Air Nasal Cannula Nasal Cannula Oxygen Flow Rate 4 0 Fraction of Inspired Oxygen 87 Sepsis Recent Fever Within 48 Hours No Sepsis New/Unexplained Change in Mental Status No Sepsis Action Taken by Nursing No Action Required Oxygen Flow Rate - Titration 4 Pulse Oximetry Post Tiitration 94 04/24/24 09:37 04/24/24 09:40 04/24/24 09:42 Temperature Temperature Source Pulse Rate 67 71 Pulse Rate from SpO2 Sensor Respiratory Rate 18 Respiratory Effort / Characteristics Respiratory Depth Blood Pressure 126/86 124/88 Blood Pressure Mean 99 104 Pulse Oximetry Oxygen Delivery Method Oxygen Flow Rate Fraction of Inspired Oxygen Sepsis Recent Fever Within 48 Hours Sepsis New/Unexplained Change in Mental Status Sepsis Action Taken by Nursing Oxygen Flow Rate - Titration Pulse Oximetry Post Tiitration 04/24/24 09:48 04/24/24 09:50 04/24/24 09:52 Temperature Temperature Source Pulse Rate 70 Pulse Rate from SpO2 Sensor 71 Respiratory Rate Respiratory Effort / Characteristics Respiratory Depth Blood Pressure 123/77 131/71 Blood Pressure Mean 92 84 Pulse Oximetry 95 95 Oxygen Delivery Method Nasal Cannula Oxygen Flow Rate 4 Fraction of Inspired Oxygen Sepsis Recent Fever Within 48 Hours Sepsis New/Unexplained Change in Mental Status Sepsis Action Taken by Nursing Oxygen Flow Rate - Titration Pulse Oximetry Post Tiitration Laboratory Data 04/24/24 09:41 04/24/24 09:41 Lab Results 07/20/24 07/20/24 07/20/24 Range/Units 09:41 09:45 09:51 WBC 8.31 (4.8-10.8) K/ul RBC 5.28 (4.70-6.10) M/uL Hgb 13.8 L (14.0-18.0) g/dl POC Hgb 13.9 L (14.0-18.0) g/dl Hct 43.7 (42.0-52.0) % POC Hct 41 L (42-52) % MCV 82.8 (80.0-100.0) fL MCH 26.1 (25.0-34.0) pg MCHC 31.6 L (32.0-36.0) g/dL RDW Std Deviation 51.2 H (36.4-46.3) fL RDW Coeff of Abigail 17.2 H (11.5-14.5) % Plt Count 164 (130-400) K/uL MPV 12.3 (9.4-12.4) fL Immature Gran % (Auto) 0.5 % Neut % (Auto) 62.8 % Lymph % (Auto) 18.3 % Leake % (Auto) 12.0 % Eos % (Auto) 6.0 % Baso % (Auto) 0.4 % Neut # (Auto) 5.22 (1.40-6.50) K/uL Lymph # (Auto) 1.52 (1.20-3.40) K/uL Leake # (Auto) 1.00 H (0.11-0.59) K/uL Eos # (Auto) 0.50 (0.00-0.50) K/uL Baso # (Auto) 0.03 (0.00-0.20) K/uL Immature Gran # (Auto) 0.04 (0.01-0.20) K/uL PT 11.5 (9.0-12.0) Seconds INR 1.1 (0.9-1.1) APTT 25 (21-31) Seconds PTT Ratio 0.9 POC Sodium 141 (135-144) mmol/L Sodium 140 (136-145) mmol/L POC Potassium 3.7 (3.3-5.0) mmol/L Potassium 3.7 (3.5-5.1) mmol/L POC Chloride 104 (101-112) mmol/L Chloride 107 (98-107) mmol/L Carbon Dioxide 27 (21-32) mmol/L POC Total CO2 24 (24-31) mmol/L Anion Gap 6 (3-11) POC Anion Gap 18.0 (16-25) mmol/L POC BUN 22 H (7-18) mg/dl BUN 22 (6-23) mg/dl Creatinine 1.09 (0.6-1.4) mg/dl POC Creatinine 1.3 (0.6-1.3) mg/dl Est Cr Clr Drug Dosing 76.5 ml/min Est GFR ( Amer) 75.5 ml/min Est GFR (Non-Af Amer) 65.1 ml/min BUN/Creatinine Ratio 20.2 H (10-20) Glucose 133 H (70-99(Fasting)) mg/dl POC Glucose (other) 131 H (70-99) mg/dl Calcium 8.4 L (8.6-10.3) mg/dl POC Ioniz Calcium Jose F 1.12 (1.12-1.32) mmol/l Magnesium 1.8 (1.7-2.4) mg/dl Total Bilirubin 0.6 (0.2-1.0) mg/dl AST 15 (13-39) U/L ALT 14 (7-52) U/L Alkaline Phosphatase 76 (34-104) U/L Total Creatine Kinase 72 (30-223) U/L Troponin I High Sens 13.1 (0-20) pg/ml B-Natriuretic Peptide 155 H (0-100) pg/ml Total Protein 6.2 (6.0-8.3) gm/dl Albumin 3.5 (3.4-5.0) gm/dl Globulin 2.7 (2.5-4.0) gm/dl Albumin/Globulin Ratio 1.3 (0.9-2) Lipase 26 (11-82) U/L TSH 1.651 (0.300-4.500) uIu/ml SARS-CoV-2, RNA, NAAT NEGATIVE (NEGATIVE) Administered Medications Discontinued Medications Amiodarone HCl/Dextrose (Amiodarone 150mg / 100ml D5w (License Distributor Use Only)) Confirm Administered Dose 150 mg IV .Viigo-MED ONE Stop: 04/24/24 10:10 Last Admin: 04/24/24 10:41 Dose: 150 mg Documented By: RAE Amiodarone HCl/Dextrose (Amiodarone 360mg / 200ml D5w (License Distributor Use Only)) Confirm Administered Dose 360 mg IV .Viigo-Intellitix ONE Stop: 04/24/24 10:26 Last Admin: 04/24/24 10:41 Dose: 360 mg Documented By: RAE Diphenhydramine HCl (Diphenhydramine 50 Mg/Ml Vial) Confirm Administered Dose 50 mg .ROUTE .Viigo-Intellitix ONE Stop: 04/24/24 10:35 Last Admin: 04/24/24 10:42 Dose: 50 mg Documented By: ARE Nicardipine HCl (Nicardipine Hcl Inj 2.5 Mg/Ml 10 Ml Amp) Confirm Administered Dose 25 mg .ROUTE .Viigo-Intellitix ONE Stop: 04/24/24 09:50 Last Admin: 04/24/24 10:40 Dose: 25 mg Documented By: RAE Nitroglycerin/Dextrose (Nitroglycerin/D5w 100mcg/Ml 20ml Syr) Confirm Administered Dose 2,000 mcg .ROUTE .Viigo-Intellitix ONE Stop: 04/24/24 09:50 Last Admin: 04/24/24 10:41 Dose: 2,000 mcg Documented By: RAE Imaging Data Radiologist's Impression: Chest X-Ray 04/24/24 09:38 XR chest 1V portable CLINICAL HISTORY: Chest pain, nonspecific TECHNIQUE: Single frontal radiograph of the chest was obtained. Comparison: Comparison is made to chest radiograph 03/23/2020 FINDINGS: No lines and tubes are seen. Cardiomegaly is noted. The aortic arch is calcified. The lungs are clear. No evidence of pleural effusion or pneumothorax. IMPRESSION: No acute chest disease. Cardiomegaly is noted. ACT 112: Negative or not required by law. Electronically signed by: Joaquín Roberson M.D. 04/24/2024 9:52 AM Discharge Plan Visit Data Chief Complaint: Heart Alert Stated Complaint: CHEST PAIN, HEART ALERT ED Provider: Sven Deluca Discharge Problem: ST elevation PR (STEMI) Patient Disposition: Being Evaluated by Hospitalist Discharge Instructions Interventions: ED Discharge Assessment Last Done: 04/24/24 10:03 Discharge Problem: ST elevation PR (STEMI) Qualifiers: Involved coronary artery: right coronary artery Qualified Code(s): I21.11 - ST elevation (STEMI) myocardial infarction involving right coronary artery
--- NOTE | 2024-04-24 09:54 | XRay Report ---
XR chest 1V portable CLINICAL HISTORY: Chest pain, nonspecific TECHNIQUE: Single frontal radiograph of the chest was obtained. Comparison: Comparison is made to chest radiograph 03/23/2020 FINDINGS: No lines and tubes are seen. Cardiomegaly is noted. The aortic arch is calcified. The lungs are clear . No evidence of pleural effusion or pneumothorax. IMPRESSION: No acute chest disease. Cardiomegaly is noted. ACT 112: Negative or not required by law. Electronically signed by: Joaquín Roberson M.D. 04/24/2024 9:52 AM
[2024-04-24 09:58] LABS: iSTAT Creatinine 1.3 mg/dl (0.6-1.3); iSTAT Hemoglobin 13.9 g/dl (14.0-18.0); iSTAT Ionized Calcium 1.12 mmol/l (1.12-1.32); iSTAT Potassium 3.7 mmol/L (3.3-5.0)
--- NOTE | 2024-04-24 10:03 | Pre Anesthesia Assessment ---
Date of Service April 24, 2024 Pre Sedation Assessment Vital Signs Temp Pulse Resp BP Pulse Ox O2 Del Method O2 Flow Rate 04/24/24 09:52 95 Nasal Cannula 4 04/24/24 09:50 131/71 04/24/24 09:48 70 123/77 95 04/24/24 09:42 71 04/24/24 09:40 124/88 04/24/24 09:37 67 18 126/86 04/24/24 09:37 Nasal Cannula 0 04/24/24 09:37 Nasal Cannula 4 04/24/24 09:37 97.7 F 70 18 126/86 87 L Room Air FiO2 04/24/24 09:52 04/24/24 09:50 04/24/24 09:48 04/24/24 09:42 04/24/24 09:40 04/24/24 09:37 04/24/24 09:37 87 04/24/24 09:37 04/24/24 09:37 Cardiovascular + regular rate Respiratory + respiratory effort normal Pre-Sedation Airway Assessment Smoking Status: Former smoker Hx Sleep Apnea: No Hx Difficult Intubation: No Short, Thick Neck: Yes Thyromental Distance: < 3.5 Finger Breadths Oral Cavity: + Dental Abnormalities Mallampati Class: III ASA: ASA3 Procedure Planning Contraindications for Sedation: none Current Medications Reviewed: Yes Notes The planned sedation has been discussed with the patient. Informed Consent was obtained. I have identified the patient, determined the appropriateness of sedation and have assessed the patient immediately prior to the procedure. All medicine(s) and interventions are by my order.
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
[2024-04-24 10:09] LABS: Basophils # (auto) 0.03 K/uL (0.00-0.20); Basophils % (auto) 0.4 %; Hematocrit (blood only) 43.7 % (42.0-52.0); Hemoglobin 13.8 g/dl (14.0-18.0); Immature Granulocytes # (auto) 0.04 K/uL (0.01-0.20); Immature Granulocytes % (auto) 0.5 %; Lymphocytes # (auto) 1.52 K/uL (1.20-3.40); Lymphocytes % (auto) 18.3 %; Mean Corpuscular Hemoglobin 26.1 pg (25.0-34.0); Mean Corpuscular Hgb Conc 31.6 g/dL (32.0-36.0); Mean Corpuscular Volume 82.8 fL (80.0-100.0); Mean Platelet Volume 12.3 fL (9.4-12.4); Neutrophils # (auto) 5.22 K/uL (1.40-6.50); Neutrophils % (auto) 62.8 %; Platelet Count 164 K/uL (130-400); RDW Coefficient of Variation 17.2 % (11.5-14.5); RDW Standard Deviation 51.2 fL (36.4-46.3); Red Blood Count 5.28 M/uL (4.70-6.10); White Blood Count 8.31 K/ul (4.8-10.8)
[2024-04-24 10:22] LABS: INR 1.1 (0.9-1.1); Partial Thromboplastin Ratio 0.9; Partial Thromboplastin Time 25 Seconds (21-31); Prothrombin Time 11.5 Seconds (9.0-12.0)
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
[2024-04-24 10:32] LABS: Albumin Globulin Ratio 1.3 (0.9-2); Albumin Level 3.5 gm/dl (3.4-5.0); BUN Creatinine Ratio 20.2 (10-20); Bilirubin,Total 0.6 mg/dl (0.2-1.0); Calcium 8.4 mg/dl (8.6-10.3); Creatinine Clr Calc Pharmacy 76.5 ml/min; Est GFR (African American) 75.5 ml/min; Est GFR (Non-African American) 65.1 ml/min; Globulin 2.7 gm/dl (2.5-4.0); Magnesium 1.8 mg/dl (1.7-2.4); Potassium 3.7 mmol/L (3.5-5.1); Total Protein 6.2 gm/dl (6.0-8.3)
[2024-04-24 10:38] LABS: Troponin I High Sensitivity 13.1 pg/ml (0-20)
[2024-04-24] MEDS: niCARdipine HCL INJ 2.5 MG/ML 10 ML AMP ONE (10:40)
[2024-04-24] MEDS: NITROGLYCERIN/D5W 100MCG/ML 20ML SYR ONE (10:41)
[2024-04-24] MEDS: AMIODARONE 150MG / 100ML D5W (CATH LAB USE ONLY) IV ONE (10:41)
[2024-04-24] MEDS: AMIODARONE 360MG / 200ML D5W (CATH LAB USE ONLY) IV ONE (10:41)
[2024-04-24] MEDS: diphenhydrAMINE 50 MG/ML VIAL ONE (10:42)
[2024-04-24] MEDS: AMIODARONE / D5W 360 MG/200 ML BAG IV ONE (10:45)
[2024-04-24 10:47] LABS: Thyroid Stimulating Hormone 1.651 uIu/ml (0.300-4.500)
[2024-04-24] MEDS: fentaNYL citrate PF 100 MCG/2 ML VIAL ONE (11:27)
[2024-04-24] MEDS: HEPARIN (PORCINE) 1000 UNIT/ML 10 ML (CATH LAB USE ONLY) ONE (11:28)
[2024-04-24] MEDS: MIDAZOLAM HCL 1 MG/ML 2ML VIAL ONE ×2 (11:31)
[2024-04-24] MEDS: TICAGRELOR 90 MG TAB ONE ×2 (11:31→11:32)
--- NOTE | 2024-04-24 11:33 | Post Anesthesia Assessment ---
Date of Service April 24, 2024 Post Sedation Assessment Vital Signs Temp Pulse Resp BP Pulse Ox O2 Del Method O2 Flow Rate 04/24/24 09:52 95 Nasal Cannula 4 04/24/24 09:50 131/71 04/24/24 09:48 70 123/77 95 04/24/24 09:42 71 04/24/24 09:40 124/88 04/24/24 09:37 67 18 126/86 04/24/24 09:37 Nasal Cannula 0 04/24/24 09:37 Nasal Cannula 4 04/24/24 09:37 97.7 F 70 18 126/86 87 L Room Air FiO2 04/24/24 09:52 04/24/24 09:50 04/24/24 09:48 04/24/24 09:42 04/24/24 09:40 04/24/24 09:37 04/24/24 09:37 87 04/24/24 09:37 04/24/24 09:37 Recovery Score Activity: Moves 4 extremities Respiration: Deep Breath/Cough Circulation: +/-20% PreAnes Value Consciousness: Fully Awake Oxygen Saturation: O2 needed for >90% Discharge Sedation Level of Care: Fast Track Phase II Post Sedation Plan On clinical assessment, the patient appears to have tolerated the sedation without complications. Patient is recovering as anticipated. Patient will continue to be monitored by nursing and may be discharged when sedation discharge criteria are met per below protocol. Upon Completions of procedure up to 15 minutes continue every 5 minute vital signs and the P.A.R. score; then discharge to a Phase I or Fast Track to Phase II per the following guidelines: * Discharge Patient to appropriate Phase II area if PAR is 8 or greater or return to pre- procedure baseline. The post - procedure orders will be as directed. * If PAR score is less than 8 or not return to pre-procedure baseline then patient will follow Phase I monitoring till PAR is reached for Phase II. The Phase I may be done in procedure room or may call to secure a Phase I area. * If naloxone or flumazenil are used for reversal, hold in Phase I for continued monitoring from when last reversal dose was given for a minimum of 60 minutes or longer pending the nurse and/or physician discretion of patient condition before discharge to Phase II. Please call the Sedation Physician to re-evaluate and complete post-note for discharge to Phase II area. Do NOT discharge from procedure sedation or Phase 1 until post- sedation evalua tion note is complete by procedure /sedation MD Sedation Discharge Instructions to be given to the patient at discharge to home.
[2024-04-24] MEDS ORDERED: ONDANSETRON INJ 2 MG/ML 2 ML VIAL IV PRN (11:34)
[2024-04-24] MEDS ORDERED: 0.2 MICRON FILTER SET 1 EACH IV ONE (11:39)
--- NOTE | 2024-04-24 11:56 | Critical Care Consultation ---
Date of Consultation April 24, 2024 Assessment & Plan (1) ST elevation myocardial infarction (STEMI) of inferior wall: (2) Ventricular fibrillation: (3) S/P right coronary artery (RCA) stent placement: Plan Patient's status post PCI x 2 to the RCA with ventricular fibrillation during the case. Now on amiodarone drip. Patient now on metoprolol 12.5 mg twice daily, aspirin, Brilinta, lisinopril 5 mg daily, atorvastatin 80 mg daily, amiodarone infusion per cardiology. Will give the patient 20 mEq of potassium chloride and 2 g of magnesium sulfate due to mild hypokalemia and hypomagnesemia in the setting of ventricular fibrillation. Monitor telemetry closely. Follow-up echocardiogram. Will monitor in ICU setting at this time. Thank you for the consult. Please call questions. History of Present Illness Reason for Consultation: Post STEMI monitoring Attending Physician: Elijah Francis MD History of Present Illness 79-year-old male who presented with chest pain and inferior STEMI was sent to the [facility]. In the [facility] he had ventricular fibrillation and was defibrillated x 1. Mid RCA occlusion was noted and he was treated with 2 drug- eluting stents. No other significant coronary artery disease seen on cath. He did have frequent PVCs and a brief nonsustained ventricular tachycardia. He is now on amiodarone infusion. LVEDP at the end of the procedure was 29 mmHg and Lasix was ordered x 1 by the senior java data architect. Discussed with Dr. Guillen. Patient remained stable hemodynamically at this time and is requiring low-flow oxygen. Chest x-ray on admission without any acute disease. Potassium was 3.7 and magnesium was 1.8. Allergies Allergy/AdvReac Type Severity Reaction Status Date / Time No Known Drug Allergies Allergy Verified 01/13/24 11:08 Home Medications Medication Instructions Recorded Confirmed Type docusate sodium 100 mg capsule 100 mg PO QPM PRN Constipation 06/04/18 04/24/24 History (Colace) Flutter Valve #1 ea 12/20/22 01/13/24 Rx acetaminophen 325 mg capsule 325 mg PO QID PRN Pain 01/07/23 04/24/24 History (Tylenol) famotidine 20 mg tablet (Pepcid) 20 mg PO UD PRN gerd 01/07/23 04/24/24 History simethicone 125 mg capsule (Gas-X 125 mg PO DAILY PRN Gi Upset 01/07/23 04/24/24 History Extra Strength) ergocalciferol (vitamin D2) 1,250 1,250 mcg PO .Twice Weekly #30 caps 03/18/23 04/24/24 Rx mcg (50,000 unit) capsule (Vitamin D2) apixaban 5 mg tablet (Eliquis) 5 mg PO BID #180 tabs 05/07/23 04/24/24 Rx atorvastatin 40 mg tablet 40 mg PO QAM 07/02/23 04/24/24 History mometasone 0.1 % topical cream 1 applic topical DAILY PRN ud 07/02/23 04/24/24 History metoprolol succinate 25 mg 25 mg PO QPM #90 tabs 08/05/23 04/24/24 Rx tablet,extended release 24 hr doxazosin 8 mg tablet 8 mg PO PM #90 tabs 08/06/23 04/24/24 Rx triamcinolone acetonide 0.1 % 1 applic topical DAILY 08/06/23 04/24/24 History topical ointment pantoprazole 40 mg tablet,delayed 40 mg PO QAM #90 tabs 09/04/23 04/24/24 Rx release albuterol sulfate 90 mcg/actuation 2 puff inhalation Q6H PRN 10/23/23 04/24/24 Rx aerosol inhaler Shortness Of Breath Or Wheezing #18 grams ipratropium 0.5 mg-albuterol 3 mg 3 ml inhalation Q8H PRN shortness 10/23/23 04/24/24 Rx (2.5 mg base)/3 mL nebulization of breath or wheezing #180 mL soln nebulizers (Aeroneb Go Nebulizer) #1 ea 10/23/23 01/13/24 Rx vibegron 75 mg tablet (Gemtesa) 75 mg PO DAILY #90 tabs 01/13/24 04/24/24 Rx indapamide 2.5 mg tablet 2.5 mg PO QAM #90 tabs 02/18/24 04/24/24 Rx tramadol 50 mg tablet 50 mg PO TID PRN pain #90 tabs 03/16/24 04/24/24 Rx umeclidinium 62.5 mcg/actuation 1 inh inhalation QAM 04/24/24 04/24/24 History blister powder for inhalation (Incruse Ellipta) Patient History Medical History (Updated 04/24/24 @ 11:54 by Hector Guillen MD) Lumbar disc disease Osteoarthritis Chronic back pain Dysphagia GERD (gastroesophageal reflux disease) AAA (abdominal aortic aneurysm) CT at [facility] 04/2023 History of pulmonary embolism 2017 post op Atrial fibrillation on Eliquis CAD (coronary artery disease) Follows with Dr. Leigh History of anesthesia reaction elevated BP and HR following colonoscopy at [facility] approx 5-6 years ago. refused hospital admission. History of alcoholism quit 40 years ago SOB (shortness of breath) on exertion Hypertension Acute DVT of right tibial vein "Diagnosed April 08, 2018" Surgical History (Updated 04/24/24 @ 11:54 by Hector Guillen MD) History of cardiac catheterization 2017 - [place] - 1 stent History of hand surgery Rt History of wisdom tooth extraction H/O detached retina repair Rt History of cataract surgery History of colonoscopy H/O exploratory laparotomy due to [facility] [place] (had gastric injury - he doesn't remember details) Family History Father Heart disease Myocardial infarction Stroke Mother Lung disease Heart disease Myocardial infarction Stroke Family/Other Hypertension Son Myocardial infarction Other COPD (chronic obstructive pulmonary disease) Denies family history of Ovarian cancer Prostate cancer Breast cancer Lung cancer Colorectal cancer Social History Smoking Status: Former smoker Tobacco Type: Cigarettes Age Started Using Tobacco: 20; Age Quit Using Tobacco: 36; packs per day: 1.5; Second Hand Exposure: No; Do You Dip or Chew Tobacco: No; Hx Alcohol Use: No (Quit 40 years ago -- hx alcoholism) Hx Substance Use: Yes (H/O marijuana use) Non-Prescribed Medications: Amphetamines, Hallucinogens and Marijuana Substance Use Type Other:: quit 40 years ago Preferred Language: Portuguese Communication Ability: Effective Visual Impairment: Limited Hearing Ability: Hard of Hearing Rn Orthopedic Required: No Beliefs That Will Affect Care: None marital status: Current Living Situation: Spouse Current Living Situation Comment: lives with in [place] current occupational status: retired How many Children do You have: 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 Patient is in no apparent distress. Patient is well-developed. Eyes: Pupils are equal round and reactive to light. Conjunctivae are normal. Anicteric sclera. Ears nose, mouth and throat: No perioral cyanosis. Neck: Trachea is midline. Visual inspection is normal. Respiratory: Clear to auscultation bilaterally. No use of accessory muscles. No significant clubbing noted. Cardiovascular: Regular rate and rhythm. No murmurs. No edema. Gastrointestinal: Normal bowel sounds, soft, nontender and nondistended. No hepatosplenomegaly noted. Musculoskeletal: No cyanosis. Patient is able to move all extremities. Strength is 5 out of 5 in the upper and lower extremities. Skin: No rashes, warm dry and intact. Neurologic: No obvious focal neurological deficits seen. Psychiatric: Alert and oriented x3 with a euthymic affect. Results & Data Results & Data Vital Signs (Past 12 Hours) Vital Signs Temp Pulse Resp BP Pulse Ox O2 Del Method O2 Flow Rate 04/24/24 09:52 95 Nasal Cannula 4 04/24/24 09:50 131/71 04/24/24 09:48 70 123/77 95 04/24/24 09:42 71 04/24/24 09:40 124/88 04/24/24 09:37 67 18 126/86 04/24/24 09:37 Nasal Cannula 0 04/24/24 09:37 Nasal Cannula 4 04/24/24 09:37 36.5 C 70 18 126/86 87 L Room Air FiO2 04/24/24 09:52 04/24/24 09:50 04/24/24 09:48 04/24/24 09:42 04/24/24 09:40 04/24/24 09:37 04/24/24 09:37 87 04/24/24 09:37 04/24/24 09:37 Coding Level of Care Code 67259 IN/OBS CONSULT LVL 3,45M Diagnoses ST elevation myocardial infarction (STEMI) of inferior wall I21.19 Ventricular fibrillation I49.01 S/P right coronary artery (RCA) stent placement Z95.5
--- NOTE | 2024-04-24 12:06 | Cardiac Catheterization ---
[facility] Data: Soldering Technician Cardiac Status Clinical evaluation leading to the procedure CAD Presenation: STEMI Anginal Classification: CCS IV Diagnostic Physicians Name: Abrahan Guillen MD Closure Device Recommendations: PCI without planned CABG Cardiac Cath Procedure Full Procedure Date April 24, 2024 Pre-Procedure Diagnosis Pre-Procedure Diagnosis: STEMI AUC Score AUC Score: 9 Post-Procedure Diagnosis Post-Procedure Diagnosis: Severe CAD, Successful PCI and Elevated Intracardiac Pressures Procedure(s) Performed Procedure(s) Performed: Coronary Angiography, Left Heart Cath, Drug Eluting Stent, Ultrasound Guided Vascular Access and Defibrillation Transfer Coordinator Abrahan Guillen MD Oxygen System Tester(s) Lissy Estimated Blood Loss Estimated Blood Loss: 15 Medication(s) Medication(s): Fentanyl, Heparin, Lidocaine 1%, Nicardipine, Nitroglycerin and Versed Medication(s): Ticagrelor Summary of Findings Indication: STEMI/Heart Alert Access: 6 Fr slender right ulnar artery under ultrasound guidance Catheters: [place], JR4 guide Findings: LM -normal caliber, no significant disease LAD -medium caliber, proximal/mid segment luminal irregularities, distal vessel wraps around apex. Small to medium caliber D2 with 60-70% proximal stenosis Circumflex -medium caliber, 20-30% mid segment disease after OM1. Widely patent proximal OM1 stent. Small left PLB without significant disease. RCA -dominant, large caliber, calcified, 100% acute mid occlusion. LVEDP -29 (post procedure) -- PCI -- Antithrombotic therapy: Heparin, ticagrelor Procedure: RCA cannulated with JR4 guide Plastic Parts Fabricator Trimmer 50 wire passed across lesion into distal vessel With the aid of guideliner support catheter mid RCA lesion predilated with 2.0, 2.5 and 3.0 compliant balloons With some difficulty dilated lesion eventually stented with 3.5 x 26 mm Eagle drug-eluting stent Stent post-dilated with 4.0 noncompliant balloon Post procedure angiography revealed some haziness at distal aspect of stent at angulated area With aid of a guideliner distal aspect of stent further dilated with 3.5 balloon Latemid RCA stented with 3.5 x 15 mm Eagle overlapping distal aspect of initially placed stent. Post procedure FRANCISCO 3 flow, stents well expanded with minimal residual stenosis and no apparent cardiac complications. Arterial Closure: TR band Summary: 1. Inferior STEMI/100% acute mid RCA occlusion 2. Nonobstructive nonculprit vessel coronary artery disease -Widely patent OM1 stent 60-70% stenosis in small to medium D2 3. Elevated intracardiac filling pressure 4. Preprocedure VF requiring defibrillation x 1 5. Successful PCI of mid RCA with 2 overlapping drug-eluting stents (3.5 x 26, 3.5 x 15; postdilated with 4.0 NC). Recommendations: Admit to ICU for continued monitoring Loaded with ticagrelor 180 mg in Soldering Technician Continue IV amiodarone for 24 hours Ordered 40 mg IV Lasix x 1 Plan on triple therapy while admitted, resume Eliquis tomorrow. Long-term on dual therapy with Eliquis, clopidogrel Trend troponins until peak, Check Echo Uptitrate beta-etelvina/MAURY as BP allows High-dose statin Consult cardiac Rehab Hemodynamics Rest Ao:: 134/78/29 Final Ao: 135/59/91 LV: 125/29 Recommendations Recommendations: PCI without planned CABG Radiation Exposure (mGy) 5359 Contrast (mls) 75 Anesthesia Moderate [id number] Procedural Complication(s) None Disposition ICU I attest to the content of the Intraoperative Record and any orders documented t herein. Any exceptions are noted below. [facility] Card Cath Procedure Codes Cardiac Catheterization Procedure 1: Cardiovascular Cath Procedures: 93283 Coronaries and LHC (+/-LV) Therapeutic Services & Ancillary Procedure 1: Cardiovascular Tx and Anc Procedures: 52976 Ultrasonic Guidance Vascular Access Procedure 2: Cardiovascular Tx and Anc Procedures: 67046 Cardioversion Moderate Sedation Procedure 1: Sedation/Anesthesia: 93743 Mod Sedation by the same physician;Init15 Min Child Age 5 & Up Procedure 2: Sedation/Anesthesia: 62476 Mod Sedation by the same physician; Ea [id number] Minutes Stenting Procedure 1: Cardiovascular Stent Procedures: 82044 Perc transluminal revascularization of acute sub/total occl, aMI PG Care Time/CCT Total # of Minutes Spent Total Time Spent with Patient: Total time spent is greater than 50% in coordination of care (as documented) at patient's floor/unit and/or counseling patient:
[2024-04-24] MEDS ORDERED: ALBUTEROL HFA 8 GM INHALER INH PRN (12:40)
[2024-04-24] MEDS: OPTIRAY 350 ONE (12:53)
[2024-04-24] MEDS: FUROSEMIDE 40 MG/4 ML VIAL IV ONE (13:02)
[2024-04-24] MEDS: MAGNESIUM SULFATE / D5W 1 GM/100 ML BAG IV SCH (13:12)
[2024-04-24] MEDS: POTASSIUM CHLORIDE / WTR 10 MEQ/100 ML PLCT IV SCH (13:12)
[2024-04-24] MEDS: ICU Protocol for HYPERglycemia SCH ×2 (13:27→16:42)
[2024-04-24] MEDS: AMIODARONE / D5W 360 MG/200 ML BAG IV SCH (16:46)
--- NOTE | 2024-04-24 17:00 | Cardiology Consultation ---
Date of Consultation April 24, 2024 Assessment & Plan (1) ST elevation myocardial infarction (STEMI) of inferior wall: (2) Ventricular fibrillation: (3) S/P right coronary artery (RCA) stent placement: (4) Afib: Patient is hemodynamically stable in the intensive care unit status post emergent cardiac catheterization for recurrent artery territory ST segment elevation myocardial infarction. Post procedure echocardiogram interpreted independently, there is a large sized inferior and posterior wall motion abnormality, moderate left ventricular systolic dysfunction observed, ejection fraction in the range of 30 to 35% having previously been 35 to 40%. Continue aspirin, Brilinta, Eliquis, with plans to likely transition him to dual therapy with Brilinta and Eliquis at discharge. Metoprolol to tartrate 12.5 mg twice daily ordered on admission as well as lisinopril 5 mg daily. Atorvastatin dose has been increased from 40 mg to 80 mg, lipid panel ordered for a.m. Continue amiodarone infusion for now. History of Present Illness Attending Physician: Elijah Francis MD History of Present Illness Mr Singletary is a 79-year-old male seen in cardiology consultation per the request of Dr. Francis for ongoing cardiology management of the patient's inferior ST segment elevation myocardial infarction. Patient presented to the emergency department today with chest discomfort that began while ambulating up a hill with associated symptoms of throat tightness, nauseousness, and heavy perspiration. On arrival to the hospital, EKG revealed inferior ST segment elevation. He subsequently underwent emergent coronary angiography with placement of 2 drug-eluting stents to the mid right coronary artery. During the procedure he had ventricular fibrillation requiring defibrillation to sinus rhythm and IV amiodarone was initiated and is continued as an infusion at this point. Post procedure he has been transferred to the intensive care unit where he is mentating well and feels fine. He is accompanied by his , and, at the bedside. Past cardiac history is notable for stent to the circumflex coronary artery in 2017 and paroxysmal atrial fibrillation. Allergies Allergy/AdvReac Type Severity Reaction Status Date / Time No Known Drug Allergies Allergy Verified 01/13/24 11:08 Home Medications Medication Instructions Recorded Confirmed Type docusate sodium 100 mg capsule 100 mg PO QPM PRN Constipation 06/04/18 04/24/24 History (Colace) Flutter Valve #1 ea 12/20/22 01/13/24 Rx acetaminophen 325 mg capsule 325 mg PO QID PRN Pain 01/07/23 04/24/24 History (Tylenol) famotidine 20 mg tablet (Pepcid) 20 mg PO UD PRN gerd 01/07/23 04/24/24 History simethicone 125 mg capsule (Gas-X 125 mg PO DAILY PRN Gi Upset 01/07/23 04/24/24 History Extra Strength) ergocalciferol (vitamin D2) 1,250 1,250 mcg PO .Twice Weekly #30 caps 03/18/23 04/24/24 Rx mcg (50,000 unit) capsule (Vitamin D2) apixaban 5 mg tablet (Eliquis) 5 mg PO BID #180 tabs 05/07/23 04/24/24 Rx atorvastatin 40 mg tablet 40 mg PO QAM 07/02/23 04/24/24 History mometasone 0.1 % topical cream 1 applic topical DAILY PRN ud 07/02/23 04/24/24 History metoprolol succinate 25 mg 25 mg PO QPM #90 tabs 08/05/23 04/24/24 Rx tablet,extended release 24 hr doxazosin 8 mg tablet 8 mg PO PM #90 tabs 08/06/23 04/24/24 Rx triamcinolone acetonide 0.1 % 1 applic topical DAILY 08/06/23 04/24/24 History topical ointment pantoprazole 40 mg tablet,delayed 40 mg PO QAM #90 tabs 09/04/23 04/24/24 Rx release albuterol sulfate 90 mcg/actuation 2 puff inhalation Q6H PRN 10/23/23 04/24/24 Rx aerosol inhaler Shortness Of Breath Or Wheezing #18 grams ipratropium 0.5 mg-albuterol 3 mg 3 ml inhalation Q8H PRN shortness 10/23/23 04/24/24 Rx (2.5 mg base)/3 mL nebulization of breath or wheezing #180 mL soln nebulizers (Aeroneb Go Nebulizer) #1 ea 10/23/23 01/13/24 Rx vibegron 75 mg tablet (Gemtesa) 75 mg PO DAILY #90 tabs 01/13/24 04/24/24 Rx indapamide 2.5 mg tablet 2.5 mg PO QAM #90 tabs 02/18/24 04/24/24 Rx tramadol 50 mg tablet 50 mg PO TID PRN pain #90 tabs 03/16/24 04/24/24 Rx umeclidinium 62.5 mcg/actuation 1 inh inhalation QAM 04/24/24 04/24/24 History blister powder for inhalation (Incruse Ellipta) Patient History Medical History Lumbar disc disease Osteoarthritis Chronic back pain Dysphagia GERD (gastroesophageal reflux disease) AAA (abdominal aortic aneurysm) CT at [facility] 04/2023 History of pulmonary embolism 2017 post op Atrial fibrillation on Eliquis CAD (coronary artery disease) Follows with Dr. Leigh History of anesthesia reaction elevated BP and HR following colonoscopy at [place] approx 5-6 years ago. refused hospital admission. History of alcoholism quit 40 years ago SOB (shortness of breath) on exertion Hypertension Acute DVT of right tibial vein "Diagnosed April 08, 2018" Surgical History History of cardiac catheterization 2017 - [place] - 1 stent History of hand surgery Rt History of wisdom tooth extraction H/O detached retina repair Rt History of cataract surgery History of colonoscopy H/O exploratory laparotomy due to [facility] [place] (had gastric injury - he doesn't remember details) Family History Father Heart disease Myocardial infarction Stroke Mother Lung disease Heart disease Myocardial infarction Stroke Family/Other Hypertension Son Myocardial infarction Other COPD (chronic obstructive pulmonary disease) Denies family history of Ovarian cancer Prostate cancer Breast cancer Lung cancer Colorectal cancer Social History Smoking Status: Former smoker Tobacco Type: Cigarettes Age Started Using Tobacco: 20; Age Quit Using Tobacco: 36; packs per day: 1.5; Second Hand Exposure: No; Do You Dip or Chew Tobacco: No; Hx Alcohol Use: No (Quit 40 years ago -- hx alcoholism) Hx Substance Use: Yes (H/O marijuana use) Non-Prescribed Medications: Amphetamines, Hallucinogens and Marijuana Substance Use Type Other:: quit 40 years ago Preferred Language: [place] Communication Ability: Effective Visual Impairment: Limited Hearing Ability: Hard of Hearing Oil Dispenser Required: No Beliefs That Will Affect Care: None marital status: Current Living Situation: Spouse Current Living Situation Comment: lives with in [place] current occupational status: retired How many Children do You have: 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 [place] Feels Safe at Home: Yes Childhood Exposure to Second-Hand Smoke: Yes Diet: regular caffeine: Yes during the past year weight has: decreased > 10 lbs Dental Care, Regularly: No Physical Activity Frequency: 1-2 Times per Week Physical Activity Frequency Comment: walks 4-5 miles per week Seatbelt Use: always Sunscreen Use: No Assistive Devices: Glasses Review of Systems Review of Systems: All systems reviewed & are unremarkable except as noted in HPI & below Physical Exam Physical Exam: General: no acute distress and stated age Eyes: conjunctiva are pink and non-injected, sclera clear Neck: normal jugular venous pulse, no hepatojugular reflux Chest: normal shape and normal respiratory effort Lungs: clear to auscultation and percussion Cardiac Exam: - regular heart sounds, no murmurs, rubs, or gallops, no jugular venous distention Abdomen: abdomen soft, non-tender, no abnormal masses and no hepatosplenomegaly Musculoskeletal: no gait disturbance, no weakness Extremities: no edema and no cyanosis,, Right radial access site clean dry and intact, no hematoma Neuro:awake, conversant, follows commands, no focal motor deficits Psych: appropriate affect and insight. Results & Data Vital Signs (Past 12 Hours) Vital Signs Temp Pulse Pulse Resp BP BP Pulse Ox 04/24/24 16:00 36.6 C 74 18 122/87 95 04/24/24 15:00 36.7 C 78 20 141/70 H 95 04/24/24 14:30 83 20 145/98 H 96 04/24/24 14:00 36.8 C 82 22 159/96 H 95 04/24/24 13:30 84 22 138/86 96 04/24/24 13:00 80 20 116/89 94 04/24/24 12:30 80 22 158/94 H 94 04/24/24 12:00 36.8 C 83 20 139/86 98 04/24/24 11:45 04/24/24 11:45 36.8 C 85 20 139/88 97 04/24/24 09:52 95 04/24/24 09:50 131/71 04/24/24 09:48 70 123/77 95 04/24/24 09:42 71 04/24/24 09:40 124/88 04/24/24 09:37 67 18 126/86 04/24/24 09:37 04/24/24 09:37 04/24/24 09:37 36.5 C 70 18 126/86 87 L O2 Del Method O2 Flow Rate FiO2 04/24/24 16:00 Nasal Cannula 2 04/24/24 15:00 Nasal Cannula 2 04/24/24 14:30 Nasal Cannula 2 04/24/24 14:00 Nasal Cannula 2 04/24/24 13:30 Nasal Cannula 2 04/24/24 13:00 Nasal Cannula 2 04/24/24 12:30 Nasal Cannula 2 04/24/24 12:00 Oxymask 4 04/24/24 11:45 Oxymask 4 04/24/24 11:45 Oxymask 4 04/24/24 09:52 Nasal Cannula 4 04/24/24 09:50 04/24/24 09:48 04/24/24 09:42 04/24/24 09:40 04/24/24 09:37 04/24/24 09:37 Nasal Cannula 0 87 04/24/24 09:37 Nasal Cannula 4 04/24/24 09:37 Room Air Laboratory Results Cardiac Enzymes 04/24/24 Range/Units 09:41 AST 15 (13-39) U/L Troponin I High Sens 13.1 (0-20) pg/ml B-Natriuretic Peptide 155 H (0-100) pg/ml Coagulation 04/24/24 Range/Units 09:41 PT 11.5 (9.0-12.0) Seconds APTT 25 (21-31) Seconds B-Natriuretic Peptide 155 H (0-100) pg/ml CBC 04/24/24 Range/Units 09:41 WBC 8.31 (4.8-10.8) K/ul RBC 5.28 (4.70-6.10) M/uL Hgb 13.8 L (14.0-18.0) g/dl Hct 43.7 (42.0-52.0) % Plt Count 164 (130-400) K/uL Neut # (Auto) 5.22 (1.40-6.50) K/uL Lymph # (Auto) 1.52 (1.20-3.40) K/uL [place] # (Auto) 1.00 H (0.11-0.59) K/uL Eos # (Auto) 0.50 (0.00-0.50) K/uL Baso # (Auto) 0.03 (0.00-0.20) K/uL Comprehensive Metabolic Panel 04/24/24 Range/Units 09:41 Sodium 140 (136-145) mmol/L Potassium 3.7 (3.5-5.1) mmol/L Chloride 107 (98-107) mmol/L Carbon Dioxide 27 (21-32) mmol/L BUN 22 (6-23) mg/dl Creatinine 1.09 (0.6-1.4) mg/dl Glucose 133 H (70-99(Fasting)) mg/dl Calcium 8.4 L (8.6-10.3) mg/dl AST 15 (13-39) U/L ALT 14 (7-52) U/L Alkaline Phosphatase 76 (34-104) U/L Total Protein 6.2 (6.0-8.3) gm/dl Albumin 3.5 (3.4-5.0) gm/dl Intake and Output 04/24/24 04/24/24 04/24/24 06:59 14:59 22:59 Intake Total 720 / 920 200 / 920 Output Total 1000 / 1525 525 / 1525 Balance -280 / -605 -325 / -605 Intake: IV 600 / 800 200 / 800 Magnesium Sulfate / D5w 1 gm In 100 / 100 100 ml @ 50 mls/hr IV Q2H [facility]TT[facility] Rx#:[id number] Potassium Chloride / Wtr 10 meq 100 / 200 100 / 200 In 100 ml @ 100 mls/hr IV Q1H [facility] Rx#:[id number] Left Antecubital 500 / 500 Oral 120 / 120 Output: Urine 1000 / 1525 525 / 1525 Other: Weight 130.3 kg Weight Measurement Method Built in [facility] Patient Weight 04/25/24 06:59 Weight 130.3 kg Diagnostic Findings EKG on arrival revealed inferolateral ST segment elevation, post procedure EKG, reviewed/interpreted independently, reveals mild ongoing ST segment elevation in the inferior leads, but much improved compared to prior to the procedure. Telemetry while in the ICU reveals sinus rhythm. Frequent PVCs were observed when he first arrived to the intensive care unit, but now the PVCs are only mild and frequency. (4) Afib Atrial fibrillation type: paroxysmal Qualified Code(s): I48.0 - Paroxysmal atrial fibrillation
[2024-04-24] MEDS ORDERED: FAMOTIDINE 20 MG TAB PO PRN (17:54)
[2024-04-24] MEDS ORDERED: DICLOFENAC SOD 1% GEL 100 GM TUBE EXT PRN (19:55)
[2024-04-24] MEDS: ACETAMINOPHEN 325 MG TAB PO PRN (20:03)
[2024-04-24] MEDS: METOPROLOL TARTRATE 25 MG TAB PO SCH (20:16)
[2024-04-24] MEDS: DOXAZosin MESYLATE 4 MG TAB PO SCH (20:17)
[2024-04-25] MEDS: ALBUT/IPRATROP 3MG/0.5MG NEB 3 ML VIAL INH PRN (00:26)
[2024-04-25] MEDS: AMIODARONE / D5W 360 MG/200 ML BAG IV SCH (00:34)
[2024-04-25] MEDS: MELATONIN 3 MG TAB PO ONE (02:05)
[2024-04-25 03:02] LABS: BUN Creatinine Ratio 16.7 (10-20); Calcium 8.4 mg/dl (8.6-10.3); Creatinine Clr Calc Pharmacy 59.9 ml/min; Est GFR (African American) 59.9 ml/min; Est GFR (Non-African American) 51.7 ml/min; Magnesium 2.3 mg/dl (1.7-2.4); Potassium 3.7 mmol/L (3.5-5.1)
[2024-04-25 03:04] LABS: Basophils # (auto) 0.02 K/uL (0.00-0.20); Basophils % (auto) 0.2 %; Eosinophils # (auto) 0.26 K/uL (0.00-0.50); Eosinophils % (auto) 2.2 %; Hematocrit (blood only) 41.6 % (42.0-52.0); Hemoglobin 13.2 g/dl (14.0-18.0); Immature Granulocytes # (auto) 0.06 K/uL (0.01-0.20); Immature Granulocytes % (auto) 0.5 %; Lymphocytes % (auto) 7.5 %; Mean Corpuscular Hemoglobin 26.2 pg (25.0-34.0); Mean Corpuscular Hgb Conc 31.7 g/dL (32.0-36.0); Mean Corpuscular Volume 82.5 fL (80.0-100.0); Mean Platelet Volume 12.1 fL (9.4-12.4); Monocytes % (auto) 10.8 %; Neutrophils # (auto) 9.49 K/uL (1.40-6.50); Neutrophils % (auto) 78.8 %; Platelet Count 155 K/uL (130-400); RDW Coefficient of Variation 17.2 % (11.5-14.5); RDW Standard Deviation 51.3 fL (36.4-46.3); Red Blood Count 5.04 M/uL (4.70-6.10); White Blood Count 12.03 K/ul (4.8-10.8)
[2024-04-25] MEDS: POTASSIUM CHLORIDE CRTAB 20 MEQ TABCR PO STA ×3 (06:40→13:39)
--- NOTE | 2024-04-25 08:01 | Critical Care Progress Note ---
Date of Service April 25, 2024 Assessment & Plan (1) ST elevation myocardial infarction (STEMI) of inferior wall: (2) Ventricular fibrillation: (3) S/P right coronary artery (RCA) stent placement: (4) History of pulmonary embolus (PE): (5) Morbid obesity with BMI of 40.0-44.9, adult: (6) COPD with emphysema: (7) Multiple pulmonary nodules: (8) Pulmonary hypertension: Plan 2D echo 04/24/2024: EF 35-40%, grade 1 diastolic dysfunction, RV normal in size and function PFT 12/18/2022 personally reviewed: Mild obstructive lung dysfunction, insignificant bronchodilator response, normal TLC with severe decrease in ERV, normal DLCO (Increased FVC by 130 mL, increase in FEV1 by 150 mL, increased DLCO 61--> 80%, decrease in weight by 19 pounds compared to 12/2019) FVC 3.35 L 97%, FEV1 2.32 L 94%, FEV1/FVC 69%, ERV 32%, RV 101%, TLC 95%, RV/TLC 108%, DLCO 80% -- STEMI S/p t PCI x 2 to the RCA with ventricular fibrillation during the case. Now on amiodarone drip. Continue with metoprolol 12.5 mg twice daily, aspirin, Brilinta, lisinopril 5 mg daily, atorvastatin 80 mg daily -- V-fib Appreciated during the cardiac cath Amiodarone infusion per cardiology. Try to keep potassium greater than 4, magnesium greater than 2, phosphorus greater than 3 -- COPD with emphysema and chronic bronchitis Gold class B Previously I had given the patient Libby Kamara as well as Elisha but the only thing that works for him is Incruse Currently on Incruse on a daily basis Continue with Mucinex along with flutter valve for as needed chest congestion --Pulmonary hypertension Likely type II--type III Treat underlying cause as above. 2D echo 04/24/2024: EF 35-40%, grade 1 diastolic dysfunction, RV normal in size and function -- Multiple pulmonary nodules They have been stable since 2017. Likely benign. Patient quit smoking > 15 years ago. No need for for this cancer seen for nodules -- Probable AMPARO ESS: 18, stop Ban BMI 44.5, positive somnolence, positive lethargy The benefits of getting a polysomnography and if positive the use of CPAP machine explained in depth with the patient. Patient understands but states that he does not want to do sleep study at all. Patient was advised that whenever he changes his mind let us know so that we can order one for him. Advised the patient not to drive when he is very drowsy. -- Minimal bronchiectasis bilateral lower lobes Denies any clinical signs of aspiration Monitor -- Allergic rhinitis with postnasal drip Continue with as needed antihistamine and inhaled fluticasone nasal spray -- Ex-smoker [id number] smoking history Quit around age 42 9 encouraged to continue abstinence from smoking -- History of pulmonary embolism Diagnosed 2017 Compliant with apixaban --Prophylaxis VTE: Eliquis GI: Pantoprazole Lines: Peripheral Diet: Cardiac Plan: In/out: -1170, urine output 3100 Total 40 mEq of potassium given to the patient Given the wheezing I will start the patient on DuoNebs as well as nebulized Brovana and budesonide Patient hemodynamically stable to be downgraded to medical floor Please note the above document was generated using voice recognition software. It may contain grammatical, syntax or spelling errors.Any formal questions or concerns about the content, text or information contained within the body of this dictation should be directly addressed to the provider for clarification. Admission and Anticipated Discharge Date Admission Date: April 24, 2024 Subjective Patient seen and examined at bedside. No acute distress, no AutoSense overnight He was saturating 90% on 1 L nasal cannula. Denies any chest pain, no headache, no nausea, no vomiting He says he is feeling better compared to when he came to the hospital Fair appetite. Review of Systems 2 Review of Systems: All systems reviewed & are unremarkable except as noted in Subjective Physical Exam 2 Physical Exam: Constitutional: No acute distress HEENT: EOMI, PERRLA, thick neck Respiratory system: Good air entry lower lobes bilaterally, minimal expiratory wheeze bilaterally, no rhonchi, mild crackles bilateral lower lobes CVS: S1-S2 positive, no murmurs or gallops, distant heart sounds Abdomen: Soft, mild epigastric tenderness, no rebound, obese, positive bowel sounds x4, obese Extremities: +2 pulses bilaterally radialis/ dorsalis pedis, no cyanosis, no edema Neuro: Awake alert oriented x3 Psych: Normal mood and affect G/U: No Nath Skin: no rashes, warm and dry Lymphatic: no cervical or axillary lymphadenopathy Results & Data Results & Data Vital Signs (Past 12 Hours) Vital Signs Temp Pulse Pulse Resp BP BP Pulse Ox 04/25/24 07:44 04/25/24 07:00 68 14 116/61 96 04/25/24 06:30 67 15 118/52 L 94 04/25/24 06:00 64 122/65 96 04/25/24 05:49 64 14 96 04/25/24 05:30 73 18 123/67 94 04/25/24 05:30 64 14 123/67 93 04/25/24 05:00 37 C 70 21 123/69 95 04/25/24 04:45 04/25/24 04:30 76 15 94 04/25/24 04:03 72 12 95 04/25/24 04:00 72 13 125/76 95 04/25/24 04:00 72 20 125/76 95 04/25/24 03:00 68 16 111/63 93 04/25/24 03:00 72 15 118/77 94 04/25/24 02:00 64 16 101/63 94 04/25/24 02:00 62 12 95 04/25/24 01:31 66 12 115/63 94 04/25/24 01:00 69 20 102/59 L 94 04/25/24 01:00 37.0 C 63 19 101/63 94 04/25/24 00:30 69 18 111/59 L 96 04/25/24 00:26 67 18 96 04/25/24 00:00 69 18 109/60 93 04/25/24 00:00 75 20 109/60 95 04/25/24 00:00 78 04/24/24 23:55 04/24/24 23:00 66 16 99/47 L 95 04/24/24 23:00 69 19 90/54 L 95 04/24/24 22:00 76 111/81 94 04/24/24 22:00 68 17 107/57 L 95 04/24/24 21:30 68 21 124/75 93 04/24/24 21:00 68 20 122/76 93 04/24/24 20:31 70 22 120/69 94 04/24/24 20:16 71 23 134/80 93 04/24/24 20:01 74 19 117/63 94 04/24/24 20:00 04/24/24 20:00 72 22 94 O2 Del Method O2 Flow Rate 04/25/24 07:44 Nasal Cannula 2 04/25/24 07:00 Nasal Cannula 2 04/25/24 06:30 Nasal Cannula 2 04/25/24 06:00 Nasal Cannula 2 04/25/24 05:49 Nasal Cannula 2 04/25/24 05:30 Nasal Cannula 2 04/25/24 05:30 Nasal Cannula 2 04/25/24 05:00 Nasal Cannula 2 04/25/24 04:45 Nasal Cannula 2 04/25/24 04:30 04/25/24 04:03 Nasal Cannula 2 04/25/24 04:00 Nasal Cannula 2 04/25/24 04:00 Nasal Cannula 2 04/25/24 03:00 Nasal Cannula 2 04/25/24 03:00 Nasal Cannula 2 04/25/24 02:00 Nasal Cannula 2 04/25/24 02:00 Nasal Cannula 2 04/25/24 01:31 Nasal Cannula 2 04/25/24 01:00 Nasal Cannula 2 04/25/24 01:00 Nasal Cannula 2 04/25/24 00:30 Nasal Cannula 2 04/25/24 00:26 Nasal Cannula 2 04/25/24 00:00 Nasal Cannula 2 04/25/24 00:00 Nasal Cannula 2 04/25/24 00:00 04/24/24 23:55 Nasal Cannula 2 04/24/24 23:00 Nasal Cannula 2 04/24/24 23:00 Nasal Cannula 2 04/24/24 22:00 Nasal Cannula 2 04/24/24 22:00 Nasal Cannula 2 04/24/24 21:30 Nasal Cannula 2 04/24/24 21:00 Nasal Cannula 2 04/24/24 20:31 Nasal Cannula 2 04/24/24 20:16 Nasal Cannula 2 04/24/24 20:01 Nasal Cannula 2 04/24/24 20:00 Nasal Cannula 2 04/24/24 20:00 Nasal Cannula 2 Laboratory Results 04/25/24 02:28 04/25/24 02:28 Coding Level of Care Code 73201 SUB INP/OBS CARE 3/50MIN Diagnoses ST elevation myocardial infarction (STEMI) of inferior wall I21.19 Ventricular fibrillation I49.01 S/P right coronary artery (RCA) stent placement Z95.5 History of pulmonary embolus (PE) Z86.711 Morbid obesity with BMI of 40.0-44.9, adult E66.01; Z68.41 Pulmonary emphysema, unspecified emphysema type J43.9 Emphysema type: unspecified Multiple pulmonary nodules R91.8 Pulmonary hypertension I27.20 (6) COPD with emphysema Emphysema type: unspecified Qualified Code(s): J43.9 - Emphysema, unspecified
[2024-04-25] MEDS: traMADol HCL 50 MG TABLET PO STA (08:15)
[2024-04-25] MEDS: PANTOprazole 40 MG TAB PO SCH (08:15)
[2024-04-25] MEDS: ATORVASTATIN 40 MG TAB PO SCH (08:15)
[2024-04-25] MEDS: ASPIRIN 81 MG ECTAB PO SCH (08:15)
[2024-04-25] MEDS: INDAPAMIDE 1.25 MG TAB PO SCH (08:16)
[2024-04-25] MEDS: TICAGRELOR 90 MG TAB PO SCH (08:16)
[2024-04-25] MEDS: APIXABAN 5 MG TABLET PO SCH (08:16)
[2024-04-25] MEDS: lisinopril 5 MG TAB PO SCH (08:16)
[2024-04-25] MEDS: UMECLIDINIUM BROMIDE 62.5MCG/BLISTER 7 PUFFS/INHALER INH SCH (08:16)
[2024-04-25 08:41] LABS: Troponin I High Sensitivity 74457.8 pg/ml (0-20)
[2024-04-25] MEDS ORDERED: PANTOprazole 40 MG TAB PO SCH (09:00)
--- NOTE | 2024-04-25 11:59 | Hospitalist Progress Note ---
Date of Service April 25, 2024 Assessment & Plan (1) ST elevation MS (STEMI): Plan: Inferior wall STEMI. Cath summary by Dr Guillen - 1. Inferior STEMI/100% acute mid RCA occlusion 2. Nonobstructive nonculprit vessel coronary artery disease * Widely patent OM1 stent * 60-70% stenosis in small to medium D2 3. Elevated intracardiac filling pressure 4. Preprocedure VF requiring defibrillation x 1 5. Successful PCI of mid RCA occlusion with 2 overlapping drug-eluting stents (3.5 x 26, 3.5 x 15; postdilated with 4.0 NC) Loaded with Brilinta and now on 90mg BID; remains on metoprolol 12.5mg BID; aspirin 81mg daily; Eliquis 5mg BID; lipitor increased to 80mg daily; lisinopril 5mg daily Appreciate Dr Guillen' & Dr Patel's assistance Defer any changes in his cardiac med regimen to them (2) Acute on chronic systolic heart failure: Plan: previous echo with EF 35-40% echo this admission with EF 30-35% wall motion abnormalities and CAD c/w ischemic CM LVEDP during the cath - 29 received 40mg IV lasix yesterday he is short of breath with any activity including just moving about in the chair this is much worse above his baseline dyspnea will assume some element of ongoing volume overload will give lasix 20mg IV x 1 now re-eval tomorrow cont BB cont MAURY should ultimately be on Entresto (3) Ventricular fibrillation: Plan: pre heart cath had VF x 1 requiring defibrillation has been on amiodarone infusion since then I spoke with Dr Guillen - amiodarone infusion can be d/c at 24 hour puneet which is early this afternoon Dr Patel discussed a LifeVest with patient this afternoon defer management to Dr Patel (4) COPD with emphysema: Plan: COPD Last PFTs 2022: FVC 97% predicted, FEV1 94% predicted, ratio 69% predicted. Mild obstructive lung dysfunction, normal DLCO follows with ALBERTA [facility] Pulmonary has extensive wheezing on exam today perhaps some of the wheezing is "Cardiac wheezing" from pulmonary edema - diurese cont inhalers/nebs/pulm toilet (5) AMPARO (obstructive sleep apnea): Plan: Suspected AMPARO Has never had formal sleep study Pt agreeable to CPAP while here (6) Benign prostatic hyperplasia: Plan: cont alpha etelvina (7) Lumbar disc disease: Plan: takes tramadol prn including 100mg at HS to help with night-time back pain tramadol ordered for him (8) GERD (gastroesophageal reflux disease): Plan: EGD 07/2023 for dysphagia with no acute abnormalities seen. Empiric dilation was performed, with no observed change. cont PPI make pepcid 20mg BID scheduled due to mild nausea (9) Afib: Plan: history of such none seen while here cont Eliquis cont BB (10) Pre-diabetes: Plan: HbA1C 6.1% in 03/2024 BSGs ac/hs thus far have been excellent in the low 100s Novolog SSI (11) History of pulmonary embolus (PE): Plan: noted cont Eliquis (12) Morbid obesity with BMI of 40.0-44.9, adult: Plan: BMI 46 Plan h/o DVT/PE - No recurrent clots since 2017. Continue Eliquis, he is on this for both past DVT/PE and history of paroxysmal A-fib nausea - zofran prn; schedule pepcid; cont PPI will need more w/u if this symptom persists care d/w Dr Guillen can d/c ICU status; move to PCU Admission and Anticipated Discharge Date Admission Date: April 24, 2024 Subjective tele overnight - NSR no a.fib, NSVT or other serious dysrhythmia patient sitting in chair during the visit son at bedside patient reports dyspnea with minimal exertion he has baseline VERNON but this shortness of breath is worse than usual no cough denies any chest pain does mention he had nausea after breakfast this am and reports a pain over the right scapular area numerous questions about his care answered amiodarone drip infusion continues Review of Systems Review of Systems: gen - no fevers cv - no chest pain; some edema of LEs pulm - dyspnea with minimal activity; o2 sats low 90s or upper 80s in room air GI - no abd pain but again had nausea this am w/o vomiting Physical Exam Physical Exam: gen - morbidly obese, sitting in chair; gets dyspneic with just moving about in the chair neck - no obvious JVD sitting upright at 90 degrees mouth - MMM heart - RRR, s1 s2, no murmur lungs - diffuse wheezes b/l, no obvious rales; does have tachypnea with moving about in the chair abd - soft NT ND BS+ back - tender to palpation over right scapular area and with twisting ext - <1+ edema b/l, pulses 2+ b/l right wrist - ulnar artery covered w/ dressing; no hematoma; no aneurysm Results & Data Results & Data Vital Signs (Past 12 Hours) Vital Signs Temp Pulse Pulse Resp BP BP Pulse Ox 04/25/24 09:06 76 14 125/54 L 89 L 04/25/24 08:33 74 30 H 113/71 92 04/25/24 07:44 04/25/24 07:00 68 14 116/61 96 04/25/24 06:30 67 15 118/52 L 94 04/25/24 06:00 64 122/65 96 04/25/24 05:49 64 14 96 04/25/24 05:30 73 18 123/67 94 04/25/24 05:30 64 14 123/67 93 04/25/24 05:00 37 C 70 21 123/69 95 04/25/24 04:45 04/25/24 04:30 76 15 94 04/25/24 04:03 72 12 95 04/25/24 04:00 72 13 125/76 95 04/25/24 04:00 72 20 125/76 95 04/25/24 03:00 68 16 111/63 93 04/25/24 03:00 72 15 118/77 94 04/25/24 02:00 64 16 101/63 94 04/25/24 02:00 62 12 95 04/25/24 01:31 66 12 115/63 94 04/25/24 01:00 69 20 102/59 L 94 04/25/24 01:00 37.0 C 63 19 101/63 94 04/25/24 00:30 69 18 111/59 L 96 04/25/24 00:26 67 18 96 04/25/24 00:00 69 18 109/60 93 04/25/24 00:00 75 20 109/60 95 04/25/24 00:00 78 O2 Del Method O2 Flow Rate 04/25/24 09:06 04/25/24 08:33 04/25/24 07:44 Nasal Cannula 2 04/25/24 07:00 Nasal Cannula 2 04/25/24 06:30 Nasal Cannula 2 04/25/24 06:00 Nasal Cannula 2 04/25/24 05:49 Nasal Cannula 2 04/25/24 05:30 Nasal Cannula 2 04/25/24 05:30 Nasal Cannula 2 04/25/24 05:00 Nasal Cannula 2 04/25/24 04:45 Nasal Cannula 2 04/25/24 04:30 04/25/24 04:03 Nasal Cannula 2 04/25/24 04:00 Nasal Cannula 2 04/25/24 04:00 Nasal Cannula 2 04/25/24 03:00 Nasal Cannula 2 04/25/24 03:00 Nasal Cannula 2 04/25/24 02:00 Nasal Cannula 2 04/25/24 02:00 Nasal Cannula 2 04/25/24 01:31 Nasal Cannula 2 04/25/24 01:00 Nasal Cannula 2 04/25/24 01:00 Nasal Cannula 2 04/25/24 00:30 Nasal Cannula 2 04/25/24 00:26 Nasal Cannula 2 04/25/24 00:00 Nasal Cannula 2 04/25/24 00:00 Nasal Cannula 2 04/25/24 00:00 Laboratory Results Laboratory Results - last 24 hr 04/24/24 04/24/24 04/24/24 12:00 13:05 16:40 WBC RBC Hgb Hct MCV MCH MCHC RDW Std Deviation RDW Coeff of Abigail Plt Count MPV Immature Gran % (Auto) Neut % (Auto) Lymph % (Auto) [place] % (Auto) Eos % (Auto) Baso % (Auto) Neut # (Auto) Lymph # (Auto) [place] # (Auto) Eos # (Auto) Baso # (Auto) Immature Gran # (Auto) Sodium Potassium Chloride Carbon Dioxide Anion Gap BUN Creatinine Est Cr Clr Drug Dosing Est GFR ( Amer) Est GFR (Non-Af Amer) BUN/Creatinine Ratio Glucose POC Glucose 124 H 112 H Estimat Average Glucose Hemoglobin A1c Calcium Phosphorus Magnesium Troponin I High Sens Triglycerides Cholesterol LDL Cholesterol, Calc VLDL Cholesterol, Calc HDL Cholesterol Cholesterol/HDL Ratio Nasal Screen MRSA (PCR) Negative 04/24/24 04/24/24 04/24/24 18:59 20:13 23:49 WBC RBC Hgb Hct MCV MCH MCHC RDW Std Deviation RDW Coeff of Abigail Plt Count MPV Immature Gran % (Auto) Neut % (Auto) Lymph % (Auto) [place] % (Auto) Eos % (Auto) Baso % (Auto) Neut # (Auto) Lymph # (Auto) [place] # (Auto) Eos # (Auto) Baso # (Auto) Immature Gran # (Auto) Sodium Potassium Chloride Carbon Dioxide Anion Gap BUN Creatinine Est Cr Clr Drug Dosing Est GFR ( Amer) Est GFR (Non-Af Amer) BUN/Creatinine Ratio Glucose POC Glucose 103 H 149 H Estimat Average Glucose Hemoglobin A1c Calcium Phosphorus Magnesium Troponin I High Sens 429214.8 H* D Triglycerides Cholesterol LDL Cholesterol, Calc VLDL Cholesterol, Calc HDL Cholesterol Cholesterol/HDL Ratio Nasal Screen MRSA (PCR) 04/25/24 04/25/24 04/25/24 02:28 07:24 07:30 WBC 12.03 H RBC 5.04 Hgb 13.2 L Hct 41.6 L MCV 82.5 MCH 26.2 MCHC 31.7 L RDW Std Deviation 51.3 H RDW Coeff of Abigail 17.2 H Plt Count 155 MPV 12.1 Immature Gran % (Auto) 0.5 Neut % (Auto) 78.8 Lymph % (Auto) 7.5 [place] % (Auto) 10.8 Eos % (Auto) 2.2 Baso % (Auto) 0.2 Neut # (Auto) 9.49 H Lymph # (Auto) 0.90 L [place] # (Auto) 1.30 H Eos # (Auto) 0.26 Baso # (Auto) 0.02 Immature Gran # (Auto) 0.06 Sodium 137 Potassium 3.7 Chloride 103 Carbon Dioxide 28 Anion Gap 6 BUN 22 Creatinine 1.32 Est Cr Clr Drug Dosing 59.9 Est GFR ( Amer) 59.9 Est GFR (Non-Af Amer) 51.7 BUN/Creatinine Ratio 16.7 Glucose 152 H POC Glucose 105 H Estimat Average Glucose Pending Hemoglobin A1c Pending Calcium 8.4 L Phosphorus 4.0 Magnesium 2.3 Troponin I High Sens 72693.9 H* D 22257.8 H* D Triglycerides 110 Cholesterol 108 LDL Cholesterol, Calc 50 VLDL Cholesterol, Calc 22 HDL Cholesterol 36 Cholesterol/HDL Ratio 3.0 Nasal Screen MRSA (PCR) PG Care Time/CCT Total # of Minutes Spent Total Time Spent with Patient: Total time spent is greater than 50% in coordination of care (as documented) at patient's floor/unit and/or counseling patient: Coding Level of Care Code 56852 SUB INP/OBS CARE 3/50MIN Diagnoses ST elevation MS (STEMI) I21.11 Involved coronary artery: right coronary artery Acute on chronic systolic heart failure I50.23 Ventricular fibrillation I49.01 Pulmonary emphysema, unspecified emphysema type J43.9 Emphysema type: unspecified AMPARO (obstructive sleep apnea) G47.33 Benign prostatic hyperplasia N40.0 Lumbar disc disease M51.9 GERD (gastroesophageal reflux disease) K21.9 Paroxysmal atrial fibrillation I48.0 Atrial fibrillation type: paroxysmal Pre-diabetes R73.03 History of pulmonary embolus (PE) Z86.711 Morbid obesity with BMI of 40.0-44.9, adult E66.01; Z68.41 (1) ST elevation MS (STEMI) Involved coronary artery: right coronary artery Qualified Code(s): I21.11 - ST elevation (STEMI) myocardial infarction involving right coronary artery (4) COPD with emphysema Emphysema type: unspecified Qualified Code(s): J43.9 - Emphysema, unspecified (9) Afib Atrial fibrillation type: paroxysmal Qualified Code(s): I48.0 - Paroxysmal atrial fibrillation
[2024-04-25] MEDS ORDERED: traMADol HCL 50 MG TABLET PO PRN (12:00)
[2024-04-25] MEDS: FUROSEMIDE INJ 20 MG/2 ML VIAL IV ONE (13:39)
[2024-04-25] MEDS: FAMOTIDINE 20 MG TAB PO SCH (13:39)
[2024-04-25] MEDS: ALBUT/IPRATROP 3MG/0.5MG NEB 3 ML VIAL NEB SCH (13:43)
[2024-04-25] MEDS: LIDOCAINE 5% 1 PATCH TD STA (14:19)
--- NOTE | 2024-04-25 14:20 | Cardiology Progress Note ---
Date of Service April 25, 2024 Assessment & Plan (1) ST elevation myocardial infarction (STEMI) of inferior wall: (2) Ventricular fibrillation: (3) S/P right coronary artery (RCA) stent placement: (4) Afib: Plan: Hospital day 2 Patient is hemodynamically stable in the intensive care unit status post emergent cardiac catheterization for recurrent artery territory ST segment elevation myocardial infarction. Post procedure echocardiogram interpreted independently, there is a large sized inferior and posterior wall motion abnormality, moderate left ventricular systolic dysfunction observed, ejection fraction in the range of 30- 35% having previously been 35-40%. Continue aspirin, Brilinta, Eliquis, with plans to likely transition him to dual therapy with Brilinta and Eliquis at discharge. Change metoprolol to tartrate to metoprolol succinate, 25 mg daily, starting 04/25/2024. Patient had been on lisinopril in the past but not recently. He received a dose of that today. Will discontinue lisinopril and start losartan. Future considerations include Entresto, but needs to be off of lisinopril (MAURY inhibitor) for 36 hours prior to starting Entresto. Future considerations include SGLT2 inhibitor and mineralocorticoid receptor antagonist such as spironolactone, however patient's blood pressure is on the lower side, and will make 1 change at a time. Amiodarone infusion has been discontinued. Discussed role of LifeVest wearable defibrillator with patient and spouse given ejection fraction less than 35% and acute GA. Will tentatively plan on cardiac MRI in 3 months for reassessment of ejection fraction which I think would be a better study for him as his echocardiogram is somewhat technically limited and the MRI would allow better characterization of the burden of scar tissue. Patient is going to think about wearing LifeVest and will have a an answer tomorrow. LDL cholesterol 50 mg/dL. Atorvastatin has been titrated from 40 mg to 80 mg this admission. Patient stable from a cardiology perspective to be transferred out of the intensive care unit into the telemetry unit. DVT prophylaxis: Patient is on full anticoagulation dose Eliquis. Admission and Anticipated Discharge Date Admission Date: April 24, 2024 Subjective Patient seen cardiology follow-up. Feeling well. Telemetry reveals sinus rhythm in the 6080s with occasional PVCs. No recurrent arrhythmia. Review of Systems Review of Systems: All systems reviewed & are unremarkable except as noted in HPI & below Physical Exam Physical Exam: General: no acute distress and stated age Eyes: conjunctiva are pink and non-injected, sclera clear Neck: normal jugular venous pulse, no hepatojugular reflux Chest: normal shape and normal respiratory effort Lungs: clear to auscultation and percussion Cardiac Exam: - regular heart sounds, no murmurs, rubs, or gallops, no jugular venous distention Abdomen: abdomen soft, non-tender, no abnormal masses and no hepatosplenomegaly Musculoskeletal: no gait disturbance, no weakness Extremities: no edema and no cyanosis,, Right radial access site clean dry and intact, no hematoma Neuro:awake, conversant, follows commands, no focal motor deficits Psych: appropriate affect and insight. Results & Data Vital Signs (Past 12 Hours) Vital Signs Temp Pulse Pulse Resp BP BP Pulse Ox 04/25/24 13:44 65 16 91 04/25/24 09:06 76 14 125/54 L 89 L 04/25/24 08:33 74 30 H 113/71 92 04/25/24 07:44 04/25/24 07:00 68 14 116/61 96 04/25/24 06:30 67 15 118/52 L 94 04/25/24 06:00 64 122/65 96 04/25/24 05:49 64 14 96 04/25/24 05:30 73 18 123/67 94 04/25/24 05:30 64 14 123/67 93 04/25/24 05:00 37 C 70 21 123/69 95 04/25/24 04:45 04/25/24 04:30 76 15 94 04/25/24 04:03 72 12 95 04/25/24 04:00 72 13 125/76 95 04/25/24 04:00 72 20 125/76 95 04/25/24 03:00 68 16 111/63 93 04/25/24 03:00 72 15 118/77 94 O2 Del Method O2 Flow Rate 04/25/24 13:44 Room Air 04/25/24 09:06 04/25/24 08:33 04/25/24 07:44 Nasal Cannula 2 04/25/24 07:00 Nasal Cannula 2 04/25/24 06:30 Nasal Cannula 2 04/25/24 06:00 Nasal Cannula 2 04/25/24 05:49 Nasal Cannula 2 04/25/24 05:30 Nasal Cannula 2 04/25/24 05:30 Nasal Cannula 2 04/25/24 05:00 Nasal Cannula 2 04/25/24 04:45 Nasal Cannula 2 04/25/24 04:30 04/25/24 04:03 Nasal Cannula 2 04/25/24 04:00 Nasal Cannula 2 04/25/24 04:00 Nasal Cannula 2 04/25/24 03:00 Nasal Cannula 2 04/25/24 03:00 Nasal Cannula 2 Laboratory Results Cardiac Enzymes 04/24/24 04/25/24 04/25/24 Range/Units 18:59 02:28 07:30 Troponin I High Sens 190560.8 H* D 27781.9 H* D 09883.8 H* D (0-20) pg/ml Lipids 04/25/24 Range/Units 02:28 Triglycerides 110 (0-150) mg/dl Cholesterol 108 (0-200) mg/dl HDL Cholesterol 36 mg/dl Cholesterol/HDL Ratio 3.0 (0-5) CBC 04/25/24 Range/Units 02:28 WBC 12.03 H (4.8-10.8) K/ul RBC 5.04 (4.70-6.10) M/uL Hgb 13.2 L (14.0-18.0) g/dl Hct 41.6 L (42.0-52.0) % Plt Count 155 (130-400) K/uL Neut # (Auto) 9.49 H (1.40-6.50) K/uL Lymph # (Auto) 0.90 L (1.20-3.40) K/uL [place] # (Auto) 1.30 H (0.11-0.59) K/uL Eos # (Auto) 0.26 (0.00-0.50) K/uL Baso # (Auto) 0.02 (0.00-0.20) K/uL Comprehensive Metabolic Panel 04/25/24 Range/Units 02:28 Sodium 137 (136-145) mmol/L Potassium 3.7 (3.5-5.1) mmol/L Chloride 103 (98-107) mmol/L Carbon Dioxide 28 (21-32) mmol/L BUN 22 (6-23) mg/dl Creatinine 1.32 (0.6-1.4) mg/dl Glucose 152 H (70-99(Fasting)) mg/dl Calcium 8.4 L (8.6-10.3) mg/dl Intake and Output 04/24/24 04/25/24 04/25/24 22:59 06:59 14:59 Intake Total 600 / 1779.823 459.823 / 1779.823 250 / 250 Output Total 1225 / 3000 775 / 3000 350 / 350 Balance -625 / -1220.177 -315.177 / -1220.177 -100 / -100 Intake: IV 500 / 1289.823 189.823 / 1289.823 Amiodarone / D5w 360 mg In 200 200 / 389.823 189.823 / 389.823 ml @ 0.5 MG/MIN 16.667 mls/hr IV .Q12H PRETT[facility] Rx#:[id number] Magnesium Sulfate / D5w 1 gm In 200 / 200 100 ml @ 50 mls/hr IV Q2H [facility] Rx#:[id number] Potassium Chloride / Wtr 10 meq 100 / 200 In 100 ml @ 100 mls/hr IV Q1H [facility] Rx#:[id number] Oral 100 / 490 270 / 490 250 / 250 Output: Urine 1225 / 3000 775 / 3000 350 / 350 # Bowel Movements 0 / 0 Other: Weight 129.5 kg Weight Measurement Method Built in [facility] Diagnostic Findings EKG performed 04/24/2024 2209 hrs.: Sinus rhythm at 72 bpm first-degree AV block and frequent PVCs. The previously noted inferior ST segment depression had improved. (4) Afib Atrial fibrillation type: paroxysmal Qualified Code(s): I48.0 - Paroxysmal atrial fibrillation
[2024-04-25] MEDS: FORMOTEROL 20 MCG/2 ML VIAL INH SCH (19:48)
[2024-04-25] MEDS: BUDESONIDE 0.25 MG/2 ML VIAL (PULMICORT) NEB SCH (19:55)
[2024-04-25] MEDS: traMADol HCL 50 MG TABLET PO SCH (20:45)
--- NOTE | 2024-04-26 07:10 | Pulmonology Progress Note ---
Date of Service April 26, 2024 Assessment & Plan (1) History of pulmonary embolus (PE): (2) Morbid obesity with BMI of 40.0-44.9, adult: (3) COPD with emphysema: Emphysema type: unspecified Qualified Code(s): J43.9 - Emphysema, unspecified (4) Multiple pulmonary nodules: (5) Pulmonary hypertension: Plan 2D echo 04/24/2024: EF 35-40%, grade 1 diastolic dysfunction, RV normal in size and function PFT 12/18/2022 personally reviewed: Mild obstructive lung dysfunction, insignificant bronchodilator response, normal TLC with severe decrease in ERV, normal DLCO (Increased FVC by 130 mL, increase in FEV1 by 150 mL, increased DLCO 61--> 80%, decrease in weight by 19 pounds compared to 12/2019) FVC 3.35 L 97%, FEV1 2.32 L 94%, FEV1/FVC 69%, ERV 32%, RV 101%, TLC 95%, RV/TLC 108%, DLCO 80% -- COPD with emphysema and chronic bronchitis Gold class B Previously I had given the patient Evansolivis, Libby as well as Elisha but the only thing that works for him is Incruse Currently on Incruse on a daily basis Continue with Mucinex along with flutter valve for as needed chest congestion --Pulmonary hypertension Likely type II--type III Treat underlying cause as above. 2D echo 04/24/2024: EF 35-40%, grade 1 diastolic dysfunction, RV normal in size and function -- Multiple pulmonary nodules They have been stable since 2017. Likely benign. Patient quit smoking > 15 years ago. No need for for this cancer seen for nodules -- Probable AMPARO ESS: 18, stop Ban BMI 44.5, positive somnolence, positive lethargy The benefits of getting a polysomnography and if positive the use of CPAP machine explained in depth with the patient. Patient understands but states that he does not want to do sleep study at all. Patient was advised that whenever he changes his mind let us know so that we can order one for him. Advised the patient not to drive when he is very drowsy. -- Minimal bronchiectasis bilateral lower lobes Denies any clinical signs of aspiration Monitor -- Allergic rhinitis with postnasal drip Continue with as needed antihistamine and inhaled fluticasone nasal spray -- Ex-smoker [id number] smoking history Quit around age 42 Encouraged to continue abstinence from smoking -- History of pulmonary embolism Diagnosed 2017 Compliant with apixaban Plan: In/out: -524, urine output 1250 Patient did find benefit from budesonide nebulized along with formoterol. Would recommend to add this nebulized regimen to patient's Incruse on discharge. No further recommendation from pulmonary perspective, will sign off Please call directly with any questions Please note the above document was generated using voice recognition software. It may contain grammatical, syntax or spelling errors.Any formal questions or concerns about the content, text or information contained within the body of this dictation should be directly addressed to the provider for clarification. Admission and Anticipated Discharge Date Admission Date: April 24, 2024 Subjective Patient seen and examined at bedside. No acute distress, noted was events overnight He was resting comfortably. Patient's is also in the room Denies any chest pain, no shortness of breath Had good night sleep Fair appetite. No nausea vomiting No headache Review of Systems 2 Review of Systems: All systems reviewed & are unremarkable except as noted in Subjective Physical Exam 2 Physical Exam: Constitutional: No acute distress HEENT: EOMI, PERRLA, thick neck Respiratory system: Good air entry lower lobes bilaterally, no wheeze, no rhonchi, mild crackles bilateral lower lobes CVS: S1-S2 positive, no murmurs or gallops, distant heart sounds Abdomen: Soft, mild epigastric tenderness, no rebound, obese, positive bowel sounds x4, obese Extremities: +2 pulses bilaterally radialis/ dorsalis pedis, no cyanosis, no edema Neuro: Awake alert oriented x3 Psych: Normal mood and affect G/U: No Nath Skin: no rashes, warm and dry Lymphatic: no cervical or axillary lymphadenopathy Results & Data Results & Data Vital Signs (Past 12 Hours) Vital Signs Temp Pulse Pulse Resp BP Pulse Ox O2 Del Method 04/26/24 03:26 36.7 C 87 18 103/53 L 95 Room Air 04/25/24 23:14 36.9 C 78 18 103/43 L 95 Room Air 04/25/24 22:00 70 04/25/24 21:10 Room Air 04/25/24 19:54 36.8 C 72 18 113/77 96 Nasal Cannula 04/25/24 19:50 76 16 90 Room Air O2 Flow Rate 04/26/24 03:26 04/25/24 23:14 04/25/24 22:00 04/25/24 21:10 04/25/24 19:54 2 04/25/24 19:50 Laboratory Results 04/25/24 02:28 04/25/24 02:28 PG Care Time/CCT Total # of Minutes Spent Total Time Spent with Patient: Total time spent is greater than 50% in coordination of care (as documented) at patient's floor/unit and/or counseling patient: Coding Level of Care Code 06105 SUB INP/OBS CARE 2/35MIN Diagnoses History of pulmonary embolus (PE) Z86.711 Morbid obesity with BMI of 40.0-44.9, adult E66.01; Z68.41 Pulmonary emphysema, unspecified emphysema type J43.9 Emphysema type: unspecified Multiple pulmonary nodules R91.8 Pulmonary hypertension I27.20
[2024-04-26 07:39] LABS: Basophils # (auto) 0.02 K/uL (0.00-0.20); Basophils % (auto) 0.2 %; Eosinophils # (auto) 0.38 K/uL (0.00-0.50); Eosinophils % (auto) 3.7 %; Hematocrit (blood only) 42.1 % (42.0-52.0); Hemoglobin 13.1 g/dl (14.0-18.0); Immature Granulocytes # (auto) 0.03 K/uL (0.01-0.20); Immature Granulocytes % (auto) 0.3 %; Lymphocytes # (auto) 1.06 K/uL (1.20-3.40); Lymphocytes % (auto) 10.4 %; Mean Corpuscular Hemoglobin 25.8 pg (25.0-34.0); Mean Corpuscular Hgb Conc 31.1 g/dL (32.0-36.0); Mean Corpuscular Volume 82.9 fL (80.0-100.0); Monocytes # (auto) 1.11 K/uL (0.11-0.59); Monocytes % (auto) 10.9 %; Neutrophils # (auto) 7.57 K/uL (1.40-6.50); Neutrophils % (auto) 74.5 %; Platelet Count 160 K/uL (130-400); RDW Coefficient of Variation 17.6 % (11.5-14.5); RDW Standard Deviation 52.5 fL (36.4-46.3); Red Blood Count 5.08 M/uL (4.70-6.10); White Blood Count 10.17 K/ul (4.8-10.8)
[2024-04-26 07:40] LABS: Estimated Average Glucose 140 mg/dl; Hemoglobin A1C 6.5 % (4.5-5.6)
[2024-04-26 07:54] LABS: BUN Creatinine Ratio 19.2 (10-20); Calcium 8.8 mg/dl (8.6-10.3); Creatinine Clr Calc Pharmacy 60.8 ml/min; Est GFR (Non-African American) 52.6 ml/min; Magnesium 2.1 mg/dl (1.7-2.4); Potassium 4.1 mmol/L (3.5-5.1)
[2024-04-26] MEDS: LOSARTAN POTASSIUM 25 MG TAB PO SCH (08:27)
[2024-04-26] MEDS: METOPROLOL SUCC 25MG EXT REL TAB PO SCH (08:28)
--- NOTE | 2024-04-26 10:49 | Cardiology Progress Note ---
Date of Service April 26, 2024 Assessment & Plan (1) ST elevation myocardial infarction (STEMI) of inferior wall: (2) Ventricular fibrillation: (3) S/P right coronary artery (RCA) stent placement: (4) Afib: Plan: Hospital day 2 - 04/25/24 (Per Dr. Patel's notes) Patient is hemodynamically stable in the intensive care unit status post emergent cardiac catheterization for recurrent artery territory ST segment elevation myocardial infarction. Post procedure echocardiogram interpreted independently, there is a large sized inferior and posterior wall motion abnormality, moderate left ventricular systolic dysfunction observed, ejection fraction in the range of 30- 35% having previously been 35-40%. Continue aspirin, Brilinta, Eliquis, with plans to likely transition him to dual therapy with Brilinta and Eliquis at discharge. Change metoprolol to tartrate to metoprolol succinate, 25 mg daily, starting 04/25/2024. Patient had been on lisinopril in the past but not recently. He received a dose of that today. Will discontinue lisinopril and start losartan. Future considerations include Entresto, but needs to be off of lisinopril (MAURY inhibitor) for 36 hours prior to starting Entresto. Future considerations include SGLT2 inhibitor and mineralocorticoid receptor antagonist such as spironolactone, however patient's blood pressure is on the lower side, and will make 1 change at a time. Amiodarone infusion has been discontinued. Discussed role of LifeVest wearable defibrillator with patient and spouse given ejection fraction less than 35% and acute CO. Will tentatively plan on cardiac MRI in 3 months for reassessment of ejection fraction which I think would be a better study for him as his echocardiogram is somewhat technically limited and the MRI would allow better characterization of the burden of scar tissue. Patient is going to think about wearing LifeVest and will have a an answer tomorrow. LDL cholesterol 50 mg/dL. Atorvastatin has been titrated from 40 mg to 80 mg this admission. Patient stable from a cardiology perspective to be transferred out of the intensive care unit into the telemetry unit. DVT prophylaxis: Patient is on full anticoagulation dose Eliquis. Hospital Day 3 - 04/26/24: Patient able to ambulate in the hallways this morning without exertional angina. He is anxious for discharge, possibly today. Agreeable to Life Vest given LVEF < 35%. Nursing staff/case management notified and to contact [facility] for fitting, hopefully today. Continue ASA, Brilinta, Eliquis today. Upon discharge, plan is to continue Brilinta and Eliquis therapy. ASA to be discontinued. Continue metoprolol succinate 25 mg daily (changed from metoprolol tartrate) Patient received several doses of lisinopril, last dose on 04/25. Transitioned to losartan 25 mg daily. Unable to start Entresto given recent lisinopril dose. Will refer to [facility] clinic as outpatient to continue med optimization, and initiation of Entresto. Consider also adding spironolactone as outpatient. Will need to monitor BP. Continue higher dose statin - atorvastatin 80 mg daily Await Life Vest fitting. Anticipate discharge in the next 24 hours. Case discussed with Dr. Cruz I spent a total of 40 minutes on the date of service in preparation, delivery, and documentation of the care provided to this patient, excluding any time spent in the performance of separately billed services. Liza Rivero PA-C Department of Cardiology, [facility] This chart was completed in part utilizing Speech Voice Recognition Software. Grammatical errors, random word insertions, pronoun errors, and incomplete sentences are an occasional consequence of this system due to software limitations, ambient noise, and hardware issues. Any formal questions or concerns about the content, text, or information contained within the body of this dictation should be directly addressed to the provider for clarification. Admission and Anticipated Discharge Date Admission Date: April 24, 2024 Supervising Physician Co-Signing Physician Notes Attending attestation. I have personally performed a history and physical examination on the patient. I have reviewed the advance practitioner's documentation, and I agree with, and take responsibility for the plan of care. Patient seen examined the bedside. Denies chest pain or shortness of breath. No orthopnea, PND, or lower extremity edema. Family present at bedside. Had questions regarding possible LifeVest and cardiology follow-up. Plan: Patient may be discharged home after LifeVest fitting. Aspirin may be discontinued. Continue current cardiovascular medications including Brilinta, atorvastatin, apixaban, losartan, and metoprolol succinate. Transition losartan to Entresto as outpatient. Repeat echocardiogram in 12 weeks for reassessment of LV systolic function. Consideration for ICD implantation if left ventricular ejection fraction remains below 35%. I spent a total of 30 minutes on the date of service in preparation, delivery, and documentation of the care provided to this patient, excluding any time spent in the performance of separately billed services. Subjective Patient resting in chair. Feeling well. Was ambulating in hallways earlier today with PT. No exertional chest pain or increased dyspnea. Tolerating medications. No orthopnea, PND or edema. No recurrent anginal symptoms since intervention. No dizziness or lightheadedness. Agreeable to [employer] Life Vest Review of Systems Review of Systems: All systems reviewed & are unremarkable except as noted in HPI & below Physical Exam Physical Exam: General: no acute distress and stated age. Morbidly obese. Eyes: conjunctiva are pink and non-injected, sclera clear Neck: normal jugular venous pulse, no hepatojugular reflux Chest: normal shape and normal respiratory effort Lungs: clear to auscultation and percussion Cardiac Exam: regular heart sounds, no murmurs, rubs, or gallops, no jugular venous distention Abdomen: abdomen soft, non-tender, no abnormal masses and no hepatosplenomegaly Musculoskeletal: no gait disturbance, no weakness Extremities: no edema and no cyanosis,, Right radial access site clean dry and intact, no hematoma Neuro:awake, conversant, follows commands, no focal motor deficits Psych: appropriate affect and insight. Results & Data Vital Signs (Past 12 Hours) Vital Signs Temp Pulse Resp BP Pulse Ox O2 Del Method 04/26/24 08:36 Room Air 04/26/24 08:14 36.6 C 87 20 137/62 90 Room Air 04/26/24 08:00 Nasal Cannula 04/26/24 07:59 88 20 90 Room Air 04/26/24 03:26 36.7 C 87 18 103/53 L 95 Room Air 04/25/24 23:14 36.9 C 78 18 103/43 L 95 Room Air Laboratory Results CBC 04/26/24 Range/Units 06:42 WBC 10.17 (4.8-10.8) K/ul RBC 5.08 (4.70-6.10) M/uL Hgb 13.1 L (14.0-18.0) g/dl Hct 42.1 (42.0-52.0) % Plt Count 160 (130-400) K/uL Neut # (Auto) 7.57 H (1.40-6.50) K/uL Lymph # (Auto) 1.06 L (1.20-3.40) K/uL [place] # (Auto) 1.11 H (0.11-0.59) K/uL Eos # (Auto) 0.38 (0.00-0.50) K/uL Baso # (Auto) 0.02 (0.00-0.20) K/uL Comprehensive Metabolic Panel 04/26/24 Range/Units 06:42 Sodium 138 (136-145) mmol/L Potassium 4.1 (3.5-5.1) mmol/L Chloride 103 (98-107) mmol/L Carbon Dioxide 30 (21-32) mmol/L BUN 25 H (6-23) mg/dl Creatinine 1.30 (0.6-1.4) mg/dl Glucose 110 H (70-99(Fasting)) mg/dl Calcium 8.8 (8.6-10.3) mg/dl Intake and Output 04/25/24 04/26/24 04/26/24 22:59 06:59 14:59 Intake Total 100 / 725.35 200 / 725.35 Output Total 700 / 1250 Balance -600 / -524.65 200 / -524.65 Intake: Oral 100 / 550 200 / 550 Output: Urine 700 / 1250 Other: # Unmeasured Voids 3 Weight 130 kg Weight Measurement Method Built in [facility] Diagnostic Findings Telemetry reviewed: NSR 70-80s; occ PVC's. No ventricular arrhythmias. Echo report reviewed from 04/24/24: Mild concentric LVH LVEF 30-35% with large sized apical, inferior, and posterior wall motion abnormality with hypokinesis of the segments Mild MR Grade I diastolic dysfunction Medications Administered Current Inpatient Medications Acetaminophen (Acetaminophen 325 Mg Tab) 650 mg PO Q4H PRN PRN Reason: MILD Pain (Scale 1,2,3) Stop: 05/24/24 11:33 Last Admin: 04/26/24 08:29 Dose: 650 mg Albuterol (Albuterol Hfa 8 Gm Inhaler) 2 puffs INH Q6H PRN PRN Reason: Shortness Of Breath Or Wheezing Stop: 05/24/24 12:39 Albuterol (Albut/Ipratrop 3mg/0.5mg Neb 3 Ml Vial) 3 ml INH Q8H PRN; Protocol PRN Reason: shortness of breath or wheezing Stop: 05/24/24 12:39 Last Admin: 04/25/24 00:26 Dose: 3 ml Albuterol (Albut/Ipratrop 3mg/0.5mg Neb 3 Ml Vial) 3 ml NEB TIDR PRETTY; Protocol Stop: 05/25/24 12:59 Last Admin: 04/26/24 07:59 Dose: Not Given Apixaban (Apixaban 5 Mg Tablet) 5 mg PO BID [facility] Stop: 05/25/24 08:59 Last Admin: 04/26/24 08:26 Dose: 5 mg Aspirin (Aspirin 81 Mg Ectab) [facility] Stop: 05/25/24 08:59 Last Admin: 04/26/24 08:27 Dose: 81 mg Atorvastatin Calcium (Atorvastatin 40 Mg Tab) 80 mg PO [facility] Stop: 05/25/24 08:59 Last Admin: 04/26/24 08:27 Dose: 80 mg Budesonide (Budesonide 0.25 Mg/2 Ml Vial (Pulmicort)) 0.25 mg NEB BIDR [facility] Stop: 05/25/24 18:59 Last Admin: 04/26/24 07:59 Dose: 0.25 mg Diclofenac Sodium (Diclofenac Sod 1% Gel 100 Gm Tube) 2 gm EXT Q8 PRN PRN Reason: joint pain, Stop: 05/24/24 19:54 Doxazosin Mesylate (Doxazosin Mesylate 4 Mg Tab) 8 mg PO PM [facility] Stop: 05/24/24 20:59 Last Admin: 04/25/24 20:46 Dose: 8 mg Famotidine (Famotidine 20 Mg Tab) 20 mg PO BID [facility] Stop: 05/25/24 11:59 Last Admin: 04/26/24 08:27 Dose: 20 mg Formoterol Fumarate (Formoterol 20 Mcg/2 Ml Vial) 20 mcg INH BIDR [facility] Stop: 05/25/24 18:59 Last Admin: 04/26/24 07:58 Dose: 20 mcg Indapamide (Indapamide 1.25 Mg Tab) [facility] Stop: 05/25/24 08:59 Last Admin: 04/26/24 08:27 Dose: 2.5 mg Losartan Potassium (Losartan Potassium 25 Mg Tab) 25 mg PO [facility] Stop: 05/26/24 08:59 Last Admin: 04/26/24 08:27 Dose: 25 mg Metoprolol Succinate (Metoprolol Succ 25mg Ext Rel Tab) 25 mg PO QAM [facility] Stop: 05/26/24 08:59 Last Admin: 04/26/24 08:28 Dose: 25 mg Ondansetron HCl (Ondansetron Inj 2 Mg/Ml 2 Ml Vial) 4 mg IV Q6H PRN PRN Reason: Nausea And Vomiting Stop: 05/24/24 11:33 Pantoprazole Sodium (Pantoprazole 40 Mg Tab) [facility] Stop: 05/25/24 08:59 Last Admin: 04/26/24 08:28 Dose: 40 mg Ticagrelor (Ticagrelor 90 Mg Tab) 90 mg PO BID [facility] Stop: 05/25/24 08:59 Last Admin: 04/26/24 08:28 Dose: 90 mg Tramadol HCl (Tramadol Hcl 50 Mg Tablet) 50 mg PO Q6H PRN PRN Reason: Pain Stop: 05/25/24 11:59 Tramadol HCl (Tramadol Hcl 50 Mg Tablet) 100 mg PO HS [facility] Stop: 05/25/24 20:59 Last Admin: 04/25/24 20:45 Dose: 100 mg Umeclidinium [place] (Umeclidinium [place] 62.5mcg/Blister 7 Puffs/Inhaler) 1 puffs INH QAM [facility] Stop: 05/25/24 08:59 Last Admin: 04/26/24 08:28 Dose: 1 puffs (4) Afib Atrial fibrillation type: paroxysmal Qualified Code(s): I48.0 - Paroxysmal atrial fibrillation
--- NOTE | 2024-04-26 12:07 | Electrocardiogram Report ---
Test Reason : Blood Pressure : / mmHG Vent. Rate : 069 BPM Atrial Rate : 069 BPM P-R Int : 240 ms QRS Dur : 106 ms QT Int : 424 ms P-R-T Axes : 054 -02 100 degrees QTc Int : 454 ms Sinus rhythm with 1st degree A-V block Inferior infarct (cited on or before 23-MAR-2020) Cannot rule out Anterior infarct (cited on or before 23-MAR-2020) Acute Inferior infarct Abnormal ECG When compared with ECG of 23-MAR-2020 18:02, Acute Inferior infarct is now Present Confirmed by Crescencio Brandon ([id number]) on 04/26/2024 12:06:56 PM Referred By: REFERRED SELF Confirmed By:Crescencio Brandon
--- NOTE | 2024-04-26 13:48 | Electrocardiogram Report ---
Test Reason : Blood Pressure : / mmHG Vent. Rate : 087 BPM Atrial Rate : 086 BPM P-R Int : 212 ms QRS Dur : 106 ms QT Int : 414 ms P-R-T Axes : 073 -52 093 degrees QTc Int : 498 ms Poor data quality, interpretation may be adversely affected Sinus rhythm with frequent Premature ventricular complexes Left axis deviation Low voltage QRS Inferior infarct (cited on or before 23-MAR-2020) Possible Anterolateral infarct (cited on or before 23-MAR-2020) Serial changes of evolving Inferior infarct Abnormal ECG When compared with ECG of 24-APR-2024 09:37, (unconfirmed) Premature ventricular complexes are now Present Confirmed by Crescencio Brandon ([id number]) on 04/26/2024 1:48:29 PM Referred By: REFERRED SELF Confirmed By:Crescencio Brandon
--- NOTE | 2024-04-26 19:32 | Hospitalist Progress Note ---
Date of Service April 26, 2024 Assessment & Plan (1) ST elevation MD (STEMI): Plan: Inferior wall STEMI. Recovering well from such. Cath site R wrist is stable. Cath summary by Dr Guillen - 1. Inferior STEMI/100% acute mid RCA occlusion 2. Nonobstructive nonculprit vessel coronary artery disease * Widely patent OM1 stent * 60-70% stenosis in small to medium D2 3. Elevated intracardiac filling pressure 4. Preprocedure VF requiring defibrillation x 1 5. Successful PCI of mid RCA occlusion with 2 overlapping drug-eluting stents (3.5 x 26, 3.5 x 15; postdilated with 4.0 NC) Loaded with Brilinta and now on 90mg BID; remains on metoprolol succ 25mg BID; aspirin 81mg daily; Eliquis 5mg BID; lipitor 80mg daily; losartan 25mg daily At discharge the aspirin will be dropped, and the Brilinta & Eliquis will be continued. He will need script for nitro prn - current stock at home is . In light of volume overload this admission would send home with lasix -- consider stopping indapamide and using lasix in yordy moving forward as all BPs a re low-normal. Appreciate Dr Guillen' & Dr Patel's assistance (2) Acute on chronic systolic heart failure: Plan: previous echo with EF 35-40% echo this admission with EF 30-35% wall motion abnormalities and CAD c/w ischemic CM LVEDP during the cath - received 40mg IV lasix day of MD followed by 20mg IV lasix on 04/25 volume status MUCH improved following the above cont BB cont losartan should ultimately be on Entresto - defer to outpatient setting the transition to this again, as noted in #1 above, consider d/c of indapamide and change to PO lasix (3) Ventricular fibrillation: Plan: pre heart cath had VF x 1 requiring defibrillation then had amiodarone infusion x 24 hours - now off Dr Patel discussed a LifeVest with patient patient agreeable waiting on [employer] company outbound sales representative to deliver the vest, provide edu cation, etc. fortunately no NSVT or VT has been seen since hospital day #1 K/mag levels remain wnl if LV EF remains depressed at 30% long-term would be candidate for ICD (4) COPD with emphysema: Plan: COPD Last PFTs 2022: FVC 97% predicted, FEV1 94% predicted, ratio 69% predicted. Mild obstructive lung dysfunction, normal DLCO follows with Dr Parr, [facility] [place] Pulmonary had extensive wheezing yesterday - suspect it was "Cardiac wheezing" from pulmonary edema wheezing much improved s/p IV lasix cont inhalers/nebs/pulm toilet (5) AMPARO (obstructive sleep apnea): Plan: Suspected AMPARO Has never had formal sleep study Will need such in the future as outpatient (6) Benign prostatic hyperplasia: Plan: cont alpha etelvina (7) Lumbar disc disease: Plan: takes tramadol prn including 100mg at HS to help with night-time back pain tramadol ordered for him (8) GERD (gastroesophageal reflux disease): Plan: EGD 07/2023 for dysphagia with no acute abnormalities seen. Empiric dilation was performed, with no observed change. cont PPI made pepcid 20mg BID scheduled due to mild nausea yesterday (9) Afib: Plan: history of such none seen while here cont Eliquis cont meto succ daily (10) Pre-diabetes: Plan: HbA1C 6.1% in 03/2024 BSGs ac/hs have been excellent while here (11) History of pulmonary embolus (PE): Plan: noted cont Eliquis (12) Morbid obesity with BMI of 40.0-44.9, adult: Plan: BMI 46 Plan h/o DVT/PE - No recurrent clots since 2017. Continue Eliquis, he is on this for both past DVT/PE and history of paroxysmal A-fib nausea - zofran prn; cont pepcid; cont PPI will need more w/u if this symptom recurs awaiting [employer] rep to deliver the vest then can d/c home 2-step ambulatory O2 test completed today - no O2 needed for home updated at bedside Admission and Anticipated Discharge Date Admission Date: April 24, 2024 Subjective tele overnight - ectopy, but no NSVT or other serious dysrhythmia pt reports his breathing is much improved today less wheezing less dyspnea or VERNON no chest pain had some minor nausea yesterday - now resolved NO chest pain he is agreeable to a Life Vest and knows he has to wait for the [employer] rep to deliver the unit no new complaints at bedside during the visit Review of Systems Review of Systems: cv - edema resolved; no chest pain; no orthopnea pulm - no cough, no dyspnea GI - no abd pain or vomiting vascular - no issues with right wrist cath site Physical Exam Physical Exam: gen - morbidly obese, sitting in chair; looks better today; no dyspnea neck - no obvious JVD sitting upright at 90 degrees mouth - MMM heart - RRR, s1 s2, no murmur lungs - minor, scattered wheezes b/l - much better than prior exam; no obvious rales; no increased work of breathing today abd - soft NT ND BS+ ext - no edema b/l, pulses 2+ b/l right wrist - ulnar artery covered w/ dressing; no hematoma; no aneurysm; ulnar and rad pulses R wrist 2+ Results & Data Results & Data Vital Signs (Past 12 Hours) Vital Signs Temp Pulse Pulse Pulse Resp Resp Resp 04/26/24 16:00 04/26/24 15:54 36.9 C 67 18 04/26/24 14:04 94 H 76 24 16 04/26/24 12:47 70 18 04/26/24 11:46 36.7 C 71 18 04/26/24 08:36 04/26/24 08:14 36.6 C 87 20 04/26/24 08:00 04/26/24 07:59 88 20 BP Pulse Ox Pulse Ox Pulse Ox O2 Del Method 04/26/24 16:00 Room Air 04/26/24 15:54 114/73 97 Room Air 04/26/24 14:04 90 93 04/26/24 12:47 93 Room Air 04/26/24 11:46 100/65 92 Room Air 04/26/24 08:36 Room Air 04/26/24 08:14 137/62 90 Room Air 04/26/24 08:00 Nasal Cannula 04/26/24 07:59 90 Room Air Laboratory Results Laboratory Results - last 24 hr 04/25/24 04/26/24 04/26/24 02:28 06:42 07:43 WBC 10.17 RBC 5.08 Hgb 13.1 L Hct 42.1 MCV 82.9 MCH 25.8 MCHC 31.1 L RDW Std Deviation 52.5 H RDW Coeff of Abigail 17.6 H Plt Count 160 MPV 12.0 Immature Gran % (Auto) 0.3 Neut % (Auto) 74.5 Lymph % (Auto) 10.4 [place] % (Auto) 10.9 Eos % (Auto) 3.7 Baso % (Auto) 0.2 Neut # (Auto) 7.57 H Lymph # (Auto) 1.06 L [place] # (Auto) 1.11 H Eos # (Auto) 0.38 Baso # (Auto) 0.02 Immature Gran # (Auto) 0.03 Sodium 138 Potassium 4.1 Chloride 103 Carbon Dioxide 30 Anion Gap 5 BUN 25 H Creatinine 1.30 Est Cr Clr Drug Dosing 60.8 Est GFR ( Amer) 61.0 Est GFR (Non-Af Amer) 52.6 BUN/Creatinine Ratio 19.2 Glucose 110 H POC Glucose 146 H Estimat Average Glucose 140 Hemoglobin A1c 6.5 H Calcium 8.8 Magnesium 2.1 04/26/24 04/26/24 11:40 16:22 WBC RBC Hgb Hct MCV MCH MCHC RDW Std Deviation RDW Coeff of Abigail Plt Count MPV Immature Gran % (Auto) Neut % (Auto) Lymph % (Auto) [place] % (Auto) Eos % (Auto) Baso % (Auto) Neut # (Auto) Lymph # (Auto) [place] # (Auto) Eos # (Auto) Baso # (Auto) Immature Gran # (Auto) Sodium Potassium Chloride Carbon Dioxide Anion Gap BUN Creatinine Est Cr Clr Drug Dosing Est GFR ( Amer) Est GFR (Non-Af Amer) BUN/Creatinine Ratio Glucose POC Glucose 92 151 H Estimat Average Glucose Hemoglobin A1c Calcium Magnesium PG Care Time/CCT Total # of Minutes Spent Total Time Spent with Patient: Total time spent is greater than 50% in coordination of care (as documented) at patient's floor/unit and/or counseling patient: Coding Level of Care Code 46810 SUB INP/OBS CARE 2/35MIN Diagnoses ST elevation MD (STEMI) I21.11 Involved coronary artery: right coronary artery Acute on chronic systolic heart failure I50.23 Ventricular fibrillation I49.01 Pulmonary emphysema, unspecified emphysema type J43.9 Emphysema type: unspecified AMPARO (obstructive sleep apnea) G47.33 Benign prostatic hyperplasia N40.0 Lumbar disc disease M51.9 GERD (gastroesophageal reflux disease) K21.9 Paroxysmal atrial fibrillation I48.0 Atrial fibrillation type: paroxysmal Pre-diabetes R73.03 History of pulmonary embolus (PE) Z86.711 Morbid obesity with BMI of 40.0-44.9, adult E66.01; Z68.41 (1) ST elevation MD (STEMI) Involved coronary artery: right coronary artery Qualified Code(s): I21.11 - ST elevation (STEMI) myocardial infarction involving right coronary artery (4) COPD with emphysema Emphysema type: unspecified Qualified Code(s): J43.9 - Emphysema, unspecified (9) Afib Atrial fibrillation type: paroxysmal Qualified Code(s): I48.0 - Paroxysmal atrial fibrillation
[2024-04-26] MEDS: COUGH DROP (SUGAR FREE) LOZ 24 LOZ/1 BOX BUCCAL PRN (20:53)
[2024-04-26] MEDS ORDERED: METOPROLOL TARTRATE 1 MG/ML VIAL IV PRN (22:45)
--- NOTE | 2024-04-26 23:13 | Electrocardiogram Report ---
Test Reason : Blood Pressure : / mmHG Vent. Rate : 072 BPM Atrial Rate : 072 BPM P-R Int : 206 ms QRS Dur : 098 ms QT Int : 420 ms P-R-T Axes : 001 -52 032 degrees QTc Int : 460 ms Sinus rhythm with frequent Premature ventricular complexes Left axis deviation Low voltage QRS Inferior infarct (cited on or before 23-MAR-2020) Cannot rule out Anterior infarct (cited on or before 23-MAR-2020) Abnormal ECG When compared with ECG of 24-APR-2024 11:49, (unconfirmed) No significant change Confirmed by Crescencio Brandon ([id number]) on 04/26/2024 11:12:50 PM Referred By: REFERRED SELF Confirmed By:Crescencio Brandon
[2024-04-27] MEDS: METOPROLOL TARTRATE 1 MG/ML VIAL IV STA (01:11)
[2024-04-27 06:56] LABS: Calcium 8.9 mg/dl (8.6-10.3); Creatinine Clr Calc Pharmacy 61.8 ml/min; Est GFR (African American) 62.7 ml/min; Est GFR (Non-African American) 54.1 ml/min; Potassium 3.7 mmol/L (3.5-5.1)
--- NOTE | 2024-04-27 07:40 | Pulmonology Progress Note ---
Date of Service April 27, 2024 Assessment & Plan (1) History of pulmonary embolus (PE): (2) Morbid obesity with BMI of 40.0-44.9, adult: (3) COPD with emphysema: Emphysema type: unspecified Qualified Code(s): J43.9 - Emphysema, unspecified (4) Multiple pulmonary nodules: (5) Pulmonary hypertension: Plan 2D echo 04/24/2024: EF 35-40%, grade 1 diastolic dysfunction, RV normal in size and function PFT 12/18/2022 personally reviewed: Mild obstructive lung dysfunction, insignificant bronchodilator response, normal TLC with severe decrease in ERV, normal DLCO (Increased FVC by 130 mL, increase in FEV1 by 150 mL, increased DLCO 61--> 80%, decrease in weight by 19 pounds compared to 12/2019) FVC 3.35 L 97%, FEV1 2.32 L 94%, FEV1/FVC 69%, ERV 32%, RV 101%, TLC 95%, RV/TLC 108%, DLCO 80% -- COPD with emphysema and chronic bronchitis Gold class B Previously I had given the patient Evansolivis, Libby as well as Elisha but the only thing that works for him is Incruse Currently on Incruse on a daily basis Continue with Mucinex along with flutter valve for as needed chest congestion --Pulmonary hypertension Likely type II--type III Treat underlying cause as above. 2D echo 04/24/2024: EF 35-40%, grade 1 diastolic dysfunction, RV normal in size and function -- Multiple pulmonary nodules They have been stable since 2017. Likely benign. Patient quit smoking > 15 years ago. No need for for this cancer seen for nodules -- Probable AMPARO ESS: 18, stop Ban BMI 44.5, positive somnolence, positive lethargy The benefits of getting a polysomnography and if positive the use of CPAP machine explained in depth with the patient. Patient understands but states that he does not want to do sleep study at all. Patient was advised that whenever he changes his mind let us know so that we can order one for him. Advised the patient not to drive when he is very drowsy. -- Minimal bronchiectasis bilateral lower lobes Denies any clinical signs of aspiration Monitor -- Allergic rhinitis with postnasal drip Continue with as needed antihistamine and inhaled fluticasone nasal spray -- Ex-smoker 81-cvox-buvc smoking history Quit around age 42 Encouraged to continue abstinence from smoking -- History of pulmonary embolism Diagnosed 2017 Compliant with apixaban Plan: In/out: -535, urine output 1025 Continue with budesonide nebulized along with formoterol. Would recommend to add this nebulized regimen to patient's Incruse on discharge. No further recommendation from pulmonary perspective, will sign off Please call directly with any questions Please note the above document was generated using voice recognition software. It may contain grammatical, syntax or spelling errors.Any formal questions or concerns about the content, text or information contained within the body of this dictation should be directly addressed to the provider for clarification. Admission and Anticipated Discharge Date Admission Date: April 24, 2024 Subjective Patient seen and examined at bedside. No acute distress, notable symptoms overnight He stated overall he is feeling better. Overnight he said he had some wheezing episode while he was sleeping which is most likely secondary to sleep apnea No chest pain, no headache, no nausea, no vomiting Fair appetite. Review of Systems 2 Review of Systems: All systems reviewed & are unremarkable except as noted in Subjective Physical Exam 2 Physical Exam: Constitutional: No acute distress HEENT: EOMI, PERRLA, thick neck Respiratory system: Good air entry lower lobes bilaterally, no wheeze, no rhonchi, mild crackles bilateral lower lobes, right greater than left CVS: S1-S2 positive, no murmurs or gallops, distant heart sounds Abdomen: Soft, mild epigastric tenderness, no rebound, obese, positive bowel sounds x4, obese Extremities: +2 pulses bilaterally radialis/ dorsalis pedis, no cyanosis, no edema Neuro: Awake alert oriented x3 Psych: Normal mood and affect G/U: No Nath Skin: no rashes, warm and dry Lymphatic: no cervical or axillary lymphadenopathy Results & Data Results & Data Vital Signs (Past 12 Hours) Vital Signs Temp Pulse Resp BP Pulse Ox O2 Del Method 04/27/24 07:01 76 18 92 Room Air 04/27/24 03:43 36.6 C 91 H 18 122/76 94 Room Air 04/26/24 22:06 36.4 C L 117 H 20 105/61 91 Room Air 04/26/24 20:00 Room Air 04/26/24 19:54 73 18 95 Room Air 04/26/24 19:45 36.8 C 71 18 143/68 H 93 Room Air Laboratory Results 04/26/24 06:42 04/27/24 06:06 PG Care Time/CCT Total # of Minutes Spent Total Time Spent with Patient: Total time spent is greater than 50% in coordination of care (as documented) at patient's floor/unit and/or counseling patient: Coding Level of Care Code 28287 SUB INP/OBS CARE 2/35MIN Diagnoses History of pulmonary embolus (PE) Z86.711 Morbid obesity with BMI of 40.0-44.9, adult E66.01; Z68.41 Pulmonary emphysema, unspecified emphysema type J43.9 Emphysema type: unspecified Multiple pulmonary nodules R91.8 Pulmonary hypertension I27.20
--- NOTE | 2024-04-27 09:07 | Electrocardiogram Report ---
Test Reason : Blood Pressure : / mmHG Vent. Rate : 082 BPM Atrial Rate : 082 BPM P-R Int : 218 ms QRS Dur : 092 ms QT Int : 396 ms P-R-T Axes : 048 -53 019 degrees QTc Int : 462 ms Sinus rhythm with 1st degree A-V block with frequent Premature ventricular complexes Left axis deviation Low voltage QRS Old Inferior infarct (cited on or before 23-MAR-2020) Old Anterior infarct (cited on or before 23-MAR-2020) Abnormal ECG When compared with ECG of 24-APR-2024 22:09, No significant change was found Confirmed by Rhys Tobin ([id number]) on 04/27/2024 9:06:43 AM Referred By: REFERRED SELF Confirmed By:Rhys Tobin
[2024-04-27 09:44] LABS: Magnesium 2.1 mg/dl (1.7-2.4)
[2024-04-27] MEDS: POTASSIUM CHLORIDE CRTAB 20 MEQ TABCR PO ONE (10:08)
[2024-04-27] MEDS ORDERED: 0.2 MICRON FILTER SET 1 EACH IV STA (10:28)
[2024-04-27] MEDS ORDERED: AMIODARONE IV BOLUS & DRIP IV STA (10:28)
[2024-04-27] MEDS ORDERED: STAT IV Infusion **Titration per Protocol STA (10:28)
[2024-04-27] MEDS: AMIODARONE / D5W 150 MG/100 ML BAG IV STA (10:58)
[2024-04-27] MEDS: DOCUSATE SODIUM 100 MG CAP PO ONE (10:59)
[2024-04-27] MEDS: POLYETHYLENE (MIRALAX) 17 GM PACK PO PRN (11:05)
[2024-04-27] MEDS: AMIODARONE / D5W 360 MG/200 ML BAG IV ONE (11:13)
--- NOTE | 2024-04-27 11:40 | Cardiology Progress Note ---
Date of Service April 27, 2024 Assessment & Plan (1) ST elevation myocardial infarction (STEMI) of inferior wall: (2) Ventricular fibrillation: (3) S/P right coronary artery (RCA) stent placement: (4) Afib: Plan Hospital day 2 - 04/25/24 (Per Dr. Patel's notes) Patient is hemodynamically stable in the intensive care unit status post emergent cardiac catheterization for recurrent artery territory ST segment elevation myocardial infarction. Post procedure echocardiogram interpreted independently, there is a large sized inferior and posterior wall motion abnormality, moderate left ventricular systolic dysfunction observed, ejection fraction in the range of 30- 35% having previously been 35-40%. Continue aspirin, Brilinta, Eliquis, with plans to likely transition him to dual therapy with Brilinta and Eliquis at discharge. Change metoprolol to tartrate to metoprolol succinate, 25 mg daily, starting 04/25/2024. Patient had been on lisinopril in the past but not recently. He received a dose of that today. Will discontinue lisinopril and start losartan. Future co nsiderations include Entresto, but needs to be off of lisinopril (MAURY inhibitor) for 36 hours prior to starting Entresto. Future considerations include SGLT2 inhibitor and mineralocorticoid receptor a ntagonist such as spironolactone, however patient's blood pressure is on the lower side, and will make 1 change at a time. Amiodarone infusion has been discontinued. Discussed role of LifeVest wearable defibrillator with patient and spouse given ejection fraction less than 35% and acute PR. Will tentatively plan on cardiac MRI in 3 months for reassessment of ejection fraction which I think would be a better study for him as his echocardiogram is somewhat technically limited and the MRI would allow better characterization of the burden of scar tissue. Patient is going to think about wearing LifeVest and will have a an answer tomorrow. LDL cholesterol 50 mg/dL. Atorvastatin has been titrated from 40 mg to 80 mg this admission. Patient stable from a cardiology perspective to be transferred out of the intensive care unit into the telemetry unit. DVT prophylaxis: Patient is on full anticoagulation dose Eliquis. Hospital Day 3 - 04/26/24: Patient able to ambulate in the hallways this morning without exertional angina. He is anxious for discharge, possibly today. Agreeable to Life Vest given LVEF < 35%. Nursing staff/case management notified and to contact [employer] rep for fitting, hopefully today. Continue ASA, Brilinta, Eliquis today. Upon discharge, plan is to continue Brilinta and Eliquis therapy. ASA to be discontinued. Continue metoprolol succinate 25 mg daily (changed from metoprolol tartrate) Patient received several doses of lisinopril, last dose on 04/25. Transitioned to losartan 25 mg daily. Unable to start Entresto given recent lisinopril dose. Will refer to [facility] clinic as outpatient to continue med optimization, and initiation of Entresto. Consider also adding spironolactone as outpatient. Will need to monitor BP. Continue higher dose statin - atorvastatin 80 mg daily Await Life Vest fitting. Anticipate discharge in the next 24 hours. Hospital day 4 - 04/27/24 Patient developed afib last night, initially treated with IV Lopressor. Rates improved. Received morning dose of metoprolol succinate 25 mg daily. HR currently 80-100 with frequent PVCs Potassium is low normal - supplement. Magnesium level acceptable. Discussed with Dr. Cruz and recommended starting IV amiodarone wiht bolus to see if he converts back to NSR. Will then plan to discharge on oral amiodarone for several months. Continue Eliquis 5 mg BID for anticoagulation. He has had no recurrent angina since cath. Continue ASA and Brilinta until discharge. Then ASA to be discontinued. Continue Losartan with probable transition to Entresto as outpatient. Will need [facility] appt upon discharge for med optimization. [employer] Life Vest to be fitted today prior to discharge. Continue atorvastatin at 80 mg (higher dose) Plan to re-evaluate LVEF after 3 months of medication optimization. IF LVEF remains < 35%, will need to discuss AICD implant. Case discussed with Dr. Cruz I spent a total of 50 minutes on the date of service in preparation, delivery, and documentation of the care provided to this patient, excluding any time spent in the performance of separately billed services. Liza Rivero PA-C Department of Cardiology, [facility] This chart was completed in part utilizing Speech Voice Recognition Software. Grammatical errors, random word insertions, pronoun errors, and incomplete sentences are an occasional consequence of this system due to software limitatio ns, ambient noise, and hardware issues. Any formal questions or concerns about the content, text, or information contained within the body of this dictation should be directly addressed to the provider for clarification. Admission and Anticipated Discharge Date Admission Date: April 24, 2024 Supervising Physician Co-Signing Physician Notes Attending attestation. I have personally performed a history and physical examination on the patient. I have reviewed the advance practitioner's documentation, and I agree with, and take responsibility for the plan of care. Patient seen examined the bedside. Converted to atrial fibrillation last night at approximately 8 PM. Fair rate control with PVCs noted on telemetry currently. Patient notes mild palpitations. No chest discomfort or heaviness. Plan: Initiate treatment with IV amiodarone with transition to oral amiodarone 200 mg twice daily given recent ventricular arrhythmias and now recurrent atrial fibrillation. External direct-current cardioversion may be considered if patient does not convert to sinus rhythm with addition of antiarrhythmic therapy. Continue current cardiovascular medications including Brilinta, atorvastatin, apixaban, losartan, and metoprolol succinate. Transition losartan to Entresto as outpatient. Repeat echocardiogram in 12 weeks for reassessment of LV systolic function. Consideration for ICD implantation if left ventricular ejection fraction remains below 35%. Close cardiology follow-up 1 week post discharge. I spent a total of 30 minutes on the date of service in preparation, delivery, and documentation of the care provided to this patient, excluding any time spent in the performance of separately billed services. Subjective Patient sitting at edge of bed. Feeling "off" this morning. No chest pain or dyspnea. Reports ongoing palpitations/fluttering sensation. Developed recurrent afib last evening around 8:30. Remains in rate controlled afib this morning with frequent PVC's. No orthopnea, PND or edema. Cough improved. No dizziness. Review of Systems Review of Systems: All systems reviewed & are unremarkable except as noted in HPI & below Physical Exam Physical Exam: General: no acute distress and stated age. Morbidly obese. Eyes: conjunctiva are pink and non-injected, sclera clear Neck: normal jugular venous pulse, no hepatojugular reflux Chest: normal shape and normal respiratory effort Lungs: clear to auscultation and percussion Cardiac Exam: Irregularly irregular, no murmurs, rubs, or gallops, no jugular venous distention Abdomen: abdomen soft, non-tender, no abnormal masses and no hepatosplenomegaly Musculoskeletal: no gait disturbance, no weakness Extremities: no edema and no cyanosis,, Right radial access site clean dry and intact, no hematoma Neuro:awake, conversant, follows commands, no focal motor deficits Psych: appropriate affect and insight. Results & Data Vital Signs (Past 12 Hours) Vital Signs Temp Pulse Resp BP Pulse Ox O2 Del Method 04/27/24 08:15 Room Air 04/27/24 08:12 36.0 C L 56 L 18 145/68 H 93 Room Air 04/27/24 07:01 76 18 92 Room Air 04/27/24 03:43 36.6 C 91 H 18 122/76 94 Room Air Laboratory Results Comprehensive Metabolic Panel 04/27/24 Range/Units 06:06 Sodium 136 (136-145) mmol/L Potassium 3.7 (3.5-5.1) mmol/L Chloride 102 (98-107) mmol/L Carbon Dioxide 27 (21-32) mmol/L BUN 28 H (6-23) mg/dl Creatinine 1.27 (0.6-1.4) mg/dl Glucose 116 H (70-99(Fasting)) mg/dl Calcium 8.9 (8.6-10.3) mg/dl Intake and Output 04/26/24 04/27/24 04/27/24 22:59 06:59 14:59 Intake Total 200 / 490 50 / 490 100 / 100 Output Total 375 / 1025 500 / 1025 Balance -175 / -535 -450 / -535 100 / 100 Intake: IV 100 / 100 Amiodarone / D5w 150 mg In 100 100 / 100 ml @ 600 mls/hr IV NOW STA Rx#: [id number] Oral 200 / 490 50 / 490 Output: Urine 375 / 1025 500 / 1025 Other: Weight 128.5 kg Weight Measurement Method Built in [facility] Diagnostic Findings Telemetry reviewed: Afib with controlled rates this morning ranging 80-100 bmp. Afib started last night on 04/26/24 around 8:30 PM. Frequent PVC's also noted today. Medications Administered Current Inpatient Medications Acetaminophen (Acetaminophen 325 Mg Tab) 650 mg PO Q4H PRN PRN Reason: MILD Pain (Scale 1,2,3) Stop: 05/24/24 11:33 Last Admin: 04/27/24 01:00 Dose: 650 mg Albuterol (Albuterol Hfa 8 Gm Inhaler) 2 puffs INH Q6H PRN PRN Reason: Shortness Of Breath Or Wheezing Stop: 05/24/24 12:39 Albuterol (Albut/Ipratrop 3mg/0.5mg Neb 3 Ml Vial) 3 ml INH Q8H PRN; Protocol PRN Reason: shortness of breath or wheezing Stop: 05/24/24 12:39 Last Admin: 04/25/24 00:26 Dose: 3 ml Albuterol (Albut/Ipratrop 3mg/0.5mg Neb 3 Ml Vial) 3 ml NEB TIDR PRETTY; Protocol Stop: 05/25/24 12:59 Last Admin: 04/27/24 07:01 Dose: Not Given Apixaban (Apixaban 5 Mg Tablet) 5 mg PO BID [facility] Stop: 05/25/24 08:59 Last Admin: 04/27/24 08:12 Dose: 5 mg Aspirin (Aspirin 81 Mg Ectab) 81 mg PO QAM [facility] Stop: 05/25/24 08:59 Last Admin: 04/27/24 08:11 Dose: 81 mg Atorvastatin Calcium (Atorvastatin 40 Mg Tab) 80 mg PO QAM [facility] Stop: 05/25/24 08:59 Last Admin: 04/27/24 08:12 Dose: 80 mg Budesonide (Budesonide 0.25 Mg/2 Ml Vial (Pulmicort)) 0.25 mg NEB BIDR [facility] Stop: 05/25/24 18:59 Last Admin: 04/27/24 07:01 Dose: 0.25 mg Diclofenac Sodium (Diclofenac Sod 1% Gel 100 Gm Tube) 2 gm EXT Q8 PRN PRN Reason: joint pain, Stop: 05/24/24 19:54 Doxazosin Mesylate (Doxazosin Mesylate 4 Mg Tab) 8 mg PO PM [facility] Stop: 05/24/24 20:59 Last Admin: 04/26/24 20:55 Dose: 8 mg Famotidine (Famotidine 20 Mg Tab) 20 mg PO BID [facility] Stop: 05/25/24 11:59 Last Admin: 04/27/24 08:11 Dose: 20 mg Formoterol Fumarate (Formoterol 20 Mcg/2 Ml Vial) 20 mcg INH BIDR [facility] Stop: 05/25/24 18:59 Last Admin: 04/27/24 07:01 Dose: 20 mcg Amiodarone HCl/Dextrose (Nexterone / D5w) 360 mg in 200 mls @ 33.333 mls/hr IV ONE ONE Stop: 04/27/24 16:44 Last Admin: 04/27/24 11:13 Dose: 1 mg/min, 33.3 mls/hr Amiodarone HCl/Dextrose (Nexterone / D5w) 360 mg in 200 mls @ 16.667 mls/hr IV .Q12H [facility] Stop: 05/27/24 16:44 Indapamide (Indapamide 1.25 Mg Tab) 2.[address] [facility] Stop: 05/25/24 08:59 Last Admin: 04/27/24 08:12 Dose: 2.5 mg Losartan Potassium (Losartan Potassium 25 Mg Tab) [facility] [facility] [place] Stop: 05/26/24 08:59 Last Admin: 04/27/24 08:12 Dose: 25 mg Menthol (Cough Drop (Sugar Free) Yana 24 Yana/1 Box) 1 yana BUCCAL Q1H PRN PRN Reason: Sore Throat Stop: 04/29/24 19:52 Last Admin: 04/26/24 20:53 Dose: 1 yana Metoprolol Succinate (Metoprolol Succ 25mg Ext Rel Tab) [address] [facility] Stop: 05/26/24 08:59 Last Admin: 04/27/24 08:11 Dose: 25 mg Metoprolol Tartrate (Metoprolol Tartrate 1 Mg/Ml Vial) 2.5 mg IV Q5M PRN PRN Reason: pulse greater than 110 Ondansetron HCl (Ondansetron Inj 2 Mg/Ml 2 Ml Vial) 4 mg IV Q6H PRN PRN Reason: Nausea And Vomiting Stop: 05/24/24 11:33 Pantoprazole Sodium (Pantoprazole 40 Mg Tab) [address] [facility] Stop: 05/25/24 08:59 Last Admin: 04/27/24 08:11 Dose: 40 mg Polyethylene Glycol (Polyethylene (Miralax) 17 Gm Pack) 17 gm PO BID PRN PRN Reason: Constipation Stop: 05/26/24 19:47 Last Admin: 04/27/24 11:05 Dose: 17 gm Ticagrelor (Ticagrelor 90 Mg Tab) 90 mg PO BID [facility] Stop: 05/25/24 08:59 Last Admin: 04/27/24 09:46 Dose: 90 mg Tramadol HCl (Tramadol Hcl 50 Mg Tablet) 50 mg PO Q6H PRN PRN Reason: Pain Stop: 05/25/24 11:59 Tramadol HCl (Tramadol Hcl 50 Mg Tablet) 100 mg PO HS [facility] Stop: 05/25/24 20:59 Last Admin: 04/26/24 20:54 Dose: 100 mg Umeclidinium [place] (Umeclidinium [place] 62.5mcg/Blister 7 Puffs/Inhaler) 1 p uffs INH QAM [facility] Stop: 05/25/24 08:59 Last Admin: 04/27/24 08:12 Dose: 1 puffs (4) Afib Atrial fibrillation type: paroxysmal Qualified Code(s): I48.0 - Paroxysmal atrial fibrillation
--- NOTE | 2024-04-27 14:39 | Electrocardiogram Report ---
Test Reason : Blood Pressure : / mmHG Vent. 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
[2024-04-27] MEDS: AMIODARONE / D5W 360 MG/200 ML BAG IV SCH (16:41)
--- NOTE | 2024-04-28 17:56 | Discharge Summary ---
Date of Service April 27, 2024 Admission HPI Per Admitting Provider Cam is a 79-year-old male past medical history of BMI 50.7, DVT/PE, AMPARO, A-fib, COPD with emphysema, CAD, history of lumbar disc disease with some loss of cord signal intensity, brought based disc bulge at T11-T12 without compression, facet arthritis at L4-L5 and L3-L4 followed by orthospine and treated with conservative measures, PT, and pain management presents heart alert Vfib x1 shock just before procedure Difficult mid RCA lesion s/p 2 stents. No other high risk disease. PVCs, otherwise stable through procedure. On amio drip Per Patient: History of prior LA, had been in hsi normal state of health up until this morning. Was walking up an inclined plane ~50 feet when he has sudden onset of substernal chest pain and dyspnea. This did not resolve with rest and felt similar to his prior heart attack. Presented to the ER for evaluation, and was taken to the lab rep as an inferior STEMI heart alert. He reprots he takes metoprolol since his first LA, denies hx of hypertension. No hx DM2. Endorses history of prior CAD with stent. He has untreated sleep apnea. Feels tired through the day, and wake sup frequently at night with poor sleep quality. has declined AMPARO in the past, willing to try CPAP whil ein the hospital. Is aware that untreated AMPARO can place stress on the heart, raise blood pressure, and g reatly decrease sleep quality. Hx of COPD. Was going to trial Breztri, this was prohibitively expensive to him. Prefers to continue his current medications. Denies wheezing today. Denies cough. Denies sputum production. Denies orthopnea. Denies leg swelling. Quit tobacco use 44 years ago, no ETOH use in 44 years. NKDA. Full Code Discharge Data Allergies Allergy/AdvReac Type Severity Reaction Status Date / Time No Known Drug Allergies Allergy Verified 01/13/24 11:08 Consultations 04/24/24 09:50 ED Decision to Admit Stat 04/24/24 10:42 Consult Pattern Cutter Routine 04/24/24 12:39 Consult Cardiology Routine 04/27/24 15:55 [facility] [place] Referral Routine Procedures Performed Operation Date: 04/24/24 10:00 Actual Procedures p Cineradiography w/Routine Exam - Abrahan Guillen MD p Aspiration/PCI w/FERDINAND for Stemi - Abrahan Guillen MD s Ultrasound Vascular Access - Abrahan Guillen MD Ordered Studies 04/24/24 09:48 CL Cath Imgs for PACS use only Stat Hospital Course (1) ST elevation LA (STEMI): Inferior wall STEMI. Recovering well from such. Cath site R wrist is stable. Cath summary by Dr Guillen - 1. Inferior STEMI/100% acute mid RCA occlusion 2. Nonobstructive nonculprit vessel coronary artery disease * Widely patent OM1 stent * 60-70% stenosis in small to medium D2 3. Elevated intracardiac filling pressure 4. Preprocedure VF requiring defibrillation x 1 5. Successful PCI of mid RCA occlusion with 2 overlapping drug-eluting stents (3.5 x 26, 3.5 x 15; postdilated with 4.0 NC) Loaded with Brilinta and now on 90mg BID; remains on metoprolol succ 25mg BID; aspirin 81mg daily; Eliquis 5mg BID; lipitor 80mg daily; losartan 25mg daily At discharge the aspirin will be dropped, and the Brilinta & Eliquis will be continued. He will need script for nitro prn - current stock at home is . In light of volume overload this admission would send home with lasix -- consider stopping indapamide and using lasix in yordy moving forward as all BPs are low-normal. Appreciate Dr Guillen' & Dr Patel's assistance (2) Acute on chronic systolic heart failure: previous echo with EF 35-40% echo this admission with EF 30-35% wall motion abnormalities and CAD c/w ischemic CM LVEDP during the cath - received 40mg IV lasix day of LA followed by 20mg IV lasix on 04/25 volume status MUCH improved following the above cont BB cont losartan should ultimately be on Entresto - defer to outpatient setting the transition to this again, as noted in #1 above, consider d/c of indapamide and change to PO lasix (3) Ventricular fibrillation: pre heart cath had VF x 1 requiring defibrillation then had amiodarone infusion x 24 hours - now off Dr Patel discussed a LifeVest with patient patient agreeable waiting on [employer] route sales representative to deliver the vest, provide education, etc. fortunately no NSVT or VT has been seen since hospital day #1 K/mag levels remain wnl if LV EF remains depressed at 30% long-term would be candidate for ICD (4) COPD with emphysema: COPD Last PFTs 2022: FVC 97% predicted, FEV1 94% predicted, ratio 69% predicted. Mild obstructive lung dysfunction, normal DLCO follows with Dr Parr [facility] [place]monary had extensive wheezing yesterday - suspect it was "Cardiac wheezing" from pulmonary edema wheezing much improved s/p IV lasix cont inhalers/nebs/pulm toilet (5) AMPARO (obstructive sleep apnea): Suspected AMPARO Has never had formal sleep study Will need such in the future as outpatient (6) Benign prostatic hyperplasia: cont alpha etelvina (7) Lumbar disc disease: takes tramadol prn including 100mg at HS to help with night-time back pain tramadol ordered for him (8) GERD (gastroesophageal reflux disease): EGD 07/2023 for dysphagia with no acute abnormalities seen. Empiric dilation was performed, with no observed change. 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 Continue Eliquis, he is on this for both past DVT/PE and history of paroxysmal A-fib nausea - zofran prn; cont pepcid; cont PPI will need more w/u if this symptom recurs awaiting [employer] rep to deliver the vest then can d/c home 2-step ambulatory O2 test completed today - no O2 needed for home updated at bedside Discharge Plan Discharge Items Patient Disposition: Home - Self-Care Reason For Visit: STEMI Discharge Diagnosis: STEMI Activity: Resume your previous activity Non-emergency contact: Primary Care Provider Call non-emergency contact if: you have any medication questions Follow-up/Referrals: Kerrie Jackson PA-C [Physician Tipping Machine Operator Automatic] - 05/03/24 10:30 am (Congestive Heart Failure Program Appointment Information Early follow up is essential to managing your heart failure. An appointment has been scheduled for you with the [facility] Heart Failure Program within 7 days of discharge. Anticipate this visit to be 30-60 minutes long. Please expect a telemetry tech phone call from one of our nurses approximately 48 hours from discharge. They will also be placing an order for lab work to be completed 1-2 days prior to your heart failure follow up appointment. Please be sure to have this done so we can go over the results when you come in. Office Location The cardiology office building is located in front of the hospital at [address]. Bring the following with you to your follow-up doctor appointments: Please bring your daily weight log any discharge paperwork all of your medication bottles with you to this visit. ) Stevie Higginbotham MD [Primary Care Provider] - Diet: Heart Healthy Addtl Attending Provider Instructions: Call your Primary Care doctor if any of the following symptoms or problems start or get worse: * Shortness of breath or difficulty breathing * Wake up at night short of breath * Chest pain * Cough * Swelling of your hands, feet, or legs * More fatigued or tired with your normal activity * Palpitations - sudden fast heart beats WEIGHT * Weigh yourself every morning after using the bathroom. * Use the same scale. * Wear the same amount of clothing. * Write your weight down on a chart. * Call your Primary Care doctor if you gain more than 2-3 pounds in 1-2 days. MEDICATIONS * Use this discharge instruction sheet for medication instructions. * Take your medications at the time your doctor ordered. * Do not skip a dose of your medicines. * If you miss a dose of medicine, take it as soon as possible, but DO NOT DOUBLE A DOSE. * Read your medicine information when you get home. * Know all of the side effects of your medicine. If in doubt, ask your pharmacist * Call your Primary Care doctor's office if you have any side effects. * Be sure all of your doctors know what medicine and herbs you take (including cold, flu, and herbal medicine). Take the following with you to your follow-up doctor appointments: * Weight Chart * Medication List * List of questions Do not drink excessive alcohol, beer or wine. FOllowup with PCP in 1-2 weeks. As you are requesting to switch services to [facility], we will recommend followup with [facility] Cardiology: Dr. Guillen in 1-2 weeks. We will also set you up with Rosmery Jackson at the Heart failure clinic Role of LifeVest wearable defibrillator was discussed with you and your spouse basim funk ejection fraction less than 35% and acute Myocardial Infarction. Will tentatively plan on cardiac MRI in 3 months for reassessment of ejection fraction LDL cholesterol 50 mg/dL. Atorvastatin will be continued but at 80 mg. Upon discharge, plan is to continue Brilinta and Eliquis therapy. ASA to be discontinued. Continue metoprolol succinate 25 mg daily (changed from metoprolol tartrate) You will continue Losartan and this will be transitioned to Entresto at your followup appointment. We may add spironolactone at your followup appointment. Pending Studies at Discharge: No Stand-Alone Forms: My [facility], Smoking Cessation Medications and DC Order Prescriptions: New losartan 25 mg Tablet 25 mg PO QAM Qty: 30 0RF Brilinta 90 mg Tablet 90 mg PO BID Qty: 60 0RF amiodarone [Pacerone] 200 mg tablet 200 mg PO BID 14 Days Qty: 28 0RF Continued docusate sodium [Colace] 100 mg capsule 100 mg PO QPM PRN (Reason: Constipation) Rx Instructions: otc unable to verify Eliquis 5 mg tablet 5 mg PO BID Qty: 180 3RF metoprolol succinate 25 mg tablet extended release 24 hr 25 mg PO QPM Qty: 90 3RF pantoprazole 40 mg tablet,delayed release (DR/EC) 40 mg PO QAM Qty: 90 3RF indapamide 2.5 mg tablet 2.5 mg PO QAM Qty: 90 3RF tramadol 50 mg tablet 50 mg PO TID PRN (Reason: pain) Qty: 90 5RF ergocalciferol (vitamin D2) [Vitamin D2] 1,250 mcg (50,000 unit) capsule 1,250 mcg PO .Twice Weekly Qty: 30 2RF (DME) Flutter Valve Device See Rx Instructions .MEDSUPPLY Qty: 1 0RF Rx Instructions: Use it every 6 hours when awake. (DME) nebulizers [Aeroneb Go Nebulizer] Misc See Rx Instructions .MEDSUPPLY Qty: 1 0RF Rx Instructions: With tubing and supplies. J44.9. J45.9. albuterol sulfate 90 mcg/actuation HFA aerosol inhaler 2 puff INH Q6H PRN (Reason: Shortness Of Breath Or Wheezing) Qty: 18 4RF ipratropium-albuterol 0.5 mg-3 mg(2.5 mg base)/3 mL solution for nebulization 3 ml inhalation Q8H PRN (Reason: shortness of breath or wheezing) Qty: 180 3RF acetaminophen [Tylenol] 325 mg capsule 325 mg PO QID PRN (Reason: Pain) Rx Instructions: otc unable to verify simethicone [Gas-X Extra Strength] 125 mg capsule 125 mg PO DAILY PRN (Reason: Gi Upset) famotidine [Pepcid] 20 mg tablet 20 mg PO UD PRN (Reason: gerd) Rx Instructions: not on file with pharmacy. original directions: 20 mg po daily prn triamcinolone acetonide 0.1 % ointment 1 applic topical DAILY Rx Instructions: per pharmacy bid doxazosin 8 mg tablet 8 mg PO PM Qty: 90 3RF Gemtesa 75 mg tablet 75 mg PO DAILY Qty: 90 3RF mometasone 0.1 % cream 1 applic topical DAILY PRN (Reason: ud) Rx Instructions: filled in back 2022 Incruse Ellipta 62.5 mcg/actuation blister with device 1 inh INHALATION QAM Changed atorvastatin 80 mg tablet 80 mg PO QAM Qty: 30 0RF No Action budesonide 0.25 mg/2 mL suspension for nebulization 0.25 mg NEB BID Qty: 120 0RF formoterol fumarate [Perforomist] 20 mcg/2 mL solution for nebulization 20 mcg inhalation BID Qty: 120 0RF Discharge Orders: Discharge Order- CHF (Routine); Ordered 04/27/24 Ordered By: Fawad Fleming/Other Patient Handouts: A1C, 5 Steps for Eating Healthier Admission Data Admit Date/Time: 04/24/24 10:42 Attending Provider: Fawad Murcia Admit Provider: Elijah Francis Primary Care Provider: Stevie Higginbotham Other Providers: Efrain Rudd; Hector Guillen; Jeb Patel; Kerrie Cuellar Other Interventions: Discharge Summary Assessment (RN) Last Done: 04/27/24 16:[address] elevation LA (STEMI) I21.11 Involved coronary artery: right coronary artery Acute on chronic systolic heart failure I50.23 Ventricular fibrillation I49.01 Pulmonary emphysema, unspecified emphysema type J43.9 Emphysema type: unspecified AMPARO (obstructive sleep apnea) G47.33 Benign prostatic hyperplasia N40.0 Lumbar disc disease M51.9 GERD (gastroesophageal reflux disease) K21.9 Paroxysmal atrial fibrillation I48.0 Atrial fibrillation type: paroxysmal Pre-diabetes R73.03 History of pulmonary embolus (PE) Z86.711 Morbid obesity with BMI of 40.0-44.9, adult E66.01; Z68.41
== END 2024-04-27 17:23 | disposition home or self-care (01) | DRG 321 ==
LOC: ED 09:34 → OR 10:03 → 1E 10:03 → SUATTDRO 10:42 → 1E 10:42 → 2E 04-25 18:40